=== PATIENT | female | born 1960 | race Caucasian/White ===

== ENCOUNTER 2020-02-19 16:08 | Emergency (ER) | payer MEDICARE, MEDICAID, SELFPAY ==
--- NOTE | ~2020-02-19 | XR_ITS ---
EXAMINATION: XR elbow LT min 3V EXAM DATE: 02/19/2020 17:31 INDICATION: Initial encounter following injury, with pain of the left elbow. TECHNIQUE: Left elbow frontal, lateral with flexion, and oblique projections obtained and reviewed. There is no prior study for comparison. FINDINGS: Left elbow anterior humeral line intact. No acute fracture line identified. There is left elbow joint effusion or hemarthrosis, difficult to exclude radiographically occult fracture. Some pos terior soft tissue swelling. No radiopaque foreign bodies identified. IMPRESSION: Large left elbow joint effusion or hemarthrosis without fracture line identified. Can't exclude radiographically occult fracture. Reviewed, dictated and finalized at location A. IMPRESSION: Large left elbow joint effusion or hemarthrosis without fracture l ine identified. Can't exclude radiographically occult fracture.
--- NOTE | ~2020-02-19 | CT_ITS ---
EXAMINATION: CT elbow LT wo con EXAM DATE: 02/19/2020 19:36 INDICATION: Fall, large left elbow joint effusion. Left elbow pain, clinical concern for fracture. TECHNIQUE: Spiral CT left elbow was performed without contrast. Axial, coronal and sagittal images were reviewed. The dose-length product (DLP) for this examination was 353.97 mGy-cm. The exposure w as tailored according to patient size (auto mA exposure control), and iterative reconstruction (ASIR) was used as additional dose reduction technique. Correlation is made to x-ray same date. FINDINGS: No fracture line is specifically identified. There is large mildly proteinaceous joint with tiny lipomatous component in the nondependent portion, lipohemarthrosis, indicated on axial image 84 . This indicates high likelihood of a radiographically occult nondisplaced fracture. Large amount of posterior soft tissue swelling. Consider orthopedic consult. Follow-up nonemergent MRI would likely be able to identify the source, b ut there may not be any orthopedic intervention specifically needed other than immobilization. IMPRESSION: Large left elbow lipohemarthrosis (only tiny lipomatous component, likely indicating radi ographic occult nondisplaced fracture). Consider orthopedic consult. Reviewed, dictated and finalized at location A. IMPRESSION: Large left elbow lipohemarthrosis (only tiny lipomatous component, likely indicating radiographic occult nondisplaced fracture). Consider orthoped ic consult.
--- NOTE | ~2020-02-19 | XR_ITS ---
EXAMINATION: XR chest 2V EXAM DATE: 02/19/2020 17:32 INDICATION: Preoperative. Seizure. TECHNIQUE: Frontal and lateral projections of the chest obtained and reviewed. There is no prior tessy dy for comparison. FINDINGS: The lungs are clear. There are no pleural effusions. The cardiomediastinal silhouette is within normal limits. There is no pneumothorax suspected. The bones and soft tissues are unremarkab le. IMPRESSION: No acute cardiopulmonary findings. Reviewed, dictated and finalized at location A.
--- NOTE | ~2020-02-19 | XR_ITS ---
EXAMINATION: XR shoulder LT min 2V EXAM DATE: 02/19/2020 17:31 INDICATION: Initial encounter following injury, with pain of the left shoulder. TECHNIQUE: The following left shoulder projections obtained: frontal projection with internal rotatio n, frontal projection with external rotation, Grashey, and scapular Y view (4+ views). There is no p rior study for comparison. FINDINGS: No evidence of left shoulder rotator cuff calcific tendinosis. There is mild glenohumeral , moderate acromioclavicular joint primary osteoarthritis. There are no acute fractures or dislocatio ns identified. There is no subcutaneous gas. The soft tissue is unremarkable. There are no radiop aque foreign bodies. IMPRESSION: Left shoulder exam without acute osseous findings. Reviewed, dictated and finalized at location A.
--- NOTE | ~2020-02-19 | CT_ITS ---
EXAMINATION: CT brain wo con EXAM DATE: 02/19/2020 17:00 INDICATION: Left arm weakness. Transient alteration of awareness. TECHNIQUE: Spiral CT of the head was performed without contrast. Axial, coronal and sagittal images were reviewed. The dose-length product (DLP) for this examination was 605.33 mGy-cm. The exposure w as tailored according to patient size, and iterative reconstruction (ASIR) was used as additional dos e reduction technique. There is no prior study for comparison. FINDINGS: There is no acute intraparenchymal hemorrhage. No evidence of intraparenchymal brain mass lesion. No evidence of acute infarction. There is no mass effect or midline shift. The ventricles are normal in size. There are no extra-axial collections. There are no acute calvarial fractures. P daniel has had bilateral ocular lens surgery. Soft tissue is unremarkable. The visualized sinuses a nd mastoid air cells are well aerated. IMPRESSION: 1. No acute intracranial findings. Reviewed, dictated and finalized at location A.
--- NOTE | ~2020-02-19 | XR_ITS ---
EXAMINATION: XR wrist LT min 3V EXAM DATE: 02/19/2020 17:32 INDICATION: Initial encounter following injury, with pain of the left wrist. TECHNIQUE: Left wrist frontal, frontal with ulnar deviation, oblique and lateral projections obtained and reviewed. There is no prior study for comparison. FINDINGS: Left wrist scapholunate joint space is maintained. There are no acute fractures or dislocat ions identified. There is no subcutaneous gas. There are arterial calcifications, arteriosclerosis. There are no radiopaque foreign bodies. IMPRESSION: No acute osseous findings. Reviewed, dictated and finalized at location A. IMPRESSION: No acute osseous findings.
[2020-02-19 16:19] VITALS: BP 163/77; PULSE 63; RESP 17; TEMP 37.3; O2SAT 98
--- NOTE | 2020-02-19 16:42 | ECG_ITS ---
Measurements Intervals [place] Rate: 58 P: 64 GA: 167 QRS: -28 QRSD: 91 T: 6 QT: 390 QTc: 385 Interpretive Statements SINUS BRADYCARDIA VENTRICULAR PREMATURE COMPLEX LOW QRS VOLTAGE IN PRECORDIAL LEADS BORDERLINE R WAVE PROGRESSION, ANTERIOR LEADS BORDERLINE T WAVE ABNORMALITY- INFERIOR LEADS BASELINE ARTIFACT- I, II, AVR, AVL, AVF BORDERLINE ECG Electronically Signed On 02-19-2020 19:44:14 CDT by Edgar Waters D.O.
[2020-02-19 17:03] LABS: Basophils Percent Auto 0.3 % (0.2-1.2); Eosinophils Absolute Auto 0.1 K/mm3 (0-0.3); Eosinophils Percent Auto 0.9 % (0-4.4); Hematocrit 29.4 % (37.0-47.0); Hemoglobin 9.1 g/dL (12.0-15.0); Immature Granulocyte Absolute 0.01 K/mm3 (0.00-0.031); Immature Granulocyte Percent A 0.2 % (0-0.5); Lymphocytes Absolute Auto 1.47 K/mm3 (0.9-3.2); Lymphocytes Percent Auto 22.7 % (18.3-44.2); Mean Corpuscular Hemoglobin 26.6 pg (26-34); Mean Platelet Volume 10.5 fl (7.4-10.4); Monocytes Absolute Auto 0.7 K/mm3 (0.1-0.6); Neutrophils Absolute Auto 4.2 K/mm3 (1.3-6.7); Neutrophils Percent Auto 64.9 % (45.5-73.1); Platelet Count Result 180 k/mm3 (150-375); Red Blood Count 3.42 M/mm3 (4.2-5.4); Red Cell Distribution Width 13.9 % (11.5-14.5); White Blood Count 6.5 K/mm3 (4.5-10.0)
[2020-02-19 17:11] LABS: Prothrombin Time 12.8 Seconds (11.1-14.7)
[2020-02-19 17:18] LABS: Alanine Aminotransferase 17 U/L (4-35); Albumin Level 3.7 g/dL (3.5-5.1); Alkaline Phosphatase 68 U/L (38-126); Aspartate Amino Transferase 19 U/L (14-36); Bilirubin,Total 0.3 mg/dL (0.2-1.3); Blood Urea Nitrogen 19 mg/dL (7-17); Calcium 8.9 mg/dL (8.4-10.2); Carbon Dioxide 31 mmol/L (22-30); Chloride 105 mmol/L (98-107); Estimated CRCL calculation 70 ml/min; Estimated Glomerular Filt Rate > 60; Glucose 142 mg/dL (65-105); Potassium 4.2 mmol/L (3.4-5.0); Sodium 138 mmol/L (137-145)
--- NOTE | 2020-02-19 17:18 | PC.NURSE ---
Pt in CT scan via stretcher.
[2020-02-19] MEDS: KETOROLAC 30 MG/ML VIAL (*BKC) IV PUSH (17:39)
[2020-02-19 17:40] LABS: CRP 3.8 mg/dL (<1.0)
[2020-02-19 17:42] LABS: Erythrocyte Sedimentation Rate 89 mm/hr (0-20)
[2020-02-19 18:07] VITALS: BP 140/79; PULSE 60; RESP 16; O2SAT 96
[2020-02-19 18:18] LABS: Uric Acid 4.8 mg/dL (2.5-7.5)
[2020-02-19 18:20] LABS: Add Urine Microscopic? YES; Appearance Urine Cloudy (Clear); Bacteria Urine Trace /hpf; Bilirubin Urine Negative (Negative); Blood Urine Negative (Negative); Color Urine Yellow (Yellow); Glucose Urine UA 2+ mg/dL (Negative); Ketones Urine Negative (Negative); Leukocyte Esterase Ur 1+ LEU/UL (Negative); Nitrate Urine Positive (Negative); Protein Urine 1+ mg/dL (Negative); RBC Urine 0-2 /hpf (0-2); Specific Grav Ur 1.019 (1.001-1.035); Squamous Epithelial Cell Urine Occasional /hpf (Few); Urobilinogen Urine Negative mg/dL (<2.0); WBC Urine 21-30 /hpf
--- NOTE | 2020-02-19 18:27 | ED.UPPEXIN ---
HPI - Extremity Injury (Upper) General Chief Complaint: Extremity Injury, Upper <Pam Quach PA-C - Last Filed: 02/19/20 20:47> Stated Complaint: LEFT ARM WEAKNESS, SEIZURE YESTERDAY <Pam Quach PA-C - Last Filed: 02/19/20 20:47> Time Seen by Provider: 02/19/20 16:29 <NARCISA Antoine Last Filed: 02/19/20 20:47> Source: patient <NARCISA Antoine Last Filed: 02/19/20 20:47> Mode of arrival: ambulatory <NARCISA Antoine Last Filed: 02/19/20 20:47> Limitations: no limitations <Pam Quach PA-C - Last Filed: 02/19/20 20:47> History of Present Illness HPI narrative: This is a 59 year old female that presents to the ER for a fall 4 days ago. Reports she was trying to stand up on a chair to reach something and fell. Reports she landed on her left side. Reports since she has had pain in the left arm. Reports swelling and redness of the left elbow that started 2 days ago. Reports last night she had an episode of brief confusion. Reports she was standing up in the kitchen making dinner. Reports she started to feel lightheaded and like she was going to pass out. Reports her significant other caught her and helped her to a chair. He reports she continued to be confused for a couple of minutes. He took her blood sugar and it was normal. Denies fever, hitting her head, loss of consciousness, chest pain, shortness of breath, abdominal pain, vomiting, diarrhea, or hematuria. <Pam Quach PA-C - Last Filed: 02/19/20 20:47> Related Data Home Medications: Home Medications Medication Instructions Recorded Confirmed gabapentin 100 mg capsule 100 mg PO DAILY 09/02/19 insulin glargine 100 unit/mL 100 unit SUB-Q DAILY 09/02/19 subcutaneous solution alprazolam 02/19/20 atorvastatin 02/19/20 calcium carbonate-vitamin D3 tablet PO 02/19/20 [Calcium 600 with Vitamin D3] citalopram mg 05/13/20 escitalopram oxalate mg 02/19/20 gabapentin 02/19/20 lamotrigine 02/19/20 metformin mg 02/19/20 <Pam Quach PA-C - Last Filed: 02/19/20 20:47> Allergies/Adverse Reactions: Allergies Allergy/AdvReac Type Severity Reaction Status Date / Time adhesive Allergy Unknown Unknown Verified 02/19/20 16:23 adhesive tape Allergy Unknown Unknown Verified 02/19/20 16:23 codeine Allergy Unknown Unknown Verified 02/19/20 16:23 <Pam Quach PA-C - Last Filed: 02/19/20 20:47> Review of Systems Review of Systems: Narrative: CONSTITUTIONAL: Denies fever CARDIOVASCULAR: Denies chest pain RESPIRATORY: Denies cough or dyspnea. GASTROINTESTINAL: Denies abdominal pain, nausea, vomiting, or diarrhea. GENITOURINARY: Denies dysuria or hematuria. MUSCULOSKELETAL: Reports joint pain, and myalgia. NEUROLOGIC: Denies numbness, or weakness. <Pam Quach PA-C - Last Filed: 02/19/20 20:47> All systems reviewed & are unremarkable except as noted in HPI and below <Pma Quach PA-C - Last Filed: 02/19/20 20:47> PMFSH Past Medical History Medical History: Medical History (Updated 02/19/20 @ 20:41 by Pam Quach PA-C) Anxiety Arthritis Diabetes DVT (deep venous thrombosis) Latex allergy Seasonal allergic rhinitis Vision loss Weight gain <Pam Quach PA-C - Last Filed: 02/19/20 20:47> Social History Social History: Social History (Updated 09/02/19 @ 10:10 by Leeann Gaming) Smoking status: Never smoker Second hand tobacco smoke exposure: Yes Alcohol intake: never Substance use: unknown Additional occupation/education comments: Disability Gender identity (if verbalized by the patient): Female Spiritual care concerns: No <Pam Quach PA-C - Last Filed: 02/19/20 20:47> Exam Narrative: Exam Narrative: GENERAL: Well-appearing, well-nourished, and in no acute distress. HEAD: Normocephalic, atraumatic. EYES: PERRLA and EOMI. NECK: Supple. No adenopathy or masses. No midline spinal tenderness
[2020-02-19 18:32] LABS: Amphetamine Screen Urine Negative (Negative); Barbiturate Screen Urine Negative (Negative); Benzodiazepines Screen Urine Positive (Negative); Cannabinoid Screen Urine Positive (Negative); Cocaine Screen Urine Negative (Negative); Methadone Screen Urine Negative (Negative); Opiate Screen Urine Negative (Negative); Phencyclidine Screen Urine Negative (Negative)
[2020-02-19 18:54] VITALS: BP 176/85; PULSE 58; RESP 13; O2SAT 96
[2020-02-19 19:50] VITALS: BP 144/78; PULSE 55; RESP 14; O2SAT 97
[2020-02-19 20:58] VITALS: BP 139/67; PULSE 57; RESP 15; TEMP 36.4; O2SAT 99
[2020-02-19 21:04] VITALS: TEMP 36.4
== END 2020-02-19 21:04 | disposition home or self-care (01) ==
PROVIDERS: Physician Assistant; Emergency Provider Emergency Medicine; PCP Family Medicine
DX: M25.422 Effusion, left elbow (principal); R55 Syncope and collapse; N30.00 Acute cystitis without hematuria; W07.XXXA Fall from chair, initial encounter; F41.9 Anxiety disorder, unspecified; M19.90 Unspecified osteoarthritis, unspecified site; E11.9 Type 2 diabetes mellitus without complications; Z86.718 Personal history of other venous thrombosis and embolism; Z79.4 Long term (current) use of insulin; Z79.84 Long term (current) use of oral hypoglycemic drugs; Z79.899 Other long term (current) drug therapy
CPT/HCPCS: 36415; 70450; 71046; 73030; 73080; 73110; 73200; 80053; 80307; 81001; 83605; 84550; 85025; 85610; 85652; 85730; 86140; 87077; 87086; 87088; 87186; 93005; 96374; 99284; A4565; A9270; J1885

== ENCOUNTER 2020-03-04 11:09 | Outpatient (CLI) | payer MEDICARE, MEDICAID, SELFPAY ==
--- NOTE | ~2020-03-04 | MR_ITS ---
EXAMINATION: MR elbow LT wo con DATE: 03/04/2020 13:30 INDICATION: Left elbow pain. TECHNIQUE: Magnetic resonance imaging (MRI) of the left elbow was performed without intravenous contr ast. Sequences included coronal, axial, and sagittal T1-weighted FSE and STIR FSE. COMPARISON: Left elbow radiographs 02/24/2020, 02/19/2020, CT 02/19/2020 FINDINGS: Osseous/other: Bone alignment is normal. No fracture. There is mild elbow joint osteoarthritis with areas of cartila ge loss and mild subchondral edema-like marrow signal intensity. Tendons: There is mild common extensor tendinopathy with mild bone marrow edema of the lateral humeral epicond yle. The common flexor tendon is normal. There is mild bone marrow edema of the medial humeral epicon dyle. There is subcutaneous edema overlying the medial and lateral humeral epicondyles, lateral worse than medial. Biceps tendon and brachialis tendon are normal. The triceps tendon is normal. Ligaments: Ulnar collateral ligament is normal. There are partial tears of radial collateral ligament and latera l ulnar collateral ligament at their proximal attachments. Cubital tunnel: There is increased signal in ulnar nerve, consistent with neuropathy. Fluid: There is an elbow joint effusion. IMPRESSION: 1. Mild elbow joint osteoarthritis. 2. Elbow joint effusion. 3. Partial tears of radial collateral ligament and lateral ulnar collateral ligament. 4. Mild common extensor tendinopathy. Reviewed, dictated and finalized at location A. IMPRESSION: 1. Mild elbow joint osteoarthritis. 2. Elbow joint effusion. 3. Partial tears of radial collateral ligament and lateral ulnar collateral lig ament. 4. Mild common extensor tendinopathy.
== END 2020-03-04 11:10 | disposition home or self-care (01) ==
PROVIDERS: PCP Family Medicine; Visit Provider Orthopaedic Surgery
DX: M19.022 Primary osteoarthritis, left elbow (principal); M25.422 Effusion, left elbow
CPT/HCPCS: 73221

== ENCOUNTER 2020-04-09 10:57 | Outpatient (CLI) | payer MEDICARE, MEDICAID, SELFPAY ==
--- NOTE | 2020-04-09 12:00 | NEURO_ITS ---
Patient Number: [id number] Impression: # Complains of leg pain. Known insulin dependent diabetic. # Neuropathy. # Needle/EMG exam revealed no fibrillations, myotonia but scarcity of motor unit potentials. # Clinical correlation recommended Nerve Conduction Studies Anti Sensory Summary Table Stim Site NR Peak (ms) P-T Amp (?V) Site1 Site2 Delta-P (ms) Dist (cm) Roel (m/s) Left Sup Fibular Anti Sensory (Ant Lat Mall) 14 cm 3.9 9.3 14 cm Ant Lat Mall 3.9 16.0 41 Right Sup Fibular Anti Sensory (Ant Lat Mall) 14 cm 3.1 7.4 14 cm Ant Lat Mall 3.1 16.0 52 Left Sural Anti Sensory (Lat Mall) Calf 3.9 4.7 Calf Lat Mall 3.9 16.0 41 Right Sural Anti Sensory (Lat Mall) Calf 3.5 7.3 Calf Lat Mall 3.5 16.0 46 Motor Summary Table Stim Site NR Onset (ms) O-P Amp (mV) Site1 Site2 Delta-0 (ms) Dist (cm) Roel (m/s) Left Peroneal Motor (Vastus Med) Ankle 5.1 0.9 Popit Ankle 9.6 37.0 39 Popit 14.7 0.8 Right Peroneal Motor (Vastus Med) Ankle 5.5 0.2 Popit Ankle 8.5 36.0 42 Popit 14.0 0.5 Left Tibial Motor (Abd Voss Brev) Ankle 5.2 0.5 Knee Ankle 9.4 38.0 40 Knee 14.6 0.2 Right Tibial Motor (Abd Voss Brev) Ankle 5.9 0.4 Knee Ankle 10.2 41.0 40 Knee 16.1 0.7 F Wave Studies NR F-Lat (ms) L-R F-Lat (ms) Left Peroneal (Mrkrs) (EDB) 57.34 0.62 Right Peroneal (Mrkrs) (EDB) 56.73 0.62 Left Tibial (Mrkrs) (Abd Hallucis) 56.14 0.33 Right Tibial (Mrkrs) (Abd Hallucis) 55.81 0.33 EMG Side Muscle Nerve Root Ins Act Fibs Amp Dur Recrt Comment Right AntTibialis Dp Br Fibular L4-5 Nml Nml Nml Nml Reduced Right Gastroc Tibial S1-2 Nml Nml Nml Nml Reduced Right Fibularis Long Sup Br Fibular L5-S1 Nml Nml Nml Nml Reduced Right Flex Dig Long Tibial L5-S2 Nml Nml Nml Nml Reduced Right Ext Dig Brev Dp Br Fibular L5, S1 Nml Nml Nml Nml Reduced Left AntTibialis Dp Br Fibular L4-5 Nml Nml Nml Nml Reduced Left Gastroc Tibial S1-2 Nml Nml Nml Nml Reduced Left Fibularis Long Sup Br Fibular L5-S1 Nml Nml Nml Nml Reduced Left Flex Dig Long Tibial L5-S2 Nml Nml Nml Nml Reduced Left Ext Dig Brev Dp Br Fibular L5, S1 Nml Nml Nml Nml Reduced Right QuadratusFem QuadFemoris L4-5, S1 Nml Nml Nml Nml Reduced Left QuadratusFem QuadFemoris L4-5, S1 Nml Nml Nml Nml Reduced MTDD
== END 2020-04-09 10:58 | disposition home or self-care (01) ==
PROVIDERS: PCP Family Medicine; Visit Provider Psychiatry & Neurology Neurology
DX: G62.9 Polyneuropathy, unspecified (principal)
CPT/HCPCS: 95886; 95910

== ENCOUNTER 2020-06-04 06:30 | Emergency (ER) | payer MEDICARE, MEDICAID, SELFPAY ==
--- NOTE | ~2020-06-04 | XR_ITS ---
EXAMINATION: XR chest 1V portable EXAM DATE: 06/04/2020 07:53 INDICATION: Cough, body aches. TECHNIQUE: Portable AP frontal chest x-ray was obtained. Comparison is made to prior examination from 02/19/2020. FINDINGS: The lungs are clear. There are no pleural effusions. The cardiomediastinal silhouette is within normal limits. There is no pneumothorax suspected. The bones and soft tissues are unremarkab le. IMPRESSION: No acute cardiopulmonary findings. Reviewed, dictated and finalized at location A.
[2020-06-04 06:34] VITALS: BP 116/61; PULSE 62; RESP 20; TEMP 36.3; O2SAT 98
[2020-06-04 06:50] VITALS: O2SAT 99
--- NOTE | 2020-06-04 08:24 | ED.URI ---
HPI - URI/Sore Throat General Chief Complaint: Upper Respiratory Infection Stated Complaint: cough Time Seen by Provider: 06/04/20 07:09 Source: RN notes reviewed History of Present Illness HPI Narrative: Patient presents emergency department from home for upper respiratory infection. Patient states symptoms began approximately 5 days ago. She states she had a cough that was productive of greenish phlegm and a sore throat. She believes the sore throat is secondary to coughing. She denies having any fevers or chills rhinorrhea ear pain shortness of breath chest pain abdominal pain nausea vomiting diarrhea or any other symptoms. Related Data Home Medications Medication Instructions Recorded Confirmed gabapentin 100 mg capsule 100 mg PO DAILY 09/02/19 insulin glargine 100 unit/mL 100 unit SUB-Q DAILY 09/02/19 subcutaneous solution alprazolam 02/19/20 atorvastatin 02/19/20 calcium carbonate-vitamin D3 tablet PO 02/19/20 [Calcium 600 with Vitamin D3] citalopram mg 02/19/20 escitalopram oxalate mg 02/19/20 gabapentin 02/19/20 lamotrigine 02/19/20 metformin mg 02/19/20 Allergies Allergy/AdvReac Type Severity Reaction Status Date / Time adhesive Allergy Unknown Unknown Verified 02/24/20 12:22 adhesive tape Allergy Unknown Unknown Verified 02/24/20 12:22 codeine Allergy Unknown Unknown Verified 02/24/20 12:22 Review of Systems Review of Systems: Narrative: Gen.: Denies fevers or chills Eyes: Denies eye pain or visual change ENT: Denies congestion reports sore throat Respiratory: Denies shortness of breath reports cough CV: Denies chest pain or palpitations GI: Denies abdominal pain nausea, emesis or diarrhea denies burning, urgency, frequency or hematuria Musculoskeletal: Denies back pain or muscle pain Neuro: Denies numbness, tingling, weakness or focal weakness Skin: Denies rash Except as documented, all other systems reviewed and negative PMFSH Past Medical History Medical History Anxiety Arthritis Diabetes DVT (deep venous thrombosis) Latex allergy Seasonal allergic rhinitis Vision loss Weight gain Social History Social History Smoking status: Never smoker Second hand tobacco smoke exposure: Yes Alcohol intake: never Substance use: unknown Additional occupation/education comments: Disability Gender identity (if verbalized by the patient): Female Spiritual care concerns: No Exam Narrative: Exam Narrative: APPEARANCE: No acute distress, nontoxic, resting in bed EYES: EOMI HEENT: Normocephalic, atraumatic, TMs clear bilaterally, nares pain or mucosa moist, no erythema or exudate posterior pharynx RESPIRATORY: No respiratory distress Clear to auscultation bilaterally with no rhonchi wheezing or rales. CARDIOVASCULAR: Regular rate and rhythm without murmurs rubs or gallops. ABDOMINAL: Soft, nontender, nondistended, no rebound or guarding MUSCULOSKELETAl: Moves all extremities. No clubbing, cyanosis or edema. NEURO: Awake and alert. Following commands, speech normal, no focal deficits SKIN:: Warm, dry. No rashes lesions or abrasions PSYCHIATRIC: Normal affect/mood, Course Course Emergency Course: Discussed with patient will obtain COVID swab. Discussed need for self quarantine until those are returned Discussed with patient results of workup and diagnosis. Discussed need for follow-up with primary care, proper use of medication, and reasons to return to the emergency department. Patient understands and agrees to current treatment plan Vital Signs Vital signs: Vital Signs Temperature 97.3 F L 06/04/20 06:34 Pulse Rate 62 06/04/20 06:34 Respiratory Rate 20 06/04/20 06:34 Blood Pressure 116/61 06/04/20 06:34 Pulse Oximetry 98 06/04/20 06:34 Temperature 97.3 F L 06/04/20 06:34 Pulse Rate 62 06/04/20 06:34 Respiratory Rate 20
[2020-06-04 08:37] VITALS: BP 132/70; PULSE 78; RESP 18; O2SAT 98
[2020-06-04 19:19] LABS: SARS-CoV-2 RNA PCR Negative
== END 2020-06-04 08:35 | disposition home or self-care (01) ==
PROVIDERS: Emergency Provider Emergency Medicine; PCP Family Medicine
DX: R05 Cough (principal); Z20.828 Contact with and (suspected) exposure to other viral communicable diseases; E11.9 Type 2 diabetes mellitus without complications; F41.9 Anxiety disorder, unspecified; Z86.718 Personal history of other venous thrombosis and embolism; Z79.4 Long term (current) use of insulin; Z79.84 Long term (current) use of oral hypoglycemic drugs
CPT/HCPCS: 71045; 87081; 87635; 87880; 99283; C9803; U0003

== ENCOUNTER 2020-06-30 13:43 | Outpatient (CLI) | payer MEDICARE, MEDICAID, SELFPAY ==
--- NOTE | ~2020-06-30 | MR_ITS ---
EXAMINATION: MR lumbar spine wo con DATE: 06/30/2020 15:39 INDICATION: Low back pain. TECHNIQUE: Magnetic resonance imaging (MRI) of the lumbar spine was performed without intravenous con trast. Sequences included sagittal T2-weighted FSE, sagittal T2-weighted FS FSE, sagittal T1-weighted FSE, and axial T2-weighted FSE. COMPARISON: Lumbar spine MRI 06/27/2013 FINDINGS: There is 17 degrees levoscoliosis of lumbar spine. There are chronic bilateral L5 pars defe cts. There is 6 mm anterolisthesis of L5 on S1. There is 4 mm retrolisthesis of L3 on L4. There is a Schmorl's node superior endplate of L3. There is severely decreased disc height at L3-L4 and L5-S1. T he distal spinal cord signal intensity is normal. The conus medullaris is at T12. The following disc levels are specifically discussed: L1-L2: The disc does not extend beyond the endplate margin. There is mild bilateral facet joint osteo arthritis. There is no neural foraminal stenosis. There is no central canal stenosis. L2-L3: The disc is bulging. There is mild bilateral facet joint osteoarthritis. There is mild bilater al neural foraminal stenosis. There is mild central canal stenosis. L3-L4: The disc is bulging. There is severe right and moderate left facet joint osteoarthritis. There is moderate right and mild left neural foraminal stenosis. There is mild central canal stenosis. L4-L5: The disc is bulging and has an annular fissure. There is severe bilateral facet joint osteoart hritis. There is mild bilateral neural foraminal stenosis. There is mild central canal stenosis. L5-S1: The disc is bulging. There is severe bilateral facet joint osteoarthritis. There is moderate b ilateral neural foraminal stenosis. There is mild central canal stenosis. IMPRESSION: 1. Severe lumbar spondylosis, worsened from 06/27/2013. 2. Lumbar levoscoliosis. 3. Chronic bilateral L5 pars defects with grade 1 anterolisthesis of L5 on S1. Reviewed, dictated and finalized at location A.
[2020-06-30 15:16] LABS: Basophils Percent Auto 0.4 % (0.2-1.2); Eosinophils Absolute Auto 0.1 K/mm3 (0-0.3); Hematocrit 31.5 % (37.0-47.0); Hemoglobin 9.7 g/dL (12.0-15.0); Lymphocytes Absolute Auto 2.23 K/mm3 (0.9-3.2); Lymphocytes Percent Auto 39.6 % (18.3-44.2); Mean Corpuscular HGB Conc 30.8 g/dl (32-36); Mean Corpuscular Hemoglobin 26.1 pg (26-34); Mean Corpuscular Volume 84.7 fl (80-100); Mean Platelet Volume 10.7 fl (7.4-10.4); Monocytes Absolute Auto 0.5 K/mm3 (0.1-0.6); Monocytes Percent Auto 8.5 % (2.6-8.5); Neutrophils Absolute Auto 2.8 K/mm3 (1.3-6.7); Neutrophils Percent Auto 49.5 % (45.5-73.1); Platelet Count Result 204 k/mm3 (150-375); Red Blood Count 3.72 M/mm3 (4.2-5.4); Red Cell Distribution Width 15.1 % (11.5-14.5); White Blood Count 5.6 K/mm3 (4.5-10.0)
[2020-06-30 15:27] LABS: Alanine Aminotransferase 33 U/L (4-35); Albumin Level 3.8 g/dL (3.5-5.1); Alkaline Phosphatase 63 U/L (38-126); Anion Gap 3 mmol/L (8-16); Aspartate Amino Transferase 35 U/L (14-36); Bilirubin,Total 0.4 mg/dL (0.2-1.3); Blood Urea Nitrogen 21 mg/dL (7-17); Calcium 9.4 mg/dL (8.4-10.2); Carbon Dioxide 29 mmol/L (22-30); Chloride 108 mmol/L (98-107); Estimated Glomerular Filt Rate > 60; Glucose 65 mg/dL (65-105); Potassium 3.9 mmol/L (3.4-5.0); Sodium 140 mmol/L (137-145)
[2020-06-30 16:33] LABS: Folic Acid 14.7 ng/mL (2.76->20)
[2020-06-30 16:38] LABS: Vitamin D 25 Hydroxy 31.1 ng/mL
== END 2020-06-30 13:44 | disposition home or self-care (01) ==
PROVIDERS: PCP Family Medicine; Visit Provider Psychiatry & Neurology Neurology
DX: G62.9 Polyneuropathy, unspecified (principal); M47.896 Other spondylosis, lumbar region
CPT/HCPCS: 36415; 72148; 80053; 82306; 82607; 82746; 85025

== ENCOUNTER 2020-10-21 15:14 | Outpatient (CLI) | payer MEDICARE, MEDICAID, SELFPAY ==
--- NOTE | ~2020-10-21 | MM_ITS ---
EXAMINATION: MM screening amy BI w annalisa HISTORY: Screening TECHNIQUE: Craniocaudal and mediolateral oblique 3-D tomosynthesis images were obtained and synthetic 2-D images were generated. CAD analysis was submitted and interpreted. COMPARISON: 08/27/2019 BREAST PARENCHYMAL COMPOSITION: The breasts are heterogenously dense, which may obscure small masses. FINDINGS: There is no evidence of suspicious mass, calcification, or architectural distortion to sugg est malignancy in either breast. There has been no suspicious interval change. IMPRESSION: 1. No mammographic evidence of malignancy. 2. Recommend routine screening mammography in one year. BI-RADS Category 2: Benign finding(s). Reviewed, dictated and finalized at location A. S MGR
== END 2020-10-21 15:15 | disposition home or self-care (01) ==
LOC: ANHIMG 15:17
PROVIDERS: PCP Family Medicine; Visit Provider Physician Assistant
DX: Z12.31 Encounter for screening mammogram for malignant neoplasm of breast (principal)
CPT/HCPCS: 77063; 77067

== ENCOUNTER 2020-12-09 09:56 | Outpatient (CLI) | payer MEDICARE, MEDICAID, SELFPAY ==
--- NOTE | 2020-12-09 12:00 | NEURO_ITS ---
Impression: # Insulin dependent diabetic complains of increasing numbness of hands. 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 # Carpal Tunnel Syndrome, left more than right. # Right ulnar neuropathy across the elbow. # Needle/EMG exam mildly abnormal. Nerve Conduction Studies Anti Sensory Summary Table Stim Site NR Peak (ms) P-T Amp (?V) Site1 Site2 Delta-P (ms) Dist (cm) Roel (m/s) Left Median Anti Sensory (2-3nd Digit) Wrist 9.0 8.4 Wrist 2-3nd Digit 9.0 14.0 16 Wrist 8.4 22.5 Wrist 2-3nd Digit 9.0 14.0 16 Right Median Anti Sensory (2-3nd Digit) Wrist 10.0 5.7 Wrist 2-3nd Digit 10.0 14.0 14 Wrist 9.1 4.6 Wrist 2-3nd Digit 10.0 14.0 14 Left Radial Anti Sensory (Base 1st Digit) Wrist 3.8 3.5 Wrist Base 1st Digit 3.8 0.0 Right Radial Anti Sensory (Base 1st Digit) Wrist 2.9 5.1 Wrist Base 1st Digit 2.9 0.0 Left Ulnar Anti Sensory (5th Digit) Wrist 3.1 46.8 Wrist 5th Digit 3.1 14.0 45 Right Ulnar Anti Sensory (5th Digit) Wrist 4.3 18.0 Wrist 5th Digit 4.3 14.0 33 Motor Summary Table Stim Site NR Onset (ms) O-P Amp (mV) Site1 Site2 Delta-0 (ms) Dist (cm) Roel (m/s) Left Median Motor (Abd Poll Brev) Wrist 9.8 1.5 Elbow Wrist 5.3 26.0 49 Elbow 15.1 0.8 Right Median Motor (Abd Poll Brev) Wrist 5.7 1.3 Elbow Wrist 5.4 27.0 50 Elbow 11.1 1.3 Left Ulnar Motor (Abd Dig Minimi) Wrist 3.9 5.3 A Elbow Wrist 5.2 28.0 54 A Elbow 9.1 4.2 Right Ulnar Motor (Abd Dig Minimi) Wrist 3.3 4.2 A Elbow Wrist 5.5 27.0 49 A Elbow 8.8 3.5 F Wave Studies NR F-Lat (ms) L-R F-Lat (ms) Left Median (Mrkrs) (Abd Poll Brev) 37.31 1.75 Right Median (Mrkrs) (Abd Poll Brev) 39.06 1.75 Left Ulnar (Mrkrs) (Abd Dig Min) 35.56 2.04 Right Ulnar (Mrkrs) (Abd Dig Min) 37.60 2.04 EMG Side Muscle Nerve Root Ins Act Fibs Amp Dur Recrt Comment Right 1stDorInt Ulnar C8-T1 Nml Nml Nml >12ms Reduced Right Ext Indicis Radial (Post Int) C7-8 Nml Nml Nml Nml Nml Right Ext Digitorum Radial (Post Int) C7-8 Nml Nml Nml Nml Nml Right BrachioRad Radial C5-6 Nml Nml Nml Nml Nml Right PronatorTeres Median C6-7 Nml Nml Nml Nml Nml Right Abd Poll Brev Median C8-T1 Nml Nml Nml >12ms Reduced Left 1stDorInt Ulnar C8-T1 Nml Nml Nml Nml Nml Left Ext Indicis Radial (Post Int) C7-8 Nml Nml Nml Nml Nml Left Ext Digitorum Radial (Post Int) C7-8 Nml Nml Nml Nml Nml Left BrachioRad Radial C5-6 Nml Nml Nml Nml Nml Left PronatorTeres Median C6-7 Nml Nml Nml Nml Nml Left Abd Poll Brev Median C8-T1 Nml Nml Nml >12ms Reduced MTDD
== END 2020-12-09 09:57 | disposition home or self-care (01) ==
PROVIDERS: PCP Physician Assistant; Visit Provider Psychiatry & Neurology Neurology
DX: R20.2 Paresthesia of skin (principal)
CPT/HCPCS: 95886; 95911

== ENCOUNTER 2021-02-27 10:06 | Outpatient (CLI) | payer MEDICARE, MEDICAID, SELFPAY ==
--- NOTE | ~2021-02-27 | US_ITS ---
EXAMINATION: US retroperitoneal comp DATE: 02/27/2021 14:54 INDICATION: Chronic cystitis without hematuria TECHNIQUE: Multiple grayscale and Doppler ultrasound images of the kidneys were obtained. COMPARISON: 12/28/2011 FINDINGS: The right kidney measures 10.9 x 4.9 x 5.5 cm. The left kidney measures 10.2 x 4.7 x 5.5 cm . The kidneys demonstrate normal parenchymal echogenicity. There is no hydronephrosis. The bladder is normal. IMPRESSION: 1. Normal kidneys without hydronephrosis. Reviewed, dictated and finalized at location A.
== END 2021-02-27 10:07 | disposition home or self-care (01) ==
PROVIDERS: PCP Physician Assistant; Visit Provider Urology
DX: N30.20 Other chronic cystitis without hematuria (principal)
CPT/HCPCS: 76770

== ENCOUNTER → 2021-03-16 02:13 | Outpatient (CLI) | payer MEDICARE, MEDICAID, SELFPAY ==
[2021-03-16 23:32] LABS: SARS-CoV-2 RNA PCR Negative
== END ==
PROVIDERS: PCP Physician Assistant; Visit Provider Orthopaedic Surgery
DX: Z01.812 Encounter for preprocedural laboratory examination (principal); Z20.822 Contact with and (suspected) exposure to COVID-19
CPT/HCPCS: C9803; U0003; U0005

== ENCOUNTER 2021-03-16 10:07 | Outpatient (CLI) | payer MEDICARE, MEDICAID, SELFPAY ==
[2021-03-16 09:57] LABS: Hematocrit 30.1 % (37.0-47.0); Hemoglobin 8.9 g/dL (12.0-15.0)
[2021-03-16 10:10] LABS: Anion Gap 7 mmol/L (8-16); Blood Urea Nitrogen 24 mg/dL (7-17); Calcium 9.1 mg/dL (8.4-10.2); Carbon Dioxide 27 mmol/L (22-30); Chloride 109 mmol/L (98-107); Estimated Glomerular Filt Rate > 60; Glucose 75 mg/dL (65-105); Potassium 4.5 mmol/L (3.4-5.0); Sodium 143 mmol/L (137-145)
== END 2021-03-16 10:08 ==
LOC: ANHSURGERY 03-26 10:08
PROVIDERS: Anesthesiology; PCP Physician Assistant; Visit Provider Orthopaedic Surgery
DX: Z01.818 Encounter for other preprocedural examination (principal); E11.9 Type 2 diabetes mellitus without complications; D64.9 Anemia, unspecified
CPT/HCPCS: 36415; 80048; 85014; 85018

== ENCOUNTER 2021-03-19 00:41 | Day surgery (SDC) | payer MEDICARE, MEDICAID, SELFPAY ==
[2021-03-09 18:16] VITALS: BMI 26.6
--- NOTE | 2021-03-19 06:56 | WPDANESEPPF ---
Anes - Initial Pre Proc Eval Procedure: Operation Date: 03/19/21 07:30 Proposed Procedures p Right Carpal Tunnel Release, Right Ulnar Nerve Decompression - Hamlet Aden MD Date/Time: 03/19/21 06:56 Surgeon: Hamlet Aden MD Pre Op Diagnosis: right carpal tunnel syndrome Patient Data Age: 60 Gender: F Height: 5 ft 5 in Weight: 72.72 kg Allergies Allergy/AdvReac Type Severity Reaction Status Date / Time codeine Allergy Intermediate Vomiting Verified 03/19/21 06:49 latex Allergy Intermediate Rash Verified 03/19/21 06:49 adhesive tape Allergy Mild Rash Verified 03/19/21 06:49 Home Medications Medication Instructions Recorded Confirmed Type insulin glargine 100 unit/mL 20 unit SUB-Q BID 09/02/19 03/19/21 History subcutaneous solution alprazolam 1 mg PO TID 02/19/20 03/19/21 History atorvastatin 10 mg PO DAILY 02/19/20 03/19/21 History calcium carbonate-vitamin D3 1 tablet PO DAILY 02/19/20 03/19/21 History [Calcium 600 with Vitamin D3] citalopram 20 mg PO DAILY 02/19/20 03/19/21 History escitalopram oxalate 20 mg PO DAILY 02/19/20 03/19/21 History trazodone 50 mg tablet 50 mg PO QHS PRN 02/04/21 03/19/21 History ferrous sulfate [iron] 325 mg PO DAILY 03/09/21 03/19/21 History gabapentin 800 mg PO QID 03/09/21 03/19/21 History oxycodone-acetaminophen 10 mg-325 1 tablet PO Q8H PRN #50 tablet 03/09/21 03/19/21 Rx mg tablet Patient hx anesthesia problems: other (early awakening) Family hx anesthesia problems: none PMFSH Past Medical History Medical History Anemia Anxiety Arthritis Carpal tunnel syndrome of right wrist Cervicalgia Depression Diabetes DVT (deep venous thrombosis) Hyperlipidemia Latex allergy Lumbago Seasonal allergic rhinitis Vision loss Weight gain Surgical History Surgical History H/O resection of stomach Family History Family History Father Family history of obesity Family history of lung disease Family history of congestive heart failure Family history of heart disease in male family member before age 55 Family history of hearing loss Patient's father is Family history of mental disorder Depression Family history of cataracts Family history of alcoholism Family history of arthritis Family history of chronic obstructive pulmonary disease Family history of diabetes mellitus in first degree relative Family history of coronary artery disease Mother Family history of mental disorder Depression Family history of alcoholism Family history of chronic obstructive pulmonary disease Family history of coronary artery disease Family history of renal failure Family history of congestive heart failure Family history of heart disease in male family member before age 55 Patient's mother is Sibling Family history of mental disorder Depression Patient's sister is in good health Family history of alcoholism Family history of lung cancer Family history of lung disease Family history of seizure disorder Other Family history of attention deficit hyperactivity disorder (ADHD) Social History Social History Smoking status: Never smoker Second hand tobacco smoke exposure: Yes Alcohol intake: never Substance use: current Substance use type: marijuana Other substance usage details: marijuana daily Living arrangements: with family Additional occupation/education comments: Disability Gender identity (if verbalized by the patient): Female Spiritual care concerns: No Anes - Eval Final PreProcedure Day of Procedure 03/19/21 06:56 Patient weight: overweight Heart: regular rate and rhythm Lungs: decreased breath sounds Airway: Mallampati scale class
[2021-03-19] MEDS: ACETAMINOPHEN 500 MG TABLET 1000 MG PO (07:04)
--- NOTE | 2021-03-19 07:06 | WPDHPUPDATE1 ---
History and Physical Update Update Date/Time: 03/19/21 07:06 History and Physical has been reviewed, including an updated exam of the patient. There are NO changes in the patient's condition. Risks, benefits, and alternatives have been discussed and questions answered. Patient agrees to proceed with procedure.
[2021-03-19] MEDS: LACTATED RINGERS 1,000 ML 30 ML IV CONT ×2 (07:10→09:01)
[2021-03-19] MEDS: KETOROLAC 15 MG/ML VIAL (*BKC) IV PUSH (07:10)
[2021-03-19 07:16] LABS: Glucose Point of Care 42 mg/dl (65-105)
[2021-03-19 07:16] LABS: Glucose Point of Care 39 mg/dl (65-105)
[2021-03-19] MEDS: DEXTROSE 50% 25 GM/50 ML SYRINGE IV PUSH (07:20)
--- NOTE | 2021-03-19 07:22 | PM.HPGS ---
History of Present Illness History of Present Illness Consent: Risks, benefits, and alternatives have been discussed and questions answered. Patient agrees to proceed with procedure. Chief complaint: right carpal tunnel syndrome Narrative: Linda Bruce is a 60 year old female complains of Bilateral hand and wrist numbness and pain. Chronic progressive symptoms over many years. Multiple medical comorbidities. DIAGNOSTICS: I reviewed the EMG nerve conduction study which shows severe chronic bilateral carpal tunnel syndrome and ulnar neuropathy at the elbow. Radiographs of the left wrist show osteopenia. Minimal scattered degenerative changes. Review of Systems Review of Systems: Narrative: Gen.: Denies fevers or chills Eyes: Denies eye pain or visual change ENT: Denies congestion reports sore throat Respiratory: Denies shortness of breath reports cough CV: Denies chest pain or palpitations GI: Denies abdominal pain nausea, emesis or diarrhea denies burning, urgency, frequency or hematuria Musculoskeletal: Denies back pain or muscle pain Neuro: Denies numbness, tingling, weakness or focal weakness Skin: Denies rash Except as documented, all other systems reviewed and negative [facility] Past Medical History Medical History Anemia Anxiety Arthritis Carpal tunnel syndrome of right wrist Cervicalgia Depression Diabetes DVT (deep venous thrombosis) Hyperlipidemia Latex allergy Lumbago Seasonal allergic rhinitis Vision loss Weight gain Surgical History Surgical History H/O resection of stomach Family History Family History Father Family history of obesity Family history of lung disease Family history of congestive heart failure Family history of heart disease in male family member before age 55 Family history of hearing loss Patient's father is Family history of mental disorder Depression Family history of cataracts Family history of alcoholism Family history of arthritis Family history of chronic obstructive pulmonary disease Family history of diabetes mellitus in first degree relative Family history of coronary artery disease Mother Family history of mental disorder Depression Family history of alcoholism Family history of chronic obstructive pulmonary disease Family history of coronary artery disease Family history of renal failure Family history of congestive heart failure Family history of heart disease in male family member before age 55 Patient's mother is Sibling Family history of mental disorder Depression Patient's sister is in good health Family history of alcoholism Family history of lung cancer Family history of lung disease Family history of seizure disorder Other Family history of attention deficit hyperactivity disorder (ADHD) Social History Social History Smoking status: Never smoker Second hand tobacco smoke exposure: Yes Alcohol intake: never Substance use: current Substance use type: marijuana Other substance usage details: marijuana daily Living arrangements: with family Additional occupation/education comments: Disability Gender identity (if verbalized by the patient): Female Spiritual care concerns: No Meds Home Medications and Allergies Home Medications Medication Instructions Recorded Confirmed Type insulin glargine 100 unit/mL 20 unit SUB-Q BID 09/02/19 03/19/21 History subcutaneous solution alprazolam 1 mg PO TID 02/19/20 03/19/21 History atorvastatin 10 mg PO DAILY 02/19/20 03/19/21 History calcium carbonate-vitamin D3 1 tablet PO DAILY 02/19/20 03/19/21 History [Calcium 600 with Vitamin D3] citalopram 20 mg PO DAILY 02/19/20 03/19/21 History
[2021-03-19] MEDS: DEXTROSE 5% IN WATER 500 ML 100 ML IV CONT (07:25)
[2021-03-19 07:42] VITALS: BP 137/75; PULSE 64; TEMP 35.8; O2SAT 100
--- NOTE | 2021-03-19 07:44 | W.PM.PROC2 ---
Procedure Note - Detailed Date of Procedure 03/19/21 Pre-op Diagnosis 1. Right carpal tunnel syndrome 2. Right Cubital tunnel syndrome Post-op Diagnosis same Procedure Performed Right 1. Carpal tunnel release 2. Cubital tunnel decompression Surgeon Hamlet Aden MD Cargo Inspector Felipa Voss PA-C Anesthesia general Description of Procedure Operative details. After sedation was administer, the hand was prepped and draped in the usual sterile fashion. The proposed incision was marked using typical anatomic landmarks. 4ML 0.5% Marcaine with epinephrine was injected along the incision line and at the distal forearm. The limb was exsanguinated and the tourniquet inflated to 250 millimeters of mercury. A longitudinal incision was taken sharply. Dissection was brought down to the transverse carpal ligament. Under direct vision the ligament was incised sharply. The proximal release was carried out with dissection scissors. The contents of the carpal canal were protected with a [place] elevator. The transverse carpal ligament was confirmed to be widely patent. Skin closure with 3-0 Prolene. Attention was turned to the elbow. A longitudinal incision was created posterior to the medial epicondyle. Careful dissection was brought down to the ulnar nerve. It was identified proximally and dissected to the cubital tunnel retinaculum. Careful dissection released the cubital tunnel retinaculum. The dissection was carried out to the flexor carpi the palmaris. The 1st motor branch was carefully identified and protected. Attention was turned proximally in the nerve was released proximal to the intermuscular septum. The arm was flexed and the nerve was assessed. The nerve was stable. The course of the nerve was very nice without evidence of compression or instability. The tourniquet was released to assure that there was no significant bleeding. Meticulous hemostasis was maintained. The subcutaneous tissues were closed with 2-0 Vicryl suture. The skin was closed with interrupted 3-0 Monocryl suture followed by running 4-0 Monocryl suture and Steri-Strips. Sterile dressing was applied with a soft splint at the wrist and a hard splint at the elbow. The patient was extubated and brought to the recovery room in stable condition. Estimated Blood Loss 5 Pathology none sent Complications No immediate complications Condition stable Disposition PACU
--- NOTE | 2021-03-19 07:46 | SUR.PREOP ---
0710- PT BLOOD SUGAR 42, RECHECK 40. PT STATED SHE TOOK INSULIN LAST NIGHT AT DINNER TIME. SPOKE WITH DR. THOMPSON AND HE STATED TO GIVE 1/2 AMP OF D50 AND START DEXTROSE 5% PER IV (500 ML BAG). PT GIVEN D50 AND OTHER HALF OF SYRINGE GIVEN TO PURNIMA HELTON. BLOOD SUGAR WILL BE RECHECKED IN OR.
[2021-03-19] MEDS: ceFAZolin SODIUM 1 GM VIAL 2 GM IV PUSH (07:56)
[2021-03-19] MEDS: BUPIVACAINE/EPINEPHRINE 0.5% 10 ML VIAL 50 ML INFILTRATE (07:57)
[2021-03-19 09:01] VITALS: BP 116/49; PULSE 83; RESP 14; TEMP 36.1; O2SAT 100
[2021-03-19 09:15] VITALS: BP 122/66; PULSE 85; RESP 14; O2SAT 100
[2021-03-19 09:30] VITALS: BP 131/66; PULSE 86; RESP 14; O2SAT 100
[2021-03-19 09:35] LABS: Glucose Point of Care 79 mg/dl (65-105)
[2021-03-19 09:35] LABS: Glucose Point of Care 88 mg/dl (65-105)
[2021-03-19 09:45] VITALS: BP 111/68; PULSE 82; RESP 16
[2021-03-19 09:46] LABS: Glucose Point of Care 73 mg/dl (65-105)
[2021-03-19 09:52] VITALS: BP 149/86; PULSE 98; RESP 16
== END 2021-03-19 10:36 | disposition home or self-care (01) ==
PROVIDERS: PCP Physician Assistant; Visit Provider Orthopaedic Surgery
PROC: (CPT 64721; principal; 2021-03-19 07:30)
DX: G56.01 Carpal tunnel syndrome, right upper limb (principal); G56.21 Lesion of ulnar nerve, right upper limb; Z79.4 Long term (current) use of insulin; E11.9 Type 2 diabetes mellitus without complications; E78.5 Hyperlipidemia, unspecified; F41.8 Other specified anxiety disorders; D64.9 Anemia, unspecified; Z86.718 Personal history of other venous thrombosis and embolism; F12.90 Cannabis use, unspecified, uncomplicated
CPT/HCPCS: 64721; 64718; 36415; 80048; 82948; 85014; 85018; A4565; A9270; C9803; J0461; J0690; J1100; J1885; J2250; J2370; J2405; J2704; J3010; J7060; J7070; J7120; U0003; U0005

== ENCOUNTER 2021-04-12 07:03 | Inpatient (IN) | payer MEDICARE, MEDICAID, SELFPAY ==
[2021-04-12] VITALS (16 sets, daily range): BP systolic 88–168; BP diastolic 53–98; PULSE 61–96; RESP 12–28; TEMP 36.4–38.7; O2SAT 88–100; BMI 26.4
--- NOTE | ~2021-04-12 | CT_ITS ---
EXAMINATION: CTA chest PE protocol DATE: 04/12/2021 09:00 INDICATION: Shortness of breath and hypoxia TECHNIQUE: Computed tomography angiography (CTA) of the chest was performed with 100 mL Omnipaque-350 intravenous contrast timed to evaluate the pulmonary arteries. Coronal maximum intensity projection 3D-reconstructions were created by the technologist. The dose-length product (DLP) was 521.98 mGy-cm. Automated exposure control and iterative reconstruction technique were employed. COMPARISON: None. FINDINGS: The pulmonary arteries are well-opacified. No pulmonary embolism is identified. There are m inimal airspace opacities of the lingula and lower lobes. There is a 3 mm nodule of the right upper l obe on image 43. No pleural effusion or pneumothorax is identified. No pathologically enlarged thorac ic lymph nodes are identified. The heart size is normal. Calcified pulmonary nodules and calcified le ft hilar lymph nodes are consistent with old granulomatous disease. Punctate calcifications in otherw ise normal appearing liver and spleen likely represent healed granulomatous disease. There are surgic al changes of the stomach likely related to weight loss surgery. There is moderate thoracic spondylos is. IMPRESSION: 1. No pulmonary embolus identified. 2. Airspace opacities of the lower lobes and lingula, consistent with infection/inflammation. 3. 3 mm nodule of the right upper lobe, likely old granulomatous disease. If the patient has no risk factors for malignancy, no further follow up is required. If there are risk factors for malignancy ( i.e., history of smoking, asbestos or radiation exposure), consider followup CT in 12 months. Reviewed, dictated and finalized at location A. IMPRESSION: 1. No pulmonary embolus identified. 2. Airspace opacities of the lower lobes and lingula, consistent with infection /inflammation. 3. 3 mm nodule of the right upper lobe, likely old granulomatous disease. If th e patient has no risk factors for malignancy, no further follow up is required. If there are risk factors for malignancy (i.e., history of smoking, asbestos or radiation exposure), consider followup CT in 12 months.
--- NOTE | ~2021-04-12 | US_ITS ---
US abdomen complete EXAMINATION: US Abdomen Complete INDICATION: Thrombocytopenia PROCEDURE: Realtime High Resolution abdomen ultrasound. COMPARISON: No prior studies for comparison FINDINGS: Gallbladder surgically absent. Common bile duct measures 2.4 mm. Liver echotexture within normal limits without focal mass. There are calcified granulomas of the live r. Pancreas within normal limits. Pancreatic tail is obscured by bowel gas. Spleen is enlarged ghada uring 13.8 cm with calcified granulomas. Renal echotexture is within normal limits bilaterally withou t hydronephrosis, contour deforming mass or renal stone. Right kidney measures 11.5 cm. Left kidney m easures 11.5 cm. Visualized aspects of the aorta and IVC are within normal limits. Portal vein is patent. No sonograph ic Kelly's sign indicated by the technologist. IMPRESSION: 1: Splenomegaly. Reviewed, dictated and finalized at location A. IMPRESSION: 1: Splenomegaly.
--- NOTE | ~2021-04-12 | XR_ITS ---
EXAMINATION: XR chest 2V DATE: 04/12/2021 07:40 INDICATION: Fever TECHNIQUE: AP and lateral views of the chest are obtained. COMPARISON: 06/04/2020 FINDINGS: There is mild atelectasis of the left lung base. There is no pleural effusion or pneumothor ax. The cardiomediastinal silhouette is normal. There is moderate thoracic spondylosis. IMPRESSION: 1. Left basilar atelectasis Reviewed, dictated and finalized at location A. IMPRESSION: 1. Left basilar atelectasis
--- NOTE | 2021-04-12 07:21 | ED.FEVER ---
HPI - Fever General Chief Complaint: Fever Stated Complaint: Multiple complaints Time Seen by Provider: 04/12/21 07:12 Source: patient Mode of arrival: ambulatory Limitations: no limitations History of Present Illness HPI Narrative: Patient is a 60-year-old female complaining of fever and body aches that started this morning. Patient also states that her blood sugar was elevated, 276 . Patient denies any headache, chest pain, shortness of breath, cough, congestion, abdominal pain, nausea, vomiting, diarrhea, or urinary symptoms. Related Data Home Medications Medication Instructions Recorded Confirmed insulin glargine 100 unit/mL 20 unit SUB-Q BID 09/02/19 03/19/21 subcutaneous solution Calcium 600 with Vitamin D3 1 tablet PO DAILY 02/19/20 03/19/21 alprazolam 1 mg PO TID 02/19/20 03/19/21 atorvastatin 10 mg PO DAILY 02/19/20 03/19/21 citalopram 20 mg PO DAILY 02/19/20 03/19/21 escitalopram oxalate 20 mg PO DAILY 02/19/20 03/19/21 trazodone 50 mg tablet 50 mg PO QHS PRN 02/04/21 03/19/21 ferrous sulfate [iron] 325 mg PO DAILY 03/09/21 03/19/21 gabapentin 800 mg PO QID 03/09/21 03/19/21 Allergies Allergy/AdvReac Type Severity Reaction Status Date / Time latex Allergy Intermediate Rash Verified 04/12/21 07:26 adhesive tape Allergy Mild Rash Verified 04/12/21 07:26 codeine AdvReac Intermediate Vomiting Verified 04/12/21 07:26 Review of Systems Review of Systems: All systems reviewed & are unremarkable except as noted in HPI and below Constitutional: Constitutional: Denies excessive sweating, Denies fatigue, Denies headache(s), Denies lethargy, Denies malaise, Denies weakness and Denies weight loss Eyes: Eyes: Denies blurry vision, Denies change in vision and Denies loss of vision ENT: Denies dizziness, Denies ear discharge, Denies headache(s), Denies lip swelling, Denies epistaxis, Denies nasal congestion, Denies neck pain, Denies throat swelling and Denies tongue swelling Cardiovascular: Cardiovascular: Denies chest pain, Denies chest pain at rest, Denies chest pain with activity, Denies diaphoresis, Denies rapid heart rate, Denies edema, Denies irregular heart rhythm, Denies lightheadedness, Denies palpitations, Denies dyspnea and Denies dyspnea on exertion Respiratory: Respiratory: Denies chest congestion, Denies cough, Denies hemoptysis, Denies dyspnea and Denies dyspnea on exertion Gastrointestinal: Gastrointestinal: Denies abdominal pain, Denies melena, Denies hematochezia, Denies diarrhea, Denies nausea, Denies vomiting and Denies hematemesis Musculoskeletal: Musculoskeletal: Denies abnormal gait, Denies deformity, Denies joint swelling, Denies limited range of motion, Denies neck pain and Denies numbness Neurologic: Denies Abnormal speech present, Denies abnormal gait, Denies confusion, Denies dizziness, Denies headache(s), Denies focal weakness, Denies loss of vision, Denies numbness, Denies Other visual disturbances, Denies Sensory deficit (Neuro) and Denies weakness Psychiatric: Psychiatric: Denies confusion, Denies depression, Denies auditory hallucinations, Denies homicidal ideation and Denies suicidal ideation Endocrine: Endocrine: Denies cold intolerance, Denies excessive sweating, Denies fatigue, Denies heat intolerance and Denies palpitations Hematologic/Lymphatic: Hematologic/Lymphatic: Denies easy bleeding and Denies easy bruising Allergic/Immunologic: Allergic/Immunologic: Denies lip swelling, Denies throat swelling and Denies tongue swelling PMFSH Past Medical History Medical History Anemia Anxiety Arthritis Carpal tunnel syndrome of right wrist Cervicalgia Depression Diabetes DVT (deep venous thrombosis) Hyperlipidemia Latex allergy Lumbago Seasonal allergic rhinitis Vision loss Weight gain Surgical History Surgical History H/O resection of stomach Family History Family His
[2021-04-12 08:07] LABS: Hemoglobin 9.1 g/dL (12.0-15.0); Immature Platelet Fraction Pct 3.2 % (0.9-11.2); Mean Corpuscular HGB Conc 31.4 g/dl (32-36); Mean Corpuscular Hemoglobin 26.5 pg (26-34); Mean Corpuscular Volume 84.3 fl (80-100); Mean Platelet Volume 10.7 fl (7.4-10.4); Platelet Count Result 130 k/mm3 (150-375); Red Blood Count 3.44 M/mm3 (4.2-5.4); Red Cell Distribution Width 14.7 % (11.5-14.5); White Blood Count 2.7 K/mm3 (4.5-10.0)
[2021-04-12] MEDS: SODIUM CHLORIDE 0.9% IV 1,000 ML 999 ML IV CONT (08:08)
[2021-04-12 08:11] LABS: Add Urine Microscopic? YES; Appearance Urine Cloudy (Clear); Bacteria Urine 1+ /hpf; Bilirubin Urine Negative (Negative); Blood Urine 2+ (Negative); Color Urine Yellow (Yellow); Glucose Urine UA 1+ mg/dL (Negative); Ketones Urine Negative (Negative); Leukocyte Esterase Ur 1+ LEU/UL (Negative); Mucus Urine Rare /lpf; Nitrate Urine Positive (Negative); Protein Urine 2+ mg/dL (Negative); Specific Grav Ur 1.013 (1.001-1.035); Squamous Epithelial Cell Urine Many /hpf (Few); Urobilinogen Urine Negative mg/dL (<2.0); WBC Urine 31-50 /hpf
[2021-04-12 08:15] LABS: Lactic Acid Reflex 2.2 mmol/L (0.7-2.1)
[2021-04-12 08:16] LABS: Alanine Aminotransferase 23 U/L (4-35); Albumin Level 3.6 g/dL (3.5-5.1); Alkaline Phosphatase 162 U/L (38-126); Anion Gap 11 mmol/L (8-16); Aspartate Amino Transferase 37 U/L (14-36); Bilirubin,Total 0.5 mg/dL (0.2-1.3); Blood Urea Nitrogen 35 mg/dL (7-17); Calcium 8.6 mg/dL (8.4-10.2); Carbon Dioxide 21 mmol/L (22-30); Chloride 101 mmol/L (98-107); Estimated CRCL calculation 39 ml/min; Estimated Glomerular Filt Rate 42; Glucose 212 mg/dL (65-105); Potassium 3.3 mmol/L (3.4-5.0); Sodium 133 mmol/L (137-145)
[2021-04-12] MEDS: ACETAMINOPHEN 325 MG TABLET 650 MG PO (08:16)
[2021-04-12 08:37] LABS: Band Neutrophils Percent 12 % (0-6); Lymphocytes Absolute Manual 0.08 K/mm3 (1.1-4.5); Neutrophils Absolute Manual 2.61 K/mm3 (1.7-7.2); Neutrophils Percent Manual 85 % (46-73); Total Cells Counted 100
[2021-04-12 08:44] LABS: Hypochromasia 1+ (NORMAL); Large Platelets Present; Poikilocytosis 1+ (NORMAL)
[2021-04-12] MEDS: LACTATED RINGERS 1,000 ML 999 ML IV CONT ×2 (09:06→10:26)
[2021-04-12] MEDS: POTASSIUM CHLORIDE 20 MEQ PACKET (FOR LIQUID) 40 MEQ PO (10:00)
[2021-04-12 10:32] LABS: Glucose Point of Care 172 mg/dl (65-105)
[2021-04-12 11:02] LABS: Reflex Lactic Acid Yes or No Add Lactic
[2021-04-12] MEDS: LACTATED RINGERS 1,000 ML 125 ML IV CONT ×2 (12:07→13:16)
[2021-04-12 12:45] LABS: Glucose Point of Care 155 mg/dl (65-105)
[2021-04-12 13:27] LABS: Lactic Acid 1.2 mmol/L (0.7-2.1)
--- NOTE | 2021-04-12 13:34 | ADMGEN ---
This patient, Linda Sims Walker, was admitted to IMU Room 211-01 on 04-12-21 at 1225. Patient/family oriented to hospital policies and general routines including ID bracelet, bed and alarms, visiting hours, pain management, procedures, bathroom and other care routines, personal items, smoking policy, room service/diet, and visiting hours. Information on how to activate the Rapid Response Team has been discussed. Patient/Family are encouraged to report perceived risks to care and to ask questions if they do not understand what they are told or what they should do.
--- NOTE | 2021-04-12 14:22 | PM.IMHP ---
H&P: HPI History of Present Illness Date/Time: 04/12/21 14:22 this is a 60-year-old female patient who is diabetic who. The patient stated that she did receive both of her COVID vaccine this year. She stated over the last couple days she just felt achy all over and felt off balance. She has had a poor appetite. She has not been eating or drinking very much. She stated she did get her pole over the weekend and felt that maybe her arms were aching from swimming in the pool. However this morning she was really weak and felt off balance. She was complaining of a fever and body aches this morning. She had an elevated blood sugar of 276 early this morning. 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 The patient stated she just felt like she was not urinating Zavala. She still felt like she was distended at and could get all the urine out. There was a bladder scan performed that was around 700 and a Zavala catheter was placed. The patient has no nausea or vomiting. She states that the food does not taste or smell very good but she blames this on her teeth. Her temperature here was 38.7? C and then 37.2? C. she has pancytopenia with her white count being 2.7. H&H is 9.1 and 29.0. The patient stated that she does have a history of anemia. Her potassium was found to be 3.3 and it was supplemented. Creatinine 1.3. Urine was cloudy with 2+ protein 1+ glucose 2+ blood positive nitrates 1 +leukocyte esterase. RBCs 11-20 wbc's 31-50 but there is many squamous epithelial cells. Urine bacteria 1+. Unsure if this is a contaminate or a urinary tract infection. However the patient was empirically started on Rocephin and azithromycin for community-acquired pneumonia. Her chest x-ray was read as left basilar atelectasis. She had a chest CT a that was read as no pulmonary emboli. Airspace opacities in lower lungs and lingular consistent with infection / inflammation. A 3 mm nodule of the right upper lobe likely old granulomatosis disease. The patient has no risk factors for lung malignancy no further follow-up is requested if there is a risk factor for malignancy then follow-up CT in 12 months. The patient is being admitted to observation status on the date of service of 04/12/2021. Chief Complaint: fever Review of Systems Review of Systems: All systems reviewed & are unremarkable except as noted in HPI and below Constitutional: Constitutional: Reports as per HPI and Reports no additional constitutional complaints Eyes: Eyes: Reports as per HPI and Reports no additional eye complaints ENT: Reports system reviewed and no additional complaints, except as documented and Reports Normal hearing present Cardiovascular: Cardiovascular: Reports no additional cardiovascular complaints Respiratory: Respiratory: Reports no additional respiratory complaints and Reports no additional respiratory complaints Gastrointestinal: Gastrointestinal: Reports as per HPI and Reports no additional gastrointestinal complaints Musculoskeletal: Musculoskeletal: Reports no additional musculoskeletal complaints Integumentary/Breasts: Skin/Breast: Reports system reviewed and no additional complaints, except as docu and Reports as per HPI Neurologic: Reports system reviewed and no additional complaints, except as documented, Reports as per HPI and Reports Normal hearing present Psychiatric: Psychiatric: Reports no additional psychiatric complaints and Reports as per HPI Endocrine: Endocrine: Reports no additional endocrine complaints Hematologic/Lymphatic: Hematologic/Lymphatic: Reports no additional hematologic/lymphatic complaints Allergic/Immunologic: Allergic/Immunologic: Reports no additional allergic/immunologic complaints [facility] Past Medical History Medical History (Updated 04/12/21 @ 15:10 by Jenifer Pradhan NP) Anemia Anxiety Arthritis Carpal tunnel syndrome of right wrist Cervicalgia Depression Diabetes
[2021-04-12] MEDS: GABAPENTIN 400 MG CAPSULE 800 MG PO (16:30)
[2021-04-12] MEDS: ALPRAZolam (*CRX) 0.5 MG TABLET 1 MG PO (16:30)
[2021-04-12] MEDS: INSULIN GLARGINE (*BKC) 100 UNITS/ML 20 UNITS SUB-Q (16:31)
[2021-04-12 16:40] LABS: Glucose Point of Care 146 mg/dl (65-105)
[2021-04-12] MEDS: oxyCODONE/ACETAMINOPHEN (*CRX) 5-325 MG TABLET 1 TABLET PO ×2 (16:53→20:29)
[2021-04-12 20:05] LABS: Glucose Point of Care 247 mg/dl (65-105)
[2021-04-12] MEDS: TRIMETHOPRIM 100 MG TABLET PO (20:29)
[2021-04-12] MEDS: oxyCODONE HCL (*CRX) 5 MG TAB IR PO (20:30)
[2021-04-13] VITALS (13 sets, daily range): BP systolic 107–123; BP diastolic 52–75; PULSE 57–69; RESP 12–20; TEMP 36.4–37.7; O2SAT 93–98; BMI 26.4
[2021-04-13] MEDS: LACTATED RINGERS 1,000 ML 75 ML IV CONT ×2 (02:48→19:02)
[2021-04-13 05:05] LABS: Hematocrit 25.5 % (37.0-47.0); Hemoglobin 7.8 g/dL (12.0-15.0); Immature Platelet Fraction Pct 6.4 % (0.9-11.2); Mean Corpuscular HGB Conc 30.6 g/dl (32-36); Mean Platelet Volume 11.5 fl (7.4-10.4); Platelet Count Result 126 k/mm3 (150-375); Red Cell Distribution Width 14.8 % (11.5-14.5); White Blood Count 12.5 K/mm3 (4.5-10.0)
[2021-04-13 05:34] LABS: Alanine Aminotransferase 29 U/L (4-35); Albumin Level 2.8 g/dL (3.5-5.1); Alkaline Phosphatase 105 U/L (38-126); Anion Gap 4 mmol/L (8-16); Aspartate Amino Transferase 43 U/L (14-36); Bilirubin,Total 0.3 mg/dL (0.2-1.3); Blood Urea Nitrogen 21 mg/dL (7-17); Calcium 8.6 mg/dL (8.4-10.2); Carbon Dioxide 27 mmol/L (22-30); Chloride 104 mmol/L (98-107); Estimated CRCL calculation 49 ml/min; Estimated Glomerular Filt Rate 57; Glucose 71 mg/dL (65-105); Lipase 15 U/L (23-300); Magnesium 1.4 mg/dL (1.6-2.3); Potassium 3.7 mmol/L (3.4-5.0); Sodium 135 mmol/L (137-145)
[2021-04-13 05:47] LABS: Band Neutrophils Percent 13 % (0-6); Monocytes Absolute Manual 0.37 K/mm3 (0.1-0.90); Monocytes Percent Manual 3 % (3-9); Neutrophils Absolute Manual 11.12 K/mm3 (1.7-7.2); Neutrophils Percent Manual 76 % (46-73); Platelet Estimate Adequate (Adequate); Total Cells Counted 100
[2021-04-13 05:59] LABS: Thyroid Stimulating Hormone Reflex 0.832 uIU/mL (0.465-4.68)
[2021-04-13 07:48] LABS: Glucose Point of Care 61 mg/dl (65-105)
[2021-04-13 08:26] LABS: Glucose Point of Care 117 mg/dl (65-105)
[2021-04-13] MEDS: MAGNESIUM SULF 2 GM/WATER 50ML 2 GM/50 ML BAG IVPB (08:34)
[2021-04-13] MEDS: oxyCODONE HCL (*CRX) 5 MG TAB IR PO (08:37)
[2021-04-13] MEDS: ALPRAZolam (*CRX) 0.5 MG TABLET 1 MG PO ×3 (08:37→17:15)
[2021-04-13] MEDS: FERROUS SULFATE 324 MG TABLET PO (08:38)
[2021-04-13] MEDS: CITALOPRAM HYDROBROMIDE 10 MG TABLET 40 MG PO (08:39)
[2021-04-13] MEDS: ATORVASTATIN 10 MG TABLET PO (08:39)
[2021-04-13] MEDS: GABAPENTIN 400 MG CAPSULE 800 MG PO ×3 (08:40→17:16)
[2021-04-13] MEDS: oxyCODONE/ACETAMINOPHEN (*CRX) 5-325 MG TABLET 1 TABLET PO (08:41)
--- NOTE | 2021-04-13 11:19 | PCNSR ---
On 04/13/21, the student, Isabelle Chase, provided care and completed [employer] documentation on this patient. I have reviewed the student's documentation and agree with the findings. In addition, patient is receiving Glucerna Shake (220kcal, 10g protein) BID which is appropriate.
[2021-04-13 12:19] LABS: Glucose Point of Care 98 mg/dl (65-105)
--- NOTE | 2021-04-13 12:26 | PM.IMPN ---
Progress Note: A&P Assessment and Plan (1) Bacteremia: Code(s): R78.81 - Bacteremia Status: Acute Assessment and Plan: both blood cultures are growing gram-negative bacilli - could be due to UTI, await culture identification - adjust ceftriaxone to 2 g - patient had recent carpal tunnel release. Since it is gram negative, I do not suspect this be the source this time and the UTI is more likely. With that being said it can be. Incision site is clean and dry. (2) Community acquired pneumonia: Qualifiers: Laterality: unspecified laterality Qualified Code(s): J18.9 - Pneumonia, unspecified organism Code(s): J18.9 - Pneumonia, unspecified organism Status: Acute Assessment and Plan: Noted on CTA -Continue ceftriaxone and azithromycin -await COVID PCR -Pt fully vaccinated -Pt was pancytopenic on admission but now WBC is high. Could be due to infection (3) Diabetes: Code(s): E11.9 - Type 2 diabetes mellitus without complications Status: Chronic Assessment and Plan: Last glucose 98 -Last A1c 6.9 2 months ago according to pt -Continue lantus but decrease dose to 10u BID, SSI and ACHS accuchecks (4) Anxiety: Code(s): F41.9 - Anxiety disorder, unspecified Status: Chronic Assessment and Plan: Stable -Continue celexa and xanax (5) Anemia: Code(s): D64.9 - Anemia, unspecified Status: Chronic Assessment and Plan: Stable -No signs of bleeding -Recheck in the AM with anemia labs (6) Depression: Code(s): F32.9 - Major depressive disorder, single episode, unspecified Status: Chronic Assessment and Plan: Continue Celexa (7) Sepsis due to COVID-19: Code(s): U07.1 - COVID-19; A41.89 - Other specified sepsis Status: Acute Assessment and Plan: Sepsis likely due to bacteremia and UTI but await PCR (8) Pancytopenia: Code(s): D61.818 - Other pancytopenia Status: Acute Assessment and Plan: Improving at this time -monitor -anemia labs ordered for tomorrow (9) Transaminitis: Code(s): R74.01 - Elevation of levels of liver transaminase levels Status: Acute Assessment and Plan: Mild. AST 43, ALT 29 -Could be due to bacteremia -no abdominal pain -Consider further w/u if they worsen -CT of the chest showed a normal appearing liver Time Spent With Patient Time with patient: 25 - 35 minutes Subjective Date/time seen: 04/13/21 12:26 Interval history: Pt is a 60-year-old female here for UTI and now bacteremia. Patient was seen today and states she feels so much better than she did yesterday. She said her aches and pains are gone and she is ready to go home. Pt denies nausea, vomiting, fevers, chills, constipation, diarrhea, chest pain, sob, or abdominal pain. Her appetite is a bit better that has been. Review of Systems Review of Systems: All systems reviewed & are unremarkable except as noted in HPI and below Exam Narrative: Exam Narrative: General: Well developed well nourished patient in NAD HEENT: normocephalic Neck: supple Neuro: Alert and oriented x4 CV:RRR Resp:CTA, no wheezing or rhonchi Abd: Soft, non distended. No pain to palpation. Positive bowel sounds Extremities: No swelling, erythema, or pain to palpation. Objective Data Vital Signs Vital Signs: Vital Signs - 24 hr 04/12/21 12:37 04/12/21 12:47 04/12/21 14:21 Temperature 98.8 F Pulse Rate 77 80 77 Respiratory Rate 18 Blood Pressure 92/58 L Pulse Oximetry 100 04/12/21 16:00 04/12/21 18:00 04/12/21 20:00 Temperature 99.2 F 97.6 F Pulse Rate 74 71 72 Respiratory Rate 18 18 Blood Pressure 139/98 H 168/93 H Pulse Oximetry 96 98 04/12/21 22:00 04/12/21 23:38 04/13/21 00:00 Temperature 97.8 F Pulse Rate 63 61 64 Respiratory Rate 20 Blood Pressure 142/88 H Pulse Oximetry 96
--- NOTE | 2021-04-13 12:35 | PDONCCN ---
HPI - Date of Consult Date/Time: 04/13/21 12:35 Requesting Physician: Jovanna Mccall PA-C Primary Care Provider: Marely Mcclure, PA - Consult Narrative Reason for consult: Pancytopenia Narrative: Linda Bruce is a 60 year old female with history of gastric bypass surgery in 2013 currently has been on multivitamin replacement therapy ran out about a week ago. She came into the hospital with complain of lightheadedness and dizziness and feeling achy all or with loss of balance and poor appetite. She denies any fevers and chills. Denies any dysuria and hematuria. Denies any diarrhea and constipation. Labs on admission showed WBC of 2.7 with hemoglobin of 9.1. Urinalysis showed cloudy urine with positive bacteria and leukocyte Estrace. Other labs showed platelet of [id number]. She denies any bleeding and bruising. She denies any history of smoking. She denies any history of drinking. Review of Systems - Review of Systems All systems reviewed & are unremarkable except as noted in HPI and bel - Neurologic Reports system reviewed and no additional complaints, except as documented, Reports hearing normal, Denies abnormal speech, Denies abnormal gait, Denies confusion, Denies headache(s), Denies focal weakness, Denies loss of vision, Denies numbness, Denies other visual disturbances, Denies sensory deficit, Denies weakness PMFSH Medical History: Medical History (Last Updated 04/12/21 @ 14:42 by Jenifer Pradhan NP) Anemia Anxiety Arthritis Carpal tunnel syndrome of right wrist Cervicalgia Depression Diabetes Type 2 DVT (deep venous thrombosis) left leg Hyperlipidemia Latex allergy Lumbago Seasonal allergic rhinitis Vision loss Weight gain Surgical History: Surgical History (Last Updated 04/12/21 @ 14:42 by Jenifer Pradhan NP) H/O eye surgery secondary to retinopathy H/O resection of stomach History of carpal tunnel release right hand History of section, classical Hx of cholecystectomy S/P cubital tunnel release Family History: Family History (Last Reviewed 04/12/21 @ 14:45 by Jenifer Pradhan NP) Father Family history of obesity Family history of lung disease Family history of congestive heart failure Family history of heart disease in male family member before age 55 Family history of hearing loss Patient's father is Family history of mental disorder Depression Family history of cataracts Family history of alcoholism Family history of arthritis Family history of chronic obstructive pulmonary disease Family history of diabetes mellitus in first degree relative Family history of coronary artery disease Mother Family history of mental disorder Depression Family history of alcoholism Family history of chronic obstructive pulmonary disease Family history of coronary artery disease Family history of renal failure Family history of congestive heart failure Family history of heart disease in male family member before age 55 Patient's mother is Sibling Family history of mental disorder Depression Patient's sister is in good health Family history of alcoholism Family history of lung cancer Family history of lung disease Family history of seizure disorder Other Family history of attention deficit hyperactivity disorder (ADHD) - Social History Social History: Social History (Last Updated 04/12/21 @ 14:47 by Jenifer Pradhan NP) Alcohol Use: Alcohol intake: never Substance Use: Substance use: current Substance use type: marijuana Other substance usage details: Marijuana daily Others: Spiritual care concerns: No Smoking Status: Smoking status: Never smoker Second hand tobacco smoke exposure: Yes Meds Home Medications Medication Instructions Recorded Confirmed Type insulin glargine 100 unit/mL 20 unit SUB-Q BID 09/02/19 04/12/21 History subcutan
[2021-04-13 13:45] LABS: Iron < 10 ug/dL (37-170)
[2021-04-13 13:55] LABS: Percent Iron Saturation 4 % (20-50)
--- NOTE | 2021-04-13 14:54 | PC.NURSE ---
This patient, Linda A Walker, was transferred to [facility] on 04/13/21 at 1454. Personal belongings sent with patient. Report given to Geovanni MATSON. Appropriate documentation sent with patient.
[2021-04-13 16:16] LABS: SARS-CoV-2 RNA PCR Negative
[2021-04-13 18:16] LABS: Glucose Point of Care 92 mg/dl (65-105)
[2021-04-13 20:47] LABS: Glucose Point of Care 73 mg/dl (65-105)
[2021-04-13] MEDS: TRIMETHOPRIM 100 MG TABLET PO (21:13)
[2021-04-13 22:26] LABS: Glucose Point of Care 83 mg/dl (65-105)
[2021-04-14] VITALS (10 sets, daily range): BP systolic 124–167; BP diastolic 64–90; PULSE 58–68; RESP 16–18; TEMP 36.6–37.4; O2SAT 90–94
[2021-04-14 06:21] LABS: Hematocrit 24.7 % (37.0-47.0); Hemoglobin 7.7 g/dL (12.0-15.0); Immature Platelet Fraction Pct 5.3 % (0.9-11.2); Mean Corpuscular HGB Conc 31.2 g/dl (32-36); Mean Corpuscular Hemoglobin 26.1 pg (26-34); Mean Corpuscular Volume 83.7 fl (80-100); Platelet Count Result 130 k/mm3 (150-375); Red Blood Count 2.95 M/mm3 (4.2-5.4); Red Cell Distribution Width 14.7 % (11.5-14.5); White Blood Count 7.6 K/mm3 (4.5-10.0)
[2021-04-14 06:32] LABS: Alanine Aminotransferase 24 U/L (4-35); Albumin Level 2.8 g/dL (3.5-5.1); Alkaline Phosphatase 117 U/L (38-126); Anion Gap 6 mmol/L (8-16); Aspartate Amino Transferase 34 U/L (14-36); Bilirubin,Total 0.3 mg/dL (0.2-1.3); Blood Urea Nitrogen 13 mg/dL (7-17); Calcium 8.5 mg/dL (8.4-10.2); Carbon Dioxide 27 mmol/L (22-30); Chloride 102 mmol/L (98-107); Estimated CRCL calculation 62 ml/min; Estimated Glomerular Filt Rate > 60; Glucose 62 mg/dL (65-105); Magnesium 1.5 mg/dL (1.6-2.3); Potassium 3.5 mmol/L (3.4-5.0); Sodium 135 mmol/L (137-145)
[2021-04-14 06:36] LABS: Transferrin 163 mg/dL (206-381)
--- NOTE | 2021-04-14 06:57 | PC.NURSE ---
Lab draw glucose was 62 so i gave cranberry juice and i will recheck blood sugar.
[2021-04-14 07:02] LABS: Iron < 10 ug/dL (37-170)
[2021-04-14] MEDS: LACTATED RINGERS 1,000 ML 75 ML IV CONT (07:08)
[2021-04-14 07:11] LABS: Percent Iron Saturation 4 % (20-50)
[2021-04-14 07:47] LABS: Glucose Point of Care 132 mg/dl (65-105)
[2021-04-14] MEDS: GABAPENTIN 400 MG CAPSULE 800 MG PO ×3 (08:47→17:10)
[2021-04-14] MEDS: ALPRAZolam (*CRX) 0.5 MG TABLET 1 MG PO ×3 (08:48→17:10)
[2021-04-14] MEDS: ATORVASTATIN 10 MG TABLET PO (08:48)
[2021-04-14] MEDS: FERROUS SULFATE 324 MG TABLET PO (08:48)
[2021-04-14] MEDS: CITALOPRAM HYDROBROMIDE 10 MG TABLET 40 MG PO (08:48)
[2021-04-14] MEDS: INSULIN GLARGINE (*BKC) 100 UNITS/ML 10 UNITS SUB-Q (08:50)
[2021-04-14] MEDS: MAGNESIUM SULF 2 GM/WATER 50ML 2 GM/50 ML BAG IVPB (09:12)
[2021-04-14] MEDS: CYANOCOBALAMIN INJ 1,000 MCG/ML VIAL 1000 MCG IM (09:12)
[2021-04-14 11:40] LABS: Glucose Point of Care 129 mg/dl (65-105)
--- NOTE | 2021-04-14 13:01 | PM.IMPN ---
Progress Note: A&P Assessment and Plan (1) Bacteremia: Code(s): R78.81 - Bacteremia Status: Acute Assessment and Plan: both blood cultures are growing Ecoli sensitive to ceftriaxone -2/2 to UTI - Continue ceftriaxone to 2 g - patient had recent carpal tunnel release. Since it is gram negative, I do not suspect this be the source this time and the UTI is more likely. (2) Community acquired pneumonia: Qualifiers: Laterality: unspecified laterality Qualified Code(s): J18.9 - Pneumonia, unspecified organism Code(s): J18.9 - Pneumonia, unspecified organism Status: Acute Assessment and Plan: Noted on CTA -Continue ceftriaxone and azithromycin -COVID PCR negative -Pt fully vaccinated -Pt was pancytopenic on admission but now WBC is WNL. Could be due to infection (3) Diabetes: Code(s): E11.9 - Type 2 diabetes mellitus without complications Status: Chronic Assessment and Plan: Last glucose 129 -Last A1c 6.9 2 months ago according to pt -Hold yobanyus (pt was low today). Continue SSI and ACHS accuchecks (4) Anxiety: Code(s): F41.9 - Anxiety disorder, unspecified Status: Chronic Assessment and Plan: Stable -Continue celexa and xanax (5) Anemia: Code(s): D64.9 - Anemia, unspecified Status: Chronic Assessment and Plan: Stable -No signs of bleeding -B12 and iron low. likely due to past gastric sx -continue to supplement ferrous sulfate and vit b 12. (6) Depression: Code(s): F32.9 - Major depressive disorder, single episode, unspecified Status: Chronic Assessment and Plan: Continue Celexa (7) Pancytopenia: Code(s): D61.818 - Other pancytopenia Status: Acute Assessment and Plan: Improving at this time -low b12 and iron -u/s showing splenomegaly. Await Dr. Vizcarra recommendations. (8) Transaminitis: Code(s): R74.01 - Elevation of levels of liver transaminase levels Status: Acute Assessment and Plan: Normalized -Could be due to bacteremia -no abdominal pain -Consider further w/u if they worsen -CT of the chest showed a normal appearing liver Subjective Date/time seen: 04/14/21 13:01 Interval history: Pt is a 60-year-old female here for UTI and now bacteremia. Patient was seen today and has complaints of a frontal KUHN. She says she has no numbness, tingling, or neurological issues with it but it is a dull headache. She has been drinking caffeine. She said her aches and pains are gone and she is ready to go home. Pt denies nausea, vomiting, fevers, chills, constipation, diarrhea, chest pain, sob, or abdominal pain. Her appetite is a bit better that has been. Exam Narrative: Exam Narrative: General: Well developed well nourished patient in NAD HEENT: normocephalic Neck: supple Neuro: Alert and oriented x4. CN 2-12 intact. Strength 5/5 in the UE and LE CV:RRR. tele without abnormal review Resp:CTA, no wheezing or rhonchi Abd: Soft, non distended. No pain to palpation. Positive bowel sounds Extremities: No swelling, erythema, or pain to palpation. Objective Data Vital Signs Vital Signs: Vital Signs - 24 hr 04/13/21 13:38 04/13/21 15:38 04/13/21 16:00 Temperature Pulse Rate 59 L 66 Respiratory Rate 16 14 Blood Pressure 123/71 Pulse Oximetry 96 95 95 04/13/21 20:00 04/13/21 21:10 04/13/21 22:00 Temperature 99.9 F H Pulse Rate 65 69 Respiratory Rate 18 Blood Pressure 112/52 L Pulse Oximetry 94 93 04/14/21 00:00 04/14/21 04:00 04/14/21 05:47 Temperature 98.9 F Pulse Rate 64 65 68 Respiratory Rate 18 Blood Pressure 167/90 H Pulse Oximetry 93 04/14/21 08:00 04/14/21 09:01 04/14/21 09:55 Temperature 97.8 F Pulse Rate 63 64 Respiratory Rate 16 Blood Pressure 153/72 H Pulse Oximetry 94 90 04/14/21 11:24 Temperature Pulse Rate Respiratory
[2021-04-14] MEDS: ACETAMINOPHEN 325 MG TABLET 650 MG PO (14:09)
[2021-04-14 16:50] LABS: Glucose Point of Care 72 mg/dl (65-105)
[2021-04-14 17:27] LABS: Glucose Point of Care 149 mg/dl (65-105)
[2021-04-14] MEDS: TRIMETHOPRIM 100 MG TABLET PO (20:19)
[2021-04-14 22:29] LABS: Glucose Point of Care 97 mg/dl (65-105)
[2021-04-15 05:41] VITALS: BP 149/75; PULSE 63; RESP 16; TEMP 36.9; O2SAT 91
[2021-04-15 06:23] LABS: Basophils Percent Auto 0.2 % (0.2-1.2); Eosinophils Percent Auto 0.5 % (0-4.4); Immature Granulocyte Absolute 0.01 K/mm3 (0.00-0.031); Immature Granulocyte Percent A 0.2 % (0-0.5); Lymphocytes Absolute Auto 0.78 K/mm3 (0.9-3.2); Lymphocytes Percent Auto 19.5 % (18.3-44.2); Mean Corpuscular Volume 81.2 fl (80-100); Mean Platelet Volume 11.3 fl (7.4-10.4); Monocytes Absolute Auto 0.4 K/mm3 (0.1-0.6); Neutrophils Absolute Auto 2.8 K/mm3 (1.3-6.7); Neutrophils Percent Auto 68.6 % (45.5-73.1); Platelet Count Result 155 k/mm3 (150-375); Red Blood Count 3.08 M/mm3 (4.2-5.4); Red Cell Distribution Width 14.5 % (11.5-14.5)
[2021-04-15 06:35] LABS: Anion Gap 6 mmol/L (8-16); Blood Urea Nitrogen 8 mg/dL (7-17); Calcium 8.6 mg/dL (8.4-10.2); Carbon Dioxide 30 mmol/L (22-30); Chloride 102 mmol/L (98-107); Estimated CRCL calculation 55 ml/min; Estimated Glomerular Filt Rate > 60; Glucose 113 mg/dL (65-105); Magnesium 1.5 mg/dL (1.6-2.3); Potassium 3.6 mmol/L (3.4-5.0); Sodium 138 mmol/L (137-145)
[2021-04-15 08:19] LABS: Glucose Point of Care 102 mg/dl (65-105)
[2021-04-15] MEDS: MAGNESIUM SULFATE 3GM/D5W100ML 3 GM/100 ML BAG IVPB (08:44)
[2021-04-15] MEDS: GABAPENTIN 400 MG CAPSULE 800 MG PO ×2 (08:46→12:10)
[2021-04-15] MEDS: ATORVASTATIN 10 MG TABLET PO (08:46)
[2021-04-15] MEDS: FERROUS SULFATE 324 MG TABLET PO (08:47)
[2021-04-15] MEDS: CITALOPRAM HYDROBROMIDE 10 MG TABLET 40 MG PO (08:47)
[2021-04-15] MEDS: CYANOCOBALAMIN 1,000 MCG TABLET 1000 MCG PO (08:47)
[2021-04-15] MEDS: oxyCODONE/ACETAMINOPHEN (*CRX) 5-325 MG TABLET 1 TABLET PO (08:54)
[2021-04-15] MEDS: ALPRAZolam (*CRX) 0.5 MG TABLET 1 MG PO ×2 (08:54→12:10)
--- NOTE | 2021-04-15 10:20 | PM.DS ---
DS: Admitting Diagnosis Admitting Diagnosis Admitting Diagnosis: UTI DS: Discharge Diagnosis Discharge Diagnosis (1) Bacteremia: Code(s): R78.81 - Bacteremia Status: Acute Assessment and Plan: both blood cultures are growing Ecoli sensitive to ceftriaxone -2/2 to UTI - Patient received 3 days of ceftriaxone and was transition to cefdinir - last month she recently had a carpal tunnel release. Since bacteremia is E coli, I do not suspect this be the source this time and the UTI is more likely. Dr. Aden notified (2) UTI (urinary tract infection): Code(s): N39.0 - Urinary tract infection, site not specified Status: Acute Assessment and Plan: As above - I recommended the patient follow-up with a urologist as she has frequent UTIs (3) Diabetes: Code(s): E11.9 - Type 2 diabetes mellitus without complications Status: Chronic Assessment and Plan: Last glucose 124 -Last A1c 6.9 2 months ago according to pt - patient takes her Lantus as needed depending on her blood glucose (4) Anxiety: Code(s): F41.9 - Anxiety disorder, unspecified Status: Chronic Assessment and Plan: Stable -Continue celexa and xanax (5) Anemia: Code(s): D64.9 - Anemia, unspecified Status: Chronic Assessment and Plan: Stable -No signs of bleeding -B12 and iron low. likely due to past gastric sx -continue to supplement ferrous sulfate and vit b 12. - plan to follow-up with Dr. Vizcarra. He is going to do further evaluation. We spoke about her follow-up and her splenomegaly. (6) Depression: Code(s): F32.9 - Major depressive disorder, single episode, unspecified Status: Chronic Assessment and Plan: Continue Celexa (7) Pancytopenia: Code(s): D61.818 - Other pancytopenia Status: Acute Assessment and Plan: -low b12 and iron -u/s showing splenomegaly. - Dr. Vizcarra has recommended venofer and then outpt iron -she is to f/u with his office (8) Transaminitis: Code(s): R74.01 - Elevation of levels of liver transaminase levels Status: Acute Assessment and Plan: Normalized -Likely due to bacteremia -no abdominal pain -CT of the chest showed a normal appearing liver DS: Summary Hospital Course Hospital Course: Pt is a 60 y/o female who presented to the ED on 04/12/21 for body aches, fevers and weakness. Vitals in the ER were temp 38.7, pulse 96, RR 28, bp 88/64, pulse ox 96. CBC showed white blood cell count 2.7, hemoglobin 9.1, hematocrit 29.0, platelets 130. Sodium 133, k 3.3, cl 101, co2 21, BUN 35, Cr 1.3, glucose 212. UA suspicious for UTI. influenza negative, chest CTA showed no PE and opacities of lower lung possible infection/inflammation. There is also a 3mm nodule of the RUL which was likely old granulomatous disease. She was admitted to the hospital and her urine cx and blood cultures grew ecoli. She was given 2g of ceftriaxone while hospitalized and then transitioned to cefdinir. she originally had issues with urinary retention and a urinary catheter was placed. it was removed a few days later and she passed a voiding trial. The day of discharge she was very eager to go. She was feeling much better and plans to follow-up with her primary care physician. She was weak on admission but after treatment she was able to walk to the bathroom without problems. She denied the need for PT or OT. She also saw oncology/ hematology for her pancytopenia and she was found to be low in b12 and iron. She was given venofer and B12 injection and was transitioned to oral b12 and iron. she did have splenomegaly on her ultrasound and I spoke with Dr. Vizcarra who is going to monitor her anemia outpatient and if this does not improve with iron and b12 she may need further workup. Overall pt made a lot of improvement and was discharged home to follow up with her pcp. I would recom
[2021-04-15] MEDS: IRON SUCROSE COMPLEX 500 MG in SODIUM CHLORIDE 0.9% IV 250 ML 78.57 MG IVPB (11:05)
[2021-04-15 11:56] LABS: Glucose Point of Care 124 mg/dl (65-105)
[2021-04-15 13:24] VITALS: BP 115/78; PULSE 57; RESP 16; TEMP 36.3; O2SAT 95
== END 2021-04-15 14:47 | disposition home or self-care (01) | DRG 689 ==
LOC: ANHED 09:51 → ANHIMU 12:13 → ANH3MEDSUR 04-13 14:50
PROVIDERS: Internal Medicine Hematology & Oncology; Nurse Practitioner; Physician Assistant; Admitting Provider Internal Medicine; Emergency Provider Emergency Medicine; PCP Physician Assistant; Visit Provider Internal Medicine
DX: N39.0 Urinary tract infection, site not specified (principal); J18.9 Pneumonia, unspecified organism; D61.818 Other pancytopenia; R78.81 Bacteremia; B96.20 Unspecified Escherichia coli [E. coli] as the cause of diseases classified elsewhere; Z20.822 Contact with and (suspected) exposure to COVID-19; E11.9 Type 2 diabetes mellitus without complications; F41.9 Anxiety disorder, unspecified; F32.9 Major depressive disorder, single episode, unspecified; R74.01 Elevation of levels of liver transaminase levels; E78.5 Hyperlipidemia, unspecified; Z79.4 Long term (current) use of insulin; Z79.899 Other long term (current) drug therapy; Z86.718 Personal history of other venous thrombosis and embolism; Z98.84 Bariatric surgery status
CPT/HCPCS: 36415; 71046; 71275; 76700; 80048; 80053; 80076; 81001; 82607; 82728; 82746; 82948; 83540; 83550; 83605; 83690; 83735; 84443; 84466; 85025; 85027; 85055; 87040; 87077; 87086; 87088; 87186; 87804; 96361; 96365; 96366; 96367; 96375; 96376; 97116; 97161; 97165; 97530; 99285; A9270; C9803; G0378; J0456; J0696; J1756; J1815; J3420; J3475; J7030; J7050; J7060; J7120; Q9967; U0003; U0005

== ENCOUNTER 2021-05-11 12:45 | Outpatient (CLI) | payer MEDICARE, MEDICAID, SELFPAY ==
--- NOTE | 2021-05-11 | ECG_ITS ---
Measurements Intervals [place] Rate: 59 P: 55 CA: 153 QRS: -37 QRSD: 92 T: 32 QT: 402 QTc: 400 Interpretive Statements SINUS BRADYCARDIA LEFT AXIS DEVIATION LOW QRS VOLTAGE IN PRECORDIAL LEADS CANNOT RULE OUT SEPTAL INFARCT, AGE INDETERMINATE ABNORMAL ECG Electronically Signed On 05-11-2021 14:08:49 CDT by Edgar Waetrs D.O.
--- NOTE | ~2021-05-11 | XR_ITS ---
XR chest 2V DATE: 05/11/2021 13:33 INDICATION: Preoperative evaluation for eye surgery TECHNIQUE: PA and lateral views COMPARISON: 04/12/2021 CT pulmonary scan 04/12/2021 PA and lateral chest FINDINGS: There is mild discoid atelectasis or scarring in the left lower lung. No pulmonary infiltra te or consolidation, pleural effusion or pulmonary vascular congestion or pneumothorax is detected. Normal heart size. No hilar or mediastinal enlargement. There is aortic tortuosity. Status post cholecystectomy. Diffuse osteopenia. Degenerative spurring and mild dextroscoliosis of the thoracic spine. IMPRESSION: Mild discoid atelectasis or scarring in the left lower lung; otherwise no active cardiopu lmonary disease Reviewed, dictated and finalized at location B. IMPRESSION: Mild discoid atelectasis or scarring in the left lower lung; otherw ise no active cardiopulmonary disease
== END 2021-05-11 12:46 | disposition home or self-care (01) ==
PROVIDERS: PCP Physician Assistant; Visit Provider Physician Assistant
DX: Z01.818 Encounter for other preprocedural examination (principal); R91.8 Other nonspecific abnormal finding of lung field; R94.31 Abnormal electrocardiogram [ECG] [EKG]
CPT/HCPCS: 71046; 93005

== ENCOUNTER 2021-05-18 00:29 | Day surgery (SDC) | payer MEDICARE, MEDICAID, SELFPAY ==
[2021-05-17 12:48] VITALS: BMI 26.7
--- NOTE | 2021-05-18 07:21 | WPDHPUPDATE1 ---
History and Physical Update Update Date/Time: 05/18/21 07:21 History and Physical has been reviewed, including an updated exam of the patient. There are NO changes in the patient's condition. Risks, benefits, and alternatives have been discussed and questions answered. Patient agrees to proceed with procedure.
[2021-05-18 12:10] VITALS: BP 107/55; PULSE 63; RESP 16; TEMP 36.3; O2SAT 100
[2021-05-18] MEDS: ACETAMINOPHEN 500 MG TABLET 1000 MG PO (12:22)
[2021-05-18] MEDS: LACTATED RINGERS 1,000 ML 30 ML IV CONT ×2 (12:28→14:54)
[2021-05-18] MEDS: KETOROLAC 15 MG/ML VIAL (*BKC) IV PUSH (12:29)
--- NOTE | 2021-05-18 12:30 | WPDANESEPPF ---
Anes - Initial Pre Proc Eval Procedure: Operation Date: 05/18/21 14:00 Proposed Procedures p Left Carpal and Cubital Tunnel Release - Hamlet Aden MD Date/Time: 05/18/21 12:30 Surgeon: Hamlet Aden MD Pre Op Diagnosis: left carpal and cubital tunnel syndrome Patient Data Age: 60 Gender: F Height: 1.65 m Weight: 69.5 kg Allergies Allergy/AdvReac Type Severity Reaction Status Date / Time adhesive tape Allergy Mild Rash Verified 05/18/21 12:19 codeine AdvReac Intermediate Vomiting Verified 05/18/21 12:19 Home Medications Medication Instructions Recorded Confirmed Type insulin glargine 100 unit/mL 20 unit SUB-Q BID 09/02/19 05/17/21 History subcutaneous solution Calcium 600 with Vitamin D3 1 tablet PO DAILY 02/19/20 05/17/21 History alprazolam 1 mg PO TID 02/19/20 05/18/21 History atorvastatin 10 mg PO DAILY 02/19/20 05/17/21 History citalopram 40 mg PO DAILY 02/19/20 05/17/21 History trimethoprim 100 mg PO HS 04/12/21 05/18/21 History ferrous sulfate [iron] 325 mg PO BID #60 tablet 04/15/21 05/17/21 Rx gabapentin 800 mg tablet See Rx Instructions .ROUTE 04/26/21 05/17/21 Rx .COMPLEX #90 tablet magnesium oxide 400 mg PO DAILY 05/17/21 05/17/21 History oxycodone-acetaminophen 10 mg-325 1 tablet PO Q6H PRN #50 tablet 05/17/21 05/17/21 Rx mg tablet potassium 75 mg PO DAILY 05/17/21 05/17/21 History Patient hx anesthesia problems: none Family hx anesthesia problems: none PMFSH Past Medical History Medical History (Updated 05/17/21 @ 16:58 by Preston Vasquez DO) Anemia Anxiety Arthritis Asthma Bipolar disorder Carpal tunnel syndrome of right wrist Cervicalgia Chronic, continuous use of opioids percocet x 15 years Depression Diabetes Type 2 DVT (deep venous thrombosis) left leg Hyperlipidemia Latex allergy Lumbago Seasonal allergic rhinitis Vision loss Weight gain Surgical History Surgical History H/O eye surgery secondary to retinopathy H/O resection of stomach History of carpal tunnel release right hand History of section, classical History of gastric bypass Hx of cholecystectomy S/P cubital tunnel release Family History Family History Father Family history of obesity Family history of lung disease Family history of congestive heart failure Family history of heart disease in male family member before age 55 Family history of hearing loss Patient's father is Family history of mental disorder Depression Family history of cataracts Family history of alcoholism Family history of arthritis Family history of chronic obstructive pulmonary disease Family history of diabetes mellitus in first degree relative Family history of coronary artery disease Mother Family history of mental disorder Depression Family history of alcoholism Family history of chronic obstructive pulmonary disease Family history of coronary artery disease Family history of renal failure Family history of congestive heart failure Family history of heart disease in male family member before age 55 Patient's mother is Sibling Family history of mental disorder Depression Patient's sister is in good health Family history of alcoholism Family history of lung cancer Family history of lung disease Family history of seizure disorder Other Family history of attention deficit hyperactivity disorder (ADHD) Social History Social History Social History: the patient lives with her boyfriend and she is . She has 1 son. Her significant other is her durable power patent prosecution attorney for healthcare. Berny chew is his name. Patient desires to be a full code. The patient is a lifelong nonsmoker. She does use marijuana. No alcohol or illicit drugs.
[2021-05-18 12:43] LABS: Glucose Point of Care 70 mg/dl (65-105)
[2021-05-18] MEDS: BUPIVACAINE/EPINEPHRINE 0.5% 30 ML VIAL INFILTRATE (14:30)
[2021-05-18 14:54] VITALS: BP 106/61; PULSE 70; RESP 15; TEMP 36.2; O2SAT 100
[2021-05-18 15:00] LABS: Glucose Point of Care 77 mg/dl (65-105)
[2021-05-18 15:19] VITALS: BP 146/76; PULSE 66; RESP 16
--- NOTE | 2021-05-18 15:39 | W.PM.PROC2 ---
Procedure Note - Detailed Date of Procedure 05/18/21 Pre-op Diagnosis left carpal and cubital tunnel syndrome Post-op Diagnosis same Procedure Performed Left 1. Carpal tunnel release 2. Cubital tunnel decompression Surgeon Hamlet Aden MD Financial Adviser Felipa Voss PA-C Anesthesia general Findings Compression of the ulnar nerve at the cubital tunnel evident. Description of Procedure Operative details. After sedation was administer, the hand was prepped and draped in the usual sterile fashion. The proposed incision was marked using typical anatomic landmarks. 4ML 0.5% Marcaine with epinephrine was injected along the incision line and at the distal forearm. The limb was exsanguinated and the tourniquet inflated to 250 millimeters of mercury. A longitudinal incision was taken sharply. Dissection was brought down to the transverse carpal ligament. Under direct vision the ligament was incised sharply. The proximal release was carried out with dissection scissors. The contents of the carpal canal were protected with a Norvell elevator. The transverse carpal ligament was confirmed to be widely patent. Attention was turned to the elbow. A longitudinal incision was created posterior to the medial epicondyle. Careful dissection was brought down to the ulnar nerve. It was identified proximally and dissected to the cubital tunnel retinaculum. Careful dissection released the cubital tunnel retinaculum. The dissection was carried out to the flexor carpi the palmaris. The 1st motor branch was carefully identified and protected. Attention was turned proximally in the nerve was released proximal to the intermuscular septum. The arm was flexed and the nerve was assessed. The nerve was stable. The course of the nerve was very nice without evidence of compression or instability. The muscle was then repaired using multiple interrupted mattress 0 Vicryl suture. The tourniquet was released to assure that there was no significant bleeding. Meticulous hemostasis was maintained. The subcutaneous tissues were closed with 2-0 Vicryl suture. The skin was closed with interrupted 3-0 Monocryl suture followed by running 4-0 Monocryl suture and Steri-Strips. Sterile dressing was applied with a soft splint at the wrist and a hard splint at the elbow. The patient was extubated and brought to the recovery room in stable condition. Estimated Blood Loss 1 Pathology none sent Complications No immediate complications Condition stable Disposition PACU
[2021-05-18 15:45] VITALS: BP 131/70; PULSE 64; RESP 16
[2021-05-18 16:15] VITALS: BP 134/74; PULSE 62; RESP 16
== END 2021-05-18 16:22 | disposition home or self-care (01) ==
PROVIDERS: PCP Physician Assistant; Visit Provider Orthopaedic Surgery
PROC: (CPT 64721; principal; 2021-05-18 14:00)
DX: G56.02 Carpal tunnel syndrome, left upper limb (principal); G56.22 Lesion of ulnar nerve, left upper limb; Z79.51 Long term (current) use of inhaled steroids; D64.9 Anemia, unspecified; M19.90 Unspecified osteoarthritis, unspecified site; J45.909 Unspecified asthma, uncomplicated; F31.9 Bipolar disorder, unspecified; F41.8 Other specified anxiety disorders; E11.9 Type 2 diabetes mellitus without complications; Z86.718 Personal history of other venous thrombosis and embolism; E78.5 Hyperlipidemia, unspecified; F12.90 Cannabis use, unspecified, uncomplicated
CPT/HCPCS: 64721; 64718; 71046; 82948; 93005; A9270; J1885; J2250; J2270; J7120

== ENCOUNTER 2021-05-19 15:48 | Outpatient (CLI) | payer MEDICARE, MEDICAID, SELFPAY ==
[2021-05-19 16:06] LABS: Basophils Percent Auto 0.2 % (0.2-1.2); Eosinophils Absolute Auto 0.1 K/mm3 (0-0.3); Eosinophils Percent Auto 0.6 % (0-4.4); Hematocrit 30.6 % (37.0-47.0); Hemoglobin 9.4 g/dL (12.0-15.0); Immature Granulocyte Absolute 0.02 K/mm3 (0.00-0.031); Immature Granulocyte Percent A 0.2 % (0-0.5); Lymphocytes Absolute Auto 2.82 K/mm3 (0.9-3.2); Lymphocytes Percent Auto 33.1 % (18.3-44.2); Mean Corpuscular HGB Conc 30.7 g/dl (32-36); Mean Corpuscular Hemoglobin 27.2 pg (26-34); Mean Corpuscular Volume 88.7 fl (80-100); Monocytes Absolute Auto 0.7 K/mm3 (0.1-0.6); Monocytes Percent Auto 8.4 % (2.6-8.5); Neutrophils Absolute Auto 4.9 K/mm3 (1.3-6.7); Neutrophils Percent Auto 57.5 % (45.5-73.1); Platelet Count Result 205 k/mm3 (150-375); Red Blood Count 3.45 M/mm3 (4.2-5.4); Red Cell Distribution Width 16.3 % (11.5-14.5); White Blood Count 8.5 K/mm3 (4.5-10.0)
[2021-05-19 16:49] LABS: Iron 68 ug/dL (37-170)
[2021-05-19 17:01] LABS: Percent Iron Saturation 23 % (20-50)
[2021-05-19 17:21] LABS: Alanine Aminotransferase 27 U/L (4-35); Albumin Level 3.9 g/dL (3.5-5.1); Alkaline Phosphatase 89 U/L (38-126); Anion Gap 5 mmol/L (8-16); Aspartate Amino Transferase 33 U/L (14-36); Bilirubin,Total 0.5 mg/dL (0.2-1.3); Blood Urea Nitrogen 30 mg/dL (7-17); Calcium 9.7 mg/dL (8.4-10.2); Carbon Dioxide 29 mmol/L (22-30); Chloride 107 mmol/L (98-107); Estimated Glomerular Filt Rate 33; Glucose 45 mg/dL (65-110); Potassium 4.3 mmol/L (3.4-5.0); Sodium 141 mmol/L (137-145)
[2021-05-19 18:16] LABS: Folic Acid > 20.0 ng/mL (2.76->20)
== END 2021-05-19 15:49 | disposition home or self-care (01) ==
PROVIDERS: PCP Physician Assistant; Visit Provider Internal Medicine Hematology & Oncology
DX: D64.9 Anemia, unspecified (principal)
CPT/HCPCS: 36415; 80053; 82607; 82728; 82746; 83540; 83550; 85025

== ENCOUNTER 2021-07-01 07:20 | Outpatient (RCR) | payer MEDICARE, MEDICAID, SELFPAY ==
[2021-06-10 09:48] VITALS: BMI 25.9
== END 2021-08-11 13:41 | disposition home or self-care (01) ==
LOC: ANHWOC 07:20
PROVIDERS: PCP Physician Assistant; Visit Provider Physician Assistant Surgical
DX: T81.31XD Disruption of external operation (surgical) wound, not elsewhere classified, subsequent encounter (principal)
CPT/HCPCS: 99212; G0463

== ENCOUNTER 2021-08-24 09:57 | Outpatient (CLI) | payer MEDICARE, MEDICAID, SELFPAY ==
[2021-08-24 10:57] LABS: Cholesterol 129 mg/dL (0-200); HDL Direct 39 mg/dL; Triglycerides 68 mg/dL (<150)
[2021-08-24 11:08] LABS: LDL Cholesterol Direct 72 mg/dL
== END 2021-08-24 09:58 | disposition home or self-care (01) ==
LOC: ANHLAB 09:59
PROVIDERS: PCP Physician Assistant; Visit Provider Internal Medicine Cardiovascular Disease
DX: E78.5 Hyperlipidemia, unspecified (principal)
CPT/HCPCS: 36415; 80061

== ENCOUNTER 2021-09-20 08:00 | Outpatient (CLI) | payer MEDICARE, MEDICAID, SELFPAY ==
--- NOTE | ~2021-09-20 | NM_ITS ---
EXAMINATION: NM nnamdi stress w perfusion DATE: 09/20/2021 12:09 INDICATION: Dyspnea on exertion. TECHNIQUE: Rest images were obtained following intravenous administration of 10.2 mCi Tc99m tetrofosm in (Myoview). The patient was infused intravenously with Lexiscan (regadenoson). Then, 31.2 mCi Tc99m tetrofosmin (Myoview) was administered intravenously, and stress images were obtained. Data was maggie nstructed into short axis and horizontal and vertical long axis SPECT images. Gated SPECT images were also obtained. COMPARISON: Chest CT 04/12/2021 FINDINGS: There is no definite reversible or fixed perfusion abnormality to suggest ischemia or infar ction. There is no segmental wall motion abnormality. Left ventricular ejection fraction measures > 70%. IMPRESSION: 1. No definite ischemia or infarct. 2. Normal left ventricular ejection fraction measuring >70%. Reviewed, dictated and finalized at location A. BODS DEVELOPER
--- NOTE | 2021-09-20 08:24 | ECHO_ITS ---
Patient Info Name: Linda Bruce Age: 61 years : 1960 Gender: Female Ht: 65 in Wt: 160 lbs BSA: 1.84 m2 HR: 71 bpm BP: 142 / 90 mmHg Heart Rhythm: Sinus Rhythm Exam Date: 09/20/2021 8:28 AM Exam Location: [facility]monary Patient Status: Outpatient Admit Date: 09/20/2021 Staff Ordering Physician: Edgar Waters DO Vtc Technician: RIGOBERTO Attending Provider: Edgar Waters DO Referring Physician: Jt AVENDANO; Exam Type: CA echo doppler color flow Study Info Indications R06.00 - Dyspnea, unspecified Complete two-dimensional, color flow and Doppler transthoracic echocardiogram is performed. Summary 1. Complete two-dimensional, color flow and Doppler transthoracic echocardiogram is performed. 2. Left ventricular chamber dimension is normal. 3. Ventricular septum is sigmoid shaped. No LVOT obstruction. 4. Left ventricular systolic function is normal, estimated at 60-65%. 5. There is mildly increased left ventricular wall thickness. 6. The left ventricular diastolic function is grade I diastolic dysfunction. 7. E/e' 9 is minimally elevated. Left Ventricle E/e' 9 is minimally elevated. Ventricular septum is sigmoid shaped. No LVOT obstruction. Left ventricular chamber dimension is normal. Left ventricular systolic function is normal, estimated at 60-65%. There is mildly increased left ventricular wall thickness. The left ventricular diastolic function is grade I diastolic dysfunction. Right Ventricle Right ventricular systolic function is normal and with normal TAPSE 2.1 cm. Right ventricular chamber dimension is normal. Left Atria Left atrial chamber dimension is normal. Right Atria Right atrial chamber dimension is normal. Aortic Valve The aortic valve is trileaflet. There is no aortic valve stenosis. There is no aortic valve regurgitation. Pulmonic Valve There is no pulmonic regurgitation. Mitral Valve There is no mitral valve stenosis. There is no mitral valve regurgitation. Tricuspid Valve There is no tricuspid valve regurgitation. Pericardium/Pleural There is no pericardial effusion. Inferior Vena Cava Normal inferior vena cava with >50% collapse upon inspiration consistent with normal right atrial pressure, 5 mmHg. Aorta The aortic root size at the sinus of Valsalva is normal. Left Ventricular Outflow Tract Name Value Normal LVOT 2D LVOT Diameter 2.1 cm LVOT Doppler LVOT Peak Gradient 4 mmHg LVOT Mean Gradient 2 mmHg LVOT VTI 22 cm LVOT VTI/AV VTI Ratio 0.7 LVOT Stroke Volume 76 ml LVOT CO 4.7 l/min LVOT CI 2.6 l/min/m2 Pulmonic Valve Name Value Normal RVOT Doppler RVOT Peak Gradient
--- NOTE | 2021-09-20 08:24 | EST_ITS ---
Patient Info Name: Linda Bruce Age: 61 years : 1960 Gender: Female Ht: 65 in Wt: 159 lbs BSA: 1.83 m2 HR: 68 bpm BP: 149 / 95 mmHg Heart Rhythm: Sinus Rhythm Exam Date: 09/20/2021 11:03 AM Exam Location: [facility] Stress Patient Status: Outpatient Admit Date: 09/20/2021 Staff Ordering Physician: Edgar Waters DO Attending Provider: Edgar Waters DO Exercise Technologist: Federica Villegas CT Exercise Physician: Edgar Waters DO Exam Type: CA stress nnamdi w NM Study Info Indications R06.00 - Dyspnea, unspecified A regadenoson stress test was performed. Summary 1. 1. Negative lexiscan stress test for ischemic ST changes by ECG criteria. 2. 2. Baseline hypertension. 3. 3. Nuclear scan to follow and will be reported separately. Please correlate with it. 4. 4. Patient informed of the above results. Protocol: Lexiscan Stress ECG Details Stage: REST Duration (min): 0 min : 59 sec HR (bpm): 73 SBP (mmHg): 149 DBP (mmHg): 95 Stage: REST Duration (min): 5 min : 0 sec HR (bpm): 72 SBP (mmHg): 149 DBP (mmHg): 95 Stage: STAGE 1 Duration (min): 0 min : 59 sec HR (bpm): 78 SBP (mmHg): 162 DBP (mmHg): 86 Stage: RECOVERY Duration (min): 1 min : 0 sec HR (bpm): 85 SBP (mmHg): 162 DBP (mmHg): 86 Stage: RECOVERY Duration (min): 2 min : 0 sec HR (bpm): 82 SBP (mmHg): 162 DBP (mmHg): 86 Stage: RECOVERY Duration (min): 2 min : 23 sec HR (bpm): 82 SBP (mmHg): 148 DBP (mmHg): 85 Rest HR: 72 bpm Peak HR: 89 bpm Rest Sys BP: 149 mmHg Peak Sys BP: 162 mmHg Max Pred HR: 159 bpm % Max Pred HR: 56 % Target HR: 135 bpm Max RPP: 14,418 bpm*mmHg Termination Reason: Completed protocol Cardiac Symptoms: Shortness of breath, Stomach discomfort Total Time: 1 min : 0 sec Rest German BP: 95 mmHg Peak German BP: 86 mmHg Total Dose: 0.4 mg Resting ECG Sinus rhythm, IRBBB. Stress ECG No ST changes. Arrhythmias None. Report Signatures
== END 2021-09-20 08:01 | disposition home or self-care (01) ==
LOC: ANHCARD 08:04
PROVIDERS: PCP Physician Assistant; Visit Provider Internal Medicine Cardiovascular Disease
DX: R06.00 Dyspnea, unspecified (principal)
CPT/HCPCS: 78452; 93017; 93306; A9502; J2785

== ENCOUNTER 2021-11-08 14:22 | Outpatient (CLI) | payer MEDICARE, MEDICAID, SELFPAY ==
--- NOTE | ~2021-11-08 | XR_ITS ---
EXAMINATION: XR finger 1st LT min 2V EXAM DATE: 11/08/2021 14:39 INDICATION: Pain In Lt Thumb, 1st, Pain, H/O Carpal Tunneled Sx May 2021 . TECHNIQUE: Left 1st finger frontal, lateral and oblique projections obtained and reviewed. Compariso n is made to prior examination from 02/04/2021. FINDINGS: There is mild 1st carpometacarpal joint primary osteoarthritis. There are no bony erosions identified. There are no acute fractures or dislocations identified. There is no subcutaneous gas. The soft tissue is unremarkable. There are no radiopaque foreign bodies. IMPRESSION: Mild left 1st CMC osteoarthritis. Reviewed, dictated and finalized at location G. LOPER ARCHITECT
== END 2021-11-08 14:23 | disposition home or self-care (01) ==
LOC: ANHIMG 14:28
PROVIDERS: PCP Physician Assistant; Visit Provider Physician Assistant
DX: M19.042 Primary osteoarthritis, left hand (principal)
CPT/HCPCS: 73140

== ENCOUNTER 2022-02-10 10:53 | Outpatient (CLI) | payer MEDICARE, MEDICAID, SELFPAY ==
[2022-02-10 11:21] LABS: Basophils Percent Auto 0.4 % (0.2-1.2); Eosinophils Absolute Auto 0.1 K/mm3 (0-0.3); Eosinophils Percent Auto 1.8 % (0-4.4); Hematocrit 33.1 % (37.0-47.0); Hemoglobin 10.1 g/dL (12.0-15.0); Immature Granulocyte Absolute 0.01 K/mm3 (0.00-0.031); Immature Granulocyte Percent A 0.2 % (0-0.5); Lymphocytes Absolute Auto 1.56 K/mm3 (0.9-3.2); Lymphocytes Percent Auto 30.9 % (18.3-44.2); Mean Corpuscular HGB Conc 30.5 g/dl (32-36); Mean Corpuscular Hemoglobin 28.5 pg (26-34); Mean Corpuscular Volume 93.5 fl (80-100); Mean Platelet Volume 10.3 fl (7.4-10.4); Monocytes Absolute Auto 0.4 K/mm3 (0.1-0.6); Monocytes Percent Auto 8.1 % (2.6-8.5); Neutrophils Percent Auto 58.6 % (45.5-73.1); Platelet Count Result 190 k/mm3 (150-375); Red Blood Count 3.54 M/mm3 (4.2-5.4); Red Cell Distribution Width 13.7 % (11.5-14.5); White Blood Count 5.1 K/mm3 (4.5-10.0)
[2022-02-10 11:28] LABS: Alanine Aminotransferase 14 U/L (4-35); Albumin Level 3.9 g/dL (3.5-5.1); Alkaline Phosphatase 69 U/L (38-126); Anion Gap 4 mmol/L (8-16); Aspartate Amino Transferase 23 U/L (14-36); Bilirubin,Total 0.5 mg/dL (0.2-1.3); Blood Urea Nitrogen 15 mg/dL (7-17); Calcium 8.8 mg/dL (8.4-10.2); Carbon Dioxide 27 mmol/L (22-30); Chloride 109 mmol/L (98-107); Estimated Glomerular Filt Rate > 60; Glucose 105 mg/dL (65-110); Sodium 140 mmol/L (137-145)
[2022-02-10 11:50] LABS: Iron 60 ug/dL (37-170)
[2022-02-10 12:00] LABS: Percent Iron Saturation 19 % (20-50)
[2022-02-10 12:34] LABS: Folic Acid 19.8 ng/mL (2.76->20)
== END 2022-02-10 10:54 | disposition home or self-care (01) ==
LOC: ANHLAB 11:00
PROVIDERS: PCP Physician Assistant; Visit Provider Physician Assistant
DX: N18.9 Chronic kidney disease, unspecified (principal); D64.9 Anemia, unspecified
CPT/HCPCS: 36415; 80053; 82607; 82728; 82746; 83540; 83550; 85025

== ENCOUNTER 2022-03-28 13:47 | Outpatient (CLI) | payer MEDICARE, MEDICAID, SELFPAY ==
--- NOTE | ~2022-03-28 | XR_ITS ---
EXAM: XR knee LT 3V DATE: 03/28/2022 14:06 HISTORY: CHRONIC PAIN IN LT KNEE. TINGLING . COMPARISON: 07/19/2021. FINDINGS: Severe demineralization. No acute fracture or dislocation. Moderate medial and lateral elias nt space narrowing. Mild tricompartmental osteophytosis. Chondrocalcinosis. Quadriceps enthesopathy. Vascular calcifications. IMPRESSION: Moderate tricompartmental arthritis of the left knee. Reviewed, dictated and finalized at location K.
== END 2022-03-28 13:48 | disposition home or self-care (01) ==
PROVIDERS: PCP Physician Assistant; Visit Provider Physician Assistant
DX: M17.12 Unilateral primary osteoarthritis, left knee (principal)
CPT/HCPCS: 73562

== ENCOUNTER 2022-05-30 03:07 | Emergency (ER) | payer MEDICARE, MEDICAID, SELFPAY ==
--- NOTE | ~2022-05-30 | CT_ITS ---
EXAMINATION: CT brain wo con DATE: 05/30/2022 04:05 INDICATION: Head injury. TECHNIQUE: Computed tomography (CT) of the head was performed without intravenous contrast. The mA wa s adjusted according to patient size. Iterative reconstruction technique was employed. The dose-lengt h product was 605.33 mGy-cm. COMPARISON: Head CT 02/19/2020 FINDINGS: There is no intracranial hemorrhage, acute infarction, or abnormal intracranial mass lesion . The ventricles are normal in size. There is mild mucosal thickening in the paranasal sinuses. There are likely changes of ocular lens replacement surgeries. The mastoid air cells are normal. There is left posterior scalp soft tissue swelling. IMPRESSION: 1. Normal brain. Reviewed, dictated and finalized at location A. IMPRESSION: 1. Normal brain.
--- NOTE | ~2022-05-30 | CT_ITS ---
EXAMINATION: CT cervical spine wo con DATE: 05/30/2022 04:05 INDICATION: Neck pain. Trauma. TECHNIQUE: Computed tomography (CT) of the cervical spine was performed without intravenous contrast. Automated exposure control and iterative reconstruction technique were employed. The dose-length pro duct was 312.12 mGy-cm. COMPARISON: None FINDINGS: There is 2 mm retrolisthesis of C3 on C4. Vertebral body heights are normal. There is sever natan decreased disc height at C3-C4, C5-C6, and C6-C7. There is a fracture of right first rib. The fol lowing disc levels are specifically discussed: C2-C3: There is no uncovertebral joint osteoarthritis. There is mild bilateral facet joint osteoarthr itis. There is no neural foraminal stenosis. There is mild central canal stenosis. C3-C4: There is severe bilateral uncovertebral joint osteoarthritis. There is moderate right and mild left facet joint osteoarthritis. There is mild bilateral neural foraminal stenosis. There is mild ce ntral canal stenosis. C4-C5: There is no uncovertebral joint osteoarthritis. There is no facet joint osteoarthritis. There is no neural foraminal stenosis. There is mild central canal stenosis. C5-C6: There is severe right and mild left uncovertebral joint osteoarthritis. There is mild bilatera l facet joint osteoarthritis. There is mild right neural foraminal stenosis. There is mild central ca nal stenosis. C6-C7: There is severe bilateral uncovertebral joint osteoarthritis. There is mild bilateral facet vicente int osteoarthritis. There is mild left neural foraminal stenosis. There is mild central canal stenosi s. C7-T1: There is no uncovertebral joint osteoarthritis. There is severe right and mild left facet join t osteoarthritis. There is mild right neural foraminal stenosis. There is no central canal stenosis. IMPRESSION: 1. Right first rib fracture. 2. Severe cervical spondylosis. Reviewed, dictated and finalized at location A.
--- NOTE | ~2022-05-30 | XR_ITS ---
EXAMINATION: [id number]_[id number]_CR DATE: 05/30/2022 04:16 INDICATION: Left chest pain. Trauma. TECHNIQUE: A frontal view of the chest and 2 views on 3 radiographs of the left ribs were obtained. COMPARISON: Chest 2 views 05/11/2021 FINDINGS: A calcified left lung nodule and calcified left hilar lymph nodes are consistent with old g ranulomatous disease. There is mild atelectasis in lingula. No pleural effusion or pneumothorax. The heart size is normal. Surgical clips in the right upper quadrant are likely from cholecystectomy. The re is an acute fracture of left fourth rib. IMPRESSION: 1. Acute fracture of left fourth rib. 2. Mild atelectasis in lingula. Reviewed, dictated and finalized at location A.
--- NOTE | ~2022-05-30 | CT_ITS ---
EXAMINATION:CT diagnostic chest w con DATE: 05/30/2022 05:54 INDICATION: Left upper back pain. TECHNIQUE: Computed tomography (CT) of the chest was performed with 75 mL Omnipaque 350 intravenous c ontrast. Automated exposure control and iterative reconstruction technique were employed. The dose-le ngth product (DLP) was 161.87 mGy-cm. COMPARISON: Chest CT 04/12/2021 FINDINGS: There is mild emphysema. There is peripheral septal thickening in the lungs with a lower mariana ng predominance. There is mild bronchiectasis in the lower lobes. A calcified left lung nodule and ca lcified left hilar lymph nodes are consistent with old granulomatous disease. No pleural effusion. Th e heart size is normal. No pericardial effusion. There are coronary artery calcifications. Calcificat ions in the liver and spleen are consistent with old granulomatous disease. There are several changes in the stomach. There is moderate intrahepatic biliary duct dilatation without change. There are myrna nges of cholecystectomy. There is severe cervical and thoracic spondylosis. There are acute fractures of left 4th, 7th, 8th, and 11th ribs. IMPRESSION: 1. Multiple acute left rib fractures. 2. Mild diffuse lung disease, likely a combination of mild emphysema and mild chronic interstitial mariana ng disease. Reviewed, dictated and finalized at location A. IMPRESSION: 1. Multiple acute left rib fractures. 2. Mild diffuse lung disease, likely a combination of mild emphysema and mild c hronic interstitial lung disease.
[2022-05-30 03:11] VITALS: BP 140/90; PULSE 101; RESP 23; TEMP 36.3; O2SAT 99
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
--- NOTE | 2022-05-30 03:52 | PC.NURSE ---
Patient in imaging at this time.
[2022-05-30 04:15] VITALS: BP 148/66; PULSE 81; RESP 20; O2SAT 100
[2022-05-30] MEDS: ONDANSETRON INJ 4 MG/2 ML VIAL IV PUSH (04:26)
[2022-05-30] MEDS: HYDROmorphone HCL INJ (*CRX) 1 MG/ML SYR IV PUSH (04:28)
[2022-05-30 04:38] LABS: Appearance Urine Clear (Clear); Basophils Percent Auto 0.3 % (0.2-1.2); Bilirubin Urine Negative (Negative); Blood Urine Negative (Negative); Eosinophils Absolute Auto 0.1 K/mm3 (0-0.3); Eosinophils Percent Auto 1.4 % (0-4.4); Glucose Urine UA Negative (Negative); Hematocrit 34.6 % (37.0-47.0); Hemoglobin 10.8 g/dL (12.0-15.0); Immature Granulocyte Absolute 0.01 K/mm3 (0.00-0.031); Immature Granulocyte Percent A 0.2 % (0-0.5); Ketones Urine Negative (Negative); Leukocyte Esterase Ur Negative LEU/UL (Negative); Lymphocytes Absolute Auto 1.72 K/mm3 (0.9-3.2); Lymphocytes Percent Auto 25.8 % (18.3-44.2); Mean Corpuscular HGB Conc 31.2 g/dl (32-36); Mean Corpuscular Hemoglobin 27.8 pg (26-34); Mean Corpuscular Volume 89.2 fl (80-100); Mean Platelet Volume 10.8 fl (7.4-10.4); Monocytes Absolute Auto 0.6 K/mm3 (0.1-0.6); Monocytes Percent Auto 8.7 % (2.6-8.5); Neutrophils Absolute Auto 4.2 K/mm3 (1.3-6.7); Neutrophils Percent Auto 63.6 % (45.5-73.1); Nitrate Urine Negative (Negative); Platelet Count Result 205 k/mm3 (150-375); Protein Urine Negative (Negative); Red Blood Count 3.88 M/mm3 (4.2-5.4); Red Cell Distribution Width 13.5 % (11.5-14.5); Specific Grav Ur <= 1.005 (1.001-1.035); Urobilinogen Urine 0.2 mg/dL (<2.0); White Blood Count 6.7 K/mm3 (4.5-10.0); pH Urine 5.5 (5.0-9.0)
[2022-05-30 04:40] LABS: Add Urine Microscopic? NO; Color Urine Light Yellow (Yellow)
[2022-05-30 04:53] LABS: Alanine Aminotransferase 19 U/L (6-35); Albumin Level 4.3 g/dL (3.5-5.1); Alkaline Phosphatase 68 U/L (38-126); Anion Gap 9 mmol/L (8-16); Aspartate Amino Transferase 37 U/L (14-36); Bilirubin,Total 0.8 mg/dL (0.2-1.3); Blood Urea Nitrogen 18 mg/dL (7-17); Calcium 9.5 mg/dL (8.4-10.2); Carbon Dioxide 25 mmol/L (22-30); Chloride 104 mmol/L (98-107); Estimated CRCL calculation 68 ml/min; Estimated Glomerular Filt Rate > 60; Glucose 112 mg/dL (65-110); Potassium 4.3 mmol/L (3.4-5.0); Sodium 138 mmol/L (137-145)
[2022-05-30 05:30] VITALS: BP 102/59; PULSE 67; RESP 14; O2SAT 97
[2022-05-30 06:56] VITALS: PULSE 73; RESP 18; O2SAT 99
--- NOTE | 2022-05-30 07:18 | PC.NURSE ---
Report given to ALISHA MATSON
[2022-05-30 07:34] VITALS: BP 141/92; PULSE 76; RESP 20; O2SAT 100
== END 2022-05-30 07:36 | disposition home or self-care (01) ==
PROVIDERS: Emergency Provider General Practice; PCP Physician Assistant
DX: S22.42XA Multiple fractures of ribs, left side, initial encounter for closed fracture (principal); D64.9 Anemia, unspecified; F41.9 Anxiety disorder, unspecified; M19.90 Unspecified osteoarthritis, unspecified site; J45.909 Unspecified asthma, uncomplicated; F32.9 Major depressive disorder, single episode, unspecified; E11.9 Type 2 diabetes mellitus without complications; E78.5 Hyperlipidemia, unspecified; V28.3XXA Person boarding or alighting a motorcycle injured in noncollision transport accident, initial encounter
CPT/HCPCS: 36415; 70450; 71101; 71260; 72125; 80053; 81003; 85025; 96374; 96375; 99284; J1170; J2405; Q9967

== ENCOUNTER 2022-07-05 13:01 | Outpatient (CLI) | payer MEDICARE, MEDICAID, SELFPAY ==
[2022-07-05 13:56] LABS: Basophils Percent Auto 0.4 % (0.2-1.2); Eosinophils Absolute Auto 0.1 K/mm3 (0-0.3); Hematocrit 33.3 % (37.0-47.0); Hemoglobin 10.4 g/dL (12.0-15.0); Immature Granulocyte Absolute 0.01 K/mm3 (0.00-0.031); Immature Granulocyte Percent A 0.2 % (0-0.5); Lymphocytes Percent Auto 33.4 % (18.3-44.2); Mean Corpuscular HGB Conc 31.2 g/dl (32-36); Mean Corpuscular Hemoglobin 27.9 pg (26-34); Mean Corpuscular Volume 89.3 fl (80-100); Mean Platelet Volume 10.8 fl (7.4-10.4); Monocytes Absolute Auto 0.4 K/mm3 (0.1-0.6); Monocytes Percent Auto 6.5 % (2.6-8.5); Neutrophils Absolute Auto 3.1 K/mm3 (1.3-6.7); Neutrophils Percent Auto 57.5 % (45.5-73.1); Platelet Count Result 188 k/mm3 (150-375); Red Blood Count 3.73 M/mm3 (4.2-5.4); Red Cell Distribution Width 14.1 % (11.5-14.5); White Blood Count 5.4 K/mm3 (4.5-10.0)
[2022-07-05 14:10] LABS: Alanine Aminotransferase 16 U/L (6-35); Albumin Level 3.9 g/dL (3.5-5.1); Alkaline Phosphatase 67 U/L (38-126); Anion Gap 10 mmol/L (8-16); Aspartate Amino Transferase 22 U/L (14-36); Bilirubin,Total 0.4 mg/dL (0.2-1.3); Blood Urea Nitrogen 17 mg/dL (7-17); Calcium 8.9 mg/dL (8.4-10.2); Carbon Dioxide 29 mmol/L (22-30); Chloride 102 mmol/L (98-107); Estimated Glomerular Filt Rate > 60; Glucose 87 mg/dL (65-110); Magnesium 1.3 mg/dL (1.6-2.3); Potassium 3.8 mmol/L (3.4-5.0); Sodium 141 mmol/L (137-145)
[2022-07-05 14:14] LABS: Hemoglobin A1C 5.7 % (<5.7)
[2022-07-05 14:22] LABS: Appearance Urine Cloudy (Clear); Bilirubin Urine 2+ (Negative); Blood Urine Negative (Negative); Color Urine Yellow (Yellow); Glucose Urine UA Negative (Negative); Ketones Urine 1+ mg/dL (Negative); Leukocyte Esterase Ur Trace LEU/UL (NEGATIVE); Nitrate Urine Negative (Negative); Parathyroid Intact 81.7 pg/mL (7.5-53.5); Protein Urine 1+ mg/dL (Negative); Specific Grav Ur 1.025 (1.001-1.035); pH Urine 5.5 (5.0-9.0)
[2022-07-05 14:34] LABS: Bacteria Urine Trace /hpf; Calcium Oxalate Crystals Urine Present /hpf; Hyaline Casts Urine 15-19 /lpf; Mucus Urine Rare /lpf; Squamous Epithelial Cell Urine Many /hpf (Few)
[2022-07-05 14:36] LABS: Add Urine Microscopic? YES
[2022-07-05 17:19] LABS: Total Protein Urine Random 18 mg/dL
[2022-07-05 18:59] LABS: Creatinine Urine 481.3 mg/dL; Ur Ttl Prot Creatinine Ratio 0.04 mg/mg (0-0.20)
== END 2022-07-05 13:02 | disposition home or self-care (01) ==
LOC: ANHLAB 13:16
PROVIDERS: PCP Physician Assistant; Visit Provider Internal Medicine Nephrology
DX: N18.2 Chronic kidney disease, stage 2 (mild) (principal); E11.9 Type 2 diabetes mellitus without complications
CPT/HCPCS: 36415; 80053; 81001; 82570; 83036; 83735; 83970; 84156; 85025

== ENCOUNTER 2022-10-25 13:33 | Outpatient (CLI) | payer MEDICARE, MEDICAID, SELFPAY ==
--- NOTE | ~2022-10-25 | XR_ITS ---
XR hip LT min 2V DATE: 10/25/2022 13:59 INDICATION: Left lower extremity numbness. History of neuropathy. TECHNIQUE: AP and lateral views of left hip COMPARISON: 07/19/2021 pelvis and left hip FINDINGS: There is severe left hip joint space narrowing and very prominent acetabular and femoral he ad spurring at the left hip, in addition to some subarticular cystic degenerative change of the aceta bulum and particularly femoral head. There is some patchy sclerosis of the left femoral head. The fin dings are consistent with severe osteoarthritis and possible avascular necrosis of the left femoral h ead. No fracture or dislocation. Osteopenia. Prominent femoral artery calcification. IMPRESSION: Severe left hip osteoarthritis and possible avascular necrosis of left femoral head Reviewed, dictated and finalized at location L. ITY ASSURANCE ASSOCIATE IMPRESSION: Severe left hip osteoarthritis and possible avascular necrosis of l eft femoral head
--- NOTE | ~2022-10-25 | XR_ITS ---
XR ankle LT min 3V DATE: 10/25/2022 13:59 INDICATION: Left lower extremity numbness, neuropathy TECHNIQUE: 4 views of left ankle COMPARISON: None FINDINGS: Prominent anterior and posterior tibial tibial artery calcification and some dorsalis pedis artery calcification are noted. There is some widening of the tibiotalar joint space laterally. Osteopenia. No fracture or dislocation of the ankle or disruption of the ankle mortise. No periosteal reaction or bone destruction. IMPRESSION: Osteopenia. Widening of the lateral tibiotalar joint space Prominent arterial calcifications, suggesting diabetes Reviewed, dictated and finalized at location L. E ATTENDANT
--- NOTE | ~2022-10-25 | XR_ITS ---
XR knee LT 3V DATE: 10/25/2022 13:59 INDICATION: Left lower extremity numbness. History of neuropathy. TECHNIQUE: [facility] and standing AP and lateral views COMPARISON: 03/28/2022 left knee FINDINGS: There is diffuse osteopenia. No fracture or dislocation or joint effusion. No periosteal reaction or bone destruction. There is chondrocalcinosis at the medial and lateral compartments including medial and lateral menisc al calcifications. No radiopaque intra-articular loose body is noted. Knee joint spaces are relativel y preserved. There is mild patellofemoral and lateral compartment periarticular spurring. Femoral and popliteal and trifurcation artery calcifications. IMPRESSION: Mild to moderate osteoarthritis Chondrocalcinosis Reviewed, dictated and finalized at location L. ICAL INSTRUMENT MAKER
== END 2022-10-25 13:34 | disposition home or self-care (01) ==
LOC: ANHIMG 13:37
PROVIDERS: PCP Physician Assistant; Visit Provider Psychiatry & Neurology Neurology
DX: G62.9 Polyneuropathy, unspecified (principal); M17.12 Unilateral primary osteoarthritis, left knee; M16.12 Unilateral primary osteoarthritis, left hip; M85.872 Other specified disorders of bone density and structure, left ankle and foot
CPT/HCPCS: 73502; 73562; 73610

== ENCOUNTER 2022-12-13 09:02 | Outpatient (CLI) | payer MEDICARE, MEDICAID, SELFPAY ==
--- NOTE | 2022-12-13 11:00 | NEURO_ITS ---
Impression: # Known diabetic complains of increasing weakness and numbness. # Axonal neuropathy. # Needle/EMG reveals decreased motor unit potentials but no active fibrillations. # Clinical correlation recommended. Motor Nerve Conduction Lower Extremities Peroneal Nerve Conduction Velocity (m/sec) Terminal Latency (msec) Response Voltage(mV) Popliteal space-Ankle Ankle Extensor Dig Brevis Popliteal space Ankle Right 41 4.3 1 1 Left 41 4.6 2 4 Tibial Nerve Conduction Velocity (m/sec) Terminal Latency (msec) Response Voltage(mV) Popliteal space-Ankle Ankle-Extensor Dig Brevis Popliteal space Ankle Right 40 4.2 1 .4 Left 41 4.2 .4 .4 F-waves Peroneal Nerve (ms) Tibial Nerve (ms) Right 60.9 60.1 Left 62.9 61.1 Sensory Nerve Conduction Lower Extremities Sural Nerve Stimulation Terminal Latency (msec) Ankle Response Voltage (uV) Ankle Response Velocity (m/sec) Right 3.6 20 44 Left 3.7 8 43 Superficial Peroneal Nerve Stimulation Terminal Latency (msec) Ankle Response Voltage (uV) Ankle Response Velocity (m/sec) Right 3.8 12 42 Left 3.8 8 42 Left Right Left Right Left Right Left Right Left Right X X Ant Tibialis Reduced Reduced >12ms >12ms X X Gastroc Reduced Reduced >12ms >12ms X X Fibularis Long Reduced Reduced >12ms >12ms X X Flex Dig Long Reduced Reduced >12ms >12ms X X Ext Dig Brev Reduced Reduced >12ms >12ms Abd Hallucis X X Quadriceps Reduced Reduced >12ms >12ms Paraspinals MTDD
== END 2022-12-13 09:03 | disposition home or self-care (01) ==
LOC: ANHNEURO 09:04
PROVIDERS: PCP Physician Assistant; Visit Provider Psychiatry & Neurology Neurology
DX: G62.9 Polyneuropathy, unspecified (principal)
CPT/HCPCS: 95886; 95911

== ENCOUNTER 2022-12-28 12:39 | Outpatient (CLI) | payer MEDICARE, MEDICAID, SELFPAY ==
--- NOTE | ~2022-12-28 | XR_ITS ---
XR knee LT min 4V DATE: 12/28/2022 13:26 INDICATION: Left knee joint pain TECHNIQUE: AP, lateral, tunnel and sunrise views COMPARISON: None FINDINGS: There is osteopenia. Mild suprapatellar knee joint effusion. Mild tricompartment osteoarthritis. There is chondrocalcinosis at the medial and lateral compartments. No fracture or dislocation, periosteal reaction or bone destruction is detected. Calcification of femoral, popliteal and trifurcation arteries. IMPRESSION: Osteopenia Mild knee joint effusion Mild tricompartment osteoarthritis Chondrocalcinosis Reviewed, dictated and finalized at location B.
--- NOTE | ~2022-12-28 | XR_ITS ---
XR hip LT min 2V DATE: 12/28/2022 13:27 INDICATION: Left hip pain TECHNIQUE: AP and lateral views of left hip COMPARISON: None FINDINGS: There is virtual obliteration of superior hip joint space on the left, with prominent scler otic and cystic change of the acetabulum and particularly femoral head. There is some flattening and deformity of the superolateral aspect of the left femoral head suggesting avascular necrosis. There is degenerative spurring as well as joint space narrowing at the left hip. No fracture or dislocation is noted. Prominent femoral artery calcification. IMPRESSION: Probable left femoral head avascular necrosis and severe left hip osteoarthritis Reviewed, dictated and finalized at location B. IMPRESSION: Probable left femoral head avascular necrosis and severe left hip o steoarthritis
--- NOTE | ~2022-12-28 | XR_ITS ---
XR femur LT min 2V DATE: 12/28/2022 13:27 INDICATION: Left knee joint pain, left femur pain TECHNIQUE: AP and lateral views of left femur COMPARISON: None FINDINGS: There is osteopenia. Mild flattening deformity of the left femoral head and severe left hip joint space narrowing and spur ring, suggesting left femoral head avascular necrosis and severe secondary osteoarthritis. No recent fracture or dislocation, periosteal reaction or bone destruction is noted. There is chondrocalcinosis at the medial and lateral compartments of the knee joint. There is extensive calcification of the femoral and popliteal and trifurcation arteries. IMPRESSION: Avascular necrosis of left femoral head and severe secondary osteoarthritis of the left h ip joint Osteopenia Chondrocalcinosis of left knee joint Reviewed, dictated and finalized at location B. IMPRESSION: Avascular necrosis of left femoral head and severe secondary osteoa rthritis of the left hip joint Osteopenia Chondrocalcinosis of left knee joint
== END 2022-12-28 12:40 | disposition home or self-care (01) ==
PROVIDERS: PCP Physician Assistant; Visit Provider Physician Assistant
DX: M16.12 Unilateral primary osteoarthritis, left hip (principal); M81.0 Age-related osteoporosis without current pathological fracture; M17.12 Unilateral primary osteoarthritis, left knee; M25.462 Effusion, left knee; M85.852 Other specified disorders of bone density and structure, left thigh
CPT/HCPCS: 73502; 73552; 73564

== ENCOUNTER 2023-01-03 11:12 | Outpatient (CLI) | payer MEDICARE, MEDICAID, SELFPAY ==
--- NOTE | ~2023-01-03 | XR_ITS ---
XR tibia fibula LT 2V DATE: 01/03/2023 11:38 INDICATION: Fall. Left lower leg pain TECHNIQUE: AP and lateral views of left lower leg COMPARISON: None FINDINGS: Anterior and posterior tibial artery and popliteal artery calcification. Osteopenia. No fracture, dislocation, periosteal reaction or bone destruction is detected. Chondrocalcinosis is noted at the knee joint. IMPRESSION: Osteopenia Arterial calcifications chondrocalcinosis of the knee joint Reviewed, dictated and finalized at location L.
== END 2023-01-03 11:13 | disposition home or self-care (01) ==
LOC: ANHIMG 11:14
PROVIDERS: PCP Physician Assistant; Visit Provider Physician Assistant
DX: M79.605 Pain in left leg (principal); M85.872 Other specified disorders of bone density and structure, left ankle and foot
CPT/HCPCS: 73590

== ENCOUNTER 2023-01-13 16:13 | Outpatient (CLI) | payer MEDICARE, MEDICAID, SELFPAY ==
--- NOTE | ~2023-01-13 | MR_ITS ---
MRI of the left knee Clinical history: Pain Technique: Coronal proton density and proton density-weighted images, sagittal proton-density and T2 fat-sat images, and axial proton-density fat-saturated images were acquired. Findings: Anterior and posterior cruciate ligaments are intact. Medial collateral ligament and the la teral collateral ligament complex are intact. Popliteus tendon is intact. Medial and lateral menisci are intact, without evidence of tear. There is focal grade IV chondromalacia along the patellar apex and lateral patellar facet. Articular cartilage along the femoral trochlea and in the medial and lateral compartments is relatively well pr eserved otherwise. There is a probable nondisplaced healing fracture extending from the central anter ior tibial spine region to the lateral cortex at the proximal tibial metaphysis, with extensive surro unding amorphous marrow edema. Extensor mechanism is intact. Small joint effusion present. Moderate Campbell's cyst present. There is a n 8 mm loose body within the Campbell's cyst. There is mild diffuse amorphous soft tissue edema about th e knee. Impression: Probable nondisplaced, healing fracture extending from the anterior tibial spine to the lateral silverio x at the proximal tibial metaphysis, with extensive surrounding amorphous marrow edema in the proxima l tibia. Focal grade 4 chondral lesion of the patella, as detailed above. Minimal joint effusion with moderate Campbell's cyst. 8 mm loose body within the Campbell's cyst. Mild diffuse subcutaneous and soft tissue edema about the knee, nonspecific. No ligamentous injury or meniscal tear seen. Reviewed, dictated and finalized at [facility]. Impression: Probable nondisplaced, healing fracture extending from the anterior tibial spin e to the lateral cortex at the proximal tibial metaphysis, with extensive surro unding amorphous marrow edema in the proximal tibia. Focal grade 4 chondral lesion of the patella, as detailed above. Minimal joint effusion with moderate Campbell's cyst. 8 mm loose body within the Campbell's cyst. Mild diffuse subcutaneous and soft tissue edema about the knee, nonspecific. No ligamentous injury or meniscal tear seen.
== END 2023-01-13 16:14 | disposition home or self-care (01) ==
PROVIDERS: PCP Physician Assistant; Visit Provider Physician Assistant
DX: M23.42 Loose body in knee, left knee (principal); M25.462 Effusion, left knee; M71.22 Synovial cyst of popliteal space [Baker], left knee
CPT/HCPCS: 73721

== ENCOUNTER 2023-02-02 07:33 | Outpatient (CLI) | payer MEDICARE, MEDICAID, SELFPAY ==
--- NOTE | ~2023-02-02 | DEXA_ITS ---
Bone Density Report Name: NELY BHAKTA Age: 62 Sex: Female Ethnicity: White Date of : 1960 Indication: postmenopausal; screening for osteoporosis; height loss; rheumatoid arthritis; Referring Provider: DONAVON, ANJALI Sims Study: Bone densitometry was performed. Exam Date: February 02, 2023 Accession number: [id number] Bone Density: Region BMD T-score Z-score Classification AP Spine(L1-L4) 1.041 -0.1 1.5 Normal Femoral Neck (Left) 0.734 -1.0 0.4 Normal Total Hip (Left) 0.753 -1.6 -0.5 Osteopenia Femoral Neck (Right) 0.580 -2.4 -1.0 Osteopenia Total Hip (Right) 0.691 -2.1 -1.0 Osteopenia Total Hip Mean 0.722 -1.9 -0.8 Osteopenia World Health Organization criteria for BMD impression classify patients as: Normal (T-score at or above -1.0), Osteopenia (T-score between -1.0 and -2.5), or Osteoporosis (T-score at or below -2.5). 10-year Fracture Risk(1): Major Osteoporotic Fracture 14% Hip Fracture 2.8% Reported Risk Factors: [place] (), Neck BMD=0.580, BMI=22.3, rheumatoid arthritis (1) FRAX(R) Version 3.08. Fracture probability calculated for an untreated patient. Fracture probability may be lower if the patient has received treatment. Clinical Information Provided by Patient: Has rheumatoid arthritis Patient maximum height was 66 Menopause Age: 59 Does not regularly consume dairy products Drinks caffeinated beverages Onset of menses at age 10 Number of children 1 Impression: The patient has low bone mass, based on the Right Femoral Neck T-score. The patient has an estimated ten-year risk of hip fracture of 2.8% and an estimated ten-year risk of major fracture of 14%, based on the WHO FRAX algorithm. Discussion: BONE DENSITY IS LOW AT ONE OR MORE SKELETAL SITES. This patient's lowest T-score is low at one or more skeletal sites. It meets the World Health Organization's (WHO) criteria for ?low bone mass? (T-score between -1.0 and -2.5). The patient's 10-year risk of fracture as calculated by FRAX is less than the threshold where pharmacological therapy is recommended by the National Osteoporosis Foundation (NOF). However, all treatment decisions require clinical judgment and consideration of individual patient factors, including patient preferences, comorbidities, previous drug use, risk factors not captured in the FRAX model (e.g., frailty, falls, vitamin D deficiency, increased bone turnover, interval significant decline in bone density) and possible under or overestimation of fracture risk by FRAX. The patient should follow a healthful lifestyle (good nutrition with adequate calcium and vitamin D, and appropriate weight-bearing exercise). Follow-Up: Consider repeating this study in 2 to 3 years to reassess this patient's status, or sooner if there is some new clin
== END 2023-02-02 07:34 | disposition home or self-care (01) ==
LOC: ANHIMG 07:34
PROVIDERS: PCP Physician Assistant; Visit Provider Physician Assistant
DX: Z13.820 Encounter for screening for osteoporosis (principal); M85.89 Other specified disorders of bone density and structure, multiple sites
CPT/HCPCS: 77080

== ENCOUNTER 2023-02-24 11:16 | Outpatient (CLI) | payer MEDICARE, MEDICAID, SELFPAY ==
[2023-02-24 12:12] LABS: Alanine Aminotransferase 30 U/L (6-35); Albumin Level 3.9 g/dL (3.5-5.1); Alkaline Phosphatase 69 U/L (38-126); Anion Gap 1 mmol/L (8-16); Aspartate Amino Transferase 29 U/L (14-36); Bilirubin,Total 0.5 mg/dL (0.2-1.3); Blood Urea Nitrogen 23 mg/dL (7-17); Calcium 8.8 mg/dL (8.4-10.2); Carbon Dioxide 32 mmol/L (22-30); Chloride 105 mmol/L (98-107); Estimated Glomerular Filt Rate > 60; Glucose 119 mg/dL (65-110); Potassium 4.5 mmol/L (3.4-5.0); Sodium 138 mmol/L (137-145)
[2023-02-24 12:14] LABS: Basophils Percent Auto 0.4 % (0.2-1.2); Eosinophils Absolute Auto 0.1 K/mm3 (0-0.3); Hemoglobin 9.7 g/dL (12.0-15.0); Immature Granulocyte Absolute 0.01 K/mm3 (0.00-0.031); Immature Granulocyte Percent A 0.2 % (0-0.5); Lymphocytes Absolute Auto 1.47 K/mm3 (0.9-3.2); Lymphocytes Percent Auto 32.7 % (18.3-44.2); Mean Corpuscular HGB Conc 31.3 g/dl (32-36); Mean Corpuscular Hemoglobin 28.3 pg (26-34); Mean Corpuscular Volume 90.4 fl (80-100); Monocytes Absolute Auto 0.3 K/mm3 (0.1-0.6); Monocytes Percent Auto 7.6 % (2.6-8.5); Neutrophils Absolute Auto 2.6 K/mm3 (1.3-6.7); Neutrophils Percent Auto 57.1 % (45.5-73.1); Platelet Count Result 202 k/mm3 (150-375); Red Blood Count 3.43 M/mm3 (4.2-5.4); Red Cell Distribution Width 13.3 % (11.5-14.5); White Blood Count 4.5 K/mm3 (4.5-10.0)
[2023-02-24 12:16] LABS: Hemoglobin A1C 6.4 % (<5.7)
[2023-02-24 12:20] LABS: Appearance Urine Cloudy (Clear); Bacteria Urine 2+ /hpf; Bilirubin Urine Negative (Negative); Blood Urine Negative (Negative); Color Urine Yellow (Yellow); Glucose Urine UA Negative (Negative); Ketones Urine Negative (Negative); Leukocyte Esterase Ur 2+ LEU/UL (NEGATIVE); Nitrate Urine Negative (Negative); Non Pathogenic Casts 0-2; Protein Urine Negative (Negative); RBC Urine 0-2 /hpf (0-2); Specific Grav Ur 1.017 (1.001-1.035); Squamous Epithelial Cell Urine Moderate /hpf (Few); WBC Urine 21-50 /hpf (0-3); pH Urine 5.5 (5.0-9.0)
[2023-02-24 12:21] LABS: Creatinine Urine 102.1 mg/dL; Total Protein Urine Random 6 mg/dL; Ur Ttl Prot Creatinine Ratio 0.06 mg/mg (0-0.20)
[2023-02-24 12:23] LABS: Add Urine Microscopic? YES
== END 2023-02-24 11:17 | disposition home or self-care (01) ==
PROVIDERS: PCP Physician Assistant; Visit Provider Internal Medicine Nephrology
DX: N18.2 Chronic kidney disease, stage 2 (mild) (principal); E11.9 Type 2 diabetes mellitus without complications; Z98.84 Bariatric surgery status
CPT/HCPCS: 36415; 80053; 81001; 82570; 83036; 84156; 85025

== ENCOUNTER 2023-03-30 09:15 | Outpatient (CLI) | payer MEDICARE, MEDICAID, SELFPAY ==
--- NOTE | ~2023-03-30 | US_ITS ---
Limited Abdominal Sonogram: Real-time sonographic imaging of the right upper quadrant was performed. Clinical History: Bile duct dilatation Findings: The liver appears heterogeneous, with no evidence of mass lesion or bile duct dilatation. Main portal vein demonstrates normal direction of flow. The gallbladder is absent, compatible prior c holecystectomy. The common bile duct measures 13 mm. The visualized pancreas, aorta, and IVC are unr emarkable. Impression: Dilated common bile duct, possibly related to prior cholecystectomy. Correlate clinically. Heterogeneous hepatic echotexture. Correlate for fatty infiltration or other chronic liver disease. Reviewed, dictated and finalized at [facility]. Impression: Dilated common bile duct, possibly related to prior cholecystectomy. Correlate clinically. Heterogeneous hepatic echotexture. Correlate for fatty infiltration or other ch ronic liver disease.
== END 2023-03-30 09:16 | disposition home or self-care (01) ==
PROVIDERS: PCP Physician Assistant; Visit Provider Physician Assistant
DX: K83.8 Other specified diseases of biliary tract (principal)
CPT/HCPCS: 76705

== ENCOUNTER 2023-05-11 14:35 | Outpatient (CLI) | payer MEDICARE, MEDICAID, SELFPAY ==
--- NOTE | ~2023-05-11 | MM_ITS ---
EXAMINATION: MM screening amy BI w annalisa HISTORY: Screening mammogram TECHNIQUE: Craniocaudal and mediolateral oblique 3-D tomosynthesis images were obtained and synthetic 2-D images were generated. CAD analysis was submitted and interpreted. COMPARISON: 10/21/2020, 08/27/2019 bilateral screening mammogram examinations BREAST PARENCHYMAL COMPOSITION: The breasts are heterogeneously dense, which may obscure small masses . FINDINGS: Scattered bilateral benign calcifications are again noted. There is no evidence of suspicio us mass, calcification, or architectural distortion to suggest malignancy in either breast. There has been no suspicious interval change. IMPRESSION: 1. No mammographic evidence of malignancy. 2. Recommend routine screening mammography in one year. BI-RADS Category 1: Negative Reviewed, dictated and finalized at location A.
== END 2023-05-11 14:36 | disposition home or self-care (01) ==
PROVIDERS: PCP Physician Assistant; Visit Provider Physician Assistant
DX: Z12.31 Encounter for screening mammogram for malignant neoplasm of breast (principal)
CPT/HCPCS: 77063; 77067

== ENCOUNTER 2023-08-24 11:01 | Outpatient (CLI) | payer MEDICARE, MEDICAID, SELFPAY ==
[2023-08-24 12:45] LABS: Basophils Percent Auto 0.6 % (0.2-1.2); Eosinophils Percent Auto 0.7 % (0-4.4); Hemoglobin 11.2 g/dL (12.0-15.0); Immature Granulocyte Absolute 0.02 K/mm3 (0.00-0.031); Immature Granulocyte Percent A 0.4 % (0-0.5); Lymphocytes Absolute Auto 1.39 K/mm3 (0.9-3.2); Lymphocytes Percent Auto 25.9 % (18.3-44.2); Mean Corpuscular HGB Conc 30.3 g/dl (32-36); Mean Corpuscular Hemoglobin 27.9 pg (26-34); Mean Corpuscular Volume 92.3 fl (80-100); Mean Platelet Volume 11.1 fl (7.4-10.4); Monocytes Absolute Auto 0.4 K/mm3 (0.1-0.6); Monocytes Percent Auto 6.5 % (2.6-8.5); Neutrophils Absolute Auto 3.5 K/mm3 (1.3-6.7); Neutrophils Percent Auto 65.9 % (45.5-73.1); Platelet Count Result 193 k/mm3 (150-375); Red Blood Count 4.01 M/mm3 (4.2-5.4); Red Cell Distribution Width 14.3 % (11.5-14.5); White Blood Count 5.4 K/mm3 (4.5-10.0)
[2023-08-24 12:52] LABS: Appearance Urine Cloudy (Clear); Bacteria Urine 1+ /hpf; Bilirubin Urine Negative (Negative); Blood Urine Negative (Negative); Color Urine Yellow (Yellow); Glucose Urine UA Negative (Negative); Ketones Urine Negative (Negative); Leukocyte Esterase Ur 2+ LEU/UL (Negative); Nitrate Urine Negative (Negative); Non Pathogenic Casts 0-2; Protein Urine Negative (Negative); RBC Urine 0-2 /hpf (0-2); Specific Grav Ur 1.022 (1.001-1.035); Squamous Epithelial Cell Urine Few /hpf (Few); pH Urine 5.5 (5.0-9.0)
[2023-08-24 12:54] LABS: Add Urine Microscopic? YES
[2023-08-24 12:55] LABS: Alanine Aminotransferase 25 U/L (6-35); Albumin Level 4.3 g/dL (3.5-5.1); Alkaline Phosphatase 64 U/L (38-126); Anion Gap 8 mmol/L (8-16); Aspartate Amino Transferase 22 U/L (14-36); Bilirubin,Total 0.7 mg/dL (0.2-1.3); Blood Urea Nitrogen 24 mg/dL (7-17); Calcium 9.7 mg/dL (8.4-10.2); Carbon Dioxide 28 mmol/L (22-30); Chloride 104 mmol/L (98-107); Estimated Glomerular Filt Rate > 60; Glucose 106 mg/dL (65-110); Phosphorus 4.1 mg/dL (2.5-4.5); Sodium 140 mmol/L (137-145); Uric Acid 4.8 mg/dL (2.5-7.5)
[2023-08-24 12:56] LABS: Creatinine Urine 124.2 mg/dL; Total Protein Urine Random 10 mg/dL; Ur Ttl Prot Creatinine Ratio 0.08 mg/mg (0-0.20)
[2023-08-24 13:16] LABS: Vitamin D 25 Hydroxy 19.7 ng/mL
== END 2023-08-24 11:02 | disposition home or self-care (01) ==
PROVIDERS: PCP Physician Assistant; Visit Provider Internal Medicine Nephrology
DX: E11.21 Type 2 diabetes mellitus with diabetic nephropathy (principal); E55.9 Vitamin D deficiency, unspecified; I12.9 Hypertensive chronic kidney disease with stage 1 through stage 4 chronic kidney disease, or unspecified chronic kidney disease; N18.1 Chronic kidney disease, stage 1; N39.0 Urinary tract infection, site not specified
CPT/HCPCS: 36415; 80053; 81001; 82306; 82570; 83036; 84100; 84156; 84550; 85025; 87086; 87088

== ENCOUNTER 2024-01-28 07:15 | Emergency (ER) | payer MEDICARE, MEDICAID, SELFPAY ==
--- NOTE | ~2024-01-28 | XR_ITS ---
XR chest 2V 01/28/2024 08:10 Indication: Cough with fever for 2 weeks Procedure: 2 view chest Comparison: No prior studies for comparison. Findings: There is left lower lobe airspace disease, compatible with pneumonia. Small hiatal hernia. No significant effusion. No pneumothorax. No edema. No acute osseous abnormality. There are cholecyst ectomy clips. Impression: 1: Left lower lobe pneumonia. 2: Small hiatal hernia. Reviewed, dictated and finalized at location [facility]. Impression: 1: Left lower lobe pneumonia. 2: Small hiatal hernia.
[2024-01-28 07:17] VITALS: BP 116/70; PULSE 86; RESP 20; TEMP 37.8; O2SAT 91
[2024-01-28] MEDS: ACETAMINOPHEN 500 MG TABLET 1000 MG PO (07:33)
[2024-01-28 07:36] VITALS: RESP 17; O2SAT 92
[2024-01-28] MEDS: SODIUM CHLORIDE 0.9% IV 1,000 ML 999 ML IV CONT (07:48)
[2024-01-28 07:56] LABS: Basophils Percent Auto 0.2 % (0.2-1.2); Hematocrit 37.5 % (37.0-47.0); Hemoglobin 12.2 g/dL (12.0-15.0); Immature Granulocyte Absolute 0.02 K/mm3 (0.00-0.031); Immature Granulocyte Percent A 0.3 % (0-0.5); Immature Platelet Fraction Pct 4.5 % (0.9-11.2); Lymphocytes Absolute Auto 0.53 K/mm3 (0.9-3.2); Lymphocytes Percent Auto 8.1 % (18.3-44.2); Mean Corpuscular HGB Conc 32.5 g/dl (32-36); Mean Corpuscular Hemoglobin 29.3 pg (26-34); Mean Corpuscular Volume 89.9 fl (80-100); Mean Platelet Volume 11.2 fl (7.4-10.4); Monocytes Absolute Auto 0.4 K/mm3 (0.1-0.6); Monocytes Percent Auto 5.7 % (2.6-8.5); Neutrophils Absolute Auto 5.6 K/mm3 (1.3-6.7); Neutrophils Percent Auto 85.7 % (45.5-73.1); Platelet Count Result 115 k/mm3 (150-375); Red Blood Count 4.17 M/mm3 (4.2-5.4); Red Cell Distribution Width 12.1 % (11.5-14.5); White Blood Count 6.5 K/mm3 (4.5-10.0)
[2024-01-28 08:04] LABS: Alanine Aminotransferase 21 U/L (6-35); Albumin Level 4.4 g/dL (3.5-5.1); Alkaline Phosphatase 68 U/L (38-126); Anion Gap 6 mmol/L (4-12); Aspartate Amino Transferase 31 U/L (14-36); Bilirubin,Total 0.5 mg/dL (0.2-1.3); Blood Urea Nitrogen 16 mg/dL (7-17); Carbon Dioxide 27 mmol/L (22-30); Chloride 100 mmol/L (98-107); Estimated CRCL calculation 54 ml/min; Estimated Glomerular Filt Rate > 60; Glucose 137 mg/dL (65-110); Lactic Acid Reflex 1.3 mmol/L (0.7-2.0); Potassium 3.8 mmol/L (3.4-5.0); Sodium 133 mmol/L (137-145)
[2024-01-28 08:17] LABS: Influenza A QL RT-PCR Positive (Negative); Influenza B QL RT-PCR Negative (Negative); RSV RNA, RT-PCR Negative (Negative); SARS-CoV-2 RNA PCR Negative (Negative)
[2024-01-28 08:40] VITALS: BP 119/82; PULSE 74; RESP 21; TEMP 38.1; O2SAT 92
--- NOTE | 2024-01-28 09:05 | ED.FEVER ---
HPI - Fever General Chief Complaint: Fever Stated Complaint: fever, head cold Time Seen by Provider: 01/28/24 07:22 History of Present Illness HPI Narrative: This is a 63-year-old female, with history of diabetes, presents to the emergency department complaining of 3 weeks worth of cough and general malaise, worsened in the past 3 days. The patient denies any known sick contacts. She complains of nonproductive cough and loose stools without blood. This is accompanied by fatigue and lightheadedness as well as measured temperatures at home of 101.9. Related Data Home Medications Medication Instructions Recorded Confirmed alprazolam 1 mg tablet 0.5 mg PO TID PRN Anxiety 02/19/20 01/05/24 atorvastatin 10 mg tablet 10 mg PO DAILY 02/19/20 01/05/24 calcium carbonate 600 mg-vitamin 1 tablet PO BID 02/19/20 01/05/24 D3 10 mcg (400 unit) chewable tablet (Calcium 600 with Vitamin D3) lisinopril 10 mg tablet 10 mg PO DAILY 08/24/21 01/05/24 gabapentin 800 mg tablet 800 mg PO TID 07/18/22 01/05/24 hydrocodone 10 mg-acetaminophen 1 tablet PO Q8H PRN Pain 07/18/22 01/05/24 325 mg tablet insulin glargine 100 unit/mL 20 unit subcut BID 07/18/22 01/05/24 subcutaneous solution liraglutide 0.6 mg/0.1 mL (18 mg/3 1.2 mg subcut DAILY 07/18/22 01/05/24 mL) subcutaneous pen injector citalopram 40 mg tablet 20 mg PO DAILY 10/24/22 01/05/24 Allergies Allergy/AdvReac Type Severity Reaction Status Date / Time adhesive tape Allergy Mild Rash Verified 01/28/24 07:39 codeine AdvReac Intermediate Vomiting Verified 01/28/24 07:39 Review of Systems Review of Systems: CONSTITUTIONAL: Fevers and chills Denies sweats. EYES: Denies visual changes, redness, or discharge. ENT: Denies rhinorrhea, congestion, sore throat, or otalgia. CARDIOVASCULAR: Denies chest pain, palpitations, or edema. RESPIRATORY: Nonproductive cough Denies dyspnea. GASTROINTESTINAL: Loose stools and nausea Denies abdominal pain, vomiting GENITOURINARY: Denies dysuria or hematuria. SKIN: Denies rash or itching. MUSCULOSKELETAL: Denies back pain, joint pain, or myalgia. NEUROLOGIC: Lightheadedness Denies headache, numbness, weakness. PSYCHIATRIC: Denies anxiety or depression. [facility] Past Medical History Medical History Anemia Anxiety Arthritis Asthma Bipolar disorder Carpal tunnel syndrome of right wrist Cervicalgia Chronic, continuous use of opioids percocet x 15 years Depression Diabetes Type 2 DVT (deep venous thrombosis) left leg Hyperlipidemia Latex allergy Lumbago Pinched nerve in shoulder Seasonal allergic rhinitis Vision loss Weight gain Wound dehiscence Surgical History Surgical History H/O eye surgery secondary to retinopathy H/O resection of stomach History of carpal tunnel release right hand History of section, classical History of gastric bypass Hx of cholecystectomy S/P cubital tunnel release Family History Family History Father Family history of obesity Family history of mental disorder Depression Family history of cataracts Family history of alcoholism Family history of arthritis Family history of chronic obstructive pulmonary disease Family history of diabetes mellitus in first degree relative Family history of coronary artery disease Family history of lung disease Family history of congestive heart failure Family history of heart disease in male family member before age 55 Family history of hearing loss Patient's father is Mother Family history of mental disorder Depression Family history of alcoholism Family history of chronic obstructive pulmonary disease Family history of coronary artery disease Family history of renal failure Family history of congestive heart failure Family history of
[2024-01-28 09:15] VITALS: BP 134/73; PULSE 73; RESP 23; O2SAT 91
== END 2024-01-28 09:28 | disposition home or self-care (01) ==
PROVIDERS: Emergency Provider Preventive Medicine Aerospace Medicine; PCP Physician Assistant
DX: J10.00 Influenza due to other identified influenza virus with unspecified type of pneumonia (principal); Z20.822 Contact with and (suspected) exposure to COVID-19; J45.909 Unspecified asthma, uncomplicated; E11.9 Type 2 diabetes mellitus without complications; E78.5 Hyperlipidemia, unspecified; M19.90 Unspecified osteoarthritis, unspecified site; F41.9 Anxiety disorder, unspecified; F31.9 Bipolar disorder, unspecified; Z98.84 Bariatric surgery status; Z86.718 Personal history of other venous thrombosis and embolism; Z86.2 Personal history of diseases of the blood and blood-forming organs and certain disorders involving the immune mechanism; Z90.49 Acquired absence of other specified parts of digestive tract; Z79.4 Long term (current) use of insulin; Z79.85 Long-term (current) use of injectable non-insulin antidiabetic drugs
CPT/HCPCS: 36415; 71046; 80053; 83605; 85025; 85055; 87637; 96360; 99283; A9270; J7030

== ENCOUNTER 2024-02-06 11:35 | Emergency (ER) | payer MEDICARE, MEDICAID, SELFPAY ==
--- NOTE | 2024-02-06 11:51 | PC.NURSE ---
pt reports her doctor sent the order for the chest xray to be done outpatient. pt ambulated out of ED to radiology department.
== END 2024-02-06 12:16 | disposition left against medical advice (07) ==
LOC: ANHED 11:56
PROVIDERS: PCP Physician Assistant
DX: Z53.21 Procedure and treatment not carried out due to patient leaving prior to being seen by health care provider (principal)
CPT/HCPCS: 99199

== ENCOUNTER 2024-02-06 14:44 | Outpatient (CLI) | payer MEDICARE, MEDICAID, SELFPAY ==
--- NOTE | ~2024-02-06 | XR_ITS ---
EXAMINATION: XR chest 2V 02/06/2024 15:14 INDICATION: Follow-up pneumonia PROCEDURE: 2 view chest COMPARISON: Comparison to multiple prior studies sequentially, with oldest reviewed study dated 06/04. FINDINGS: The lungs are clear. The cardiomediastinal silhouette is within normal limits. There are no pleural effusions. There is no pneumothorax suspected. . The lungs are hyperinflated which is co nsistent with, but not diagnostic of chronic obstructive pulmonary disease. IMPRESSION: 1: NO ACUTE CARDIOPULMONARY DISEASE. Reviewed, dictated and finalized at location [facility].
== END 2024-02-06 14:45 | disposition home or self-care (01) ==
PROVIDERS: PCP Physician Assistant; Visit Provider Physician Assistant
DX: J18.9 Pneumonia, unspecified organism (principal)
CPT/HCPCS: 71046

== ENCOUNTER 2024-02-13 14:44 | Emergency (ER) | payer MEDICARE, MEDICAID, SELFPAY ==
--- NOTE | ~2024-02-13 | US_ITS ---
EXAMINATION: US venous doppler [facility] DATE: 02/13/2024 15:56 INDICATION: Left lower limb swelling. TECHNIQUE: Grayscale ultrasound images without and with compression and Doppler ultrasound images of the left lower extremity veins were obtained. COMPARISON: Left knee MRI 01/13/2023 FINDINGS: The visualized portions of left common femoral vein, profunda (deep) femoral vein, femoral vein, popl iteal vein, peroneal veins, posterior tibial veins, and greater saphenous vein outflow are patent. Th ere is a 4.7 x 1.3 x 2.5 cm fluid collection in the popliteal fossa, consistent with a Campbell's cyst. IMPRESSION: 1. No deep venous thrombosis. 2. Large Campbell's cyst. Reviewed, dictated and finalized at location [facility].
[2024-02-13 14:46] VITALS: BP 110/62; PULSE 70; RESP 20; TEMP 36; O2SAT 97
--- NOTE | 2024-02-13 17:08 | ED.GENADULT ---
HPI - General Adult General Chief complaint: Extremity Injury, Lower Stated complaint: Left leg swelling/ post op complications Time Seen by Provider: 02/13/24 17:07 Source: patient Mode of arrival: ambulatory Limitations: no limitations History of Present Illness HPI narrative: This is a 63-year-old female who presents to the ED with chief complaint of left lower extremity swelling after having left hip replacement surgery about a week ago. She was referred by primary to come get an ultrasound to rule out DVT. Patient reports some general pain and discomfort in the left thigh and knee area. Denies calf swelling. Denies numbness, weakness or any further sites of pain. Denies fevers, chills Related Data Home Medications Medication Instructions Recorded Confirmed alprazolam 1 mg tablet 0.5 mg PO TID PRN Anxiety 02/19/20 01/05/24 atorvastatin 10 mg tablet 10 mg PO DAILY 02/19/20 01/05/24 calcium carbonate 600 mg-vitamin 1 tablet PO BID 02/19/20 01/05/24 D3 10 mcg (400 unit) chewable tablet (Calcium 600 with Vitamin D3) lisinopril 10 mg tablet 10 mg PO DAILY 08/24/21 01/05/24 gabapentin 800 mg tablet 800 mg PO TID 07/18/22 01/05/24 hydrocodone 10 mg-acetaminophen 1 tablet PO Q8H PRN Pain 07/18/22 01/05/24 325 mg tablet insulin glargine 100 unit/mL 20 unit subcut BID 07/18/22 01/05/24 subcutaneous solution liraglutide 0.6 mg/0.1 mL (18 mg/3 1.2 mg subcut DAILY 07/18/22 01/05/24 mL) subcutaneous pen injector citalopram 40 mg tablet 20 mg PO DAILY 10/24/22 01/05/24 Allergies Allergy/AdvReac Type Severity Reaction Status Date / Time adhesive tape Allergy Mild Rash Verified 01/28/24 07:39 codeine AdvReac Intermediate Vomiting Verified 01/28/24 07:39 Review of Systems Review of Systems: All systems as dictated in [facility] Past Medical History Medical History Anemia Anxiety Arthritis Asthma Bipolar disorder Carpal tunnel syndrome of right wrist Cervicalgia Chronic, continuous use of opioids percocet x 15 years Depression Diabetes Type 2 DVT (deep venous thrombosis) left leg Hyperlipidemia Latex allergy Lumbago Pinched nerve in shoulder Seasonal allergic rhinitis Vision loss Weight gain Wound dehiscence Surgical History Surgical History H/O eye surgery secondary to retinopathy H/O resection of stomach History of carpal tunnel release right hand History of section, classical History of gastric bypass Hx of cholecystectomy S/P cubital tunnel release Family History Family History Father Family history of obesity Family history of mental disorder Depression Family history of cataracts Family history of alcoholism Family history of arthritis Family history of chronic obstructive pulmonary disease Family history of diabetes mellitus in first degree relative Family history of coronary artery disease Family history of lung disease Family history of congestive heart failure Family history of heart disease in male family member before age 55 Family history of hearing loss Patient's father is Mother Family history of mental disorder Depression Family history of alcoholism Family history of chronic obstructive pulmonary disease Family history of coronary artery disease Family history of renal failure Family history of congestive heart failure Family history of heart disease in male family member before age 55 Patient's mother is Sibling Family history of mental disorder Depression Patient's sister is in good health Family history of alcoholism Family history of lung cancer Family history of lung disease Family history of seizure disorder Other Family history of attention deficit hyperactivity disorder (ADHD) Social History Socia
[2024-02-13 17:18] VITALS: BP 112/64; PULSE 70; RESP 20; TEMP 36.4; O2SAT 98
== END 2024-02-13 17:20 | disposition home or self-care (01) ==
PROVIDERS: Emergency Provider Physician Assistant; PCP Physician Assistant
DX: M71.22 Synovial cyst of popliteal space [Baker], left knee (principal); E11.9 Type 2 diabetes mellitus without complications; E78.5 Hyperlipidemia, unspecified; J45.909 Unspecified asthma, uncomplicated; D64.9 Anemia, unspecified; M19.90 Unspecified osteoarthritis, unspecified site; F31.9 Bipolar disorder, unspecified; F41.9 Anxiety disorder, unspecified; Z98.84 Bariatric surgery status; Z96.642 Presence of left artificial hip joint; Z86.718 Personal history of other venous thrombosis and embolism; Z86.2 Personal history of diseases of the blood and blood-forming organs and certain disorders involving the immune mechanism; Z90.49 Acquired absence of other specified parts of digestive tract; Z79.4 Long term (current) use of insulin; Z79.85 Long-term (current) use of injectable non-insulin antidiabetic drugs
CPT/HCPCS: 93971; 99284

== ENCOUNTER 2024-04-23 15:12 | Outpatient (CLI) | payer MEDICARE, MEDICAID, SELFPAY ==
--- NOTE | ~2024-04-23 | MR_ITS ---
MRI of the cervical spine Clinical History: Myelopathy Technique: Axial T2-weighted and gradient images, and sagittal T1-weighted, T2-weighted, and STIR rachael ges were acquired. Findings: There is no fracture or subluxation of the cervical spine. Vertebral bodies maintain normal height and alignment. No suspicious bone marrow signal identified. There are Modic type changes, mos t notably about the C3-C4 and C5-C6 disc spaces. At C2-C3, there is no significant disc bulge or herniation. No spinal canal stenosis, cord compressio n, or neural foraminal narrowing. At C3-C4, there is moderate degenerative disc narrowing. There is disc ossify complex with mild canal stenosis but no leisa cord compression. There is bilateral neural foraminal narrowing. At C5-C6, there is disc osteophyte complex. There may be minimal canal stenosis without leisa cord co mpression. Bilateral neural foramina are preserved. At C5-C6, there is advanced degenerative disc narrowing. There is mild disc ossify complex, with mild canal stenosis but no leisa cord compression. There is right neural foraminal narrowing. Left neural foramen preserved. At C6-C7, there is advanced degenerative disc narrowing. There is mild disc osteophyte complex, witho ut canal stenosis or cord compression. There is left neural foraminal narrowing. Right neural foramen preserved. No abnormal signal seen in the spinal cord. Paravertebral soft tissues are unremarkable. Impression: Moderate degenerative spondylosis, as above. Reviewed, dictated and finalized at [facility]. Impression: Moderate degenerative spondylosis, as above.
== END 2024-04-23 15:13 | disposition home or self-care (01) ==
LOC: ANHIMG 15:15
PROVIDERS: PCP Physician Assistant; Visit Provider Physician Assistant
DX: G95.9 Disease of spinal cord, unspecified (principal); M47.892 Other spondylosis, cervical region
CPT/HCPCS: 72141

== ENCOUNTER 2024-05-15 09:23 | Outpatient (CLI) | payer MEDICARE, MEDICAID, SELFPAY ==
[2024-06-03 18:29] VITALS: BMI 22.3
--- NOTE | 2024-06-03 18:29 | WPDSLEEPSTUD ---
Sleep Study Date of Study: 05/15/24 Ordering Provider: Marely McclureCRISTEL Interpreting Physician: Doreen Cervantes, Sleep Study Type: Polysomnogram Height: 1.65 m Weight: 60.781 kg Body Mass Index: 22.3 Neck Circumference (inches): 12.5 [place]: 1 Reason for Sleep Study Difficulty sleeping Sleep History The patient is a 63 year old female that had a sleep study ordered by her primary care for evaluation of sleep disturbances. The patient is currently disabled. She denies awakening from sleep short of breath. She denies awakening at night with heartburn, belching or cough. She denies snoring. She rarely has trouble sleeping when she has a cold. She rarely wakes up gasping for air throughout the night. She denies having breathing problems at night observed by herself or others. She occasionally sweats excessively at night. She rarely has heart palpitations or irregular heartbeats during the night. She occasionally falls asleep during the day but never while driving. She denies sleep paralysis. She denies having trouble at school or work due to sleepiness. She rarely experiences vivid dreamlike scenes upon awakening or falling asleep. She denies feeling afraid of going to sleep. She rarely has nightmares and rarely remembers her dreams. She occasionally feels sad or depressed. She constantly has anxiety. She constantly notices parts of her body jerk. She constantly kicks during the night. She constantly has crawling and aching feelings in her legs and constantly has leg pain during the night. She rarely grinds her teeth during sleep and never awakens with morning jaw pain. She is constantly bothered by pain during the day and constantly awakened by pain during the night. She constantly feels stiff in the morning. She constantly has sore or achy muscles. She constantly has pain in the neck, spine and other joints. She goes to bed at 10:00 p.m. on weekdays and at midnight on the weekends. It can take her several hours to fall asleep. She is unsure how many times she wakes up throughout the night. She wakes up at 6:00 a.m. on both weekdays and weekends. She states that she gets maybe an hour of sleep per night. She currently lives with her fiance. She denies consuming any caffeinated beverages within 2 hours of bedtime. She denies engaging in physical exercise before bedtime. She will watch television before falling asleep. She will occasionally take naps in afternoon or the evening and they are refreshing. She consumes 3 glasses of caffeinated tea per day. She does smoke marijuana. She denies tobacco and alcohol use. [facility] Past Medical History Medical History Anemia Anxiety Arthritis Asthma Bipolar disorder Carpal tunnel syndrome of right wrist Cervicalgia Chronic, continuous use of opioids percocet x 15 years Depression Diabetes Type 2 DVT (deep venous thrombosis) left leg Hyperlipidemia Latex allergy Lumbago Pinched nerve in shoulder Seasonal allergic rhinitis Vision loss Weight gain Wound dehiscence Surgical History Surgical History H/O eye surgery secondary to retinopathy H/O resection of stomach History of carpal tunnel release right hand History of section, classical History of gastric bypass Hx of cholecystectomy S/P cubital tunnel release Family History Family History Father Family history of obesity Family history of mental disorder Depression Family history of cataracts Family history of alcoholism Family history of arthritis Family history of chronic obstructive pulmonary disease Family history of diabetes mellitus in first degree relative Family history of coronary artery disease Family history of lung disease Family history of congestive heart failure Family his
== END 2024-05-16 03:05 | disposition left against medical advice (07) ==
LOC: ANHCSM 09:24
PROVIDERS: PCP Physician Assistant; Visit Provider Physician Assistant
DX: G47.30 Sleep apnea, unspecified (principal); G47.9 Sleep disorder, unspecified
CPT/HCPCS: 95810

== ENCOUNTER 2024-06-03 08:00 | Outpatient (RCR) | payer MEDICARE, MEDICAID, SELFPAY ==
--- NOTE | 2024-04-03 18:47 | PTOPEVAL1 ---
Assessment and note entered by Payton Diaz, PT Evaluation Information Assessment Status Evaluation Diagnosis s/p THR LLE Onset February 09, 2024 Subjective Information Pt reports pain and discomfort around hip, groin, inner thigh LLE, generalized pain to multiple joints, neuropathy to B feet, L LE pain is grabbing most of her attention at this time. States she has a lot of swelling after surgery but has gone down now, still noticed alot of tenderness and soreness in the thighs. Reports she has 2 DARSHAN and uses rail for support, uses BUE to pull self up due to discomfort to BLEs. Pt wants to be able to walk normally and move around without pain. Reported Pain Level Pain Score 10: Self Report Assessment PT Clinical Summary Pt presents to therapy with c/o pain and discomfort to L LE, unsteadiness on her feet, and limited mobility. Pt demos weakness, muscle guarding, muscle tightness, decreased ROM and decreased flexibility, significant LLD, balance deficits, coordination impairments impacting safety in performing indep functional mobility and IADLs at this time. Continued skilled PT necessary to address deficits and improve quality of life and reduce risk for falls and or further post-op complications. Plan of Care Interventions Check Out for Orthotic/Pr,Gait Training,Hot Pack/ Cold Pack,Neuro Re-education,Patient/Caregiver Education,Therapeutic Activities, Therapeutic Exercise, Manual Therapy, IASTM PT Services Indicated Yes Treatment Frequency and 2x/wk x 10 visits Duration These treatments will address the objective and functional deficits as defined above. The patient will be advanced safely and appropriately in order for the patient to progress towards his/her prior level of function. Additional exercises will be introduced and as well as a comprehensive home exercise program upon discharge, if needed, ?to ensure carryover of functional gains achieved in the clinic. This treatment plan has been reviewed and agreement upon by the patient.
--- NOTE | 2024-05-09 11:42 | PCPTNOTE ---
pt did not show for today's reevaluation appt. Called her and she stated did not have the appt on her calendar for today. Feels like she needs more therapy to get stronger. She was in her car--to call for another reeval appt.
--- NOTE | 2024-06-03 08:57 | PTOPDC ---
Assessment and note entered by Amber Lewis, PT Discharge Report Assessment Status Discharge Diagnosis s/p THR LLE Onset February 09, 2024 Subjective Information hip has been good; have been getting injections for back pain and not helping, going to see back dr about surgery on her back; have been doing the exercises in the pool; MRI of brain in Jun, feels like she may have had a stroke due to L side weak and L hand fingers stay balled up; is not able to do lifting at home; have not had any falls, have been off balance, but catches herself; has a grabber, does not pick things up off the floor; Reported Pain Level Pain Score Self Report Additional Pain Score Comments pain range in the past week of 0-7/10 in L hip, pain from back and hip hard to separate out; with stairs and walking report L hip pain 4/10; also feet, back pain increased with activity; Assessment PT Clinical Summary Linda has received 9 PT sessions. She did not show for 2 appointments. Compared to the initial evaluation: pain rating of 0-7/10-- pain in back, L hip; 2 minute walking test of 500' with reports of increase pain; on stairs, requires one hand rail and single step pattern; strength of L hip is decreased, with reports of back and hip pain; with walking, has lateral shift of trunk and does not walk a straight path. Tinetti balance score of 22/28; 5 reps sit/stand time of 16 seconds; Self assessment LE functional score of 63%; Education completed for HEP and gait pattern. The goals were partially met. Discharge PT. She is to continue with her HEP and activity as pain in hip and back allows her. Plan of Care PT Services Indicated No
--- NOTE | 2024-06-03 08:58 | PCPTNOTE ---
pt was 10 minutes late for today's appt; she apologized, reported her transportation had a flat tire.
--- NOTE | 2024-06-03 08:59 | PCPTNOTE ---
LE functional scale: ERROR at eval: the documentation of 37 was the raw score--calculated to 55% limitation in activity level;
== END 2024-06-03 10:51 | disposition home or self-care (01) ==
LOC: ANHPT 08:00
PROVIDERS: PCP Physician Assistant; Visit Provider Physician Assistant
DX: Z47.1 Aftercare following joint replacement surgery (principal); Z96.642 Presence of left artificial hip joint
CPT/HCPCS: 97110; 97116; 97140; 97161; 97530

== ENCOUNTER 2024-06-18 13:36 | Outpatient (CLI) | payer MEDICARE, MEDICAID, SELFPAY ==
--- NOTE | ~2024-06-18 | MR_ITS ---
EXAMINATION: MR brain/brain stem wo con DATE: 06/18/2024 14:12 INDICATION: Muscle weakness. TECHNIQUE: Magnetic resonance imaging (MRI) of the brain and brainstem was performed without intraven ous contrast. COMPARISON: Brain MRI 09/05/2012 FINDINGS: There are scattered areas of nonspecific increased T2-weighted signal intensity in the cere bral white matter and kori, which is within normal limits for the patient's age. There is no intracra nial hemorrhage, acute infarction, or abnormal intracranial mass lesion. The ventricles are normal in size. There is mild mucosal thickening in the paranasal sinuses. There are likely changes of ocular lens replacement surgeries. The mastoid air cells are normal. IMPRESSION: 1. Normal aging brain. Reviewed, dictated and finalized at location A. IMPRESSION: 1. Normal aging brain.
== END 2024-06-18 13:37 | disposition home or self-care (01) ==
PROVIDERS: PCP Physician Assistant; Visit Provider Physician Assistant
DX: M62.81 Muscle weakness (generalized) (principal)
CPT/HCPCS: 70551

== ENCOUNTER 2024-12-31 14:04 | Emergency (ER) | payer MEDICARE, MEDICAID, SELFPAY ==
--- NOTE | ~2024-12-31 | XR_ITS ---
XR foot RT min 3V Ordering provider: Kristen Rodriguez APRN History: . pain . Comparison: None. FINDINGS: BONES: No acute fracture or dislocation. Periarticular osteopenia of the bones. Old healed fracture i n the proximal metaphysis of the fifth metatarsal bone. JOINT SPACES: Normal. No tarsal coalition. SOFT TISSUES: Normal. IMPRESSION: No acute osseous abnormality of the right foot. Reviewed, dictated and finalized at location A.
[2024-12-31 14:10] VITALS: BP 151/99; PULSE 82; RESP 20; TEMP 36.7; O2SAT 99
--- NOTE | 2024-12-31 15:48 | ED_ITS ---
HPI - General Adult General Chief complaint: Extremity Problem,Nontraumatic Stated complaint: Right heel pain Time Seen by Provider: 12/31/24 15:15 History of Present Illness HPI narrative: 64-year-old female presents emergency department for evaluation for right ankle pain. Patient states present 2 weeks ago she did cut her lower leg while shaving. Patient states afterwards she started to feel some right-sided heel pain. Patient has noticed increased pain with ambulation. Patient denies any specific fall or injury. Patient does have some mild erythema at the site of the treating injury but has no tenderness at the healing wound. Patient does have tenderness just inferior to that site but there is no fluctuance no erythema. Related Data Home Medications ?Medication ?Instructions ?Recorded ?Confirmed ?Last Taken ?Type alprazolam 1 mg tablet 0.5 mg PO TID PRN Anxiety 02/19/20 08/29/24 05/18/21 History atorvastatin 10 mg tablet 10 mg PO DAILY 02/19/20 08/29/24 05/17/21 History calcium 600 mg (as carbonate)-vit 1 tablet PO BID 02/19/20 08/29/24 05/17/21 History D3 10 mcg (400 unit) chewable tablet (Calcium 600 with Vitamin D3) lisinopril 10 mg tablet 10 mg PO DAILY 08/24/21 08/29/24 Unknown History gabapentin 800 mg tablet 800 mg PO TID 07/18/22 08/29/24 Unknown History liraglutide 0.6 mg/0.1 mL (18 mg/3 1.2 mg subcut DAILY 07/18/22 08/29/24 Unknown History mL) subcutaneous pen injector citalopram 40 mg tablet 20 mg PO DAILY 10/24/22 08/29/24 Unknown History semaglutide 1 mg/dose (4 mg/3 mL) 1 mg subcut WEEKLY 05/09/24 08/29/24 Unknown History subcutaneous pen injector (Ozempic) Allergies Allergy/AdvReac Type Severity Reaction Status Date / Time adhesive tape Allergy Mild Rash Verified 12/19/24 13:05 codeine AdvReac Intermediate Vomiting Verified 12/31/24 14:06 Review of Systems Review of Systems: All systems reviewed & are unremarkable except as noted in HPI and below PMFSH Past Medical History Medical History Anemia Anxiety Arthritis Asthma Bipolar disorder Carpal tunnel syndrome of right wrist Cervicalgia Chronic, continuous use of opioids percocet x 15 years Depression Diabetes Type 2 DVT (deep venous thrombosis) left leg Hyperlipidemia Latex allergy Lumbago Pinched nerve in shoulder Seasonal allergic rhinitis Vision loss Weight gain Wound dehiscence Surgical History Surgical History H/O eye surgery secondary to retinopathy H/O resection of stomach History of carpal tunnel release right hand History of section, classical History of gastric bypass Hx of cholecystectomy S/P cubital tunnel release Family History Family History Father Family history of obesity Family history of mental disorder Depression Family history of cataracts Family history of alcoholism Family history of arthritis Family history of chronic obstructive pulmonary disease Family history of diabetes mellitus in first degree relative Family history of coronary artery disease Family history of lung disease Family history of congestive heart failure Family history of heart disease in male family member before age 55 Family history of hearing loss Patient's father is Mother Family history of mental disorder Depression Family history of alcoholism Family history of chronic obstructive pulmonary disease Family history of coronary artery disease Family history of renal failure Family history of congestive heart failure Family history of heart disease in male family member before age 55 Patient's mother is Sibling Family history of mental disorder Depression Patient's sister is in good health Family history of alcoholism Family history of lung cancer Family history of lung disease Family history of seizure disorder Other Family history of attention deficit hyperactivity disorder (ADHD) Social History Social History Social History: the patient lives with her boyfriend and she is . She has 1 son. Her significant other is her [employer] field supervisor for healthcare. Berny chew is his name. Patient desires to be a full code. The patient is a lifelong nonsmoker. She does use marijuana. No alcohol or illicit drugs. Smoking status: Never smoker Second hand tobacco smoke exposure: No Alcohol intake: never Substance use: never Substance use type: marijuana Other substance usage details: Marijuana daily Lack of Transportation: No Lack of Food: Never True Current Housing: I Have Housing Concerned About Future Housing: No Difficulty Paying Gas/Electric Bills: No Difficulty Paying for Meds: No Currently Unemployed: No Education: High School Diploma/GED Difficulty w/ Childcare or Family Care: No Living arrangements: alone Occupation/Education: other Additional occupation/education comments: Disability Spiritual care concerns: No Exam Narrative: APPEARANCE: Well appearing, no pain, no distress, well-nourished. HEAD: normocephalic, atraumatic. EYES: PERRLA/EOMI, conjunctivae clear. NOSE: Normal no drainage EARS:TMS clear with good light reflex. THROAT: Pharynx clear, no exudate. NECK: Supple. No adenopathy, no masses. RESPIRATORY: Airway patent, respirations nonlabored. Clear to auscultation bilaterally, no rales, rhonchi, wheezing. CARDIOVASCULAR: Regular rate and rhythm without murmurs rubs or gallops. ABDOMINAL: Soft, nontender, nondistended, normal bowel sounds MUSCULOSKELETAL: Tenderness to heal NEURO: Alert. Cranial nerves II through XII intact. Grossly intact SKIN: Mild erythema associated with the shaving injury but no tenderness to palpation at that site Course Vital Signs Vital signs: Vital Signs Temperature 98.0 F 12/31/24 14:10 Pulse Rate 82 12/31/24 14:10 Respiratory Rate 20 12/31/24 14:10 Blood Pressure 151/99 H 12/31/24 14:10 Pulse Oximetry 99 12/31/24 14:10 Oxygen Delivery Room Air 12/31/24 14:10 Temperature 98.0 F 12/31/24 14:10 Pulse Rate 82 12/31/24 14:10 Respiratory Rate 20 12/31/24 14:10 Blood Pressure 151/99 H 12/31/24 14:10 Pulse Oximetry 99 12/31/24 14:10 Oxygen Delivery Room Air 12/31/24 14:10 Medical Decision Making MDM Narrative Medical decision making narrative: [age] old female presents emergency department for evaluation for right ankle pain. Patient being started on antibiotics for possible cellulitis. X- rays negative for fracture. Patient was comfortable plan for discharge and close follow-up. First dose of antibiotics was given emergency department. Vital Signs Vital Signs: Vital Signs Temperature 98.0 F 12/31/24 14:10 Pulse Rate 82 12/31/24 14:10 Respiratory Rate 20 12/31/24 14:10 Blood Pressure 151/99 H 12/31/24 14:10 Pulse Oximetry 99 12/31/24 14:10 Oxygen Delivery Room Air 12/31/24 14:10 Temperature 98.0 F 12/31/24 14:10 Pulse Rate 82 12/31/24 14:10 Respiratory Rate 20 12/31/24 14:10 Blood Pressure 151/99 H 12/31/24 14:10 Pulse Oximetry 99 12/31/24 14:10 Oxygen Delivery Room Air 12/31/24 14:10 Discharge Plan Discharge Clinical Impression: Ankle pain, right Patient Disposition: Home, Self-Care Condition: Stable Instructions: Antibiotic Form, Cellulitis (ED), Ankle Strain (ED) Additional Instructions: Antibiotic as directed until completed. Tylenol and ibuprofen for pain control. Limit weight-bearing on the affected ankle for the next 3-5 days. Have close follow-up with your primary care physician. Patient Language: Nepalese Prescriptions: New cephalexin 500 mg capsule 500 mg PO BID 7 Days Qty: 14 0RF No Action gabapentin 800 mg tablet 800 mg PO TID liraglutide 0.6 mg/0.1 mL (18 mg/3 mL) Pen Injector 1.2 mg SUBCUT DAILY Ozempic 1 mg/dose (4 mg/3 mL) pen injector 1 mg SUBCUT WEEKLY lisinopril 10 mg tablet 10 mg PO DAILY citalopram 40 mg tablet 20 mg PO DAILY atorvastatin 10 mg tablet 10 mg PO DAILY Patient Comments: . alprazolam 1 mg tablet 0.5 mg PO TID PRN (Reason: Anxiety) Patient Comments: .. Calcium 600 with Vitamin D3 600 mg(1,500mg) -400 unit Tablet,Chewable 1 tablet PO BID Follow-up/Referrals: Ren,CRISTEL Watts [Primary Care Provider] -
[2024-12-31] MEDS: CEPHALEXIN 500 MG CAPSULE PO (16:00)
--- OUTSIDE RECORDS SUMMARY | 2024-12-31 16:29 | XMS_ITS | Data Portability ---
Author Organization [facility] Address [address] [place] [address] [place] [address] Assessment No assessment recorded. Plan of Treatment Reminders Order Date Submit Date Provider Last Modified By Organization Details Last Modified Time Details Appointments None recorded. Lab test, urine 2024 025 [email or web address] [place] [facility] [address], [address], [place], [address], 5 11:43:41 Referral None recorded. Procedures None recorded. Surgeries None recorded. Imaging None recorded. Medication Orders None recorded. Patient TargetsNo targets recorded. Patient InstructionsNo instructions recorded. Reason for Referral None Reported. Results Created Date Observation Date Name Description Value Unit Range Abnormal Flag Note LastModifiedBy Organization Detail LastModifiedTime 09/13/20 24 09/13/2024 IMAGE GUIDE D PAP AND HPV REGAR DLESS image guided Pap, HPV regardless of Pap result SEE RESULT S BELOW abnormal CASE REPOR T: Cytol ogy Gynec ologi dorothea Repor t Case: [id number] Autho ez g Provi irena: Carloz Farrar MD Colle cted: 09/13 1018 Order ing Locat ion: [place] Patho log[facility] Recei andrez: 09/14 0132 First Scree n: Bi Brush ed, CT Patho logis t: Erik Qiu MD Speci men: Scree chas Pap - Image d, Cervi x STATE MENT OF ADEQU ACY: Satis facto ry for evalu ation Trans forma tion zone compo nent prese nt ----- ----- ----- ----- ----- ----- ----- ----- ----- ----- ----- ----- ----- ----- ----- ----- ----- ---- FINAL DIAGN OSIS: Epith elial Cell Abnor malit y, Squam ous Cell: Atypi dorothea Squam ous Cells of Undet ermin ed Karlii hugo ce (ASC- US). 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 This assay can diffe renti ate HPV 16 from HPV 18/45 , but does not diffe renti ate betwe en HPV 18 and HPV 45. A negat catherine HPV 16, 18/45 genot ype assay resul t does not exclu de the possi bilit y of cytol ogic abnor malit ies or of futur e or under lying RADHA 1, RADHA 3 or cance r. COMME NT: This speci men was revie wed by a Cytot echno logis t and/o r Patho logis t (as indic ated in this repor t) after evalu ation using the Thinp rep Imagi ng Syste m. CLINI DOROTHEA INFOR MATIO N: Menst rual Statu s: LMP (if appli cable ): Clini dorothea Histo ry/Pr eviou s Pap: Type of Neopl tariq (if appli cable ): Signi fican t Clini dorothea Findi ngs: Other Histo ry: Hormo anny (if appli cable ): KAHLIL BROWN FOLLO W-UP: Follo w up as warra nted, based on curre nt guide lines and indiv idual patie nt consi derat ions. Not Available [facility] (Lab) [address], [place], [address], 09/24/2024 13:25:00 10/16/19 25 10/21/2024 BIOPS Y, CERVI DOROTHEA cervical histology Negati ve normal Not Available [facility] ([facility]) [address] , [place], [address], 10/21/2024 11:35:09 10/16/19 25 10/21/2024 BIOPS Y, CERVI DOROTHEA results GROSS ING INFOR MATIO N: (B1) CERVI X Recei andrez in forma anitra on a soft biops y brush is a 0.3 cm aggre gate of clear -to-m ilky mucoi d/fib rinou s mater ial. Speci men is filte red and total ly submi tted. B1 DIAGN OSIS: (B1) CERVI X Benig n ectoc ervic al tissu e. Trans forma tion zone mucos a not prese nt. No intra epith elial lesio n. UNSP ABNOR MAL CYTOL OG FINDI NGS IN SPECM N FROM CERVI X UTERI (R87. 619) Not Available [facility] ([facility]) [address] , [place], [address], 10/21/2024 11:35:09 10/16/19 25 10/16/2024 pregn julio test, urine HCG negati ve Not Available [place] [address], [place], [address], 10/16/2024 11:43:31 Result Notes None recorded. Procedures Surgical History Date Name Laterality Status Provider Name and Address Organization Details Recorded Time 10/16/19 25 Colposcopy completed NANDINI TAVAREZ MD [address], [place], [address], [facility] 10/16/2024 10:50:06 09/13/20 24 Date of Last Pap Smear completed Cindakamlesh Melendezen [facility] 10/16/2024 10:16:30 Imaging Results None recorded. Procedure Notes None recorded. Medical Equipment None Reported. Allergies Allergen ID Allergen Name Allergen Category Reaction Reaction Severity Criticality Documentation Date Start Date Code Code System Note Provider Name and Address Organization Details Recorded Time 76729 codeine medicatio n Not available Not available Not available 09/13/2024 2670 RxNorm [facility] 4 09:53:36 42868 adhesive tape environme nt,medica tion Not available Not available Not available 09/13/2024 14041 UNK [facility]inda Bonilla [facility] 4 09:53:51 Medications Name Sig Start Date Stop Date Status Note LastModified by Organization Details LastModified Time citalopram 40 mg tablet TAKE 1 TABLET BY MOUTH EVERY DAY active Not Available Not Available No t Available hydrocodone 5 mg-acetamin ophen 325 mg tablet TAKE 1 TABLET BY MOUTH THREE TIMES DAILY FOR UP TO 10 DOSES NEEDED FOR PAIN 09/13 completed Not Available Not Available Not Available meloxicam 15 mg tablet 09/13 completed Not Available Not Available Not Available aspirin 81 mg tablet,deborah yed release TAKE 1 TABLET BY MOUTH TWICE DAILY 09/13 completed Not Available Not Available Not Available tramadol 50 mg tablet 10/16 completed Not Available Not Available Not Available alprazolam 0.5 mg tablet TAKE 1 TABLET BY MOUTH DAILY NEEDED FOR ANXIETY active Not Available Not Available No t Available oxycodone-a cetaminophe n 10 mg-325 mg tablet TAKE 1 TABLET BY MOUTH EVERY 4 HOURS FOR UP TO 5 DAYS NEEDED FOR PAIN 09/13 completed Not Available Not Available Not Available gabapentin 800 mg tablet TAKE 1 TABLET BY MOUTH THREE TIMES DAILY active Not Available Not Available No t Available oseltamivir 75 mg capsule TAKE 1 CAPSULE BY MOUTH EVERY 12 HOURS FOR 5 DAYS 09/13 completed Not Available Not Available Not Available lisinopril 10 mg tablet TAKE 1 TABLET BY MOUTH EVERY DAY active Not Available Not Available No t Available furosemide 20 mg tablet 09/13 completed Not Available Not Available Not Available cefuroxime axetil 500 mg tablet TAKE 1 TABLET BY MOUTH EVERY 12 HOURS FOR 5 DAYS 09/13 completed Not Available Not Available Not Available mirtazapine 15 mg disintegrat ing tablet DISSOLVE 1 TABLET ON THE TONGUE EVERY DAY AT BEDTIME 09/13 completed Not Available Not Available Not Available albuterol sulfate HFA 90 mcg/actuati on aerosol inhaler INHALE 2 PUFFS BY MOUTH EVERY 4 HOURS NEEDED 09/13 completed Not Available Not Available Not Available doxycycline hyclate 100 mg tablet TAKE 1 TABLET BY MOUTH EVERY 12 HOURS FOR 5 DAYS 09/13 completed Not Available Not Available Not Available oxycodone 5 mg tablet 09/13 completed Not Available Not Available Not Available Restasis 0.05 % eye drops in a dropperette INSTILL 1 DROP IN BOTH EYES TWICE DAILY 09/13 completed Not Available Not Available Not Available nitrofurant oin monohydrate /macrocryst als 100 mg capsule TAKE 1 CAPSULE BY MOUTH EVERY 12 HOURS FOR 7 DAYS 09/13 completed Not Available Not Available Not Available eszopiclone 2 mg tablet TAKE 1 TABLET BY MOUTH DAILY AT BEDTIME NEEDED FOR INSOMNIA. DO NOT TAKE WITH ALCOHOL OR OPIOIDS. 30 DAYS active Not Available Not Available No t Available pregabalin 75 mg capsule 09/13 completed Not Available Not Available Not Available BD Ultra-Fine Short Pen Needle 31 gauge x 5/16 INJECT DAILY 09/13 completed Not Available Not Available Not Available OneTouch Verio test strips TEST TWICE DAILY 09/13 completed Not Available Not Available Not Available TRUEplus Insulin 0.5 mL 29 gauge x 1/2 syringe USE TO INJECT TWICE DAILY DIRECTED 09/13 completed Not Available Not Available Not Available Eliquis 2.5 mg tablet active Not Available Not Available No t Available Victoza 3-Jaciel 0.6 mg/0.1 mL (18 mg/3 mL) subcutaneou s pen injector ADMINISTE R 1.8 MG UNDER THE SKIN EVERY DAY 09/13 completed Not Available Not Available Not Available OneTouch Verio Flex Meter USE DIRECTED 09/13 completed Not Available Not Available Not Available BD Lisa 2nd Gen Pen Needle 32 gauge x 5/32 USE TO INJECT VICTOZA DAILY 09/13 completed Not Available Not Available Not Available Ozempic 1 mg/dose (4 mg/3 mL) subcutaneou s pen injector INJECT 1MG UNDER THE SKIN ONCE WEEKLY 09/13 completed Not Available Not Available Not Available Ozempic 0.25 mg or 0.5 mg (2 mg/3 mL) subcutaneou s pen injector INJECT 0.5MG UNDER THE SKIN ONCE WEEKLY 09/13 completed Not Available Not Available Not Available Vitals Date Recorded Body weight Body mass index (BMI) Body height Systolic blood pressure Diastolic blood pressure Provider Name and Address Organization Details Last Updated DateTime 09/13/2024 41575.86 g 19.9 kg/m2 167.64 cm 147 mm[Hg] 85 mm[Hg] [facility] 4 10:08:54 Date Recorded Body height Body mass index (BMI) Body weight Systolic blood pressure Diastolic blood pressure Provider Name and Address Organization Details Last Updated DateTime 10/16/2024 167.64 cm 20 kg/m2 10747.45 g 90 mm[Hg] 62 mm[Hg] [facility] 5 10:14:42 Social History Question Answer Notes LastModified by Organizat ion Details LastModified Time Are You Blind Or Do You Have Difficulty Seeing? No [email or web address] Information not available 09/13/2024 In The 14 Days Before Symptom Onset, Have You Had Close Contact With A Laboratory-confirmed COVID-19 While That Case Was Ill? No [email or web address] Information not available 09/13/2024 In The 14 Days Before Symptom Onset, Have You Had Close Contact With A Person Who Is Under Investigation For COVID-19 While That Person Was Ill? No [email or web address] Information not available 09/13/2024 Have You Been To An Area Known To Be High Risk For COVID-19? No Information not available 09/13/2024 Are You Deaf Or Do You Have Serious Difficulty Hearing? No Information not available 09/13/2024 Do You Use Your Seat Belt Or Car Seat Routinely? Yes Information not available 09/13/2024 Do You Have Smoke And Carbon Monoxide Detectors In Your Home? Yes [email or web address] Information not available 09/13/2024 How Much Tobacco Do You Smoke? No [email or web address] Information not available 10/16/2024 Do You Use Any Illicit Or Recreational Drugs? No [email or web address] Information not available 09/13/2024 Do You Use Sunscreen Routinely? Yes Information not available 09/13/2024 Sex: Unknown Functional Status Question Answer Note LastModified by Organizat ion Details LastModified Time Do you have difficulty walking or climbing stairs? No [email or web address] Information not available 09/13/2024 Are you able to walk? YESWOREST [email or web address] Information not available 09/13/2024 Are you able to care for yourself? Yes [email or web address] Information not available 09/13/2024 Do you have difficulty dressing or bathing? No Information not available 09/13/2024 Mental Status None recorded. Family History Relationship Description Onset Age of this Age Resolved Age Notes LastModified by Organization Details LastModified Time Brother Anemia [email or web address] Not available 09/13/2024 09:59:08 Father Asthma [email or web address] Not available 09/13/2024 09:59:22 Father Heart disease Not available 2023 09:59:57 Father Diabetes mellitus [email or web address] Not available 2023 10:02:12 Sister Asthma [email or web address] Not available 09/13/2024 09:59:22 Sister Malignant tumor of breast [email or web address] Not available 2023 09:59:33 Sister Heart disease [email or web address] Not available 2023 09:59:57 Mother Heart disease [email or web address] Not available 2023 09:59:57 Medical History No medical history recorded. Gynecological History Statement/Question Response Abnormal Pap N Date of LMP 10/09/2008 Frequency of Cycle (Q days) 10 Was last menstrual period normal Y STIs/STDs N Age of first menstrual cycle 10 HPV Vaccine N Date of Last Pap Smear 09/13/2024 Sexual Problems? N Current Control Method Menopause LMP Unknown Obstetrics History GPAL:G 1 P 0 0 0 1 Type Value Living 1 Total 1 Past Encounters Encounter ID Performer Location Encounter Start Date Encounter Closed Date Diagnosis/Indication Diagnosis SNOMED-CT Code Diagnosis ICD10 Code Diagnosis Note [id number] NANDINI TAVAREZ MD [place] [address] [address] 09/13/2024 09:45:57 09/13/2024 11:26:45 Gynecologic examination 93983609 Z01.419 Well woman care- Cervical cancer screening: Pap smear obtained today, will follow up on the results with the patient as they become available- Breast cancer screening: mammogram completed- HPV immunizati on: does not qualify- STD testing: declined- hereditary cancer screening: does not qualify for testing [id number] Cinda Bonilla [place] [address] [address] 10/16/2024 09:51:15 10/16/2024 10:58:37 Atypical squamous cells of undetermined significance on cervical Papanicolaou smear 213682714 R87.610 - colposcopy performed today without issue- will follow up on results as available Human noemí llomavirus deoxyribonucleic acid detected, high risk on cervical specimen 731782421 R87.810 Screening procedure 2012 5006 Z13.9 Health Concerns Section Related Observation LastModified by Organization Detai ls LastModified Time None Recorded Concern Status LastModified by Organization Details LastModified Time None Recorded Advance Directives Directive None Recorded Payers Encounter Date Sequence Insurance Name Policy Number Policy Friedman Covered Member ID Friedman Member ID Guarantor Name 09/13/2024 1 [facility] (MEDICARE REPLACEMENT/A DVANTAGE - HMO) [id number] Linda Bruce [id number] Linda Bruce 09/13/2024 2 [facility] Linda Bruce [id number] Linda Bruce 10/16/2024 1 [facility] (MEDICARE REPLACEMENT/A DVANTAGE - HMO) [id number] Linda Bruce [id number] Linda Bruce 10/16/2024 2 [place] [facility] Linda Bruce [id number] Linda Bruce Notes Date Note Type Note Provider Name and Address Organization Details Recorded Time 09/13/2024 text/html Presents today for her annual well-woman exam. Denies abnormal vaginal discharge. She is sexually active and denies dyspareunia. She has not noticed any changes or masses in her breasts. Up to date on mammograms. Menopausal since 2008, no PMB. No hx of abnormal pap smears. NANDINI TAVAREZ MD [address], [place], [address], [place] [facility] 09/13/2024 10:40:07 10/16/2024 text/html Patient presents for colposcopy, indicated for ASCUS +HPV pap. Cinda duke, [facility] 10/16/2024 11:43:57 OBGyn Episode Ob Episode Information Episode Created Date Number of Fetuses Patient Bloodtype Patient rh Status Prepregnancy Weight lbs Domestic Partner Domestic Partner Phone Father Name Supervisor Steffen House Status 09/13/20 24 1 CLOSED Fetus Data First Name Last Name Admitted to NICU Weight (g) Sex Living Outcome Pediatric Complications Fetus ID Race Codes Race Delivery Type 2919.77 1704 M Full Term [id number] Primary Ye Calculation Initial Ye Date Initial Exam Date Initial Exam Provider Initial Ultrasound Date Last Menstrual Period Date Ultra Sound Weeks Gestation 0 Eighteen To Twenty Week Ye Update Ultra Sound Date Fundal Height At Umbil Quickening Date Ultra Sound Latest Weeks Gestation Final Ye Confirmed By Final Ye Confirmed Date Final Ye Date Ultra Sound Latest Days Gestation 0 0 Menstrual History Last Menstrual Date Menses Monthly On Bcp Conception Prior Menses Frequency Hcg Plus Date Menarche Onset Age Delivery Information Delivery Date Delivery Type Labor Anesthesia Weeks Gestation Incision Type Labor Labor Length Hrs Delivered By Post Complications Tubal Sterilization Discharge Date Comments 6 Discharge Information Feeding Method Contraceptive Method Maternal HG B and HCT Levels
--- OUTSIDE RECORDS SUMMARY | 2024-12-31 16:29 | XMS_ITS | Clinical Summary ---
Author Organization [facility] Address [address] [place] [address] Care Team Providers Care Intermediate Manager Name Role Phone Marely Mcclure PA-C Primary Care Provider Source Comments [facility],non-owned Affiliates and Associated Physician Practices is amultiple site organization consisting of ambulatory clinics and hospital sitesin [place], [place], [place] and [place]. This disclosure is being madepursuant to the Care Everywhere program and may not contain all information available regarding this patient. Last updated 18.[facility] Allergies Active Allergy Reactions Criticality Noted Date Comments Acetaminophen-Codeine Nausea and/or Vomiting Adhesive Sensitivity Rash Medium 05/01/2019 Codeine Nausea and/or Vomiting Low 05/19/2021 Medications * Be aware that medications may not be up to date on this document. Alwaysverify current medications with the patient. Medication Sig Dispensed Refills Start Date End Date Status Fluticasone Propionate (FLONASE NA) Active metFORMIN (GLUCOPHAGE) 850 MG tablet tid Active gabapentin (NEURONTIN) 800 MG tablet Tid Active atorvastatin (LIPITOR) 80 MG tablet Active valsartan-hydrochlo rothiazide (DIOVAN HCT) 160-12.5 MG tablet Active clonazePAM (KLONOPIN) 2 MG tablet Active meloxicam (MOBIC) 15 MG tablet Active diclofenac sodium EC (VOLTAREN) 75 MG tablet TAKE 1 TABLET BY MOUTH THREE TIMES DAILY WITH FOOD 270 Tab 1 12/31/2014 Active amitriptyline (ELAVIL) 50 MG tablet TAKE 3 TABLETS BY MOUTH EVERY NIGHT AT BEDTIME. 270 Tab 3 02/25/2015 Active albuterol (Accuneb) 0.63 MG/3ML nebulizer solution Inhale 0.63 mg by mouth every 4 hours as needed Active ALPRAZolam (Xanax) 0.5 MG tablet Take 1 (one) tablet by mouth once daily as needed FOR ANXIETY 10/20/2023 Active atorvastatin (Lipitor) 10 MG tablet Take 1 (one) tablet by mouth once daily 07/07/2023 Active Restasis 0.05 % ophthalmic suspension Instill 1 (one) drop into both eyes 2 times daily 09/29/2023 Active OneTouch Ultra test strip TEST TWICE DAILY DIRECTED 09/14/2023 Active HYDROcodone-acetami nophen ([place]) 5-325 MG tablet TAKE 1 TO 2 TABLETS BY MOUTH EVERY 8 HOURS NEEDED FOR PAIN OR CHRONIC PAIN 04/26/2023 Active insulin glargine (Lantus/Semglee) 100 units/ml injection as directed Subcutaneous Active BD Pen Needle Lisa 2nd Gen 32G X 4 MM MISC USE TO INJECT VICTOZA DAILY 10/17/2023 Active B-D ULTRAFINE III SHORT PEN 31G X 8 MM needle INJECT DAILY 09/22/2023 Active TRUEplus Insulin Syringe 29G X 1/2 0.5 ML syringe USE TO INJECT TWICE DAILY DIRECTED 09/15/2023 Active liraglutide (Victoza) 18 MG/3ML pen as directed Subcutaneous Active lisinopril (Prinivil; Zestril) 10 MG tablet 1 tablet Orally Once a day for 30 day(s) 07/07/2023 Active citalopram (CeleXA) 40 MG tablet Take 1 (one) tablet by mouth once daily 10/31/2023 Active vitamin D, ergocalciferol, (Drisdol) 1.25 MG (08057 UT) capsule Vitamin D2 1,250 mcg (50,000 unit) capsule TK 1 C PO EVERY WEEK FOR 12 WEEKS Active fluticasone hfa 110 (Flovent HFA) 110 MCG/ACT inhaler Flovent HFA 110 mcg/actuation aerosol inhaler INL 2 PUFFS PO BID Active gabapentin (Neurontin) 800 MG tablet 1 tablet Orally Once a day for 30 day(s) 01/18/2023 Active mirtazapine, disintegrating, (Remeron Soltab) 15 MG tablet 1 tablet on the tongue and allow to dissolve at bedtime Orally Once a day for 30 days 09/25/2023 Active oxyCODONE-acetamino phen (Percocet) 10-325 MG tablet 1 tablet as needed Orally every 6 hrs Active Ozempic, 0.25 or 0.5 MG/DOSE, 2 MG/3ML SOPN INJECT 0.5MG EVERY WEEK BY SUBCUTANEOUS ROUTE 10/19/2023 Active Active Problems Problem Noted Date Diagnosed Date DM (diabetes mellitus) type II, controlled, with peripheral vascular disorder 07/17/2013 Overview (01/06/2018): IMO update 01 07 2018 Low back pain 07/17/2013 HTN (hypertension) 07/17/2013 Hyperlipidemia 07/17/2013 Asthma 07/17/2013 Family History Medical History Relation Name Comments Cancer - Other Brother Diabetes Father [place]<55(male) Father Relation Name Status Comments Brother Father Mother Sister Social History Tobacco Use Types Packs/Day Years Used Date Smoking Tobacco: Never Smokeless Tobacco: Never Tobacco Cessation:Counseling Given: No Alcohol Use Standard Drinks/Week Comments Not Asked 0 (1 standard drink = 0.6 oz pur e alcohol) Sex and Gender Information Value Date Recorded Sex Assigned at Not on file Gender Identity Not on file Sexual Orientation Not on file Last Filed Vital Signs Vital Sign Reading Time Taken Comments Blood Pressure 108/73 11/13/2023 11:13 AM [facility] Pulse 72 11/13/2023 11:13 AM [employer] [employer] Temperature 36.5 C (97.7 F) 11/13/2023 11:13 AM [employer] [employer] [employer] Respiratory Rate - - Oxygen Saturation 98% 11/13/2023 11:13 AM [employer] Inhaled Oxygen Concentration - - Weight 61.2 kg (135 lb) 11/13/2023 11:13 AM [employer] [employer] [employer] Height 167.6 cm (5' 6 ) 11/13/2023 11:13 AM [employer] Body Mass Index 21.79 11/13/2023 11:13 AM [employer] Plan of Treatment Upcoming Encounters Date Type Department Care Team (Late st Contact Info) Description 02/10/2025 10:00 AM CDT Office Visit [facility] [address] [place] [address] Gian Rogers MD [address] [facility] [place] [address] Health Maintenance Due Date Last Done Comments COLOGUARD (AGES 45-75) - COL ON CA SCREENING 1960 COLON MONITORING 1960 COLONOSCOPY - COLON CA SCREENING 1960 CT COLONOGRAPHY - COLON CA SCREENING 1960 Colorectal Cancer Screening 1960 FIT - COLON CA SCREENING 1960 FLEX SIG - COLON CA SCREENING 1960 MAMMOGRAM 1960 PAP SMEAR 1960 HIV SCREENING 1975 HEPATITIS C SCREENING 07/31/1978 DIABETES-SERUM CREATININE 1978 DTAP/TDAP/TD VACCINES (1 - Tdap) 1979 PNEUMOCOCCAL VACCINE 50+ (1 of 2 - PCV) 1979 ZOSTER VACCINE (1 of 2) 2010 Respiratory Syncytial Virus (RSV) Vaccine Pt: or over 60 yrs (1 - Risk 60-74 years 1-dose series) 2020 DIABETES RETINOPATHY SCREENING 06/30/2023 DIABETES-FOOT EXAM WITH MONOFILAMENT 06/30/2023 DIABETES-HGB A1C 06/30/2023 COVID-19 VACCINE (1 - 2023-2 5 season) 2024 INFLUENZA VACCINE (#1) 2024 DEPRESSION SCREENING 10/09/2024 DIABETES - URINE PROTEIN SCREENING 10/09/2024 MEDICARE AWV CALENDAR YEAR 2024 HEPATITIS B VACCINE Aged Out No longe r eligible based on patient's age to complete this topic HIB VACCINE Aged Out No longer eligi ble based on patient's age to complete this topic HPV VACCINE Aged Out No longer eligi ble based on patient's age to complete this topic MENINGOCOCCAL (Group B) VACC INE SHARED DECISION-MAKING Aged Out No longer eligibl e based on patient's age to complete this topic MENINGOCOCCAL GROUPS A/C/Y/W VACCINE Aged Out No longer eligible b ased on patient's age to complete this topic Care Teams Intermediate Manager Relationship Specialty Start Date End Date Marely Mcclure PA-C [address] [place] [phone] PCP - General Physician Travel Pt 09/26/24
--- OUTSIDE RECORDS SUMMARY | 2024-12-31 16:30 | XMS_ITS | Referral Summary ---
Author Organization [facility] Address [address] [place] [address] Care Team Providers Care Cardiothoracic Surgeon Name Role Phone Marely Mcclure Primary Care Provider + Manisha White MD Unavailable Ashley Walker MD Unavailable [phone] Edilia Hanna MD Unavailable [phone] Encounters Date Type Department Care Team Description 12/27/2024 Orders Only [facility] Orthopaedic Surgery [address] [place] [address] [facility] [address]th [place] [address] [place] [address] Javed Ardon MD Fusion of spine of lumbar region (Primary Dx); Lumbar radiculopathy 12/27/2024 12:37 PM CDT - 12/27/2024 11:59 PM CDT Hospital Encounter [facility] [address] [place] [address] Fusion of spine of lumbar region Discharge Disposition: Discharge to home or self care 12/27/2024 1:00 PM CDT Office Visit [facility] Orthopaedic Surgery [address] [place] [address] Advanced Medicine 12th [place] [address] [place] [address] Javed Ardon MD S/P lumbar spinal fusion (Primary Dx) 11/22/2024 Orders Only [facility] Orthopaedic Surgery [address] [place] [address] Advanced [facility] 12th [place] [address] [place] [address] Javed Ardon MD Tear of right rotator cuff, unspecified tear extent, unspecified whether traumatic (Primary Dx) 11/22/2024 2:00 PM TRAIN CONTROLLER - 11/22/2024 11:59 PM TRAIN CONTROLLER Hospital Encounter [facility] [address] [place] [address] Fusion of spine of lumbar region Discharge Disposition: Discharge to home or self care 11/22/2024 2:30 PM TRAIN CONTROLLER Office Visit [facility] Orthopaedic Surgery [address] [facility] Advanced Medicine 12th [place] [address] [place] [address] Javed Ardon MD Fusion of spine of lumbar region (Primary Dx) 10/31/2024 5:56 AM TRAIN CONTROLLER - 11/02/2024 2:07 PM TRAIN CONTROLLER Hospital Encounter [facility] [address] [place] [address] Javed Ardon MD Discharge Disposition: Discharge to home or self care 10/31/2024 7:30 AM TRAIN CONTROLLER - 10/31/2024 11:00 AM TRAIN CONTROLLER Surgery [facility] Operating Room [address] [place] [address] Javed Ardon MD FUSION LUMBAR TRANSFORAMINAL INTERBODY, L5-S1 Transforaminal Lumbar Interbody Fusion with Left-Sided Foraminotomy, L5-S1 Posterior Spinal Fusion with Instrumentation, Allograft, Autograft, Spinal Cord Monitoring, Bone Morphogenetic Protein 10/31/2024 7:29 AM TRAIN CONTROLLER Anesthesia Event [facility] Operating Room [address] [place] [address] Lia Drummond MD PhD Tobi, Annika Gentile NP 10/30/2024 Telephone [facility] Orthopaedic Surgery [address] [place] [address] Office [address] [place] [phone] Javed Ardon MD 10/29/2024 Telephone [facility] Orthopaedic Surgery [address] [place] [address] Medical Office Building [address] [place] [address] Javed Ardon MD 10/24/2024 Telephone [facility] Orthopaedic Surgery [address] [facility] Office Building [address] [place] [address] Madiha Plascencia 10/22/2024 1:30 PM TRAIN CONTROLLER Pre-Admission Testing [facility] Center for Preoperative Assessment and Planning [facility] [address] [place] [address] Preoperative testing (Primary Dx); Spondylolisthesis of lumbar region; Lumbar radiculopathy; Pain in other joint; Vitamin D deficiency 10/18/2024 Telephone [facility] Orthopaedic Surgery [address] [place] [address] Advanced Medicine 12th [place] [address] [place] [address] Javed Ardon MD 10/15/2024 Telephone [facility] Orthopaedic Surgery [address] [place] [address] Office Building [address] [place] [address] Javed Ardon MD 10/14/2024 1:03 PM TRAIN CONTROLLER - 10/14/2024 11:59 PM TRAIN CONTROLLER Hospital Encounter [facility] [address] [place] [address] Discharge Disposition: Discharge to home or self care from Last 3 Months Allergies Active Allergy Reactions Criticality Noted Date Comments Adhesive Rash Medium 05/01/2019 Codeine Nausea & Vomiting Low 05/19/2021 Latex Rash Medium 10/22/2024 Pt states she is allergic to latex tape Nsaids (Non-Steroidal Anti-Inflammatory Drug) Other (See comments) Low 10/22/2024 Due to gastric bypass Medications albuterol HFA (ProAir HFA) 90 mcg/actuation inhalerIndicat ions:Acute Asthma Attack Inhale 2 puffs every 4 (four) hours as needed for wheezing Last taken 6 months ago Active ALPRAZolam (XANAX) 0.5 mg tabletIndicati ons:Insomnia,a nxiety Take 1 tablet (0.5 mg total) by mouth 3 (three) times a day as needed for anxiety or sleep 12/18/19 22 Active atorvastatin (LIPITOR) 10 mg tabletIndicati ons:hyperlipid emia Take 1 tablet (10 mg total) by mouth every morning 07/07/20 23 Active OneTouch Ultra Test strip 2 (two) times a day 09/14/20 23 Active calcium carbonate-key min D3 (CALTRATE 600 + D) 1500 mg (600 mg elemental) -400 units per tabletIndicati ons:Hypocalcem ia Prevention,Pre vention of Vitamin D Deficiency Take 1 tablet by mouth every morning Active citalopram (CeleXA) 40 mg tabletIndicati ons:depression Take 1 tablet (40 mg total) by mouth every morning 11/26/19 23 Active OneTouch Verio Flex meter misc as directed 12/20/19 24 Active naloxone (NARCAN) 4 mg/actuation spray,non-aero solIndications :Opiate-Induce d Respiratory Depression Administer 1 spray into affected nostril(s) as needed for respiratory depression Active BD Lisa 2nd Gen Pen Needle 32 gauge x 5/32 needle USE TO INJECT VICTOZA DAILY 10/17/19 24 Active Ozempic 1 mg/dose (4 mg/3 mL) pen injector injectionIndic ations:type 2 diabetes mellitus Inject 1 mg under the skin once a week Monday12/20/19 24 Active potassium citrate ER (UROCIT-K) 10 mEq (1,080 mg) CR tabletIndicati ons:supplement Take 1 tablet (10 mEq total) by mouth every morning Active eszopiclone (LUNESTA) 2 mg tablet TAKE 1 TABLET BY MOUTH DAILY AT BEDTIME NEEDED FOR INSOMNIA. DO NOT TAKE WITH ALCOHOL OR OPIOIDS. 30 DAYS 08/28/20 24 Active CALCIUM ORALIndication s:supplement Take 600 mg by mouth every morning Active ferrous sulfate ER 324 mg (65 mg iron) EC tabletIndicati ons:Iron Deficiency Anemia Take 65 mg by mouth 2 (two) times a day with meals Active MAGNESIUM ORALIndication s:supplement Take 500 mg by mouth every morning Active cyanocobalamin (Vitamin B-12) 1,000 mcg/mL injectionIndic ations:Vitamin B12 Deficiency Inject 1 mL (1,000 mcg total) into the muscle as instructed every 30 (thirty) days Active acetaminophen 500 mg capsuleIndicat ions:Pain Take 2 capsules (1,000 mg total) by mouth every 8 (eight) hours as needed for pain 11/02/19 Active lisinopriL (PRINIVIL,ZEST RIL) 10 mg tabletIndicati ons:hypertensi on Take 1 tablet (10 mg total) by mouth every morning HELD inpatient due to normal blood pressure. Please follow up with PCP after discharge 11/02/19 Active ergocalciferol (VITAMIN D) 50,000 unit capsule TAKE 1 CAPSULE BY MOUTH EVERY WEEK FOR 8 WEEKS 8 capsule 12/20/19 25 Active cyclobenzaprin e (FLEXERIL) 10 mg tabletIndicati ons:Muscle Spasm Take 1 tablet (10 mg total) by mouth every 8 (eight) hours 90 tablet 2 12/28/19 25 Active ergocalciferol (VITAMIN D) 50,000 unit capsule Take 1 capsule (50,000 Units total) by mouth once a week Take 1 capsule a week for 8 weeks 8 capsule 10/29/19 25 025 Discontinued gabapentin (NEURONTIN) 800 mg tabletIndicati ons:Neuropathi c Pain Take 1 tablet (800 mg total) by mouth 3 (three) times a day 90 tablet 11/02/19 25 025 Discontinued(T herapy completed) cyclobenzaprin e (FLEXERIL) 10 mg tabletIndicati ons:Muscle Spasm Take 1 tablet (10 mg total) by mouth every 8 (eight) hours 90 tablet 2 11/28/19 25 025 Discontinued(R eorder) HYDROcodone-ac etaminophen (NORCO) 10-325 mg per tabletIndicati ons:Pain Take 1 tablet by mouth every 6 (six) hours as needed for pain for up to 7 days 28 tablet 11/28/19 25 025 HYDROcodone-ac etaminophen (NORCO) 10-325 mg per tabletIndicati ons:Pain Take 1 tablet by mouth every 8 (eight) hours as needed for pain for up to 7 days 21 tablet 12/10/19 25 025 Active Problems Problem Noted Date Diagnosed Date Severe protein-calorie malnutrition 11/01/2024 S/P lumbar spinal fusion 10/31/2024 Spondylolisthesis of lumbar region 09/18/2024 Hypervolemia, unspecified hypervolemia type 02/06 Assessment & Plan (02/22/2024 11:36 AM CDT): Recent L PASQU[place] with Dr. Kelsey 02/08. Shortly after d/c noticed edema and bruising that progressively got worse until the edema was noticed in her right leg and then pelvic and abdomen - unknown etiology ddx: HF, DVT, cellulitis, post surgical complication, kidney injury, medication side effects, hematoma - 20mg IV lasix x 2 - CTA LLE: showed 3 hematomas in left lateral thigh and gluteal region with no evidence of active bleeding. Extensive edema throughout the abdominal wall and LLE compatible with volume overload. - LLE doppler no evidence of DVT, campbell's cyst - TTE: unremarkable LVEF: 63% - trop (-), BNP 391, hgb stable prior to d/c - renal and liver US unremarkable - UA negative - edema improving Osteoarthritis of left hip, unspecified osteoart hritis type 02/09/2024 Depression 01/30/2024 Anxiety 01/30/2024 Assessment & Plan (02/19/2024 4:51 PM CDT): Continue home citalopram Hypertension 01/30/2024 Assessment & Plan (02/19/2024 4:47 PM CDT): Continue home lisinopril Hyperlipidemia 01/30/2024 Assessment & Plan (02/19/2024 4:48 PM CDT): Continue home atorvastatin History of DVT (deep vein thrombosis) 01/30/2024 Type 2 diabetes mellitus 01/30/2024 Assessment & Plan (02/20/2024 4:08 PM CDT): Patient had a gastric bypass in 2013 - takes weekly Ozempic injections (Monday) - here: POC AC/HS SSI At risk for obstructive sleep apnea 01/30/2024 Asthma 01/30/2024 Assessment & Plan (02/19/2024 4:50 PM CDT): Has a history, but barely needs home rescue inhaler. Maybe every 3-4 months. Primary osteoarthritis of left hip 12/27/2023 Diabetic maculopathy 06/26/2023 Facet hypertrophy of lumbar region 04/26/2023 Foraminal stenosis of lumbar region 04/26/2023 Other intervertebral disc degeneration, lumbar r egion 04/26/2023 Spondylolisthesis of lumbosacral region 04/26/20 Peripheral axonal neuropathy 04/17/2023 Lumbar radiculopathy 02/20/2023 Chronic midline low back pain with bilateral sci atica 02/20/2023 Weakness of left leg 02/20/2023 Arthralgia of left ankle 01/02/2023 Arthralgia of left knee 12/28/2022 Pain in femur 12/28/2022 Carpal tunnel syndrome 08/27/2021 Overview (04/08/2024): b/l, surgery done Pancytopenia 08/27/2021 Anemia of chronic renal failure, stage 3 (modera te) 05/19/2021 Other dietary vitamin B12 deficiency anemia 05/09 Iron deficiency anemia 05/19/2021 Proliferative diabetic retinopathy 12/19/2020 Transient ischemic attack 02/19/2020 Generalized anxiety disorder 01/14/2020 Moderate recurrent major depression 01/14/2020 Osteopenia 08/21/2019 Disorder of optic nerve 05/10/2019 Neuropathy 05/10/2019 Cellulitis 05/01/2019 DM (diabetes mellitus) type II, controlled, with peripheral vascular disorder 07/17/2013 Overview (04/08/2024): IMO update 01 07 2018 Low back pain 07/17/2013 Immunizations Immunization Administration Dates Next Due Flucelvax Influenza Quad MDI 09/12/2013 Moderna SARS-CoV-2 Monovalent Vaccination (12+ Y RS) 02/09/2021 Pneumococcal Conjugate Pcv20 01/02/2023 Tdap 05/22/2023 Social History Tobacco Use Types Packs/Day Years Used Date Smoking Tobacco: Never Passive Smoke Exposure: Never Smokeless Tobacco: Never Tobacco Cessation:Counseling Given: Not Answered AUDIT-C Answer Date Recorded Q1: How often do you have a drink containing alcohol? Never 10/31/2024 Q2: How many drinks containi ng alcohol do you have on a typical day when you are drinking? Patient does not drink Q3: How often do you have si x or more drinks on one occasion? Never 10/31/2024 Personal Safety Answer Date Recorded Have you ever been in or are you currently in a harmful physical or emotional relationship or is someone making you feel afraid or unsafe? Denies 10/31/2024 Comments No Sex and Gender Information Value Date Recorded Sex Assigned at Not on file Legal Sex Female 4:17 AM TRAIN CONTROLLER Gender Identity Not on file Sexual Orientation Not on file Last Filed Vital Signs Vital Sign Reading Time Taken Comments Blood Pressure 122/68 11/02/2024 8:00 AM TRAIN CONTROLLER Pulse 75 11/02/2024 8:00 AM TRAIN CONTROLLER Temperature 36.8 C (98.2 F) 11/02/2024 8:00 AM TRAIN CONTROLLER Respiratory Rate 16 11/02/2024 8:00 AM TRAIN CONTROLLER Oxygen Saturation 94% 11/02/2024 8:00 AM TRAIN CONTROLLER Inhaled Oxygen Concentration - - Weight 53.1 kg (117 lb) 11/22/2024 2:29 PM TRAIN CONTROLLER Height 162.6 cm (5' 4 ) 11/22/2024 2:29 PM TRAIN CONTROLLER Body Mass Index 20.08 11/22/2024 2:29 PM TRAIN CONTROLLER Plan of Treatment Not on file Medical Devices Implanted Type Area Orchid Transplanter Device Identifier Shelf Expiration Date Model / Serial / Lot Depuy Orth[employer] Cup Acetabular Bi-Mentum Od51mm Femoral Proximal Press Fit [id number] - [id number] Implanted:Qty: 1 on 02/09/2024 at [facility] Left: Hip Depuy [employer] Inc 07/08/2028 [id number] / / [id number] Depuy [employer] Liner Acet Hip Size 28 Poly Bi Mentum Altrx 51mm [id number] - [id number] Implanted:Qty: 1 on 02/09/2024 at [facility] Left: Hip Depuy [employer] [id number] / / Depuy [employer] Inc Articul/Feliciano 28mm Cementless Hip +1.5mm 09/21 Taper Head Femoral Latex Free [id number] - [id number] Implanted:Qty: 1 on 02/09/2024 at [facility] Left: Hip Depuy [employer] [id number] / / Depuy [employer] Actis L107 Mm Collar Hip 6 High Offset Stem Femoral [id number] - [id number] Implanted:Qty: 1 on 02/09/2024 at [facility] Left: Hip Dep[employer] Inc [id number] / / [employer] Creo Thread Spinal Cap Locking Nonsterile 1119.0010 - [id number] Implanted:Qty: 4 on 10/31/2024 by Javed Ardon MD at [facility] N/A: Spine Lumbar [employer] 1119.0010 / / [employer] Creo 5.5mm 40mm Curve Tom Spinal Titanium 1119.7040 - [id number] Implanted:Qty: 2 on 10/31/2024 by Javed Ardon MD at [facility] N/A: Spine Lumbar [employer] 1119.7040 / / Medtronic Inc Bmp Infuse Sm [id number] - [id number] Implanted:Qty: 1 on 10/31/2024 by Javed Ardon MD at [facility] N/A: Spine Lumbar Med[employer] Inc [id number] 07/09/2025 [id number] / / [id number] [employer] Implant Spinal Sable [id number] 7-14mm 15 Deg 1172.2121s - [id number] Implanted:Qty: 1 on 10/31/2024 by Javed Ardon MD at [facility] N/A: Spine Lumbar [employer] [id number] 09/23/2034 1172.2121S / / [id number] [employer] Creo Od6.5 Mm L55 Mm Thread Polyaxial Spine Screw Bone Titanium 5146.1657 - [id number] Implanted:Qty: 2 on 10/31/2024 by Javed Ardon MD at [facility] N/A: Spine Lumbar [employer] 5146.1657 / / [employer] Creo Od6.5 Mm L40 Mm Thread Polyaxial Spine Screw Bone Titanium 5146.1642 - [id number] Implanted:Qty: 1 on 10/31/2024 by Javed Ardon MD at [facility] N/A: Spine Lumbar [employer] 5146.1642 / / [employer] Creo Od7.5 Mm L40 Mm Thread Polyaxial Spine Screw Bone Titanium 5146.1742 - [id number] Implanted:Qty: 1 on 10/31/2024 by Javed Ardon MD at [facility] N/A: Spine Lumbar [employer] 5146.1742 / / Procedures Procedure Name Priority Date/Time Associated Diagnosis Comments XR SPINE LUMBAR 2 OR 3 VIEWS Schedule Routine, Read Routine (OP Routine) 12/27/2024 12:43 PM CDT Fusion of spine of lumbar region XR SPINE LUMBAR 2 OR 3 VIEWS Schedule Routine, Read Routine (OP Routine) 11/22/2024 2:23 PM TRAIN CONTROLLER Fusion of spine of lumbar region POCT GLUCOSE DEVICE Routine 11/02/2024 11:38 AM TRAIN CONTROLLER POCT GLUCOSE DEVICE Routine 11/02/2024 7:59 AM TRAIN CONTROLLER CBC WITHOUT DIFFERENTIAL Routine 025 10:40 PM TRAIN CONTROLLER APTT Routine 11/01/2024 10:40 PM TRAIN CONTROLLER PROTIME-INR Routine 11/01/2024 10:40 PM TRAIN CONTROLLER POCT GLUCOSE DEVICE Routine 11/01/2024 8:30 PM TRAIN CONTROLLER XR SHOULDER RIGHT 2 OR MORE VIEWS IP Routine 11/01/2024 6:30 PM TRAIN CONTROLLER POCT GLUCOSE DEVICE Routine 11/01/2024 6:25 PM TRAIN CONTROLLER XR SPINE LUMBAR 2 OR 3 VIEWS Pending Discharge 11/01/2024 4:45 PM TRAIN CONTROLLER POCT GLUCOSE DEVICE Routine 11/01/2024 11:36 AM TRAIN CONTROLLER POCT GLUCOSE DEVICE Routine 11/01/2024 7:47 AM TRAIN CONTROLLER CBC WITHOUT DIFFERENTIAL STAT 025 6:21 AM TRAIN CONTROLLER LIPID PANEL Routine 10/31/2024 10:32 PM TRAIN CONTROLLER EGFR Routine 10/31/2024 10:32 PM TRAIN CONTROLLER CBC WITHOUT DIFFERENTIAL Routine 025 10:32 PM TRAIN CONTROLLER BASIC METABOLIC PANEL Routine 10/31/2024 10:32 PM TRAIN CONTROLLER POCT GLUCOSE DEVICE Routine 10/31/2024 7:57 PM TRAIN CONTROLLER POCT GLUCOSE DEVICE Routine 10/31/2024 4:34 PM TRAIN CONTROLLER POCT GLUCOSE DEVICE Routine 10/31/2024 1:21 PM TRAIN CONTROLLER CBC WITHOUT DIFFERENTIAL Routine 025 12:57 PM TRAIN CONTROLLER TRANSFUSE PLASMA Timed 10/31/2024 11:30 AM TRAIN CONTROLLER POC BLOOD GAS AND CHEMISTRIES, VENOUS Routine 10/31/2024 11:10 AM TRAIN CONTROLLER TRANSFUSE RED BLOOD CELLS Timed 10/31/2024 11:07 AM TRAIN CONTROLLER FIBRINOGEN STAT 10/31/2024 11:05 AM TRAIN CONTROLLER APTT STAT 10/31/2024 11:05 AM TRAIN CONTROLLER PROTIME-INR STAT 10/31/2024 11:05 AM TRAIN CONTROLLER FL FLUOROSCOPY < 1 HOUR IP Routine 10/31/19 11:03 AM TRAIN CONTROLLER TRANSFUSE RED BLOOD CELLS Timed 10/31/2024 10:59 AM TRAIN CONTROLLER PREPARE PLASMA STAT 10/31/2024 10:53 AM TRAIN CONTROLLER PREPARE PLASMA STAT 10/31/2024 10:53 AM TRAIN CONTROLLER PREPARE PLASMA STAT 10/31/2024 10:53 AM TRAIN CONTROLLER PREPARE PLASMA STAT 10/31/2024 10:52 AM TRAIN CONTROLLER PREPARE RBC STAT 10/31/2024 10:51 AM TRAIN CONTROLLER PREPARE RBC STAT 10/31/2024 10:51 AM TRAIN CONTROLLER PREPARE RBC STAT 10/31/2024 10:50 AM TRAIN CONTROLLER PREPARE RBC STAT 10/31/2024 10:50 AM TRAIN CONTROLLER TRANSFUSE PLASMA Timed 10/31/2024 10:46 AM TRAIN CONTROLLER TRANSFUSE RED BLOOD CELLS Timed 10/31/2024 10:33 AM TRAIN CONTROLLER TRANSFUSE RED BLOOD CELLS Timed 10/31/2024 10:27 AM TRAIN CONTROLLER POC THROMBOELASTOMETRY PANEL - HEPARIN Routine 10/31/2024 10:20 AM TRAIN CONTROLLER POC THROMBOELASTOMETRY PANEL - INTRINSIC Routine 10/31/2024 10:19 AM TRAIN CONTROLLER POC THROMBOELASTOMETRY PANEL - EXTRINSIC Routine 10/31/2024 10:18 AM TRAIN CONTROLLER POC THROMBOELASTOMETRY PANEL - FIBRINOGEN Routine 10/31/2024 10:18 AM TRAIN CONTROLLER PREPARE RBC STAT 10/31/2024 10:16 AM TRAIN CONTROLLER POCT PROTHROMBIN TIME Routine 10/31/2024 10:03 AM TRAIN CONTROLLER POCT PARTIAL THROMBOPLASTIN TIME (PTT) Routine 10/31/2024 10:03 AM TRAIN CONTROLLER POC BLOOD GAS AND CHEMISTRIES, VENOUS Routine 10/31/2024 10:02 AM TRAIN CONTROLLER PREPARE PLASMA STAT 10/31/2024 9:27 AM TRAIN CONTROLLER PREPARE PLASMA STAT 10/31/2024 9:25 AM TRAIN CONTROLLER PREPARE RBC STAT 10/31/2024 9:25 AM TRAIN CONTROLLER PREPARE RBC Timed 10/31/2024 9:24 AM TRAIN CONTROLLER MA AN PROCEDURE PLACEHOLDER Routine 10/31/2024 8:46 AM TRAIN CONTROLLER MA AN PROCEDURE PLACEHOLDER Routine 10/31/2024 8:44 AM TRAIN CONTROLLER MA AN ELECTIVE ENDOTRACHEAL AIRWAY Routine 10/31/2024 8:44 AM TRAIN CONTROLLER BONE GRAFT WITH BONE MORPHOGENIC PROTEIN 10/31/2024 7:31 AM TRAIN CONTROLLER Spondylolisthesis of lumbar region Lumbar radiculopathy Case Notes 09/24@1339- Per Analilia via case msg - Cell saver will not be needed.- DMF 09/24@0843- Per audit case msg sent to [facility] to verify if cell saver needed or not for case- DMF Special Needs Radiology Plates, SCM, Pro-Laurel, GW Traction, Local Autograft, Frozen Bone Chips, 1 Small BMP Kit, Globus Creo, Globus Altera SPINAL CORD MONITORING 7:31 AM TRAIN CONTROLLER Spondylolisthesis of lumbar region Lumbar radiculopathy Case Notes 09/24@1339- Per Analilia via case msg - Cell saver will not be needed.- DMF 09/24@0843- Per audit case msg sent to [facility] to verify if cell saver needed or not for case- DMF Special Needs Radiology Plates, SCM, Pro-Laurel, GW Traction, Local Autograft, Frozen Bone Chips, 1 Small BMP Kit, Globus Creo, Globus Altera FUSION LUMBAR TRANSFORAMINAL INTERBODY 10/31/2024 7:31 AM TRAIN CONTROLLER Spondylolisthesis of lumbar region Lumbar radiculopathy Case Notes 09/24@1339- Per Analilia via case msg - Cell saver will not be needed.- DMF 09/24@0843- Per audit case msg sent to [facility] to verify if cell saver needed or not for case- DMF Special Needs Radiology Plates, SCM, Pro-Laurel, GW Traction, Local Autograft, Frozen Bone Chips, 1 Small BMP Kit, Globus Creo, Globus Altera POCT GLUCOSE DEVICE Routine 10/31/2024 7:09 AM TRAIN CONTROLLER B CHECK SAMPLE STAT 10/31/2024 7:09 AM TRAIN CONTROLLER EGFR Routine 10/22/2024 2:53 PM TRAIN CONTROLLER Spondylolisthesis of lumbar region Lumbar radiculopathy DIFFERENTIAL AUTO Routine 10/22/2024 2:53 PM TRAIN CONTROLLER Spondylolisthesis of lumbar region Lumbar radiculopathy URINALYSIS, MICROSCOPIC ONLY Routine 10/22/2024 2:53 PM TRAIN CONTROLLER Spondylolisthesis of lumbar region Lumbar radiculopathy COMPREHENSIVE METABOLIC PANEL Routine 10/22/2024 2:53 PM TRAIN CONTROLLER Spondylolisthesis of lumbar region Lumbar radiculopathy CBC WITH AUTO DIFFERENTIAL Routine 10/22/2024 2:53 PM TRAIN CONTROLLER Spondylolisthesis of lumbar region Lumbar radiculopathy VITAMIN D 25 HYDROXY Routine 10/22/2024 2:53 PM TRAIN CONTROLLER Spondylolisthesis of lumbar region Lumbar radiculopathy Vitamin D deficiency PROTIME-INR Routine 10/22/2024 2:53 PM TRAIN CONTROLLER Spondylolisthesis of lumbar region Lumbar radiculopathy Pain in other joint NICOTINE METABOLITE SCREEN, URINE Routine 10/22/2024 2:53 PM TRAIN CONTROLLER Spondylolisthesis of lumbar region Lumbar radiculopathy TYPE AND SCREEN 14 DAY Routine 2:53 PM TRAIN CONTROLLER Preoperative testing CPAP APTT ALGORITHM Routine 10/22/2024 2:53 PM TRAIN CONTROLLER Preoperative testing URINALYSIS AND REFLEX TO MICROSCOPIC AND CULTURE Routine 10/22/2024 2:53 PM TRAIN CONTROLLER Spondylolisthesis of lumbar region Lumbar radiculopathy POCT HEMOGLOBIN A1C Routine 10/22/2024 1:35 PM TRAIN CONTROLLER NEURO MR OUTSIDE REFERENCE Routine 10/14/2024 1:03 PM TRAIN CONTROLLER from Last 3 Months Results * XR Spine Lumbar 2 or 3 Views (12/27/2024 12:43 PM CDT) Anatomical Region Laterality Modality Spine N/A Computed Radiogr aphy 12/27/2024 1:32 PM CDT Impressions 12/27/2024 1:32 PM CDT 1. Unchanged combined posterior and interbody instrumented fusion at L5-S1. 2. Unchanged multilevel degenerative disc disease throughout the nonfused segments most pronounced and moderate to severe at L3-L4. Electronically signed by: Silvio Tipton M.D. Narrative 12/27/2024 1:32 PM CDT EXAMINATION: XR SPINE LUMBAR 2 OR 3 VIEWS HISTORY: FOLLOW UP SPINE FUSION FINDINGS: 2 view examination of the lumbar spine is read with comparison to 11/22/2024. Unchanged combined posterior and interbody instrumented fusion at L5-S1. Instrumentation is intact. Unchanged mild lumbar levoscoliosis. Unchanged grade 1 anterolisthesis of L5 on S1 and mild retrolisthesis of L3 on L4. No compression fracture. Unchanged multilevel degenerative disc disease most pronounced and moderate to severe at L3-L4. Right upper quadrant surgical clips. Partially imaged left hip arthroplasty. Suture line or calcifications project in the left upper quadrant. Atherosclerotic vascular calcifications. Procedure Note Edwin Tipton, Silvio Amaya MD - 12/27/2024 EXAMINATION: XR SPINE LUMBAR 2 OR 3 VIEWS HISTORY: FOLLOW UP SPINE FUSION FINDINGS: 2 view examination of the lumbar spine is read with comparison to 11/22/2024. Unchanged combined posterior and interbody instrumented fusion at L5-S1. Instrumentation is intact. Unchanged mild lumbar levoscoliosis. Unchanged grade 1 anterolisthesis of L5 on S1 and mild retrolisthesis of L3 on L4. No compression fracture. Unchanged multilevel degenerative disc disease most pronounced and moderate to severe at L3-L4. Right upper quadrant surgical clips. Partially imaged left hip arthroplasty. Suture line or calcifications project in the left upper quadrant. Atherosclerotic vascular calcifications. IMPRESSION: 1. Unchanged combined posterior and interbody instrumented fusion at L5-S1. 2. Unchanged multilevel degenerative disc disease throughout the nonfused segments most pronounced and moderate to severe at L3-L4. Electronically signed by: Silvio Tipton M.D. us Javed Ardon MD IMG XR PROCEDURES Final Result * XR Spine Lumbar 2 Or 3 View (11/22/2024 2:23 PM TRAIN CONTROLLER) Anatomical Region Laterality Modality Spine N/A Computed Radiogr aphy 11/22/2024 3:27 PM TRAIN CONTROLLER Impressions 11/22/2024 3:37 PM TRAIN CONTROLLER 1. Combined L5-S1 posterior and interbody decompression and instrumented fusion. 2. Moderate to severe lumbar degenerative disc disease, worst at L3-L4, with mild levoscoliosis. Dictated by: Bandar Ledbetter MD The radiology attending physician has personally reviewed this study, and had reviewed and/or edited this written report and agrees with it. Electronically signed by: Krishna Campbell M.D. Narrative 11/22/2024 3:37 PM TRAIN CONTROLLER EXAMINATION: XR SPINE LUMBAR 2 OR 3 VIEWS HISTORY: back pain COMPARISON: 11/01/2024 FINDINGS: 2 radiographs of the lumbar spine are provided for interpretation. Posterior spinal instrumentation fusion and combined anterior interbody fusion of L5-S1. The hardware is intact. There is mild levocurvature of the lumbar spine. There is moderate degenerative disease of the unfused lumbar spine, most pronounced at L3-L4. Facet joint arthropathy. Cholecystectomy clips. Partially imaged left hip arthroplasty and moderate right hip osteoarthritis. Vascular calcifications. Diffuse osseous demineralization. Procedure Note Krishna Campbell MD - 11/22/2024 EXAMINATION: XR SPINE LUMBAR 2 OR 3 VIEWS HISTORY: back pain COMPARISON: 11/01/2024 FINDINGS: 2 radiographs of the lumbar spine are provided for interpretation. Posterior spinal instrumentation fusion and combined anterior interbody fusion of L5-S1. The hardware is intact. There is mild levocurvature of the lumbar spine. There is moderate degenerative disease of the unfused lumbar spine, most pronounced at L3-L4. Facet joint arthropathy. Cholecystectomy clips. Partially imaged left hip arthroplasty and moderate right hip osteoarthritis. Vascular calcifications. Diffuse osseous demineralization. IMPRESSION: 1. Combined L5-S1 posterior and interbody decompression and instrumented fusion. 2. Moderate to severe lumbar degenerative disc disease, worst at L3-L4, with mild levoscoliosis. Dictated by: Bandar Ledbetter MD The radiology attending physician has personally reviewed this study, and had reviewed and/or edited this written report and agrees with it. Electronically signed by: Krishna Campbell M.D. Javed Ardon MD IMG XR PROCEDURES Final Result * POCT glucose (11/02/2024 11:38 AM TRAIN CONTROLLER) Glucose, POC 185 70 - 199 mg/dL Blood 11/02/2024 11:3 8 AM TRAIN CONTROLLER 11/02/2024 11:38 AM TRAIN CONTROLLER Javed Ardon MD LAB POCT ORDERABLES - D EVICE Final Result Performing Organization Address [facility] Co de Phone Number [facility] [place] [address] * POCT glucose (11/02/2024 7:59 AM TRAIN CONTROLLER) Glucose, POC 143 70 - 199 mg/dL Blood 11/02/2024 7:59 AM TRAIN CONTROLLER 11/02/2024 7:59 AM TRAIN CONTROLLER Javed Ardon MD LAB POCT ORDERABLES - D EVICE Final Result Performing Organization Address [facility] Co de Phone Number [facility] [place] [place] [address] * aPTT (11/01/2024 10:40 PM TRAIN CONTROLLER) aPTT 28 28 - 38 sec Comment: Interpretive Data Heparin therapeutic range: 66.0 - 100.0 seconds. Range based on correlation with therapeutic heparin activity range of 0.3 - 0.7 Units/mL. Current interpretive data was last revised on 2023. Blood 11/01/2024 10:4 0 PM TRAIN CONTROLLER 11/01/2024 11:41 PM TRAIN CONTROLLER Peggy Arcos STRADDLE BUG OPERATOR LAB BLOOD ORDERABLES Final Res ult Performing Organization Address [facility] [place] [address] * Protime-INR (11/01/2024 10:40 PM TRAIN CONTROLLER) Pathologist [facility] [place] PT 12.5 9.7 - 13.0 sec INR 1.15 0.90 - 1.20 [facility] Comment: Interpretive data Oral anticoagulant therapeutic ranges: Venous thromboembolism prophylaxis or treatment: 2.0-3.0 CARDIOLOGY Standard range: 2.0-3.0 High-intensity range: 2.5-3.5 Refer to indication-specific guidelines for appropriate target ranges for prosthetic heart valve replacement. Current interpretive data was last revised on 2019. Blood 11/01/2024 10:4 0 PM TRAIN CONTROLLER 11/01/2024 11:41 PM TRAIN CONTROLLER Peggy Arcos NP LAB BLOOD ORDERABLES Final Res ult Performing Organization Address [facility] [place] [address] * (ABNORMAL) CBC without differential (11/01/2024 10:40 PM TRAIN CONTROLLER) WBC 5.6 3.8 - 9.9 K/cumm Hgb 9.2(L) 11.9 - 15.5 g/dL [facility] Hct 27.5(L) 35.6 - 45.5 % [facility] Plt 81(L) 150 - 400 K/cumm [facility] MPV 11.4 9.1 - 12.3 fL [facility] RBC 3.09(L) 3.90 - 5.20 M/cumm [facility] MCV 89.0 81.3 - 96.4 fL [facility] MCH 29.8 27.1 - 33.3 pg [facility] MCHC 33.5 32.3 - 35.7 g/dL [facility] RDW CV 13.6 11.1 - 14.9 % [facility] RDW SD 44.1 35.7 - 48.1 fL [facility] NRBC abs 0.00 0.00 - 0.01 K/cumm [facility] Blood 11/01/2024 10:4 0 PM TRAIN CONTROLLER 11/01/2024 11:37 PM TRAIN CONTROLLER us Tommy Myers NP LAB BLOOD ORDERABLES Final R esult Performing Organization Address [facility] Co de Phone Number [facility] Department [place] [address] * POCT glucose (11/01/2024 8:30 PM TRAIN CONTROLLER) Glucose, POC 83 70 - 199 mg/dL Blood 11/01/2024 8:30 PM TRAIN CONTROLLER 11/01/2024 8:30 PM TRAIN CONTROLLER us Javed Ardon MD LAB POCT ORDERABLES - D EVICE Final Result Performing Organization Address [facility] de Phone Number [facility] Department [place] [address] * XR Shoulder Right 2 or More Views (11/01/2024 6:30 PM TRAIN CONTROLLER) Anatomical Region Laterality Modality Upper Extremities, Shoulder Right Comp uted Radiography 11/01/2024 7:13 PM TRAIN CONTROLLER Impressions 11/01/2024 7:13 PM TRAIN CONTROLLER 1. Unchanged mild acromioclavicular and glenohumeral osteoarthritis Electronically signed by: David Acevedo MD, PHD Narrative 11/01/2024 7:13 PM TRAIN CONTROLLER EXAMINATION: Right shoulder 2+ views HISTORY: Right shoulder pain FINDINGS: 3 radiographs right shoulder compared to prior radiographs from 07/09/2024. There is unchanged mild acromioclavicular and glenohumeral osteoarthritis. There is normal alignment and no acute fracture. Procedure Note David Acevedo MD PhD - 11/01/2024 EXAMINATION: Right shoulder 2+ views HISTORY: Right shoulder pain FINDINGS: 3 radiographs right shoulder compared to prior radiographs from 07/09/2024. There is unchanged mild acromioclavicular and glenohumeral osteoarthritis. There is normal alignment and no acute fracture. IMPRESSION: 1. Unchanged mild acromioclavicular and glenohumeral osteoarthritis Electronically signed by: David Acevedo MD, PHD us Stalin Boucher STRADDLE BUG OPERATOR IMG XR PROCEDURES Final Result * (ABNORMAL) POCT glucose (11/01/2024 6:25 PM TRAIN CONTROLLER) Glucose, POC 223(H) 70 - 199 mg/dL Blood 11/01/2024 6:25 PM TRAIN CONTROLLER 11/01/2024 6:25 PM TRAIN CONTROLLER us Javed Ardon MD LAB POCT ORDERABLES - D EVICE Final Result [facility] Department [place] [address] * XR Spine Lumbar 2 or 3 Views (11/01/2024 4:45 PM TRAIN CONTROLLER) Anatomical Region Laterality Modality Spine N/A Computed Radiogr aphy 11/01/2024 6:54 PM TRAIN CONTROLLER Impressions 11/01/2024 6:54 PM TRAIN CONTROLLER 1. Interval combined L5-S1 anterior and posterior decompression and fusion with unchanged mild degenerative lumbar levoscoliosis and moderate to severe degenerative disc disease at L3-L4 Electronically signed by: David Acevedo MD, PHD Narrative 11/01/2024 6:54 PM TRAIN CONTROLLER EXAMINATION: Lumbar spine 2 or 3 views HISTORY: Lumbar spondylosis; scoliosis FINDINGS: 2 views standing radiograph examination of the lumbar spine is compared to scoliosis films from 09/09/2024. There has been interval L5-S1 posterior decompression and instrumented fusion with combined anterior decompression and interbody fusion. There is unchanged mild lumbar levoscoliosis with apex at L3-L4 appears unchanged. Multilevel lumbar degenerative disc disease noted of the unfused levels, greatest and moderate to severe at L3-L4 at the concavity of the scoliotic curve. Vertebral body heights appear unchanged without compression fracture. Left total hip arthroplasty and moderate right hip osteoarthritis. Surgical clips are noted in the right upper quadrant. Aortic atherosclerosis is present. Procedure Note David Acevedo MD PhD - 11/01/2024 EXAMINATION: Lumbar spine 2 or 3 views HISTORY: Lumbar spondylosis; scoliosis FINDINGS: 2 views standing radiograph examination of the lumbar spine is compared to scoliosis films from 09/09/2024. There has been interval L5-S1 posterior decompression and instrumented fusion with combined anterior decompression and interbody fusion. There is unchanged mild lumbar levoscoliosis with apex at L3-L4 appears unchanged. Multilevel lumbar degenerative disc disease noted of the unfused levels, greatest and moderate to severe at L3-L4 at the concavity of the scoliotic curve. Vertebral body heights appear unchanged without compression fracture. Left total hip arthroplasty and moderate right hip osteoarthritis. Surgical clips are noted in the right upper quadrant. Aortic atherosclerosis is present. IMPRESSION: 1. Interval combined L5-S1 anterior and posterior decompression and fusion with unchanged mild degenerative lumbar levoscoliosis and moderate to severe degenerative disc disease at L3-L4 Electronically signed by: David Acevedo MD, PHD Stalin Boucher STRADDLE BUG OPERATOR IMG XR PROCEDURES Final Result * POCT glucose (11/01/2024 11:36 AM TRAIN CONTROLLER) Glucose, POC 180 70 - 199 mg/dL Blood 11/01/2024 11:3 6 AM TRAIN CONTROLLER 11/01/2024 11:36 AM TRAIN CONTROLLER Javed Ardon MD LAB POCT ORDERABLES - D EVICE Final Result Performing Organization Address [facility]/ZIP Co de Phone Number [facility] [place] [address] * POCT glucose (11/01/2024 7:47 AM TRAIN CONTROLLER) [facility] Glucose, POC 148 70 - 199 mg/dL Blood 11/01/2024 7:47 AM TRAIN CONTROLLER 11/01/2024 7:47 AM TRAIN CONTROLLER us Javed Ardon MD LAB POCT ORDERABLES - D EVICE Final Result Performing Organization Address [facility] de Phone Number [facility] [place] [address] * (ABNORMAL) CBC without differential (11/01/2024 6:21 AM TRAIN CONTROLLER) [facility] WBC 5.3 3.8 - 9.9 K/cumm Hgb 9.5(L) 11.9 - 15.5 g/dL [facility] Hct 28.4(L) 35.6 - 45.5 % [facility] Plt 94(L) 150 - 400 K/cumm [facility] MPV 11.1 9.1 - 12.3 fL [facility] RBC 3.21(L) 3.90 - 5.20 M/cumm [facility] MCV 88.5 81.3 - 96.4 fL [facility] MCH 29.6 27.1 - 33.3 pg [facility] MCHC 33.5 32.3 - 35.7 g/dL [facility] RDW CV 13.5 11.1 - 14.9 % [facility] RDW SD 43.8 35.7 - 48.1 fL [facility] NRBC abs 0.00 0.00 - 0.01 K/cumm [facility] Blood 11/01/2024 6:21 AM TRAIN CONTROLLER 11/01/2024 6:37 AM TRAIN CONTROLLER us Lia Drummond MD PhD LAB BLOOD ORDERABLES Final Re sult Performing Organization Address [facility] Co de Phone Number [facility] Department [place] [address] * eGFR (10/31/2024 10:32 PM TRAIN CONTROLLER) Pathologist [facility] [place] eGFR >90 >=60 mL/min/1. 73 m2 Comment: Interpretive Data Reference Interval Normal >/= 90 mL/min/1.73m2 Mildly decreased* 60 - 89 mL/min/1.73m2 Mildly to moderately decreased 45 - 59 mL/min/1.73m2 Moderately to severely decreased 30 - 44 mL/min/1.73m2 Severely decreased 15 - 29 mL/min/1.73m2 Kidney Failure < 15 mL/min/1.73m2 *Relative to young adult level Estimated glomerular filtration rate is determined by the 2020 CKD-EPI equation recommended by the National Kidney Foundation (A Unifying Approach to GFR Estimation: Recommendations of the NKF-ASK Task Force on Reassessing the Inclusion of Race in Diagnosing Kidney Disease, JASN 2020). The CKD-EPI equation should not be used for patients with unstable renal function and has not been validated in children and those over 70. Current interpretive data was last reviewed 2021. Blood 10/31/2024 10:3 2 PM TRAIN CONTROLLER 10/31/2024 11:04 PM TRAIN CONTROLLER Tommy Myers NP LAB BLOOD ORDERABLES Final R esult Performing Organization Address [facility] Co de Phone Number [facility] Department [place] [address] * (ABNORMAL) CBC without differential (10/31/2024 10:32 PM TRAIN CONTROLLER) Pathologist [facility] [place] WBC 7.2 3.8 - 9.9 K/cumm Hgb 9.9(L) 11.9 - 15.5 g/dL [facility] Hct 29.0(L) 35.6 - 45.5 % [facility] Plt 93(L) 150 - 400 K/cumm [facility] MPV 11.2 9.1 - 12.3 fL [facility] RBC 3.27(L) 3.90 - 5.20 M/cumm [facility] MCV 88.7 81.3 - 96.4 fL [facility] MCH 30.3 27.1 - 33.3 pg [facility] MCHC 34.1 32.3 - 35.7 g/dL [facility] RDW CV 13.5 11.1 - 14.9 % [facility] RDW SD 44.2 35.7 - 48.1 fL [facility] NRBC abs 0.00 0.00 - 0.01 K/cumm [facility] Blood 10/31/2024 10:3 2 PM TRAIN CONTROLLER 10/31/2024 11:04 PM TRAIN CONTROLLER Tommy Myers NP LAB BLOOD ORDERABLES Final R esult [facility] Department [place] [address] * Lipid panel (10/31/2024 10:32 PM TRAIN CONTROLLER) Cholesterol 101 30 - 199 mg/dL Comment: Interpretive Data Ages < or = 19 years Acceptable: <170 mg/dL Borderline high: 170-199 mg/dL High: >or= 200 mg/dL Ages > or = 20 years Desirable: <200 mg/dL Borderline high: 200-239 mg/dL High: >or= 240 mg/dL Literature References: 1. Expert Panel on Integrated Guidelines for Cardiovascular Health and Risk Reduction in Children and Adolescents. Pediatrics 2011;128:S213 2. NCEP Expert Panel. Circulation 2004;110:227 Current Interpretive Data was last revised on 2018. Triglycerides 44 <=149 mg/dL [facility] Comment: Interpretive Data Ages < or = 9 years Acceptable: <75 mg/dL Borderline high: 75-99 mg/dL High: >or= 100 mg/dL Ages 10 to 20 years Acceptable: <90 mg/dL Borderline high: 90-129 mg/dL High: >or= 130 mg/dL Ages > or = 20 years Desirable: <150 mg/dL Borderline high: 150-199 mg/dL High: 200-499 mg/dL Very high: >or= 499 mg/dL Literature References: 1. Expert Panel on Integrated Guidelines for Cardiovascular Health and Risk Reduction in Children and Adolescents. Pediatrics 2011;128:S213 2. NCEP Expert Panel. Circulation 2004;110:227 Current Interpretive Data was last revised on 2018. HDL 42 >=40 mg/dL [facility] Comment: Interpretive Data Ages < or = 19 years Acceptable: >45 mg/dL Borderline low: 40-45 mg/dL Low: <40 mg/dL Ages > or = 20 years Desirable: >or= 60 mg/dL Low: <40 mg/dL Literature References: 1. Expert Panel on Integrated Guidelines for Cardiovascular Health and Risk Reduction in Children and Adolescents. Pediatrics 2011;128:S213 2. NCEP Expert Panel. Circulation 2004;110:227 Current Interpretive Data was last revised on 2018. LDL, calculated 48 <=129 mg/dL [facility] Comment: Interpretive Data Ages < or = 19 years Acceptable: <110 mg/dL Borderline high: 110-129 mg/dL High: >or= 130 mg/dL Ages > or = 20 years Optimal: <100 mg/dL Near optimal: 100-129 mg/dL Borderline high: 130-159 mg/dL High: >160 mg/dL Calculated using the Jesus LDL-C estimating equation. This equation was implemented on 2024. Prior to this date LDL-C was estimated using the Friedewald equation. Literature References: 1. Expert Panel on Integrated Guidelines for Cardiovascular Health and Risk Reduction in Children and Adolescents. Pediatrics 2011;128:S213 2. NCEP Expert Panel. Circulation 2004;110:227 3. Jesus Rodriguez al. USMAN Cardiol. 2020 February 06;5(5):540-548. doi: [email or web address] Current Interpretive Data was last revised on 2024. Non-HDL Cholesterol 59 mg/dL [facility] Comment: Interpretive Data Ages < or = 19 years Acceptable: <120 mg/dL Borderline high: 120-144 mg/dL High: >145 mg/dL Ages > or = 20 years When triglycerides are >200 mg/dL, Non-HDL cholesterol is a secondary target of therapy with treatment goals that are 30 mg/dL greater than the LDL cholesterol target. Literature References: 1. Expert Panel on Integrated Guidelines for Cardiovascular Health and Risk Reduction in Children and Adolescents. Pediatrics 2011;128:S213 2. NCEP Expert Panel. Circulation 2004;110:227 Current Interpretive Data was last revised on 2018. Chol/HDL ratio 2 [facility] Blood 10/31/2024 10:3 2 PM TRAIN CONTROLLER 10/31/2024 11:04 PM TRAIN CONTROLLER Narrative [facility] - 11/01/2024 9:06 AM TRAIN CONTROLLER Reflex us Javed Ardon MD LAB BLOOD ORDERABLES Fi nal Result [facility] Department [place] [address] * (ABNORMAL) Basic metabolic panel (10/31/2024 10:32 PM TRAIN CONTROLLER) Sodium 141 135 - 145 mmol/L Potassium, pl 4.0 3.3 - 4.9 mmol/L [facility] Chloride 108 97 - 110 mmol/L [facility] CO2 29 22 - 32 mmol/L [facility] Anion gap 4 2 - 15 mmol/L [facility] BUN 13 6 - 25 mg/dL [facility] Creatinine 0.65 0.60 - 1.10 mg/dL [facility] Glucose 118 70 - 199 mg/dL [facility] Comment: Interpretive Data Fasting glucose >/= 126 mg/dl is diagnostic for diabetes. Fasting is defined as no caloric intake for at least 8 hours. Fasting glucose between 100 mg/dl to 125 mg/dl is diagnostic of prediabetes. In a patient with classic symptoms of hyperglycemia or hyperglycemic crisis, a random glucose >/= 200 mg/dl is diagnostic for diabetes. In the absence of unequivocal hyperglycemia, results should be confirmed by repeat testing. The classification and Diagnosis of Diabetes Diabetes Care 2021; 46: S19-S40. Current interpretive data was last revised 2022. Calcium 8.4(L) 8.5 - 10.3 mg/dL [facility] Blood 10/31/2024 10:3 2 PM TRAIN CONTROLLER 10/31/2024 11:04 PM TRAIN CONTROLLER us Tommy Myers NP LAB BLOOD ORDERABLES Final R esult Performing Organization Address [facility] Co de Phone Number [facility] [place] [address] * POCT glucose (10/31/2024 7:57 PM TRAIN CONTROLLER) Glucose, POC 161 70 - 199 mg/dL Blood 10/31/2024 7:57 PM TRAIN CONTROLLER 10/31/2024 7:57 PM TRAIN CONTROLLER us Javed Ardon MD LAB POCT ORDERABLES - D EVICE Final Result Performing Organization Address [facility] [place] [address] * POCT glucose (10/31/2024 4:34 PM TRAIN CONTROLLER) Glucose, POC 177 70 - 199 mg/dL Blood 10/31/2024 4:34 PM TRAIN CONTROLLER 10/31/2024 4:34 PM TRAIN CONTROLLER us Javed Ardon MD LAB POCT ORDERABLES - D EVICE Final Result Performing Organization Address [facility] Co de Phone Number [facility] [place] [address] * POCT glucose (10/31/2024 1:21 PM TRAIN CONTROLLER) Glucose, POC 134 70 - 199 mg/dL Blood 10/31/2024 1:21 PM TRAIN CONTROLLER 10/31/2024 1:21 PM TRAIN CONTROLLER us Javed Ardon MD LAB POCT ORDERABLES - D EVICE Final Result Performing Organization Address [facility] Co de Phone Number [facility] [place] [address] * (ABNORMAL) CBC without differential (10/31/2024 12:57 PM TRAIN CONTROLLER) [facility] WBC 6.5 3.8 - 9.9 K/cumm Hgb 9.4(L) 11.9 - 15.5 g/dL [facility] Hct 28.3(L) 35.6 - 45.5 % [facility] Plt 82(L) 150 - 400 K/cumm [facility] MPV 10.5 9.1 - 12.3 fL [facility] RBC 3.13(L) 3.90 - 5.20 M/cumm [facility] MCV 90.4 81.3 - 96.4 fL [facility] MCH 30.0 27.1 - 33.3 pg [facility] MCHC 33.2 32.3 - 35.7 g/dL [facility] RDW CV 12.8 11.1 - 14.9 % [facility] RDW SD 42.4 35.7 - 48.1 fL [facility] NRBC abs 0.00 0.00 - 0.01 K/cumm [facility] Blood 10/31/2024 12:5 7 PM TRAIN CONTROLLER 10/31/2024 1:10 PM TRAIN CONTROLLER us Brynn Banegas MD LAB BLOOD ORDERABLES Final Result [facility] Department [place] [address] * Transfuse plasma (10/31/2024 11:32 AM TRAIN CONTROLLER) Blood us Lia Drummond MD PhD BLOOD TRANSFUSION ORDERABLES Final Result [facility] Department [place] [address] * (ABNORMAL) POC Blood Gas and Chemistries, Venous - (10/31/2024 11:10 AM TRAIN CONTROLLER) [facility] pH, Kitty POC 7.28(L) 7.32 - 7.43 pCO2, kitty POC 46 40 - 50 mmHg [facility] pO2, kitty POC 73 [facility] Na, POC 143 135 - 145 mmol/L [facility] K POC 4.2 3.3 - 4.9 mmol/L [facility] Comment: Interpretive Data Not all point of care methods assess for hemolysis. Confirm with instrument and retest K+ if not consistent with clinical signs and symptoms. Current Interpretive Data was last revised on 2024. Cl, POC 111(H) 97 - 110 mmol/L [facility] Ionized Ca, POC 4.49(L) 4.50 - 5.10 mg/dL [facility] Glucose, POC 158 70 - 199 mg/dL [facility] Lactate, POC 1.8 0.7 - 2.0 mmol/L [facility] O2 Sat, Kitty POC (Karen) 94 % [facility] Base excess, POC -5.0 mmol/L [facility] Hct, POC 27.0(L) 36.3 - 45.3 % [facility] Total Hb, POC 9.0(L) 11.9 - 15.5 g/dL [facility] Blood 10/31/2024 11:1 0 AM TRAIN CONTROLLER 10/31/2024 11:10 AM TRAIN CONTROLLER us Javed Ardon MD LAB POCT ORDERABLES - D EVICE Final Result Performing Organization Address City/[facility]/ZIP Co de Phone Number [facility] Department [place] [place] [address] * Transfuse RBC (10/31/2024 11:07 AM TRAIN CONTROLLER) Blood us Lia Drummond MD PhD BLOOD TRANSFUSION ORDERABLES Final Result [facility] [place] [address] * aPTT (10/31/2024 11:05 AM TRAIN CONTROLLER) aPTT 28 28 - 38 sec Comment: Interpretive Data Heparin therapeutic range: 66.0 - 100.0 seconds. Range based on correlation with therapeutic heparin activity range of 0.3 - 0.7 Units/mL. Current interpretive data was last revised on 2023. Blood 10/31/2024 11:0 5 AM TRAIN CONTROLLER 10/31/2024 11:35 AM TRAIN CONTROLLER Lia Drummond MD PhD LAB BLOOD ORDERABLES Final Re sult Performing Organization Address [facility] de Phone Number [facility] [employer] [place] [address] * (ABNORMAL) Protime-INR (10/31/2024 11:05 AM TRAIN CONTROLLER) Pathologist [facility] [place] PT 13.8(H) 9.7 - 13.0 sec INR 1.27(H) 0.90 - 1.20 [facility] Comment: Interpretive data Oral anticoagulant therapeutic ranges: Venous thromboembolism prophylaxis or treatment: 2.0-3.0 CARDIOLOGY Standard range: 2.0-3.0 High-intensity range: 2.5-3.5 Refer to indication-specific guidelines for appropriate target ranges for prosthetic heart valve replacement. Current interpretive data was last revised on 2019. Blood 10/31/2024 11:0 5 AM TRAIN CONTROLLER 10/31/2024 11:35 AM TRAIN CONTROLLER Lia Drummond MD PhD LAB BLOOD ORDERABLES Final Re sult Performing Organization Address [facility] Co de Phone Number [facility] Department [employer] [place] [address] * Fibrinogen (10/31/2024 11:05 AM TRAIN CONTROLLER) Pathologist [facility] [place] Fibrinogen 182 170 - 400 mg/dL Blood 10/31/2024 11:0 5 AM TRAIN CONTROLLER 10/31/2024 11:35 AM TRAIN CONTROLLER Lia Drummond MD PhD LAB BLOOD ORDERABLES Final Re sult Performing Organization Address [facility] [place] [address] * [place] Fluoroscopy < 1 Hour (10/31/2024 11:03 AM TRAIN CONTROLLER) Narrative [facility] - 10/31/2024 11:04 AM TRAIN CONTROLLER The images from this study are not interpreted by Radiology. Please refer to the physician's procedure / OR operative note. Javed Ardon MD IMG FLUOROSCOPY PROCEDU RES Final Result Performing Organization Address [facility] de Phone Number [facility] * Transfuse RBC (10/31/2024 10:59 AM TRAIN CONTROLLER) Blood Lia Drummond MD PhD BLOOD TRANSFUSION ORDERABLES Final Result Performing Organization Address [facility] [place] [address] * Prepare plasma: 1 Units (10/31/2024 10:53 AM TRAIN CONTROLLER) Product code [id number] Unit Number [id number] 7-Q [facility] Product Blood Type OPOS [facility] Dispense Status RETURNED [facility] Blood Venous blood specimen / Unknown 10/31/2024 10:53 AM TRAIN CONTROLLER 10/31/2024 10:53 AM TRAIN CONTROLLER Narrative [facility] - 10/31/2024 12:25 PM TRAIN CONTROLLER Date required:-[id number] FFP # of Units:-1-Units Reasons:-Immediate need for surgical intervention Lia Drummond MD PhD BLOOD BANK PRODUCT ORDERABLES Final Result Performing Organization Address [facility] [place] [address] * Prepare plasma: 1 Units (10/31/2024 10:53 AM TRAIN CONTROLLER) Product code [id number] Unit Number [id number] 4-Y [facility] Product Blood Type OPOS [facility]ER [facility]J Dispense Status RETURNED [facility]ER [facility] Blood Venous blood specimen / Unknown 10/31/2024 10:53 AM TRAIN CONTROLLER 10/31/2024 10:52 AM TRAIN CONTROLLER Narrative DE[facility] - 10/31/2024 12:25 PM TRAIN CONTROLLER Date required:-[id number] FFP # of Units:-1-Units Reasons:-Immediate need for surgical intervention us Lia Drummond MD PhD BLOOD BANK PRODUCT ORDERABLES Final Result Performing Organization Address [facility] de Phone Number [facility] [employer] [place], [place] [address] * Prepare plasma: 1 Units (10/31/2024 10:53 AM TRAIN CONTROLLER) Product code [id number] Unit Number [id number] 9-* [facility] Product Blood Type OPOS YU BJ Dispense Status RETURNED CERMAXI BJ Blood Venous blood specimen / Unknown 10/31/2024 10:53 AM TRAIN CONTROLLER 10/31/2024 10:52 AM TRAIN CONTROLLER Narrative YU GALDAMEZ - 10/31/2024 12:25 PM TRAIN CONTROLLER Date required:-[id number] FFP # of Units:-1-Units Reasons:-Immediate need for surgical intervention us Lia Drummond MD PhD BLOOD BANK PRODUCT ORDERABLES Final Result Performing Organization Address City/[facility] Co de Phone Number [facility] [place] [address] * Prepare plasma: 1 Units (10/31/2024 10:52 AM TRAIN CONTROLLER) Product code [id number] Unit Number [id number] [facility] Product Blood Type OPOS CERNER [facility]J Dispense Status PRESUMED TRANSFUSED CERNER BJ Blood Venous blood specimen / Unknown 10/31/2024 10:52 AM TRAIN CONTROLLER 10/31/2024 10:52 AM TRAIN CONTROLLER Narrative [facility] - 11/01/2024 12:56 AM TRAIN CONTROLLER Date required:-[id number] FFP # of Units:-1-Units Reasons:-Immediate need for surgical intervention Lia Drummond MD PhD BLOOD BANK PRODUCT ORDERABLES Final Result Performing Organization Address [facility] de Phone Number [facility] [place] [address] * Prepare RBC: 1 Units (10/31/2024 10:51 AM TRAIN CONTROLLER) Product code [id number] Unit Number [id number] 6-5 [facility] Product Blood Type OPOS [facility] Dispense Status RETURNED [facility] Blood 10/31/2024 10:5 1 AM TRAIN CONTROLLER 10/31/2024 10:50 AM TRAIN CONTROLLER Narrative [facility] - 10/31/2024 12:25 PM TRAIN CONTROLLER Are special requirements needed? (All products are leukoreduced and CMV- safe)- >No Date required:-[id number] LRRBC # of Ukmsp-3-Qbual Reasons:-Intra-op transfusion} Lia Drummond MD PhD BLOOD BANK PRODUCT ORDERABLES Final Result Performing Organization Address [facility] de Phone Number [facility] [place] [address] * Prepare RBC: 1 Units (10/31/2024 10:51 AM TRAIN CONTROLLER) Product code [id number] Unit Number [id number] 3-3 [facility] Product Blood Type OPOS [facility] Dispense Status RETURNED [facility] Blood 10/31/2024 10:5 1 AM TRAIN CONTROLLER 10/31/2024 10:50 AM TRAIN CONTROLLER Narrative [facility] - 10/31/2024 12:25 PM TRAIN CONTROLLER Are special requirements needed? (All products are leukoreduced and CMV- safe)- >No Date required:-[id number] LRRBC # of Yuyjr-1-Vagim Reasons:-Intra-op transfusion} Lia Drummond MD PhD BLOOD BANK PRODUCT ORDERABLES Final Result Performing Organization Address [facility] de Phone Number [facility] [place] [address] * Prepare RBC: 1 Units (10/31/2024 10:50 AM TRAIN CONTROLLER) Product code [id number] Unit Number [id number] 8-V [facility] Product Blood Type OPOS [facility] Dispense Status RETURNED [facility] Blood 10/31/2024 10:5 0 AM TRAIN CONTROLLER 10/31/2024 10:50 AM TRAIN CONTROLLER Narrative [facility] - 10/31/2024 12:25 PM TRAIN CONTROLLER Are special requirements needed? (All products are leukoreduced and CMV- safe)- >No Date required:-[id number] LRRBC # of Ejcbb-0-Nfxbu Reasons:-Intra-op transfusion} Lia Drummond MD PhD BLOOD BANK PRODUCT ORDERABLES Final Result Performing Organization Address [facility] [place] [address] * Prepare RBC: 1 Units (10/31/2024 10:50 AM TRAIN CONTROLLER) Product code [id number] Unit Number [id number] 4-E [facility] Product Blood Type OPOS [facility] Dispense Status RETURNED [facility] Blood 10/31/2024 10:5 0 AM TRAIN CONTROLLER 10/31/2024 10:49 AM TRAIN CONTROLLER Narrative [facility] - 10/31/2024 12:25 PM TRAIN CONTROLLER Are special requirements needed? (All products are leukoreduced and CMV- safe)- >No Date required:-[id number] LRRBC # of Smuhu-9-Npqfg Reasons:-Intra-op transfusion} Lia Drummond MD PhD BLOOD BANK PRODUCT ORDERABLES Final Result Performing Organization Address [facility] [place] [address] * Transfuse plasma (10/31/2024 10:49 AM TRAIN CONTROLLER) Blood Lia Drummond MD PhD BLOOD TRANSFUSION ORDERABLES Final Result Performing Organization Address [facility] [place] [address] * Transfuse RBC (10/31/2024 10:38 AM TRAIN CONTROLLER) Blood Lia Drummond MD PhD BLOOD TRANSFUSION ORDERABLES Final Result Performing Organization Address [facility] Co de Phone Number [facility] [place] [address] * Transfuse RBC (10/31/2024 10:27 AM TRAIN CONTROLLER) Blood Lia Drummond MD PhD BLOOD TRANSFUSION ORDERABLES Final Result Performing Organization Address [facility] [place] [address] * POC Thromboelastometry Panel - Heparin (10/31/2024 10:20 AM TRAIN CONTROLLER) [facility] HEPTEM-CT, POC 144 141 - 215 sec HEPTEM-A5, POC 46 33 - 51 mm [facility] HEPTEM-A10, POC 56 44 - 61 mm [facility] HEPTEM-A20, POC 61 52 - 67 mm [facility] HEPTEM-MCF, POC 62 54 - 69 mm [facility] HEPTEM-Run Time, POC (hh:mm:ss) 02:00:00 [facility] Blood 10/31/2024 10:2 0 AM TRAIN CONTROLLER 10/31/2024 10:20 AM TRAIN CONTROLLER us Javed Ardon MD LAB POCT ORDERABLES - D EVICE Edited Result - Final Performing Organization Address [facility]/ZIP Co de Phone Number [facility] [place] [address] * (ABNORMAL) POC Thromboelastometry Panel - Intrinsic (10/31/2024 10:19 AM TRAIN CONTROLLER) INTEM-CT, POC 148 139 - 205 sec INTEM-A5, POC 46 36 - 54 mm [facility] INTEM-A10, POC 56 46 - 63 mm [facility] INTEM-A20, POC 60 53 - 68 mm [facility] INTEM-MCF, POC 61 55 - 70 mm [facility] INTEM-LI60, POC 95 93 - 100 % [facility] INTEM-ML, POC 11(H) 0 - 7 % [facility] INTEM-Run Time, POC (hh:mm:ss) 02:00:00 CERNER [facility] Blood 10/31/2024 10:1 9 AM TRAIN CONTROLLER 10/31/2024 10:19 AM TRAIN CONTROLLER us Javed Ardon MD LAB POCT ORDERABLES - D EVICE Edited Result - Final Performing Organization Address [facility]/ZIP Co de Phone Number [facility] Department [place] [address] * POC Thromboelastometry Panel - Fibrinogen (10/31/2024 10:18 AM TRAIN CONTROLLER) FIBTEM-A5, POC 9 5 - 16 mm FIBTEM-A10, POC 10 6 - 17 mm [facility] FIBTEM-A20, POC 11 6 - 18 mm [facility] FIBTEM-MCF, POC 11 9 - 19 mm [facility] FIBTEM-Run Time, POC (hh:mm:ss) 02:00:00 [facility] Blood 10/31/2024 10:1 8 AM TRAIN CONTROLLER 10/31/2024 10:18 AM TRAIN CONTROLLER us Javed Ardon MD LAB POCT ORDERABLES - D EVICE Edited Result - Final Performing Organization Address City/[facility]/ZIP Co de Phone Number [facility] Department [place] [address] * (ABNORMAL) POC Thromboelastometry Panel - Extrinsic (10/31/2024 10:18 AM TRAIN CONTROLLER) Pathologist [facility] [place] EXTEM-CT, POC 55 51 - 73 sec EXTEM-A5, POC 44 33 - 52 mm [facility] EXTEM-A10, POC 54 45 - 62 mm [facility] EXTEM-A20, POC 60 54 - 69 mm [facility] EXTEM-MCF, POC 61 57 - 72 mm [facility] EXTEM-LI60, POC 97 94 - 100 % [facility] EXTEM-ML, POC 10(H) 0 - 6 % [facility] EXTEM-Run Time, POC (hh:mm:ss) 02:00:01 [employer] [facility] [employer] [facility] Blood 10/31/2024 10:1 8 AM TRAIN CONTROLLER 10/31/2024 10:18 AM TRAIN CONTROLLER us Javed Ardon MD LAB POCT ORDERABLES - D EVICE Edited Result - Final Performing Organization Address City/[facility]/ZIP Co de Phone Number [employer] [facility] [place] [place] [address] * Prepare RBC: 2 Units (10/31/2024 10:16 AM TRAIN CONTROLLER) Product code [id number] Unit Number [id number] [facility] Product Blood Type OPOS [facility] Dispense Status PRESUMED TRANSFUSED CERNER [facility] Product code [id number] [facility] Unit Number [id number] W [facility] Product Blood Type OPOS [facility] Dispense Status PRESUMED TRANSFUSED [facility] Blood 10/31/2024 10:1 6 AM TRAIN CONTROLLER 10/31/2024 10:16 AM TRAIN CONTROLLER Narrative [facility] - 11/01/2024 12:56 AM TRAIN CONTROLLER Are special requirements needed? (All products are leukoreduced and CMV- safe)- >No Date required:-[id number] LRRBC # of Uzhyj-5-Nrxzv Reasons:-Intra-op transfusion} us Lia Drummond MD PhD BLOOD BANK PRODUCT ORDERABLES Final Result Performing Organization Address [facility] Co de Phone Number [facility] Department [place] [address] * POCT prothrombin time (10/31/2024 10:03 AM TRAIN CONTROLLER) PT, POC 16.2 11.7 - 16.6 sec INR, POC 1.2 0.9 - 1.2 [facility] Blood 10/31/2024 10:0 3 AM TRAIN CONTROLLER 10/31/2024 10:03 AM TRAIN CONTROLLER us Javed Ardon MD LAB POCT ORDERABLES - D EVICE Final Result Performing Organization Address [facility] Co de Phone Number [facility] Department [place] [address] * POCT Partial thromboplastin time (PTT) (10/31/2024 10:03 AM TRAIN CONTROLLER) APTT, POC 36.6 32.5 - 46.1 sec Blood 10/31/2024 10:0 3 AM TRAIN CONTROLLER 10/31/2024 10:03 AM TRAIN CONTROLLER Javed Ardon MD LAB POCT ORDERABLES - D EVICE Final Result Performing Organization Address [facility] Co de Phone Number [facility] [place] [address] * (ABNORMAL) POC Blood Gas and Chemistries, Venous - (10/31/2024 10:02 AM TRAIN CONTROLLER) [facility] pH, Kitty POC 7.32 7.32 - 7.43 pCO2, kitty POC 45 40 - 50 mmHg [employer] [facility] [employer] [facility] [facility] [facility] pO2, kitty POC 65 mmHg CERNER [facility] Na, POC 141 135 - 145 mmol/L [facility] K POC 3.9 3.3 - 4.9 mmol/L [facility] Comment: Interpretive Data Not all point of care methods assess for hemolysis. Confirm with instrument and retest K+ if not consistent with clinical signs and symptoms. Current Interpretive Data was last revised on 2024. Cl, POC 112(H) 97 - 110 mmol/L [facility] Ionized Ca, POC 4.96 4.50 - 5.10 mg/dL [facility] Glucose, POC 164 70 - 199 mg/dL [facility] Lactate, POC 1.4 0.7 - 2.0 mmol/L [facility] O2 Sat, Kitty POC (Karen) 93 % [facility] Base excess, POC -2.8 mmol/L [facility] Hct, POC 23.0(L) 36.3 - 45.3 % [facility] Total Hb, POC 7.5(L) 11.9 - 15.5 g/dL [facility] Blood 10/31/2024 10:0 2 AM TRAIN CONTROLLER 10/31/2024 10:02 AM TRAIN CONTROLLER us Javed Ardon MD LAB POCT ORDERABLES - D EVICE Final Result [facility] Department [place] [address] * Prepare plasma: 1 Units (10/31/2024 9:27 AM TRAIN CONTROLLER) [facility] Product code [id number] Unit Number [id number] 0-C [facility] Product Blood Type OPOS [facility] Dispense Status RETURNED [facility] Blood Venous blood specimen / Unknown 10/31/2024 9:27 AM TRAIN CONTROLLER 10/31/2024 9:27 AM TRAIN CONTROLLER Narrative [facility] - 10/31/2024 9:50 AM TRAIN CONTROLLER Date required:-20241031 FFP # of Units:-1-Units Reasons:-Immediate need for surgical intervention Lia Drummond MD PhD BLOOD BANK PRODUCT ORDERABLES Final Result Performing Organization Address [facility] de Phone Number [facility] [place] [address] * Prepare plasma: 1 Units (10/31/2024 9:25 AM TRAIN CONTROLLER) Product code [id number] Unit Number [id number] [facility] Product Blood Type OPOS [facility] Dispense Status PRESUMED TRANSFUSED [facility] Blood Venous blood specimen / Unknown 10/31/2024 9:25 AM TRAIN CONTROLLER 10/31/2024 9:25 AM TRAIN CONTROLLER Narrative [facility] - 11/01/2024 12:56 AM TRAIN CONTROLLER Date required:-[id number] FFP # of Units:-1-Units Reasons:-Immediate need for surgical intervention Lia Drummond MD PhD BLOOD BANK PRODUCT ORDERABLES Final Result Performing Organization Address [facility] de Phone Number [facility] Department [place] [address] * Prepare RBC: 1 Units (10/31/2024 9:25 AM TRAIN CONTROLLER) Product code [id number] Unit Number [id number] 3 [facility] Product Blood Type OPOS [facility] Dispense Status PRESUMED TRANSFUSED [facility] Blood 10/31/2024 9:25 AM TRAIN CONTROLLER 10/31/2024 9:24 AM TRAIN CONTROLLER Narrative [facility] - 11/01/2024 12:56 AM TRAIN CONTROLLER Are special requirements needed? (All products are leukoreduced and CMV- safe)- >No Date required:-[id number] LRRBC # of Xslgk-7-Nckaj Reasons:-Intra-op transfusion} Lia Drummond MD PhD BLOOD BANK PRODUCT ORDERABLES Final Result Performing Organization Address [facility] [place] [address] * Prepare RBC: 1 Units (10/31/2024 9:24 AM TRAIN CONTROLLER) Product code [id number] Unit Number [id number] [facility] Product Blood Type OPOS [facility] Dispense Status PRESUMED TRANSFUSED [facility] Blood 10/31/2024 9:24 AM TRAIN CONTROLLER 10/31/2024 9:24 AM TRAIN CONTROLLER Narrative [facility] - 11/01/2024 12:56 AM TRAIN CONTROLLER Are special requirements needed? (All products are leukoreduced and CMV- safe)- >No Donor Source->[employer] Date required:-[id number] LRRBC # of Roctj-4-Muibh Reasons:-Intra-op transfusion} Result [facility] Lia Drummond MD PhD BLOOD BANK PRODUCT ORDERABLES Final Result Performing Organization Address [facility] de Phone Number [facility] [place] [address] * MA AN PROCEDURE PLACEHOLDER (10/31/2024 8:46 AM TRAIN CONTROLLER) Narrative Bridgette Raymundo CRNA - 10/31/2024 8:46 AM TRAIN CONTROLLER Bridgette Raymundo CRNA 10/31/2024 8:50 AM Peripheral IV Catheter Patient location: OR Staff: Placed by: MATERNAL FETAL PHYSICIAN: Bridgette Raymundo CRNA Preprocedure prep: Prep solution: chlorhexadine PIV line: Laterality: left Site: forearm Catheter size: 16 g Technique: direct visualization Procedure details: good blood return Number of attempts: 1 Lia Drummond MD PhD ANESTHESIA ORDERABLES Final R esult * MA AN ELECTIVE ENDOTRACHEAL AIRWAY, MA AN PROCEDURE PLACEHOLDER (10/31/2024 8:44 AM TRAIN CONTROLLER) Narrative Bridgette Raymundo CRNA - 10/31/2024 8:44 AM TRAIN CONTROLLER Bridgette Raymundo CRNA 10/31/2024 8:46 AM Airway Patient location: OR Urgency: elective Indications for airway management: anesthesia Difficult airway: no Staff: Placed by: MATERNAL FETAL PHYSICIAN: Bridgette Raymundo CRNA Emergent airway documentation: Risks and benefits discussed: yes Consent obtained: yes Consent given by: patient Airway prep: Preoxygenated: yes Patient position: semi-recumbent MILS maintained throughout: yes Mask difficulty assessment: 0 - not attempted Spontaneous ventilation during airway: absent Sedation level during airway: GA Final airway details: Final airway type: endotracheal airway Tube type: ETT ETT size: 7.0 mm Cuffed: yes Technique used for successful ETT placement: video laryngoscopy Insertion site: oral Video blade type: Izaguirre Blade size: 3 Cormack-Lehane (video): grade I - full view of glottis Initial cuff pressure: 28 cm H2O Cuff volume: 8 mL Cuff inflated with: air ETT to gums: 21 cm Placement verified by: auscultation Airway secured with: silk tape, prone view tape and tegaderm Number of attempts: 1 Additional comments: AOI, RSI,DVC, teeth and soft tissue intact, monik equal bs, cta, soft gauze bite block placed with tongue in neutral position, patient in semi sitting position s/p gastric bypass hx us Lia Drummond MD PhD ANESTHESIA ORDERABLES Final R esult * Check Sample (10/31/2024 7:09 AM TRAIN CONTROLLER) ABO Rh O Positive [facility] HCLL OTHER 10/31/2024 7:09 AM TRAIN CONTROLLER 10/31/2024 7:18 AM TRAIN CONTROLLER us Javed Ardon MD LAB BLOOD ORDERABLES Fi nal Result [facility]U [facility] Department [place] [address] [facility] * POCT glucose (10/31/2024 7:09 AM TRAIN CONTROLLER) [facility] Glucose, POC 107 70 - 199 mg/dL Blood 10/31/2024 7:09 AM TRAIN CONTROLLER 10/31/2024 7:09 AM TRAIN CONTROLLER us Javed Ardon MD LAB POCT ORDERABLES - D LIA Final Result Performing Organization Address [facility] Co de Phone Number [facility] Department [place] [address] * TYPE AND SCREEN 14 DAY (10/22/2024 2:53 PM TRAIN CONTROLLER) [facility] Eun, indirect Negative ABO Rh O Positive [facility] Blood 10/22/2024 2:53 PM TRAIN CONTROLLER 10/22/2024 5:06 PM TRAIN CONTROLLER Narrative [facility] - 10/22/2024 6:58 PM TRAIN CONTROLLER Is this test being ordered in advance for a procedure?->Yes Expected date of procedure:->10/31/24 Has the patient been transfused in the past 3 months?->No Has the patient been in the past 3 months?->No Annika Britton NP LAB BLOOD BANK TEST [employer] Final Result Performing Organization Address [facility] de Phone Number [facility] [place] [address] * eGFR (10/22/2024 2:53 PM TRAIN CONTROLLER) [facility] eGFR 90 >=60 mL/min/1. 73 m2 Comment: Interpretive Data Reference Interval Normal >/= 90 mL/min/1.73m2 Mildly decreased* 60 - 89 mL/min/1.73m2 Mildly to moderately decreased 45 - 59 mL/min/1.73m2 Moderately to severely decreased 30 - 44 mL/min/1.73m2 Severely decreased 15 - 29 mL/min/1.73m2 Kidney Failure < 15 mL/min/1.73m2 *Relative to young adult level Estimated glomerular filtration rate is determined by the 2020 CKD-EPI equation recommended by the National Kidney Foundation (A Unifying Approach to GFR Estimation: Recommendations of the NKF-ASK Task Force on Reassessing the Inclusion of Race in Diagnosing Kidney Disease, JASN 2020). The CKD-EPI equation should not be used for patients with unstable renal function and has not been validated in children and those over 70. Current interpretive data was last reviewed 2021. Blood 10/22/2024 2:53 PM TRAIN CONTROLLER 10/22/2024 4:59 PM TRAIN CONTROLLER us Javed Ardon MD LAB BLOOD ORDERABLES Fi nal Result [facility] Department [place] [address] * Differential, auto (10/22/2024 2:53 PM TRAIN CONTROLLER) Neutrophil abs 3.2 1.5 - 6.5 K/cumm Imm gran abs 0.0 0.0 - 0.1 K/cumm [facility] Lymphocyte abs 1.9 0.8 - 3.3 K/cumm [facility] Monocyte abs 0.4 0.2 - 0.8 K/cumm [facility] Eosinophil abs 0.1 0.0 - 0.5 K/cumm [facility] Basophil abs 0.0 0.0 - 0.1 K/cumm [facility] Neutrophil pct 57.2 % [facility] Comment: Interpretive Data Percent cell count reference ranges are not reported, since discordance with absolute values may lead to misinterpretation of CBC data. Current Interpretive Data was last revised on 2018. Imm gran pct 0.2 % [facility] Comment: Interpretive Data Percent cell count reference ranges are not reported, since discordance with absolute values may lead to misinterpretation of CBC data. Current Interpretive Data was last revised on 2018. Lymphocyte pct 33.3 % [facility] Comment: Interpretive Data Percent cell count reference ranges are not reported, since discordance with absolute values may lead to misinterpretation of CBC data. Current Interpretive Data was last revised on 2018. Monocyte pct 7.5 % [facility] Comment: Interpretive Data Percent cell count reference ranges are not reported, since discordance with absolute values may lead to misinterpretation of CBC data. Current Interpretive Data was last revised on 2018. Eosinophil pct 1.4 % [facility] Comment: Interpretive Data Percent cell count reference ranges are not reported, since discordance with absolute values may lead to misinterpretation of CBC data. Current Interpretive Data was last revised on 2018. Basophil pct 0.4 % [facility] Comment: Interpretive Data Percent cell count reference ranges are not reported, since discordance with absolute values may lead to misinterpretation of CBC data. Current Interpretive Data was last revised on 2018. Blood 10/22/2024 2:53 PM TRAIN CONTROLLER 10/22/2024 4:59 PM TRAIN CONTROLLER us Javed Ardon MD LAB BLOOD ORDERABLES Fi nal Result Performing Organization Address [facility] Co de Phone Number [facility] Department [place] [address] * CPAP aPTT algorithm (10/22/2024 2:53 PM TRAIN CONTROLLER) aPTT 30 28 - 38 sec Comment: Interpretive Data Heparin therapeutic range: 66.0 - 100.0 seconds. Range based on correlation with therapeutic heparin activity range of 0.3 - 0.7 Units/mL. Current interpretive data was last revised on 2023. Blood 10/22/2024 2:53 PM TRAIN CONTROLLER 10/22/2024 4:45 PM TRAIN CONTROLLER us Annika Birtton STRADDLE BUG OPERATOR LAB BLOOD ORDERABLES Fin al Result Performing Organization Address City/[facility] Co de Phone Number [facility] Department [place] [address] * (ABNORMAL) Urinalysis reflex to microscopic and culture Urine, clean voided (10/22/2024 2:53 PM TRAIN CONTROLLER) Color, ur Yellow Yellow Clarity, ur Clear Clear [facility] Specific gravity, ur 1.022 1.003 - 1.030 [facility] pH, urine 5.5 [facility] Comment: Interpretive Data U rine pH is affected by diet, medications, systemic acid-base disturbances, and renal tubular function. pH may affect urinary stone formation. For example, urine pH below 6.0 may help reduce the tendency for calcium phosphate stones and pH greater than 6.0 may reduce the tendency for uric acid stone formation. Source: [facility] Current Interpretive Data was last revised on 2017 Protein, ur ql Trace Negative [facility] Glucose, ur ql Negative Negative [facility] Ketones, ur Negative Negative [facility] Bilirubin, ur Negative Negative [facility] Blood, ur Negative Negative [facility] Urobilinogen, ur <2.0 <2.0 mg/dL [facility] Nitrite, ur Negative Negative [facility] Leukocyte esterase, ur 1+(A) Negative [facility] UA reflex comment Reflex to microscopic UA will be performed. [facility] Urine, clean voided 10/22/2024 2:53 PM TRAIN CONTROLLER 10/22/2024 4:42 PM TRAIN CONTROLLER us Javed Ardon MD LAB MICROBIOLOGY - GENE [facility] ORDERABLES Final Result [facility] Department [place] [address] * (ABNORMAL) CBC with auto differential (10/22/2024 2:53 PM TRAIN CONTROLLER) WBC 5.6 3.8 - 9.9 K/cumm Hgb 11.3(L) 11.9 - 15.5 g/dL [facility] Hct 36.2 35.6 - 45.5 % [facility] Plt 195 150 - 400 K/cumm [facility] MPV 11.2 9.1 - 12.3 fL [facility] RBC 3.92 3.90 - 5.20 M/cumm [facility] MCV 92.3 81.3 - 96.4 fL [facility] MCH 28.8 27.1 - 33.3 pg [facility] MCHC 31.2(L) 32.3 - 35.7 g/dL [facility] RDW CV 12.3 11.1 - 14.9 % [facility] RDW SD 42.2 35.7 - 48.1 fL [facility] NRBC abs 0.00 0.00 - 0.01 K/cumm [facility] Blood 10/22/2024 2:53 PM TRAIN CONTROLLER 10/22/2024 4:59 PM TRAIN CONTROLLER Javed Ardon MD LAB BLOOD ORDERABLES Fi nal Result Performing Organization Address City/[facility]/ZIP Co de Phone Number [facility] Department [place] [address] * Nicotine metabolite screen, urine (10/22/2024 2:53 PM TRAIN CONTROLLER) Pathologist [facility] [place] Nicotine, ur <5.0 <5.0 ng/mL [facility] Cotinine, ur <5.0 <5.0 ng/mL [facility] Anabasine ur <2.0 <2.0 ng/mL [facility] Comment: ADDITIONAL INFORMATION This test was developed and its performance characteristics determined by [facility] in a manner consistent with CLIA requirements. This test has not been cleared or approved by the U.S. Food and Drug Administration. Test Performed by: [facility] - [address] [address] Transfer Table Operator Helper: Dieudonne Antunez Ph.D.; CLIA# [id number] Nornicotine, ur <2.0 <2.0 ng/mL [facility] Urine 10/22/2024 2:53 PM TRAIN CONTROLLER 10/22/2024 4:48 PM TRAIN CONTROLLER Javed Ardon MD LAB URINE ORDERABLES Fi nal Result Performing Organization Address City/[facility]/ZIP Co de Phone Number [facility] Department [place] [address] [facility] * (ABNORMAL) Vitamin D 25 hydroxy (10/22/2024 2:53 PM TRAIN CONTROLLER) Pathologist [facility] [place] Vitamin D 25-OH 9(L) 30 - 80 ng/mL Blood 10/22/2024 2:53 PM TRAIN CONTROLLER 10/22/2024 4:59 PM TRAIN CONTROLLER Javed Ardon MD LAB BLOOD ORDERABLES Fi nal Result Performing Organization Address [facility]/ZIP Co de Phone Number [facility] [place] [address] * (ABNORMAL) Urinalysis, microscopic only (10/22/2024 2:53 PM TRAIN CONTROLLER) [facility] WBC, ur 0-5 0 - 5 /HPF RBC, ur 0-2 0 - 2 /HPF [facility] Epithelial cells, squamous, ur 1-5 0 - 5 /HPF [facility] Bacteria, ur Trace(A) [facility] Mucous, ur Present(A) [facility] Hyaline casts, ur 11-20(A) 0 - 10 /LPF [facility] Culture Reflex Comment Reflex conditions for urine culture (WBC >10) not met. [facility] Urine, clean voided 10/22/2024 2:53 PM TRAIN CONTROLLER 10/22/2024 4:42 PM TRAIN CONTROLLER Javed Ardon MD LAB URINE ORDERABLES Fi nal Result Performing Organization Address City/[facility]/ZIP Co de Phone Number [facility] [place] [address] * Protime-INR (10/22/2024 2:53 PM TRAIN CONTROLLER) Pathologist [facility] [place] PT 11.4 9.7 - 13.0 sec INR 1.05 0.90 - 1.20 [facility] Comment: Interpretive data Oral anticoagulant therapeutic ranges: Venous thromboembolism prophylaxis or treatment: 2.0-3.0 CARDIOLOGY Standard range: 2.0-3.0 High-intensity range: 2.5-3.5 Refer to indication-specific guidelines for appropriate target ranges for prosthetic heart valve replacement. Current interpretive data was last revised on 2019. Blood 10/22/2024 2:53 PM TRAIN CONTROLLER 10/22/2024 4:45 PM TRAIN CONTROLLER us Javed Ardon MD LAB BLOOD ORDERABLES Fi nal Result [facility] Department [place] [address] * Comprehensive metabolic panel (10/22/2024 2:53 PM TRAIN CONTROLLER) Sodium 144 135 - 145 mmol/L Potassium, pl 3.9 3.3 - 4.9 mmol/L [facility] Chloride 107 97 - 110 mmol/L [facility] CO2 29 22 - 32 mmol/L [facility] Anion gap 8 2 - 15 mmol/L [facility] BUN 16 6 - 25 mg/dL [facility] Creatinine 0.74 0.60 - 1.10 mg/dL [facility] Glucose 89 70 - 199 mg/dL [facility] Comment: Interpretive Data Fasting glucose >/= 126 mg/dl is diagnostic for diabetes. Fasting is defined as no caloric intake for at least 8 hours. Fasting glucose between 100 mg/dl to 125 mg/dl is diagnostic of prediabetes. In a patient with classic symptoms of hyperglycemia or hyperglycemic crisis, a random glucose >/= 200 mg/dl is diagnostic for diabetes. In the absence of unequivocal hyperglycemia, results should be confirmed by repeat testing. The classification and Diagnosis of Diabetes Diabetes Care 2021; 46: S19-S40. Current interpretive data was last revised 2022. Calcium 9.5 8.5 - 10.3 mg/dL [facility] Bilirubin, total 0.4 0.1 - 1.2 mg/dL [facility] Protein, pl 7.1 6.5 - 8.5 g/dL [facility] Albumin 4.2 3.5 - 5.0 g/dL [facility] Alk phos 73 40 - 130 Units/L [facility] ALT 28 7 - 45 Units/L [facility] AST 22 10 - 45 Units/L [facility] Blood 10/22/2024 2:53 PM TRAIN CONTROLLER 10/22/2024 4:59 PM TRAIN CONTROLLER Javed Ardon MD LAB BLOOD ORDERABLES Fi nal Result Performing Organization Address [facility] [place] [address] * (ABNORMAL) POCT hemoglobin A1c (10/22/2024 1:35 PM TRAIN CONTROLLER) Hgb A1C, POC 6.3(H) 4.0 - 5.6 % Est Average Gluc POC 134 mg/dL [facility] Comment: The ADA recommends reporting an estimated Average Glucose (eAG) with all Hemoglobin A1c results using the equation derived from a study of 507 normal and diabetic adults. Minority populations were underrepresented and children were not included. (Diabetes Care 31:8248-8756, 2008). The eAG is not equivalent to a fasting glucose. Blood 10/22/2024 1:35 PM TRAIN CONTROLLER 10/22/2024 1:35 PM TRAIN CONTROLLER us Javed Ardon MD POINT OF CARE TEST ORDE RABLES Final Result Performing Organization Address [facility] Phone Number [facility] [place] [address] * Neuro MR Outside Reference (10/14/2024 1:03 PM TRAIN CONTROLLER) Impressions RAD_PACS_[facility] - 10/14/2024 1:03 PM TRAIN CONTROLLER These images are for Reference purposes only and have not been reviewed by [facility] Radiology. There will be no report generated by a [facility] Radiologist. Narrative [facility] - 10/14/2024 1:03 PM TRAIN CONTROLLER EXAMINATION: Images For Reference Purposes Only us Javed Ardon MD IMG MRI PROCEDURES Ami l Result RAD_PACS_[facility] from Last 3 Months Insurance [facility] MDCR HMO REF IDPA IDPA [facility] MEDICARE ADVANTAGE [facility] MEDICARE ADVANTAGE IDPA Advance Directives For more information, please contact: [phone] * Full Code (Latest Code Status on File) Date Activated Date Inactivated Comments 10/31/2024 2:09 PM 11/02/2024 6:07 PM * Full Code Date Activated Date Inactivated Comments 02/19/2024 4:25 PM 02/22/2024 5:52 PM * Full Code Date Activated Date Inactivated Comments 02/09/2024 2:53 PM 02/10/2024 4:09 PM Care Teams Cardiothoracic Surgeon Relationship Specialty Start Date End Date Marely Mcclure PA PCP - General Physician Pocket Flap Creasing Machine Operator 02/16/22 Manisha White MD [address] [facility], [address] [address] Consulting Physician Pain Management 05/10/24 Ashley Walker MD [address] [place] [address] Referring Physician Family Medicine 05/29/24 Edilia Hanna MD [address] [address] Referring Physician Family Practice 08/06/24
--- OUTSIDE RECORDS SUMMARY | 2024-12-31 16:30 | XMS_ITS ---
Author Organization [facility] Address [address] [place] [address] Care Team Providers Care Dean Of Student Services Name Role Phone Ren, Marely Primary Care Provider UnavailVishnu Bartlett Unavailable [phone] Allergies Allergen (clinical drug ingredient) Drug/Non Drug Allergy documented on EMR Reaction Allergy Type Onset Date Status Adhesive Unknown Allergy Active codeine Codeine Unknown Drug Allergy Active REASON FOR VISIT DFC (Diabetic foot care) Medications Medication SIG (Take, Route, Frequency, Duration) Notes Start Date End Date Status ALPRAZolam 0.5 MG Oral for 30 Active Atorvastatin Calcium 10 MG TAKE 1 TABLET BY MOUTH EVERY DAY Oral for 90 I10,Unavaila ble Active Gabapentin 800 MG Oral for 90 Active BD Pen Needle Short U/F 31G X 8 MM INJECT DAILY for 100 Activ e Insulin Syringe 29G X 1/2 0.5 ML for 50 Active Citalopram Hydrobromide 40 MG Oral for 30 Active Lisinopril 10 MG Oral for 90 A ctive Fluconazole 150 MG Oral for 1 Not-Taking Nitrofurantoin Monohyd Macro 100 MG TAKE 1 CAPSULE BY MOUTH EVERY 12 HOURS FOR 7 DAYS Oral for 7 N390,Unavail able Not-Taking Victoza 18 MG/3ML Subcutaneous for 60 Not-Taking Ozempic Active HYDROcodone-Acetaminop hen 5-325 MG Oral for 7 Not-Taking Vital Signs Height 64 in 12/08/2023 Weight 140 lbs 12/08/2023 BMI 24.03 kg/m2 12/08/2023 Encounters Encounter Location Date Provider Diagnosis 1 OF Timothy Palafox DPM [facility] [address] [place] [address] 12/08/2023 Vishnu Bradshaw Onychogryphosis L60. 2 ; Primary osteoarthritis of left ankle M19.072 ; Nail dystrophy L60.3 ; Callus of foot L84 ; Type 2 diabetes mellitus with diabetic polyneuropathy, unspecified whether rat exterminator insulin use E11.42 ; Synovitis of left ankle M65.9 ; Toe pain, left M79.675 ; Acute left ankle pain M25.572 and Closed nondisplaced fracture of middle phalanx of lesser toe of left foot with routine healing, subsequent encounter S92.525D Assessments Encounter Date Diagnosis (ICD Code) Assessment Notes Treatment Notes Treatment Clinical Notes Section Notes 12/08/2023 Onychogryphosis (ICD-10 - L60.2) 12/08/2023 Primary osteoarthritis of left ankle (ICD-10 - M19.072) 12/08/2023 Nail dystrophy (ICD-10 - L60.3) 12/08/2023 Callus of foot (ICD-10 - L84) 12/08/2023 Type 2 diabetes mellitus with diabetic polyneuropathy, unspecified whether mcc insulin use (ICD-10 - E11.42) Considering the associated comorbidities and physical exam findings today, this patient is at substantial risk of developing serious foot complications in the absence of regular and professional palliative foot care. 12/08/2023 Synovitis of left ankle (ICD-10 - M65.9) 12/08/2023 Toe pain, left (ICD-10 - M79.675) 12/08/2023 Acute left ankle pain (ICD-10 - M25.572) 12/08/2023 Closed nondisplaced fracture of middle phalanx of lesser toe of left foot with routine healing, subsequent encounter (ICD-10 - S92.525D) 12/08/2023 Other I did examine a nd evaluate the patient today. X-rays were obtained and reviewed and with respect to the continued left ankle pain I did recommend another therapeutic injection however she declined that therefore I recommended physical therapy to evaluate and treat and she declined that as well. So with that said she is to continue resting icing elevating and utilizing topical and oral anti-inflammatory as needed. With respect to the left second digit, I did review the x-rays with her and was pleased that the pain was improving and recommended that she continue to utilize a good stiff soled shoe refraining from barefoot walking and to rest ice and elevate as needed. Will see her back in 9 weeks time or sooner should problems arise Plan Of Treatment Treatment Notes Assessment Notes Type 2 diabetes mellitus wit h diabetic polyneuropathy, unspecified whether mcc insulin use Considering the associated comorbidities and physical exam findings today, this patient is at substantial risk of developing serious foot complications in the absence of regular and professional palliative foot care. Other I did examine and ev aluate the patient today. X-rays were obtained and reviewed and with respect to the continued left ankle pain I did recommend another therapeutic injection however she declined that therefore I recommended physical therapy to evaluate and treat and she declined that as well. So with that said she is to continue resting icing elevating and utilizing topical and oral anti-inflammatory as needed. With respect to the left second digit, I did review the x-rays with her and was pleased that the pain was improving and recommended that she continue to utilize a good stiff soled shoe refraining from barefoot walking and to rest ice and elevate as needed. Will see her back in 9 weeks time or sooner should problems arise Next Appt Details Follow Up: 9 weeks, Reason: Procedure Notes * Category Sub-Category Detail Notes PALLIATIVE FOOT CARE: Callus paring: (40798) Le ss than five calluses as noted above reduced with a sterile scalpel blade Nail debride (65759): Debridement of fiv e or less mycotic and/or hypertrophic nails, utilizing manual and electric debridement the affected nails were reduced the nails in length and thickness with curettage of debris from nail margins performed as needed. Nail thickness reduced by:, 10% Dystrophic nail trim (G0127) All dystrop hic nails reduced in length and thickness with curettage of debris from nail margins as needed Progress Notes * LIVIARasspenserDOB:1960 (63 yo F)Acc No.[id number]:12/08/2023 Progress Note Patient: Linda LI Provider: Zackary Bradshaw DPM :1960 A ge:63 Y S ex:Female Date:12/08/2023 Address:[address] [place] [address] Timothy Valade[id number] Pcp:Marely Mcclure Subjective: * Chief Complaints: * D FC (Diabetic foot care) * HPI: Margaret Sims assisting with visit:: HPI/Rooming: Margaret vargas reason for visit:: 63 year old diabetic female RTO for at risk foot care. Pt reports no acute issues with nails or calluses today. Pt also RTO for f/u of LT 2nd toe fx. At last visit, pt advised to RICE and was offered a sx shoe but declined because she had one at home. Pt also RTO for f/u of LT ankle pain. At last visit, treatment consisted of a therapeutic injection to the LT ankle joint. Pt also advised to RICE, continue with anti-inflammatories, and utilize supportive shoe gear. * Medical History: * Surgical History: G astric bypass sx (2013) * Hospitalization/Major Diagno stic Procedure: * Family History: DIABETES. * Medications: T akingOzempic Citalopram Hydrobromide 40 MG Tablet Oral Lisinopril 10 MG Tablet Oral ALPRAZolam 0.5 MG Tablet Oral Atorvastatin Calcium 10 MG Tablet TAKE 1 TABLET BY MOUTH EVERY DAY Oral , Notes to Pharmacist: I10,UnavailableGabapentin 800 MG Tablet Oral BD Pen Needle Short U/F 31G X 8 MM Miscellaneous INJECT DAILY Insulin Syringe 29G X 1/2 0.5 ML Miscellaneous Taking Ozempic Taking Citalopram Hydrobromide 40 MG Tablet Oral Taking Lisinopril 10 MG Tablet Oral Taking ALPRAZolam 0.5 MG Tablet Oral Taking Atorvastatin Calcium 10 MG Tablet TAKE 1 TABLET BY MOUTH EVERY DAY Oral , Notes to Pharmacist: I10,UnavailableTaking Gabapentin 800 MG Tablet Oral Taking BD Pen Needle Short U/F 31G X 8 MM Miscellaneous INJECT DAILY Taking Insulin Syringe 29G X 1/2 0.5 ML Miscellaneous Not-Taking/PRNHYDROcodone-Acetaminophen 5-325 MG Tablet Oral Fluconazole 150 MG Tablet Oral Nitrofurantoin Monohyd Macro 100 MG Capsule TAKE 1 CAPSULE BY MOUTH EVERY 12 HOURS FOR 7 DAYS Oral , Notes to Pharmacist: N390,UnavailableVictoza 18 MG/3ML Solution Pen-injector Subcutaneous Medication List reviewed and reconciled with the patientNot-Taking/PRN HYDROcodone-Acetaminophen 5-325 MG Tablet Oral Not-Taking/PRN Fluconazole 150 MG Tablet Oral Not- Taking/PRN Nitrofurantoin Monohyd Macro 100 MG Capsule TAKE 1 CAPSULE BY MOUTH EVERY 12 HOURS FOR 7 DAYS Oral , Notes to Pharmacist: N390,UnavailableNot-Taking/PRN Victoza 18 MG/3ML Solution Pen-injector Subcutaneous Medication List reviewed and reconciled with the patient * Allergies: C Yanique[Allergies Verified] Objective: * Vitals: W t:140lbs, Wt-k.5 kg, Ht: 64 in, BMI:24.03Index. * Examination: G eneral Examination: Constitutional / Appearance: N o a cute d istress?, Well n ourished, Appropriate p ersonal h ygiene. Mental status: C ooperative, Oriented t o?person, p lace a nd t joi, Mood a nd a ffect: n ormal, ? Judgement a nd i ntellect: normal w ith a ppropriate r esponse?to q uestions. Shoes today: [employer]chers. O nce again there is decreased range of motion of the left ankle joint with pain but without crepitus and there continues to be pain with palpation to the anterior aspect of this ankle and I appreciate mild edema localized to this ankle when compared to the right but no erythema or increase in calor and negative Homans' sign and no warmth or palpable cords evident left lower extremity. The left second digit demonstrates no erythema or ecchymosis but mild edema and there continues to be mild pain with palpation to the middle phalanx region with decreased range of motion of the associated MTPJ without pain or crepitus appreciated. X-ray 3 views of the left foot reveal normal calcaneal inclination angle with osteopenia throughout. There are some degenerative changes noted to the midfoot specifically the tarsometatarsal joints. Some vascular calcification appreciated on AP view and with respect to the second digit I appreciate consolidation of the fracture and there are degenerative changes noted to the inner phalangeal joints of all lesser digits. L ower Extremity VASCULAR: : Pulses: D P a nd P T p ulses, palpable, bilateral. Temperature gradient: d ecreased f rom p roximal?to d istal , b ilateral. Pedal hair: s parse / a bsent , b ilateral. Capillary refill at distal toes l ess t mitchell 3 s econds. L ower Extremity DERM: : Skin: r elatively d ry, a trophic a nd w ith d ecreased t urgor n oted.. Nails: N ail p lates o f: , T A & ?T5 , a ppear , r elatively t hickened , d iscolored , d ystrophic , w ith s ubungual d ebris , R emaining n ails a ppear?elongated a nd d ystrophic w ith a bnormal s hape, p eriungual d ebris, s ubungual h yperkeratosis a nd/or p artial o nycholysis.. Hyperkeratotic lesions LEFT foot: m edial h allux I PJ. Hyperkeratotic lesions RIGHT foot: m edial h allux?IPJ. L ower Extremity NEURO: : General sensation appears d iminished , l eft c ompared t o r ight. Muscle tone d iminished , b ilateral. Monofilament test (10 gram pressure) E xam o f ? 12/08/2023: , - - r evealed a bsent s ensation t o a t l east t wo d istinct l ocations o f , m ultiple t oes , l eft?foot. Vibration perception: E xam o f 0 12/08/2023: , - - n oted s ignificantly d iminished / a bsent p er e valuation w ith 1 28Hz t uning f ork a pplied t o d istal h allux c ompared t o i psilateral m edial m alleolus , @ b ilateral f eet.? L ower Extremity MSK: : Gait Gait u nremarkable w ith n ormal?posture, p ropulsion a nd b alance. Muscle strength: d iminished , a ll 4 q uadrants t ested , b ilateral. Left lower extremity inspection and palpation: N o p alpable m asses o r n odules n oted.. Right lower extremity inspection and palpation: N o p alpable m asses o r n odules n oted. . Assessment: * Assessment: 1. O nychogryphosis - L60.2 2 . N ail dystrophy - L60.3 3 . P rimary osteoarthritis of left ankle - M19.072 (Primary) 4 . C allus of foot - L84 5 . T ype 2 diabetes mellitus with diabetic polyneuropathy, unspecified whether mcc insulin use - E11.42 6 . Synovitis of left ankle - M65.9 7 . T oe pain, left - M79.675 8 . A cute left ankle pain - M25.572 9 . C losed nondisplaced fracture of middle phalanx of lesser toe of left foot with routine healing, subsequent encounter - S92.525D Plan: * Treatment: 2. O thers Notes: I did examine and evaluate the patient today. X-rays were obtained and reviewed and with respect to the continued left ankle pain I did recommend another therapeutic injection however she declined that therefore I recommended physical therapy to evaluate and treat and she declined that as well. So with that said she is to continue resting icing elevating and utilizing topical and oral anti-inflammatory as needed. With respect to the left second digit, I did review the x-rays with her and was pleased that the pain was improving and recommended that she continue to utilize a good stiff soled shoe refraining from barefoot walking and to rest ice and elevate as needed. Will see her back in 9 weeks time or sooner should problems arise * Procedures: P ALLIATIVE FOOT CARE:: Callus paring: ( 42483) Less than five calluses as noted above reduced with a sterile scalpel blade. Nail debride (07235): D ebridement of five or less mycotic and/or hypertrophic nails, utilizing manual and electric debridement the affected nails were reduced the nails in length and thickness with curettage of debris from nail margins performed as needed. Nail thickness reduced by:, 10%. Dystrophic nail trim (G0127) A ll dystrophic nails reduced in length and thickness with curettage of debris from nail margins as needed. * Procedure Codes: 1 1056 TRIM SKIN LESIONS, 2 TO 4, Modifiers: Q9 55200 X-RAY FOOT (3 views), [place]ifiers: [place] [address]287 DEBRIDE NAIL, 1-5, Modifiers: Q9 , 59 * Follow Up: 9 weeks * Images: * HT INSTRUCTOR Sign off status: Completed true * Provider: Zackary Bradshaw DPM Date: 12/08/2023 Generated for Marivel Hussein/Vj on: 12/31/2024 04:29 PM CDT History and Physical Notes * HPI (History of Present Illness) Category Sub-Category Detail Notes Category Not es Primary reason for visit: 63 year old diabetic female RTO for at risk foot care. Pt reports no acute issues with nails or calluses today. Pt also RTO for f/u of LT 2nd toe fx. At last visit, pt advised to RICE and was offered a sx shoe but declined because she had one at home. Pt also RTO for f/u of LT ankle pain. At last visit, treatment consisted of a therapeutic injection to the LT ankle joint. Pt also advised to RICE, continue with anti-inflammatories, and utilize supportive shoe gear. MA assisting with visit: HPI/Rooming: Destiney Examination Category Sub-Category Detail Notes Category Not es General Examination Mental status: Cooperative, Oriented to per son, place and time, Mood and affect: normal, Judgement and intellect: normal with appropriate response to questions Once again there is decreased range of motion of the left ankle joint with pain but without crepitus and there continues to be pain with palpation to the anterior aspect of this ankle and I appreciate mild edema localized to this ankle when compared to the right but no erythema or increase in calor and negative Homans' sign and no warmth or palpable cords evident left lower extremity. The left second digit demonstrates no erythema or ecchymosis but mild edema and there continues to be mild pain with palpation to the middle phalanx region with decreased range of motion of the associated MTPJ without pain or crepitus appreciated. X-ray 3 views of the left foot reveal normal calcaneal inclination angle with osteopenia throughout. There are some degenerative changes noted to the midfoot specifically the tarsometatarsal joints. Some vascular calcification appreciated on AP view and with respect to the second digit I appreciate consolidation of the fracture and there are degenerative changes noted to the inner phalangeal joints of all lesser digits. Shoes today: [employer] Constitutional / Appearance: No acute di stress , Well nourished, Appropriate personal hygiene Lower Extremity VASCULAR: Pulses: DP and PT pulse s, palpable, bilateral Temperature gradient: decreased from pro ximal to distal , bilateral Pedal hair: sparse / absent , bi lateral Capillary refill at distal toes less [place] n 3 seconds Lower Extremity NEURO: Monofilament test (10 gram pressure) Exam of 12/08/2023: , - - revealed absent sensation to at least two distinct locations of , multiple toes , left foot Vibration perception: Exam of 12/08/2023 : , - - noted significantly diminished / absent per evaluation with 128Hz tuning fork applied to distal hallux compared to ipsilateral medial malleolus , @ bilateral feet General sensation appears diminished , l eft compared to right Muscle tone diminished , bilater al Lower Extremity MSK: Muscle strength: diminished , all 4 quadrants tested , bilateral Left lower extremity inspect ion and palpation: No palpable masses or nodules noted. Right lower extremity inspec tion and palpation: No palpable masses or nodules noted. Gait Gait unremarkable wi th normal posture, propulsion and balance Lower Extremity DERM: Skin: relatively dry, atrophic and with decreased turgor noted. Nails: Nail plates of: , TA & T5 , appear , relatively thickened , discolored , dystrophic , with subungual debris , Remaining nails appear elongated and dystrophic with abnormal shape, periungual debris, subungual hyperkeratosis and/or partial onycholysis. Hyperkeratotic lesions LEFT foot: medial hallux IPJ Hyperkeratotic lesions RIGHT foot: media l hallux IPJ
--- OUTSIDE RECORDS SUMMARY | 2024-12-31 16:30 | XMS_ITS ---
Author Organization 1 OF [facility] Address [address] [place] [address] Care Team Providers Care Client Care Consultant Name Role Phone RenMarely lee Primary Care Provider Unavailabl e Vishnu Bradshaw Unavailable [phone] Allergies Allergen (clinical drug ingredient) Drug/Non Drug Allergy documented on EMR Reaction Allergy Type Onset Date Status Adhesive Unknown Allergy Active codeine Codeine Unknown Drug Allergy Active REASON FOR VISIT DFC (Diabetic foot care) Medications Medication SIG (Take, Route, Frequency, Duration) Notes Start Date End Date Status Atorvastatin Calcium 10 MG TAKE 1 TABLET BY MOUTH EVERY DAY Oral for 90 I10,Unavailabl e Active ALPRAZolam 0.5 MG Oral for 30 Active BD Pen Needle Short U/F 31G X 8 MM INJECT DAILY for 100 Active Gabapentin 800 MG Oral for 90 Active Insulin Syringe 29G X 1/2 0.5 ML for 50 Active Victoza 18 MG/3ML Subcutaneous for 60 Active Nitrofurantoin Monohyd Macro 100 MG TAKE 1 CAPSULE BY MOUTH EVERY 12 HOURS FOR 7 DAYS Oral for 7 N390,Unavailab le Active Fluconazole 150 MG Oral for 1 Active Lisinopril 10 MG Oral for 90 A ctive Citalopram Hydrobromide 40 MG Oral for 30 Active HYDROcodone-Acetaminoph en 5-325 MG Oral for 7 Active Problems Problem Type SNOMED Code ICD Code Onset Dates Problem Status W/U Status Risk Notes Problem 176287879 Primary osteoarthritis of left ankle (M19.072) Active confirmed Vital Signs Height 64 in 10/06/2023 Weight 136 lbs 10/06/2023 BMI 23.34 kg/m2 10/06/2023 Encounters Encounter Location Date Provider Diagnosis 1 OF [facility] [address] [address] 10/06/2023 Vishnu Bradshaw Onychogryphosis L60. 2 ; Primary osteoarthritis of left ankle M19.072 ; Nail dystrophy L60.3 ; Callus of foot L84 ; Type 2 diabetes mellitus with diabetic polyneuropathy, unspecified whether penitentiary insulin use E11.42 ; Closed nondisplaced fracture of middle phalanx of lesser toe of left foot, initial encounter S92.525A ; Synovitis of left ankle M65.9 ; Toe pain, left M79.675 and Acute left ankle pain M25.572 Assessments Encounter Date Diagnosis (ICD Code) Assessment Notes Treatment Notes Treatment Clinical Notes Section Notes 10/06/2023 Onychogryphosis (ICD-10 - L60.2) 10/06/2023 Primary osteoarthritis of left ankle (ICD-10 - M19.072) 10/06/2023 Nail dystrophy (ICD-10 - L60.3) 10/06/2023 Callus of foot (ICD-10 - L84) 10/06/2023 Type 2 diabetes mellitus with diabetic polyneuropathy, unspecified whether penitentiary insulin use (ICD-10 - E11.42) Considering the associated comorbidities and physical exam findings today, this patient is at substantial risk of developing serious foot complications in the absence of regular and professional palliative foot care. 10/06/2023 Closed nondisplaced fracture of middle phalanx of lesser toe of left foot, initial encounter (ICD-10 - S92.525A) 10/06/2023 Synovitis of left ankle (ICD-10 - M65.9) 10/06/2023 Toe pain, left (ICD-10 - M79.675) 10/06/2023 Acute left ankle pain (ICD-10 - M25.572) 10/06/2023 Other I did examine a nd evaluate the patient today. X-rays were obtained and reviewed and with respect to the painful left second digit I did explain to her that the fracture is nondisplaced and that I do not believe she needs to shellie splint at but rather rest ice and elevate and I did offer to dispense a surgical shoe however she states that she has 1 at home. With respect to the left ankle pain I recommended a therapeutic injection and 5 minutes after this injection I did reexamine her and although range of motion was still decreased she was having no pain with it and no pain with palpation. Again resting icing and elevating will help with that as well as anti-inflammatori es and supportive shoe gear. I would like to see her back in 2 weeks time or sooner should problems arise however patient states that she just wants to play by ear and will call if she has any issues Plan Of Treatment Treatment Notes Assessment Notes Type 2 diabetes mellitus wit h diabetic polyneuropathy, unspecified whether intermodal dispatcher insulin use Considering the associated comorbidities and physical exam findings today, this patient is at substantial risk of developing serious foot complications in the absence of regular and professional palliative foot care. Other I did examine and ev aluate the patient today. X-rays were obtained and reviewed and with respect to the painful left second digit I did explain to her that the fracture is nondisplaced and that I do not believe she needs to shellie splint at but rather rest ice and elevate and I did offer to dispense a surgical shoe however she states that she has 1 at home. With respect to the left ankle pain I recommended a therapeutic injection and 5 minutes after this injection I did reexamine her and although range of motion was still decreased she was having no pain with it and no pain with palpation. Again resting icing and elevating will help with that as well as anti-inflammatories and supportive shoe gear. I would like to see her back in 2 weeks time or sooner should problems arise however patient states that she just wants to play by ear and will call if she has any issues Next Appt Details Follow Up: 9 weeks, Reason: Procedure Notes * Category Sub-Category Detail Notes INJECTIONS / ASPIRATION: Joint injection: 3cc, L eft ankle joint; , Prior to the injection aseptic prep of skin was performed with ethyl alcohol and the injection was then performed. Band-aid applied and gentle ROM of the joint performed. Patient advised it may take up to one hour for the local anesthetic to take effect and there may be a delay before the steroid takes effect. , Injection consisted of:, 0.25% marcaine plain,, 1cc, dexamethasone phosphate (4mg/ml) PALLIATIVE FOOT CARE: Callus paring: (30300) Le ss than five calluses as noted above reduced with a sterile scalpel blade Nail debride (55828): Debridement of fiv e or less mycotic [...] nail margins as needed Progress Notes * Linda BHAKTADOB:1960 (63 yo F)Acc No.[id number]:10/06/2023 Progress Note Patient: Linda LI Provider: Zackary Bradshaw DPM :1960 A ge:63 Y S ex:Female Date:10/06/2023 Address:[facility] [address] [place] [address] Pcp:Marely Mcclure Subjective: * Chief Complaints: * D FC (Diabetic foot care) * HPI: Margaret Sims assisting with visit:: HPI/Rooming: Rolf vargas reason for visit:: 63 year old diabetic female RTO for at risk foot care. Pt reports no acute issues with nails or calluses today. Dropped jar on LT second toe, discolored, pain level 8/10. LT foot and ankle still hurting, pt tried calling but couldn't get anyone to answer. * Medical History: * Surgical History: N o Surgical History documented. * Hospitalization/Major Diagno stic Procedure: * Family History: DIABETES. * Medications: T akingHYDROcodone-Acetaminophen 5-325 MG Tablet Oral Citalopram Hydrobromide 40 MG Tablet Oral Lisinopril 10 MG Tablet Oral Fluconazole 150 MG Tablet Oral Nitrofurantoin Monohyd Macro 100 MG Capsule TAKE 1 CAPSULE BY MOUTH EVERY 12 HOURS FOR 7 DAYS Oral , Notes to Pharmacist: N390,UnavailableVictoza 18 MG/3ML Solution Pen-injector Subcutaneous ALPRAZolam 0.5 MG Tablet Oral Atorvastatin Calcium 10 MG Tablet TAKE 1 TABLET BY MOUTH EVERY DAY Oral , Notes to Pharmacist: I10,UnavailableGabapentin 800 MG Tablet Oral BD Pen Needle Short U/F 31G X 8 MM Miscellaneous INJECT DAILY Insulin Syringe 29G X 1/2 0.5 ML Miscellaneous Medication List reviewed and reconciled with the patientTaking HYDROcodone-Acetaminophen 5- 325 MG Tablet Oral Taking Citalopram Hydrobromide 40 MG Tablet Oral Taking Lisinopril 10 MG Tablet Oral Taking Fluconazole 150 MG Tablet Oral Taking Nitrofurantoin Monohyd Macro 100 MG Capsule TAKE 1 CAPSULE BY MOUTH EVERY 12 HOURS FOR 7 DAYS Oral , Notes to Pharmacist: N390,UnavailableTaking Victoza 18 MG/3ML Solution Pen-injector Subcutaneous Taking ALPRAZolam 0.5 MG Tablet Oral Taking Atorvastatin Calcium 10 MG Tablet TAKE 1 TABLET BY MOUTH EVERY DAY Oral , Notes to Pharmacist: I10,UnavailableTaking Gabapentin 800 MG Tablet Oral Taking BD Pen Needle Short U/F 31G X 8 MM Miscellaneous INJECT DAILY Taking Insulin Syringe 29G X 1/2 0.5 ML Miscellaneous Medication List reviewed and reconciled with the patient * Allergies: C Yanique[Allergies Verified] Objective: * Vitals: W t:136lbs, Wt-k.69 kg, Ht: 64 in, BMI:23.34Index. * Examination: G eneral Examination: Constitutional / Appearance: N o a cute d istress?, Well n ourished, Appropriate p ersonal h ygiene. Mental status: C ooperative, Oriented t o?person, p lace a nd t joi, Mood a nd a ffect: n ormal, ? Judgement a nd i ntellect: normal w ith a ppropriate r esponse?to q uestions. Shoes today: t jose daniel shoe . D ecreased range of motion of the left ankle with severe pain but without crepitus and there is pain with palpation to the anterior aspect of the left ankle and I appreciate no edema/erythema/increase in calor to this area. The left second digit does demonstrate some mild erythema and ecchymosis to the distal aspect with mild edema and there is severe pain with palpation to the area of the middle phalanx and no pain with palpation proximal to this with decreased range of motion of the associated MTPJ without pain or crepitus appreciated. X-ray 3 views of the left foot and ankle reveal no dislocations. There does appear to be a nondisplaced linear fracture intra-articular noted to the middle phalanx of the second digit. Diffuse degenerative changes noted throughout the foot and ankle. No diastases at the syndesmosis and no increase in medial or lateral clear space left ankle. Osteopenia throughout. L ower Extremity VASCULAR: : Pulses: D [...] gram pressure) E xam o f ? 01/12/2023: , - - r evealed a bsent s ensation t o a t l east t wo d istinct l ocations o f , m ultiple t oes , l eft?foot. Vibration perception: E xam o f 0 01/12/2023: , - - n oted s ignificantly [...] 1. O nychogryphosis - L60.2 2 . P rimary osteoarthritis of left ankle - M19.072 (Primary) 3 . N ail dystrophy - L60.3 4 . C allus of foot - L84 5 . T ype 2 diabetes mellitus with diabetic polyneuropathy, unspecified whether penitentiary insulin use - E11.42 6 . Closed nondisplaced fracture of middle phalanx of lesser toe of left foot, initial encounter - S92.525A 7 . S ynovitis of left ankle - M65.9 8 . T oe pain, left - M79.675 9 .?Acute left ankle pain - M25.572 Plan: * Treatment: 2. O thers Notes: I did examine and evaluate the patient today. X-rays were obtained and reviewed and with respect to the painful left second digit I did explain to her that the fracture is nondisplaced and that I do not believe she needs to shellie splint at but rather rest ice and elevate and I did offer to dispense a surgical shoe however she states that she has 1 at home. With respect to the left ankle pain I recommended a therapeutic injection and 5 minutes after this injection I did reexamine her and although range of motion was still decreased she was having no pain with it and no pain with palpation. Again resting icing and elevating will help with that as well as anti-inflammatories and supportive shoe gear. I would like to see her back in 2 weeks time or sooner should problems arise however patient states that she just wants to play by ear and will call if she has any issues * Procedures: I NJECTIONS / ASPIRATION:: Joint injection: 3 cc, Left ankle joint; , Prior to the injection aseptic prep of skin was performed with ethyl alcohol and the injection was then performed. Band-aid applied and gentle ROM of the joint performed. Patient advised it may take up to one hour for the local anesthetic to take effect and there may be a delay before the steroid takes effect. , Injection consisted of:, 0.25% marcaine plain,, 1cc, dexamethasone phosphate (4mg/ml). ? P ALLIATIVE FOOT CARE:: Callus paring: ( 53578) Less than five calluses as noted above reduced with a sterile scalpel blade. Nail debride (91878): D ebridement of five or less mycotic [...] nail margins as needed. * Procedure Codes: 7 3600 X-RAY ANKLE (2 views), [place]: [place] [address] TRIM SKIN LESIONS, 2 TO 4, Modifiers: Q9 34033 DEBRIDE NAIL, 1-5, Modifiers: Q9 , 5385702 X-RAY FOOT (3 views), Modifiers: LT J1100 INJ DEXETHOSONE SODIM PHOSHATE 1 [id number] TRIMMING DYSTROPHIC NAILS ANY #, Modifiers: 59 , [id number] DRAIN/INJECT, JOINT/BURSA, Modifiers: LT * Follow Up: 9 weeks * Images: * CTOR SOFTWARE QUALITY ASSURANCE Sign off status: Completed true * Provider: Zackary Bradshaw DPM Date: Generated for Marivel chung/Nathaniel/Shaylaitting on: 0 12/31/2024 04:30 PM CDT History and Physical Notes * HPI (History of Present Illness) Category Sub-Category Detail Notes Category Not es Primary reason for visit: 63 year old diabetic female RTO for at risk foot care. Pt reports no acute issues with nails or calluses today. Dropped jar on LT second toe, discolored, pain level 8/10. LT foot and ankle still hurting, pt tried calling but couldn't get anyone to answer. MA assisting with visit: HPI/Rooming: Cherelle Examination Category Sub-Category Detail Notes Category Not es General Examination Mental status: Cooperative, Oriented to per son, place and time, Mood and affect: normal, Judgement and intellect: normal with appropriate response to questions Decreased range of motion of the left ankle with severe pain but without crepitus and there is pain with palpation to the anterior aspect of the left ankle and I appreciate no edema/erythema/incr ease in calor to this area. The left second digit does demonstrate some mild erythema and ecchymosis to the distal aspect with mild edema and there is severe pain with palpation to the area of the middle phalanx and no pain with palpation proximal to this with decreased range of motion of the associated MTPJ without pain or crepitus appreciated. X-ray 3 views of the left foot and ankle reveal no dislocations. There does appear to be a nondisplaced linear fracture intra-articular noted to the middle phalanx of the second digit. Diffuse degenerative changes noted throughout the foot and ankle. No diastases at the syndesmosis and no increase in medial or lateral clear space left ankle. Osteopenia throughout. Shoes today: tennis shoe Constitutional / Appearance: No acute di stress , Well nourished, Appropriate personal hygiene Lower Extremity VASCULAR: Pulses: DP and PT pulse s, palpable, bilateral Temperature gradient: decreased from pro ximal to distal , bilateral Pedal hair: sparse / absent , bi lateral Capillary refill at distal toes less [place] n 3 seconds Lower Extremity NEURO: Monofilament test (10 gram pressure) Exam of 01/12/2023: , - - revealed absent sensation to at least two distinct locations of , multiple toes , left foot Vibration perception: Exam of 01/12/2023 : , - - noted significantly diminished [...]
--- OUTSIDE RECORDS SUMMARY | 2024-12-31 16:30 | XMS_ITS | Clinical Summary ---
Author Organization [facility] Address [address] [place] [address] Care Team Providers Care Pipe And Test Supervisor Name Role Phone Marely Mcclure Primary Care Provider + Manisha White MD Unavailable Ashley Walker MD Unavailable [phone] Edilia Hanna MD Unavailable [phone] Allergies Active Allergy Reactions Criticality Noted Date [...] as needed for respiratory depression Active BD Ilsa 2nd Gen Pen Needle 32 gauge x 32 needle USE TO INJECT VICTOZA DAILY 10/17/19 [...] (eight) hours as needed for pain 11/02/19 25 Active lisinopriL (PRINIVIL,ZEST RIL) 10 mg tabletIndicati ons:hypertensi on Take 1 tablet (10 mg total) by mouth every morning HELD inpatient due to normal blood pressure. Please follow up with PCP after discharge 11/02/19 25 Active ergocalciferol (VITAMIN D) 50,000 unit [...] 01 07 2018 Low back pain 07/17/2013 Encounters Date Type Department Care Team Description 12/27/2024 1:00 PM CDT Office Visit [facility] Orthopaedic Surgery [address] [facility] Advanced Medicine [address]th [place] [address] [place] [address] Javed Ardon MD S/P lumbar spinal fusion (Primary Dx) 12/27/2024 12:37 PM CDT - 12/27/2024 11:59 PM CDT Hospital Encounter [facility] ([facility]) [address] [place] [address] Fusion of spine of lumbar region Discharge Disposition: Discharge to home or self care 12/27/2024 Orders Only [facility] Orthopaedic Surgery [address] [facility] 12th [place] [address] [place] [address] Javed Ardon MD Fusion of spine of lumbar region (Primary Dx); Lumbar radiculopathy 11/22/2024 2:30 PM MESS COOK Office Visit [facility] Orthopaedic Surgery [facility] [facility] Advanced [facility] 12th [place] [address] [place] [address] Javed Ardon MD Fusion of spine of lumbar region (Primary Dx) 11/22/2024 2:00 PM MESS COOK - 11/22/2024 11:59 PM MESS COOK Hospital Encounter [facility] ([facility]) [address] [place] [address] Fusion of spine of lumbar region Discharge Disposition: Discharge to home or self care 11/22/2024 Orders Only [facility] Orthopaedic Surgery [address] [place] [address] 12th [place] [address] [place] [address] Javed Ardon MD Tear of right rotator cuff, unspecified tear extent, unspecified whether traumatic (Primary Dx) 10/31/2024 7:30 AM MESS COOK - 10/31/2024 11:00 AM MESS COOK Surgery [facility] Operating Room [address] [place] [address] Javed Ardon MD FUSION LUMBAR TRANSFORAMINAL INTERBODY, L5-S1 Transforaminal Lumbar Interbody Fusion with Left-Sided Foraminotomy, L5-S1 Posterior Spinal Fusion with Instrumentation, Allograft, Autograft, Spinal Cord Monitoring, Bone Morphogenetic Protein 10/31/2024 7:29 AM MESS COOK Anesthesia Event [facility] [address] [place] [address] Lia Drummond MD PhD Tobi, Annika Gentile NP 10/31/2024 5:56 AM MESS COOK - 11/02/2024 2:07 PM MESS COOK Hospital Encounter [address] [address] Javed Ardon MD Discharge Disposition: Discharge to home or self care 10/30/2024 Telephone [facility] Orthopaedic Surgery [address] [place] [address] Medical Office Building [address] [place] [address] Javed Ardon MD 10/29/2024 Telephone [facility] Orthopaedic Surgery [address] [facility] Medical Office [facility] [address] [place] [address] Javed Ardon MD 10/24/2024 Telephone [facility] Orthopaedic Surgery [address] [facility] Office [facility] [address] [place] [address] Madiha Plascencia 10/22/2024 1:30 PM MESS COOK Pre-Admission Testing [facility]) [address] [place] [address] Preoperative testing (Primary Dx); Spondylolisthesis of lumbar region; Lumbar radiculopathy; Pain in other joint; Vitamin D deficiency 10/18/2024 Telephone [facility] Orthopaedic Surgery [address] [place] [address] Advanced Medicine 12th [place] [address] [place] [address] Javed Ardon MD 10/15/2024 Telephone [facility] Orthopa[facility] Office [facility] [address] [place] [address] Javed Ardon MD 10/14/2024 1:03 PM MESS COOK - 10/14/2024 11:59 PM MESS COOK Hospital Encounter [facility] ([facility]) [address] [place] [address] Discharge Disposition: Discharge to home or self care from Last 3 Months Immunizations Immunization Administration Dates Next Due Flucelvax Influenza Quad MDI 09/12/2013 Moderna SARS-CoV-2 Monovalent Vaccination (12+ Y RS) 02/09/2021 Pneumococcal Conjugate Pcv20 01/02/2023 Tdap 05/22/2023 Surgical History Surgery Date Site/Laterality Comments GASTRIC BYPASS SECTION CHOLECYSTECTOMY HIP SURGERY Medical History Medical History Date Comments Diabetes (HCC) HTN (hypertension) Arthritis Anxiety Depression Family History Medical History Relation Name Comments Anxiety disorder Brother Depression Brother Anxiety disorder Father Cancer Father Chronic Pain Father Depression Father Diabetes Father Heart disease Father Hypertension Father Cancer Maternal Grandmother Stroke Maternal Grandmother Depression Mother Heart disease Mother Hypertension Mother Anxiety disorder Sister Chronic Pain Sister Depression Sister Hypertension Sister Physical Disability Sister Anesthesia problems Neg Hx Relation Name Status Comments Brother Father Maternal Grandmother Mother Sister Social History Tobacco Use Types [...] on file Legal Sex Female 4:17 AM MESS COOK Gender Identity Not on file Sexual Orientation Not on file Obstetrics History Last Filed Vital Signs Vital Sign Reading Time Taken Comments Blood Pressure 122/68 11/02/2024 8:00 AM MESS COOK Pulse 75 11/02/2024 8:00 AM MESS COOK Temperature 36.8 C (98.2 F) 11/02/2024 8:00 AM MESS COOK Respiratory Rate 16 11/02/2024 8:00 AM MESS COOK Oxygen Saturation 94% 11/02/2024 8:00 AM MESS COOK Inhaled Oxygen Concentration - - Weight 53.1 kg (117 lb) 11/22/2024 2:29 PM MESS COOK Height 162.6 cm (5' 4 ) 11/22/2024 2:29 PM MESS COOK Body Mass Index 20.08 11/22/2024 2:29 PM MESS COOK Plan of Treatment Health Maintenance Due Date Last Done Comments Albumin Creatinine Ratio, Urine 1960 Breast Cancer Screening-Mammogram 1960 Cervical Cancer Screening 1960 Colon Cancer Screening-Colonoscopy 1960 Depression Screening 1960 Hepatitis C Screening 1960 Dilated Eye Exam 1960 Foot Exam 1960 Hepatitis B Screening 1978 Regular Well Visit/Exam 18-64 1978 Zoster Vaccine (1 of 2) 2010 Covid-19 Vaccine (2023-2 5 season) 2024 10/19/2021, 02/09/2021, 02/09/2021, Additional history exists Influenza Vaccine (#1) 2024 09/12/2013 Hemoglobin A1C 04/21/2025 10/22/2024 Lipid Panel 10/31/2025 10/31/2024 eGFR 10/31/2025 10/31/2024, 10/09, 02/22/2024, Additional history exists DTaP/Tdap/Td Vaccine (2 - Td or Tdap) 05/22/2033 05/22/2023 Pneumococcal vaccine <65 Completed 01/02/2023 Medical Devices Implanted Type Area Prompt Care Rn Device Identifier Shelf Expiration Date Model / Serial / Lot Depuy Orthopaedics Inc Cup Acetabular Bi-Mentum Od51mm Femoral Proximal Press Fit [id number] - [id number] Implanted:Qty: 1 on 02/09/2024 at [facility] Left: Hip Depuy Orthopaed[employer] Inc 07/08/2028 [id number] / / [id number] Depuy Orthopaed[employer] Inc Liner Acet Hip Size 28 Poly Bi Mentum Altrx 51mm [id number] - [id number] Implanted:Qty: 1 on 02/09/2024 at [facility] Left: Hip Depuy Orthopa[employer] Inc [id number] / / Depuy Orthopaed[employer] Inc Articul/Feliciano 28mm Cementless Hip +1.5mm 09/21 Taper Head Femoral Latex Free [id number] - [id number] Implanted:Qty: 1 on 02/09/2024 at [facility] Left: Hip Depuy Orthopaed[employer] Inc [id number] / / Depuy Orthopaed[employer] Inc Actis L107 Mm Collar Hip 6 High Offset Stem Femoral [id number] - [id number] Implanted:Qty: 1 on 02/09/2024 at [facility] Left: Hip Depuy Orthopaed[employer] Inc [id number] / / [employer] Creo Thread Spinal Cap Locking Nonsterile 1119.0010 - [id number] Implanted:Qty: 4 on 10/31/2024 by Javed Ardon MD at [facility] N/A: Spine Lumbar [employer] 1119.0010 / / Glob[employer] Medical Creo 5.5mm 40mm Curve Tom Spinal Titanium 1119.7040 - [id number] Implanted:Qty: 2 on 10/31/2024 by Javed Ardon MD at [facility] N/A: Spine Lumbar [employer] 1119.7040 / / Medtronic Inc Bmp Infuse Sm [id number] - [id number] Implanted:Qty: 1 on 10/31/2024 by Javed Ardon MD at [facility] N/A: Spine Lumbar Medtronic Inc [id number] 07/09/2025 [id number] / / [id number] Glob[employer] Medical Implant Spinal Sable 11x35hs 7-14mm 15 Deg 1172.2121s - [id number] Implanted:Qty: 1 on 10/31/2024 by Javed Ardon MD at [facility] N/A: Spine Lumbar [employer] [id number] 09/23/2034 1172.2121S / / [id number] [employer] Creo Od6.5 Mm L55 Mm Thread Polyaxial Spine Screw Bone Titanium 5146.1657 - [id number] Implanted:Qty: 2 on 10/31/2024 by Javed Ardon MD at [facility] N/A: Spine Lumbar [employer] 5146.1657 / / [employer] Creo Od6.5 Mm L40 Mm Thread Polyaxial Spine Screw Bone Titanium 5146.1642 - [id number] Implanted:Qty: 1 on 10/31/2024 by Javed Ardon MD at [facility] N/A: Spine Lumbar [employer] 5146.1642 / / [employer] Creo Od7.5 Mm L40 Mm Thread Polyaxial Spine Screw Bone Titanium 5146.1742 - [id number] Implanted:Qty: 1 on 10/31/2024 by Javed Ardon MD at [facility] N/A: Spine Lumbar [employer] 5146.1742 / / Procedures Procedure Name Priority Date/Time Associated Diagnosis Comments XR SPINE LUMBAR 2 OR 3 VIEWS Schedule Routine, Read Routine (OP Routine) 12/27/2024 12:43 PM CDT Fusion of spine of lumbar region XR SPINE LUMBAR 2 OR 3 VIEWS Schedule Routine, Read Routine (OP Routine) 11/22/2024 2:23 PM MESS COOK Fusion of spine of lumbar region POCT GLUCOSE DEVICE Routine 11/02/2024 11:38 AM MESS COOK POCT GLUCOSE DEVICE Routine 11/02/2024 7:59 AM MESS COOK CBC WITHOUT DIFFERENTIAL Routine 025 10:40 PM MESS COOK APTT Routine 11/01/2024 10:40 PM MESS COOK PROTIME-INR Routine 11/01/2024 10:40 PM MESS COOK POCT GLUCOSE DEVICE Routine 11/01/2024 8:30 PM MESS COOK XR SHOULDER RIGHT 2 OR MORE VIEWS IP Routine 11/01/2024 6:30 PM MESS COOK POCT GLUCOSE DEVICE Routine 11/01/2024 6:25 PM MESS COOK XR SPINE LUMBAR 2 OR 3 VIEWS Pending Discharge 11/01/2024 4:45 PM MESS COOK POCT GLUCOSE DEVICE Routine 11/01/2024 11:36 AM MESS COOK POCT GLUCOSE DEVICE Routine 11/01/2024 7:47 AM MESS COOK CBC WITHOUT DIFFERENTIAL STAT 025 6:21 AM MESS COOK LIPID PANEL Routine 10/31/2024 10:32 PM MESS COOK EGFR Routine 10/31/2024 10:32 PM MESS COOK CBC WITHOUT DIFFERENTIAL Routine 025 10:32 PM MESS COOK BASIC METABOLIC PANEL Routine 10/31/2024 10:32 PM MESS COOK POCT GLUCOSE DEVICE Routine 10/31/2024 7:57 PM MESS COOK POCT GLUCOSE DEVICE Routine 10/31/2024 4:34 PM MESS COOK POCT GLUCOSE DEVICE Routine 10/31/2024 1:21 PM MESS COOK CBC WITHOUT DIFFERENTIAL Routine 025 12:57 PM MESS COOK TRANSFUSE PLASMA Timed 10/31/2024 11:30 AM MESS COOK POC BLOOD GAS AND CHEMISTRIES, VENOUS Routine 10/31/2024 11:10 AM MESS COOK TRANSFUSE RED BLOOD CELLS Timed 10/31/2024 11:07 AM MESS COOK FIBRINOGEN STAT 10/31/2024 11:05 AM MESS COOK APTT STAT 10/31/2024 11:05 AM MESS COOK PROTIME-INR STAT 10/31/2024 11:05 AM MESS COOK FL FLUOROSCOPY < 1 HOUR IP Routine 10/31/19 11:03 AM MESS COOK TRANSFUSE RED BLOOD CELLS Timed 10/31/2024 10:59 AM MESS COOK PREPARE PLASMA STAT 10/31/2024 10:53 AM MESS COOK PREPARE PLASMA STAT 10/31/2024 10:53 AM MESS COOK PREPARE PLASMA STAT 10/31/2024 10:53 AM MESS COOK PREPARE PLASMA STAT 10/31/2024 10:52 AM MESS COOK PREPARE RBC STAT 10/31/2024 10:51 AM MESS COOK PREPARE RBC STAT 10/31/2024 10:51 AM MESS COOK PREPARE RBC STAT 10/31/2024 10:50 AM MESS COOK PREPARE RBC STAT 10/31/2024 10:50 AM MESS COOK TRANSFUSE PLASMA Timed 10/31/2024 10:46 AM MESS COOK TRANSFUSE RED BLOOD CELLS Timed 10/31/2024 10:33 AM MESS COOK TRANSFUSE RED BLOOD CELLS Timed 10/31/2024 10:27 AM MESS COOK POC THROMBOELASTOMETRY PANEL - HEPARIN Routine 10/31/2024 10:20 AM MESS COOK POC THROMBOELASTOMETRY PANEL - INTRINSIC Routine 10/31/2024 10:19 AM MESS COOK POC THROMBOELASTOMETRY PANEL - EXTRINSIC Routine 10/31/2024 10:18 AM MESS COOK POC THROMBOELASTOMETRY PANEL - FIBRINOGEN Routine 10/31/2024 10:18 AM MESS COOK PREPARE RBC STAT 10/31/2024 10:16 AM MESS COOK POCT PROTHROMBIN TIME Routine 10/31/2024 10:03 AM MESS COOK POCT PARTIAL THROMBOPLASTIN TIME (PTT) Routine 10/31/2024 10:03 AM MESS COOK POC BLOOD GAS AND CHEMISTRIES, VENOUS Routine 10/31/2024 10:02 AM MESS COOK PREPARE PLASMA STAT 10/31/2024 9:27 AM MESS COOK PREPARE PLASMA STAT 10/31/2024 9:25 AM MESS COOK PREPARE RBC STAT 10/31/2024 9:25 AM MESS COOK PREPARE RBC Timed 10/31/2024 9:24 AM MESS COOK MN AN PROCEDURE PLACEHOLDER Routine 10/31/2024 8:46 AM MESS COOK MN AN PROCEDURE PLACEHOLDER Routine 10/31/2024 8:44 AM MESS COOK MN AN ELECTIVE ENDOTRACHEAL AIRWAY Routine 10/31/2024 8:44 AM MESS COOK BONE GRAFT WITH BONE MORPHOGENIC PROTEIN 10/31/2024 7:31 AM MESS COOK Spondylolisthesis of lumbar region Lumbar radiculopathy Case Notes 09/24@1339- Per Analilia via case msg - Cell saver will not be needed.- DMF 09/24@0843- Per audit case msg sent to [facility] to verify if cell saver needed or not for case- DMF Special Needs Radiology Plates, SCM, Pro-Redding, GW Traction, Local Autograft, Frozen Bone Chips, 1 Small BMP Kit, Globus Creo, Globus Altera SPINAL CORD MONITORING 7:31 AM MESS COOK Spondylolisthesis of lumbar region Lumbar radiculopathy Case Notes 09/24@1339- Per Analilia via case msg - Cell saver will not be needed.- DMF 09/24@0843- Per audit case msg sent to [facility] to verify if cell saver needed or not for case- DMF Special Needs Radiology Plates, SCM, Pro-Redding, GW Traction, Local Autograft, Frozen Bone Chips, 1 Small BMP Kit, Globus Creo, Globus Altera FUSION LUMBAR TRANSFORAMINAL INTERBODY 10/31/2024 7:31 AM MESS COOK Spondylolisthesis of lumbar region Lumbar radiculopathy Case Notes 09/24@1339- Per Analilia via case msg - Cell saver will not be needed.- DMF 09/24@0843- Per audit case msg sent to [facility] to verify if cell saver needed or not for case- DMF Special Needs Radiology Plates, SCM, Pro-Redding, GW Traction, Local Autograft, Frozen Bone Chips, 1 Small BMP Kit, Globus Creo, Globus Altera POCT GLUCOSE DEVICE Routine 10/31/2024 7:09 AM MESS COOK B CHECK SAMPLE STAT 10/31/2024 7:09 AM MESS COOK EGFR Routine 10/22/2024 2:53 PM MESS COOK Spondylolisthesis of lumbar region Lumbar radiculopathy DIFFERENTIAL AUTO Routine 10/22/2024 2:53 PM MESS COOK Spondylolisthesis of lumbar region Lumbar radiculopathy URINALYSIS, MICROSCOPIC ONLY Routine 10/22/2024 2:53 PM MESS COOK Spondylolisthesis of lumbar region Lumbar radiculopathy COMPREHENSIVE METABOLIC PANEL Routine 10/22/2024 2:53 PM MESS COOK Spondylolisthesis of lumbar region Lumbar radiculopathy CBC WITH AUTO DIFFERENTIAL Routine 10/22/2024 2:53 PM MESS COOK Spondylolisthesis of lumbar region Lumbar radiculopathy VITAMIN D 25 HYDROXY Routine 10/22/2024 2:53 PM MESS COOK Spondylolisthesis of lumbar region Lumbar radiculopathy Vitamin D deficiency PROTIME-INR Routine 10/22/2024 2:53 PM MESS COOK Spondylolisthesis of lumbar region Lumbar radiculopathy Pain in other joint NICOTINE METABOLITE SCREEN, URINE Routine 10/22/2024 2:53 PM MESS COOK Spondylolisthesis of lumbar region Lumbar radiculopathy TYPE AND SCREEN 14 DAY Routine 2:53 PM MESS COOK Preoperative testing CPAP APTT ALGORITHM Routine 10/22/2024 2:53 PM MESS COOK Preoperative testing URINALYSIS AND REFLEX TO MICROSCOPIC AND CULTURE Routine 10/22/2024 2:53 PM MESS COOK Spondylolisthesis of lumbar region Lumbar radiculopathy POCT HEMOGLOBIN A1C Routine 10/22/2024 1:35 PM MESS COOK NEURO MR OUTSIDE REFERENCE Routine 10/14/2024 1:03 PM MESS COOK from Last 3 Months Results * XR [...] upper quadrant. Atherosclerotic vascular calcifications. Procedure Note Silvio Emanuel MD - 12/27/2024 EXAMINATION: XR SPINE LUMBAR [...] L3-L4. Electronically signed by: Silvio Tipton M.D. Javed Ardon MD IMG XR PROCEDURES Final Result * XR Spine Lumbar 2 Or 3 View (11/22/2024 2:23 PM MESS COOK) Anatomical Region Laterality Modality Spine N/A Computed Radiogr aphy 11/22/2024 3:27 PM MESS COOK Impressions 11/22/2024 3:37 PM MESS COOK 1. Combined L5-S1 posterior and interbody decompression and instrumented fusion. 2. Moderate to severe lumbar degenerative disc disease, worst at L3-L4, with mild levoscoliosis. Dictated by: Bandar Ledbetter MD The radiology attending physician has personally reviewed this study, and had reviewed and/or edited this written report and agrees with it. Electronically signed by: Krishna Campbell M.D. Narrative 11/22/2024 3:37 PM MESS COOK EXAMINATION: XR SPINE LUMBAR 2 OR 3 [...] it. Electronically signed by: Krishna Campbell M.D. us Javed Ardon MD IMG XR PROCEDURES Final Result * POCT glucose (11/02/2024 11:38 AM MESS COOK) Glucose, POC 185 70 - 199 mg/dL Blood 11/02/2024 11:3 8 AM MESS COOK 11/02/2024 11:38 AM MESS COOK us Javed Ardon MD LAB POCT ORDERABLES - D EVICE Final Result Performing Organization Address [facility] de Phone Number [facility] [place] [address] * POCT glucose (11/02/2024 7:59 AM MESS COOK) Glucose, POC 143 70 - 199 mg/dL Blood 11/02/2024 7:59 AM MESS COOK 11/02/2024 7:59 AM MESS COOK Javed Ardon MD LAB POCT ORDERABLES - D EVICE Final Result Performing Organization Address [facility] Phone Number [facility] Department [place] [address] * aPTT (11/01/2024 10:40 PM MESS COOK) aPTT 28 28 - 38 sec Comment: Interpretive Data Heparin therapeutic range: 66.0 - 100.0 seconds. Range based on correlation with therapeutic heparin activity range of 0.3 - 0.7 Units/mL. Current interpretive data was last revised on 2023. Blood 11/01/2024 10:4 0 PM MESS COOK 11/01/2024 11:41 PM MESS COOK us Peggy Arcos NP LAB BLOOD ORDERABLES Final Res ult Performing Organization Address [facility] de Phone Number [facility] [place] [address] * Protime-INR (11/01/2024 10:40 PM MESS COOK) [facility] PT 12.5 9.7 - 13.0 sec INR 1.15 0.90 - 1.20 [facility] Comment: Interpretive data Oral anticoagulant therapeutic ranges: Venous thromboembolism prophylaxis or treatment: 2.0-3.0 CARDIOLOGY Standard range: 2.0-3.0 High-intensity range: 2.5-3.5 Refer to indication-specific guidelines for appropriate target ranges for prosthetic heart valve replacement. Current interpretive data was last revised on 2019. Blood 11/01/2024 10:4 0 PM MESS COOK 11/01/2024 11:41 PM MESS COOK us Peggy Arcos PAIRING MACHINE OPERATOR LAB BLOOD ORDERABLES Final Res ult [facility] Department [place] [address] * (ABNORMAL) CBC without differential (11/01/2024 10:40 PM MESS COOK) [facility] WBC 5.6 3.8 - 9.9 K/cumm Hgb 9.2(L) 11.9 - 15.5 g/dL [facility] Hct 27.5(L) 35.6 - 45.5 % [facility] Plt 81(L) 150 - 400 K/cumm [facility] MPV 11.4 9.1 - 12.3 fL [facility] RBC 3.09(L) 3.90 - 5.20 M/cumm [facility] MCV 89.0 81.3 - 96.4 fL [facility] MCH 29.8 27.1 - 33.3 pg [facility] MCHC 33.5 32.3 - 35.7 g/dL [facility] RDW CV 13.6 11.1 - 14.9 % [facility] RDW SD 44.1 35.7 - 48.1 fL [facility] NRBC abs 0.00 0.00 - 0.01 K/cumm [facility] Blood 11/01/2024 10:4 0 PM MESS COOK 11/01/2024 11:37 PM MESS COOK us Tommy Myers PAIRING MACHINE OPERATOR LAB BLOOD ORDERABLES Final R esult Performing Organization Address [facility] Co de Phone Number [facility] [place] [address] * POCT glucose (11/01/2024 8:30 PM MESS COOK) Glucose, POC 83 70 - 199 mg/dL Blood 11/01/2024 8:30 PM MESS COOK 11/01/2024 8:30 PM MESS COOK us Javed Ardon MD LAB POCT ORDERABLES - D EVICE Final Result Performing Organization Address [facility] de Phone Number [facility] Department [place] [address] * XR Shoulder Right 2 or More Views (11/01/2024 6:30 PM MESS COOK) Anatomical Region Laterality Modality Upper Extremities, Shoulder Right Comp uted Radiography 11/01/2024 7:13 PM MESS COOK Impressions 11/01/2024 7:13 PM MESS COOK 1. Unchanged mild acromioclavicular and glenohumeral osteoarthritis Electronically signed by: David Acevedo MD, PHD Narrative 11/01/2024 7:13 PM MESS COOK EXAMINATION: Right shoulder 2+ views HISTORY: Right [...] David Acevedo MD, PHD us Stalin Boucher PAIRING MACHINE OPERATOR IMG XR PROCEDURES Final Result * (ABNORMAL) POCT glucose (11/01/2024 6:25 PM MESS COOK) Glucose, POC 223(H) 70 - 199 mg/dL Blood 11/01/2024 6:25 PM MESS COOK 11/01/2024 6:25 PM MESS COOK us Javed Ardon MD LAB POCT ORDERABLES - D EVICE Final Result Performing Organization Address City/State/[facility] Co sc Phone Number [facility] Department [place] [address] * XR Spine Lumbar 2 or 3 Views (11/01/2024 4:45 PM MESS COOK) Anatomical Region Laterality Modality Spine N/A Computed Radiogr aphy 11/01/2024 6:54 PM MESS COOK Impressions 11/01/2024 6:54 PM MESS COOK 1. Interval combined L5-S1 anterior and posterior decompression and fusion with unchanged mild degenerative lumbar levoscoliosis and moderate to severe degenerative disc disease at L3-L4 Electronically signed by: David Acevedo MD, PHD Narrative 11/01/2024 6:54 PM MESS COOK EXAMINATION: Lumbar spine 2 or 3 views [...] by: David Acevedo MD, PHD Stalin Boucher PAIRING MACHINE OPERATOR IMG XR PROCEDURES Final Result * POCT glucose (11/01/2024 11:36 AM MESS COOK) Glucose, POC 180 70 - 199 mg/dL Blood 11/01/2024 11:3 6 AM MESS COOK 11/01/2024 11:36 AM MESS COOK us Javed Ardon MD LAB POCT ORDERABLES - D EVICE Final Result [facility] [place] [address] * POCT glucose (11/01/2024 7:47 AM MESS COOK) Glucose, POC 148 70 - 199 mg/dL Blood 11/01/2024 7:47 AM MESS COOK 11/01/2024 7:47 AM MESS COOK us Javed Ardon MD LAB POCT ORDERABLES - D EVICE Final Result Performing Organization Address [facility]/ZIP Co de Phone Number [facility] Department [place] [address] * (ABNORMAL) CBC without differential (11/01/2024 6:21 AM MESS COOK) [facility] WBC 5.3 3.8 - 9.9 K/cumm Hgb 9.5(L) 11.9 - 15.5 g/dL [facility] Hct 28.4(L) 35.6 - 45.5 % [facility] Plt 94(L) 150 - 400 K/cumm [facility] MPV 11.1 9.1 - 12.3 fL [facility] RBC 3.21(L) 3.90 - 5.20 M/cumm [facility] MCV 88.5 81.3 - 96.4 fL [facility] MCH 29.6 27.1 - 33.3 pg [facility] MCHC 33.5 32.3 - 35.7 g/dL [facility] RDW CV 13.5 11.1 - 14.9 % [facility] RDW SD 43.8 35.7 - 48.1 fL [facility] NRBC abs 0.00 0.00 - 0.01 K/cumm [facility] Blood 11/01/2024 6:21 AM MESS COOK 11/01/2024 6:37 AM MESS COOK us Lia Drummond MD PhD LAB BLOOD ORDERABLES Final Re sult [facility] Department of Laboratories [place] [address] * eGFR (10/31/2024 10:32 PM MESS COOK) [facility] eGFR >90 >=60 mL/min/1. 73 m2 Comment: [...] of Race in Diagnosing Kidney Disease, JASN 202). The CKD-EPI equation should not be used for patients with unstable renal function and has not been validated in children and those over 70. Current interpretive data was last reviewed 2021. Blood 10/31/2024 10:3 2 PM MESS COOK 10/31/2024 11:04 PM MESS COOK Tommy Myers NP LAB BLOOD ORDERABLES Final R esult [facility] Department [place] [address] * (ABNORMAL) CBC without differential (10/31/2024 10:32 PM MESS COOK) WBC 7.2 3.8 - 9.9 K/cumm Hgb 9.9(L) 11.9 - 15.5 g/dL [facility] Hct 29.0(L) 35.6 - 45.5 % [facility] Plt 93(L) 150 - 400 K/cumm [facility] MPV 11.2 9.1 - 12.3 fL [facility] RBC 3.27(L) 3.90 - 5.20 M/cumm [facility] MCV 88.7 81.3 - 96.4 fL [facility] MCH 30.3 27.1 - 33.3 pg [facility] MCHC 34.1 32.3 - 35.7 g/dL [facility] RDW CV 13.5 11.1 - 14.9 % [facility] RDW SD 44.2 35.7 - 48.1 fL [facility] NRBC abs 0.00 0.00 - 0.01 K/cumm [facility] Blood 10/31/2024 10:3 2 PM MESS COOK 10/31/2024 11:04 PM MESS COOK us Tommy Myers NP LAB BLOOD ORDERABLES Final R esult [facility] Department [place] [address] * Lipid panel (10/31/2024 10:32 PM MESS COOK) Cholesterol 101 30 - 199 mg/dL Comment: [...] revised on 2018. Triglycerides 44 <=149 mg/dL [facility] Comment: Interpretive Data Ages < or = [...] revised on 2018. HDL 42 >=40 mg/dL [facility] Comment: Interpretive Data Ages < or = [...] 2018. LDL, calculated 48 <=129 mg/dL [facility] Comment: Interpretive Data Ages < or = [...] NCEP Expert Panel. Circulation 2004;110:227 3. Jesus Robles et al. USMAN Cardiol. 2020 February 06;5(5):540-548. doi: [email or web address] Current Interpretive Data was last revised on 2024. Non-HDL Cholesterol 59 mg/dL [facility] Comment: Interpretive Data Ages < or = [...] last revised on 2018. Chol/HDL ratio 2 [facility] Blood 10/31/2024 10:3 2 PM MESS COOK 10/31/2024 11:04 PM MESS COOK Narrative [facility] - 11/01/2024 9:06 AM MESS COOK Reflex us Javed Ardon MD LAB BLOOD ORDERABLES Fi nal Result [facility] Department [place] [address] * (ABNORMAL) Basic metabolic panel (10/31/2024 10:32 PM MESS COOK) Pathologist [facility] Sodium 141 135 - 145 mmol/L Potassium, pl 4.0 3.3 - 4.9 mmol/L [facility] Chloride 108 97 - 110 mmol/L [facility] CO2 29 22 - 32 mmol/L [facility] Anion gap 4 2 - 15 mmol/L [facility] BUN 13 6 - 25 mg/dL [facility] Creatinine 0.65 0.60 - 1.10 mg/dL [facility] Glucose 118 70 - 199 mg/dL [facility] Comment: Interpretive Data Fasting glucose >/= 126 [...] classification and Diagnosis of Diabetes Diabetes Care 202; 46: S19-S40. Current interpretive data was last revised 2022. Calcium 8.4(L) 8.5 - 10.3 mg/dL [facility] Blood 10/31/2024 10:3 2 PM MESS COOK 10/31/2024 11:04 PM MESS COOK us Tommy Myers NP LAB BLOOD ORDERABLES Final R esult [facility] Department [place] [address] * POCT glucose (10/31/2024 7:57 PM MESS COOK) Glucose, POC 161 70 - 199 mg/dL Blood 10/31/2024 7:57 PM MESS COOK 10/31/2024 7:57 PM MESS COOK Javed Ardon MD LAB POCT ORDERABLES - D EVICE Final Result Performing Organization Address [facility] de Phone Number [facility] [place] [address] * POCT glucose (10/31/2024 4:34 PM MESS COOK) Glucose, POC 177 70 - 199 mg/dL Blood 10/31/2024 4:34 PM MESS COOK 10/31/2024 4:34 PM MESS COOK us Javed Ardon MD LAB POCT ORDERABLES - D EVICE Final Result Performing Organization Address [facility] de Phone Number [facility] [place] [address] * POCT glucose (10/31/2024 1:21 PM MESS COOK) Glucose, POC 134 70 - 199 mg/dL Blood 10/31/2024 1:21 PM MESS COOK 10/31/2024 1:21 PM MESS COOK Javed Ardon MD LAB POCT ORDERABLES - D EVICE Final Result Performing Organization Address [facility] [place] [address] * (ABNORMAL) CBC without differential (10/31/2024 12:57 PM MESS COOK) [facility] Signature WBC 6.5 3.8 - 9.9 K/cumm Hgb 9.4(L) 11.9 - 15.5 g/dL [facility] Hct 28.3(L) 35.6 - 45.5 % [facility] Plt 82(L) 150 - 400 K/cumm [facility] MPV 10.5 9.1 - 12.3 fL [facility] RBC 3.13(L) 3.90 - 5.20 M/cumm [facility] MCV 90.4 81.3 - 96.4 fL [facility] MCH 30.0 27.1 - 33.3 pg [facility] MCHC 33.2 32.3 - 35.7 g/dL [facility] RDW CV 12.8 11.1 - 14.9 % [facility] RDW SD 42.4 35.7 - 48.1 fL [facility] NRBC abs 0.00 0.00 - 0.01 K/cumm [facility] Blood 10/31/2024 12:5 7 PM MESS COOK 10/31/2024 1:10 PM MESS COOK us Brynn Banegas MD LAB BLOOD ORDERABLES Final Result Performing Organization Address City/[facility]/ZIP Co de Phone Number [facility] Department [place] [address] * Transfuse plasma (10/31/2024 11:32 AM MESS COOK) Blood us Lia Drummond MD PhD BLOOD TRANSFUSION ORDERABLES Final Result Performing Organization Address [facility] Co de Phone Number [facility] Department [place] [address] * (ABNORMAL) POC Blood Gas and Chemistries, Venous - (10/31/2024 11:10 AM MESS COOK) pH, Kitty POC 7.28(L) 7.32 - 7.43 pCO2, kitty POC 46 40 - 50 mmHg [facility] pO2, kitty POC 73 mmHg [facility] Na, POC 143 135 - 145 mmol/L [facility] K POC 4.2 3.3 - 4.9 mmol/L [facility] Comment: Interpretive Data Not all point of care methods assess for hemolysis. Confirm with instrument and retest K+ if not consistent with clinical signs and symptoms. Current Interpretive Data was last revised on 2024. Cl, POC 111(H) 97 - 110 mmol/L [facility] Ionized Ca, POC 4.49(L) 4.50 - 5.10 mg/dL [facility] Glucose, POC 158 70 - 199 mg/dL [facility] Lactate, POC 1.8 0.7 - 2.0 mmol/L [facility] O2 Sat, Kitty POC (Karen) 94 % [facility] Base excess, POC -5.0 mmol/L [facility] Hct, POC 27.0(L) 36.3 - 45.3 % [facility] Total Hb, POC 9.0(L) 11.9 - 15.5 g/dL [facility] Blood 10/31/2024 11:1 0 AM MESS COOK 10/31/2024 11:10 AM MESS COOK Javed Ardon MD LAB POCT ORDERABLES - D EVICE Final Result Performing Organization Address City/[facility]/ZIP Co de Phone Number [facility] Department [place] [address] * Transfuse RBC (10/31/2024 11:07 AM MESS COOK) Blood Lia Drummond MD PhD BLOOD TRANSFUSION ORDERABLES Final Result Performing Organization Address [facility]/ZIP Co de Phone Number [facility] [place] [address] * aPTT (10/31/2024 11:05 AM MESS COOK) [facility] Signature aPTT 28 28 - 38 sec Comment: Interpretive Data Heparin therapeutic range: 66.0 - 100.0 seconds. Range based on correlation with therapeutic heparin activity range of 0.3 - 0.7 Units/mL. Current interpretive data was last revised on 2023. Blood 10/31/2024 11:0 5 AM MESS COOK 10/31/2024 11:35 AM MESS COOK Lia Drummond MD PhD LAB BLOOD ORDERABLES Final Re sult Performing Organization Address [facility] Co de Phone Number [facility] [place] [address] * (ABNORMAL) Protime-INR (10/31/2024 11:05 AM MESS COOK) PT 13.8(H) 9.7 - 13.0 sec INR 1.27(H) 0.90 - 1.20 [facility] Comment: Interpretive data Oral anticoagulant therapeutic ranges: Venous thromboembolism prophylaxis or treatment: 2.0-3.0 CARDIOLOGY Standard range: 2.0-3.0 High-intensity range: 2.5-3.5 Refer to indication-specific guidelines for appropriate target ranges for prosthetic heart valve replacement. Current interpretive data was last revised on 2019. Blood 10/31/2024 11:0 5 AM MESS COOK 10/31/2024 11:35 AM MESS COOK Lia Drummond MD PhD LAB BLOOD ORDERABLES Final Re sult Performing Organization Address [facility] Co de Phone Number [facility] [place] [address] * Fibrinogen (10/31/2024 11:05 AM MESS COOK) Fibrinogen 182 170 - 400 mg/dL Blood 10/31/2024 11:0 5 AM MESS COOK 10/31/2024 11:35 AM MESS COOK Lia Drummond MD PhD LAB BLOOD ORDERABLES Final Re sult Performing Organization Address [facility] Co de Phone Number [facility] [place] [address] * FL Fluoroscopy < 1 Hour (10/31/2024 11:03 AM MESS COOK) Narrative [facility] - 10/31/2024 11:04 AM MESS COOK The images from this study are not interpreted by Radiology. Please refer to the physician's procedure / OR operative note. us Javed Ardon MD IMG FLUOROSCOPY PROCEDU RES Final Result Performing Organization Address [facility] Co de Phone Number [facility] * Transfuse RBC (10/31/2024 10:59 AM MESS COOK) Blood us Lia Drummond MD PhD BLOOD TRANSFUSION ORDERABLES Final Result Performing Organization Address [facility] de Phone Number [facility] [place] [address] * Prepare plasma: 1 Units (10/31/2024 10:53 AM MESS COOK) Product code [id number] Unit Number [id number] 7-Q [facility] Product Blood Type OPOS [facility] Dispense Status RETURNED [facility] Blood Venous blood specimen / Unknown 10/31/2024 10:53 AM MESS COOK 10/31/2024 10:53 AM MESS COOK Narrative [facility] - 10/31/2024 12:25 PM MESS COOK Date required:-[id number] FFP # of Units:-1-Units Reasons:-Immediate need for surgical intervention us Lia Drummond MD PhD BLOOD BANK PRODUCT ORDERABLES Final Result Performing Organization Address [facility] de Phone Number [facility] Department [place] [address] * Prepare plasma: 1 Units (10/31/2024 10:53 AM MESS COOK) Product code [id number] Unit Number [id number] 4-Y [facility] Product Blood Type OPOS [facility] Dispense Status RETURNED [facility] Blood Venous blood specimen / Unknown 10/31/2024 10:53 AM MESS COOK 10/31/2024 10:52 AM MESS COOK Narrative [facility] - 10/31/2024 12:25 PM MESS COOK Date required:-[id number] FFP # of Units:-1-Units Reasons:-Immediate need for surgical intervention Lia Drummond MD PhD BLOOD BANK PRODUCT ORDERABLES Final Result Performing Organization Address City/[facility]/ZIP Co de Phone Number [facility] [place] [address] * Prepare plasma: 1 Units (10/31/2024 10:53 AM MESS COOK) Product code [id number] Unit Number [id number] 9-* [facility] Product Blood Type OPOS [facility] Dispense Status [facility] Blood Venous blood specimen / Unknown 10/31/2024 10:53 AM MESS COOK 10/31/2024 10:52 AM MESS COOK Narrative [facility] - 10/31/2024 12:25 PM MESS COOK Date required:-[id number] FFP # of Units:-1-Units Reasons:-Immediate need for surgical intervention Lia Drummond MD PhD BLOOD BANK PRODUCT ORDERABLES Final Result Performing Organization Address [facility] [place] [address] * Prepare plasma: 1 Units (10/31/2024 10:52 AM MESS COOK) Product code [id number] Unit Number [id number]- [id number] [facility] Product Blood Type OPOS [facility] Dispense Status [facility]ED [facility] Blood Venous blood specimen / Unknown 10/31/2024 10:52 AM MESS COOK 10/31/2024 10:52 AM MESS COOK Narrative [facility] - 11/01/2024 12:56 AM MESS COOK Date required:-[id number] FFP # of Units:-1-Units Reasons:-Immediate need for surgical intervention Lia Drummond MD PhD BLOOD BANK PRODUCT ORDERABLES Final Result Performing Organization Address City/[facility]/ZIP Co de [place] [address] * Prepare RBC: 1 Units (10/31/2024 10:51 AM MESS COOK) Product code [id number] Unit Number [id number] 6-5 [facility] Product Blood Type OPOS [facility] Dispense Status RETURNED [facility] Blood 10/31/2024 10:5 1 AM MESS COOK 10/31/2024 10:50 AM MESS COOK Narrative [facility] - 10/31/2024 12:25 PM MESS COOK Are special requirements needed? (All products are leukoreduced and CMV- safe)- >No Date required:-[id number] LRRBC # of Dtqdk-5-Suhea Reasons:-Intra-op transfusion} Lia Drummond MD PhD BLOOD BANK PRODUCT ORDERABLES Final Result Performing Organization Address [facility] [place] [address] * Prepare RBC: 1 Units (10/31/2024 10:51 AM MESS COOK) Product code [id number] Unit Number [id number] 3-3 [facility] Product Blood Type OPOS [facility] Dispense Status RETURNED [facility] Blood 10/31/2024 10:5 1 AM MESS COOK 10/31/2024 10:50 AM MESS COOK Narrative [facility] - 10/31/2024 12:25 PM MESS COOK Are special requirements needed? (All products are leukoreduced and CMV- safe)- >No Date required:-[id number] LRRBC # of Vgnas-1-Rfgma Reasons:-Intra-op transfusion} Lia Drummond MD PhD BLOOD BANK PRODUCT ORDERABLES Final Result Performing Organization Address City/[facility] [place] [address] * Prepare RBC: 1 Units (10/31/2024 10:50 AM MESS COOK) Product code [id number] Unit Number [id number] 8-V [facility] Product Blood Type OPOS [facility] Dispense Status RETURNED [facility] Blood 10/31/2024 10:5 0 AM MESS COOK 10/31/2024 10:50 AM MESS COOK Narrative [facility] - 10/31/2024 12:25 PM MESS COOK Are special requirements needed? (All products are leukoreduced and CMV- safe)- >No Date required:-[id number] LRRBC # of Rvjlm-5-Zrtao Reasons:-Intra-op transfusion} Lia Drummond MD PhD BLOOD BANK PRODUCT ORDERABLES Final Result Performing Organization Address [facility] Co de Phone Number [facility] [place] [address] * Prepare RBC: 1 Units (10/31/2024 10:50 AM MESS COOK) Product code [id number] Unit Number [id number] 4-E [facility] Product Blood Type OPOS [facility] Dispense Status RETURNED [facility] Blood 10/31/2024 10:5 0 AM MESS COOK 10/31/2024 10:49 AM MESS COOK Narrative [facility] - 10/31/2024 12:25 PM MESS COOK Are special requirements needed? (All products are leukoreduced and CMV- safe)- >No Date required:-[id number] LRRBC # of Wjvus-1-Gzrmc Reasons:-Intra-op transfusion} Lia Drummond MD PhD BLOOD BANK PRODUCT ORDERABLES Final Result [facility] [place] [address] * Transfuse plasma (10/31/2024 10:49 AM MESS COOK) Blood Lia Drummond MD PhD BLOOD TRANSFUSION ORDERABLES Final Result Performing Organization Address [facility] Co de Phone Number [facility] [place] [address] * Transfuse RBC (10/31/2024 10:38 AM MESS COOK) Blood us Lia Drummond MD PhD BLOOD TRANSFUSION ORDERABLES Final Result Performing Organization Address [facility] Co de Phone Number [facility] [place] [address] * Transfuse RBC (10/31/2024 10:27 AM MESS COOK) Blood us Lia Drummond MD PhD BLOOD TRANSFUSION ORDERABLES Final Result Performing Organization Address [facility] [place] [address] * POC Thromboelastometry Panel - Heparin (10/31/2024 10:20 AM MESS COOK) [facility] HEPTEM-CT, POC 144 141 - 215 sec HEPTEM-A5, POC 46 33 - 51 mm [facility] HEPTEM-A10, POC 56 44 - 61 mm [facility] HEPTEM-A20, POC 61 52 - 67 mm [facility] HEPTEM-MCF, POC 62 54 - 69 mm [facility] HEPTEM-Run Time, POC (hh:mm:ss) 02:00:00 [facility] Blood 10/31/2024 10:2 0 AM MESS COOK 10/31/2024 10:20 AM MESS COOK us Javed Ardon MD LAB POCT ORDERABLES - D LIA Edited Result - Final Performing Organization Address [facility] Co de Phone Number [facility] [place] [address] * (ABNORMAL) POC Thromboelastometry Panel - Intrinsic (10/31/2024 10:19 AM MESS COOK) INTEM-CT, POC 148 139 - 205 sec [...] [facility] INTEM-Run Time, POC (hh:mm:ss) 02:00:00 [facility] Blood 10/31/2024 10:1 9 AM MESS COOK 10/31/2024 10:19 AM MESS COOK us Javed Ardon MD LAB POCT ORDERABLES - D EVICE Edited Result - Final Performing Organization Address City/[facility] Co de Phone Number [facility] Department [place] [address] * POC Thromboelastometry Panel - Fibrinogen (10/31/2024 10:18 AM MESS COOK) FIBTEM-A5, POC 9 5 - 16 mm FIBTEM-A10, POC 10 6 - 17 mm [facility] FIBTEM-A20, POC 11 6 - 18 mm [facility] FIBTEM-MCF, POC 11 9 - 19 mm [facility] FIBTEM-Run Time, POC (hh:mm:ss) 02:00:00 [facility] Blood 10/31/2024 10:1 8 AM MESS COOK 10/31/2024 10:18 AM MESS COOK us Javed Ardon MD LAB POCT ORDERABLES - D EVICE Edited Result - Final Performing Organization Address City/[facility]/ZIP Co de Phone Number [facility] Department [place] [address] * (ABNORMAL) POC Thromboelastometry Panel - Extrinsic (10/31/2024 10:18 AM MESS COOK) EXTEM-CT, POC 55 51 - 73 sec EXTEM-A5, POC 44 33 - 52 mm [facility] EXTEM-A10, POC 54 45 - 62 mm [facility] EXTEM-A20, POC 60 54 - 69 mm [facility] EXTEM-MCF, POC 61 57 - 72 mm CERNER [facility] EXTEM-LI60, POC 97 94 - 100 % C[facility] EXTEM-ML, POC 10(H) 0 - 6 % CERNER [facility] EXTEM-Run Time, POC (hh:mm:ss) 02:00:01 [facility] Blood 10/31/2024 10:1 8 AM MESS COOK 10/31/2024 10:18 AM MESS COOK us Javed Ardon MD LAB POCT ORDERABLES - D DIONICIOICE Edited Result - Final [facility] [place] [address] * Prepare RBC: 2 Units (10/31/2024 10:16 AM MESS COOK) Product code [id number] Unit Number [id number] [facility] Product Blood Type OPOS [facility] Dispense Status PRESUMED TRANSFUSED [facility] Product code [id number] [facility] Unit Number [id number]- [id number] [facility] Product Blood Type OPOS [facility] Dispense Status PRESUMED TRANSFUSED [facility] Blood 10/31/2024 10:1 6 AM MESS COOK 10/31/2024 10:16 AM MESS COOK Narrative [facility] - 11/01/2024 12:56 AM MESS COOK Are special requirements needed? (All products are leukoreduced and CMV- safe)- >No Date required:-[id number] LRRBC # of Luwxy-2-Vjcfd Reasons:-Intra-op transfusion} Lia Drummond MD PhD BLOOD BANK PRODUCT ORDERABLES Final Result Performing Organization Address [facility] de Phone Number [facility] [place] [address] * POCT prothrombin time (10/31/2024 10:03 AM MESS COOK) PT, POC 16.2 11.7 - 16.6 sec INR, POC 1.2 0.9 - 1.2 [facility] Blood 10/31/2024 10:0 3 AM MESS COOK 10/31/2024 10:03 AM MESS COOK Javed Ardon MD LAB POCT ORDERABLES - D EVICE Final Result Performing Organization Address [facility] de Phone Number [facility] [place] [address] * POCT Partial thromboplastin time (PTT) (10/31/2024 10:03 AM MESS COOK) APTT, POC 36.6 32.5 - 46.1 sec Blood 10/31/2024 10:0 3 AM MESS COOK 10/31/2024 10:03 AM MESS COOK Javed Ardon MD LAB POCT ORDERABLES - D EVICE Final Result Performing Organization Address [facility] de Phone Number [facility] [place] [address] * (ABNORMAL) POC Blood Gas and Chemistries, Venous - (10/31/2024 10:02 AM MESS COOK) pH, Kitty POC 7.32 7.32 - 7.43 pCO2, kitty POC 45 40 - 50 mmHg [facility] pO2, kitty POC 65 mmHg [facility] Na, POC 141 135 - 145 mmol/L [facility] K POC 3.9 3.3 - 4.9 mmol/L [facility] Comment: Interpretive Data Not all point of care methods assess for hemolysis. Confirm with instrument and retest K+ if not consistent with clinical signs and symptoms. Current Interpretive Data was last revised on 2024. Cl, POC 112(H) 97 - 110 mmol/L [facility] Ionized Ca, POC 4.96 4.50 - 5.10 mg/dL [facility] Glucose, POC 164 70 - 199 mg/dL [facility] Lactate, POC 1.4 0.7 - 2.0 mmol/L [facility] O2 Sat, Kitty POC (Karen) 93 % [facility] Base excess, POC -2.8 mmol/L [facility] Hct, POC 23.0(L) 36.3 - 45.3 % [facility] Total Hb, POC 7.5(L) 11.9 - 15.5 g/dL [facility] Blood 10/31/2024 10:0 2 AM MESS COOK 10/31/2024 10:02 AM MESS COOK us Javed Ardon MD LAB POCT ORDERABLES - D EVICE Final Result [facility] Department [place] [address] * Prepare plasma: 1 Units (10/31/2024 9:27 AM MESS COOK) Product code [id number] Unit Number [id number] 0-C [facility] Product Blood Type OPOS [facility] Dispense Status RETURNED [facility] Blood Venous blood specimen / Unknown 10/31/2024 9:27 AM MESS COOK 10/31/2024 9:27 AM MESS COOK Narrative [facility] - 10/31/2024 9:50 AM MESS COOK Date required:-[id number] FFP # of Units:-1-Units Reasons:-Immediate need for surgical intervention us Lia Drummond MD PhD BLOOD BANK PRODUCT ORDERABLES Final Result [facility] [place] [address] * Prepare plasma: 1 Units (10/31/2024 9:25 AM MESS COOK) Product code [id number] Unit Number [id number] [facility] Product Blood Type OPOS [facility] Dispense Status PRESUMED TRANSFUSED [facility] Blood Venous blood specimen / Unknown 10/31/2024 9:25 AM MESS COOK 10/31/2024 9:25 AM MESS COOK Narrative [facility] - 11/01/2024 12:56 AM MESS COOK Date required:-[id number] FFP # of Units:-1-Units Reasons:-Immediate need for surgical intervention us Lia Drummond MD PhD BLOOD BANK PRODUCT ORDERABLES Final Result Performing Organization Address [facility] [place] [address] * Prepare RBC: 1 Units (10/31/2024 9:25 AM MESS COOK) Product code [id number] Unit Number [id number] [facility] Product Blood Type OPOS [facility] Dispense Status PRESUMED TRANSFUSED [facility] Blood 10/31/2024 9:25 AM MESS COOK 10/31/2024 9:24 AM MESS COOK Narrative [facility] - 11/01/2024 12:56 AM MESS COOK Are special requirements needed? (All products are leukoreduced and CMV- safe)- >No Date required:-[id number] LRRBC # of Tcsux-5-Rgsew Reasons:-Intra-op transfusion} us Lia Drummond MD PhD BLOOD BANK PRODUCT [place]AB[place] [address] * Prepare RBC: 1 Units (10/31/2024 9:24 AM MESS COOK) Product code [id number] Unit Number [id number] [facility] Product Blood Type OPOS [facility] Dispense Status PRESUMED TRANSFUSED [facility] Blood 10/31/2024 9:24 AM MESS COOK 10/31/2024 9:24 AM MESS COOK Narrative [facility] - 11/01/2024 12:56 AM MESS COOK Are special requirements needed? (All products are leukoreduced and CMV- safe)- >No Donor Source->[employer] Date required:-[id number] LRRBC # of Digli-1-Lvmtt Reasons:-Intra-op transfusion} Lia Drummond MD PhD BLOOD BANK PRODUCT ORDERABLES Final Result [facility] Department [place] [address] * [place] AN PROCEDURE PLACEHOLDER (10/31/2024 8:46 AM MESS COOK) Bridgette Hobbs CRNA - 10/31/2024 8:46 AM MESS COOK Bridgette Raymundo CRNA 10/31/2024 8:50 AM Peripheral IV Catheter Patient location: OR Staff: Placed by: PURNIMA: Bridgette Raymundo CRNA Preprocedure prep: Prep solution: chlorhexadine PIV line: Laterality: left Site: forearm Catheter size: 16 g Technique: direct visualization Procedure details: good blood return Number of attempts: 1 Lia Drummond MD PhD ANESTHESIA ORDERABLES Final R esult * MN AN ELECTIVE ENDOTRACHEAL AIRWAY, [place] AN PROCEDURE PLACEHOLDER (10/31/2024 8:44 AM MESS COOK) Bridgette Hobbs CRNA - 10/31/2024 8:44 AM MESS COOK Bridgette Raymundo CRNA 10/31/2024 8:46 AM Airway Patient location: OR Urgency: elective Indications for airway management: anesthesia Difficult airway: no Staff: Placed by: BPM SOLUTION ARCHITECT: Bridgette Raymnudo CRNA Emergent airway documentation: Risks and benefits [...] esult * Check Sample (10/31/2024 7:09 AM MESS COOK) ABO Rh O Positive [facility] HCLL OTHER 10/31/2024 7:09 AM MESS COOK 10/31/2024 7:18 AM MESS COOK us Javed Ardon MD LAB BLOOD ORDERABLES Fi nal Result Performing Organization Address [facility] Co de Phone Number [facility] [place] [address] [facility] * POCT glucose (10/31/2024 7:09 AM MESS COOK) Glucose, POC 107 70 - 199 mg/dL Blood 10/31/2024 7:09 AM MESS COOK 10/31/2024 7:09 AM MESS COOK us Javed Ardon MD LAB POCT ORDERABLES - D EVICE Final Result Performing Organization Address [facility] Co de Phone Number [facility] [place] [address] * TYPE AND SCREEN 14 DAY (10/22/2024 2:53 PM MESS COOK) Eun, indirect Negative ABO Rh O Positive YU [facility] Blood 10/22/2024 2:53 PM MESS COOK 10/22/2024 5:06 PM MESS COOK Narrative YU [facility] - 10/22/2024 6:58 PM MESS COOK Is this test being ordered in advance for a procedure?->Yes Expected date of procedure:->10/31/24 Has the patient been transfused in the past 3 months?->No Has the patient been in the past 3 months?->No Annika Britton PAIRING MACHINE OPERATOR LAB BLOOD BANK TEST JAYDENSunil HENRRY Final Result [facility] Department [place] [address] * eGFR (10/22/2024 2:53 PM MESS COOK) eGFR 90 >=60 mL/min/1. 73 m2 Comment: [...] last reviewed 2021. Blood 10/22/2024 2:53 PM MESS COOK 10/22/2024 4:59 PM MESS COOK us Javed Ardon MD LAB BLOOD ORDERABLES Fi nal Result [facility] Department [place] [address] * Differential, auto (10/22/2024 2:53 PM MESS COOK) Neutrophil abs 3.2 1.5 - 6.5 K/cumm Imm gran abs 0.0 0.0 - 0.1 K/cumm [facility] Lymphocyte abs 1.9 0.8 - 3.3 K/cumm [facility] Monocyte abs 0.4 0.2 - 0.8 K/cumm [facility] Eosinophil abs 0.1 0.0 - 0.5 K/cumm [facility] Basophil abs 0.0 0.0 - 0.1 K/cumm [facility] Neutrophil pct 57.2 % [facility] Comment: Interpretive Data Percent cell count reference ranges are not reported, since discordance with absolute values may lead to misinterpretation of CBC data. Current Interpretive Data was last revised on 2018. Imm gran pct 0.2 % [facility] Comment: Interpretive Data Percent cell count reference ranges are not reported, since discordance with absolute values may lead to misinterpretation of CBC data. Current Interpretive Data was last revised on 2018. Lymphocyte pct 33.3 % [facility] Comment: Interpretive Data Percent cell count reference ranges are not reported, since discordance with absolute values may lead to misinterpretation of CBC data. Current Interpretive Data was last revised on 2018. Monocyte pct 7.5 % [facility] Comment: Interpretive Data Percent cell count reference ranges are not reported, since discordance with absolute values may lead to misinterpretation of CBC data. Current Interpretive Data was last revised on 2018. Eosinophil pct 1.4 % [facility] Comment: Interpretive Data Percent cell count reference ranges are not reported, since discordance with absolute values may lead to misinterpretation of CBC data. Current Interpretive Data was last revised on 2018. Basophil pct 0.4 % [facility] Comment: Interpretive Data Percent cell count reference ranges are not reported, since discordance with absolute values may lead to misinterpretation of CBC data. Current Interpretive Data was last revised on 2018. Blood 10/22/2024 2:53 PM MESS COOK 10/22/2024 4:59 PM MESS COOK us Javed Ardon MD LAB BLOOD ORDERABLES Fi nal Result Performing Organization Address [facility] Co de Phone Number [facility] [place] [address] * CPAP aPTT algorithm (10/22/2024 2:53 PM MESS COOK) aPTT 30 28 - 38 sec Comment: Interpretive Data Heparin therapeutic range: 66.0 - 100.0 seconds. Range based on correlation with therapeutic heparin activity range of 0.3 - 0.7 Units/mL. Current interpretive data was last revised on 2023. Blood 10/22/2024 2:53 PM MESS COOK 10/22/2024 4:45 PM MESS COOK Annika Britton NP LAB BLOOD ORDERABLES Fin al Result Performing Organization Address [facility] de Phone Number [facility] [place] [address] * (ABNORMAL) Urinalysis reflex to microscopic and culture Urine, clean voided (10/22/2024 2:53 PM MESS COOK) Color, ur Yellow Yellow Clarity, ur Clear Clear [facility] Specific gravity, ur 1.022 1.003 - 1.030 [facility] pH, urine 5.5 [facility] Comment: Interpretive Data U rine pH is affected by diet, medications, systemic acid-base disturbances, and renal tubular function. pH may affect urinary stone formation. For example, urine pH below 6.0 may help reduce the tendency for calcium phosphate stones and pH greater than 6.0 may reduce the tendency for uric acid stone formation. Source: [facility] popchips Current Interpretive Data was last revised on 2017 Protein, ur ql Trace Negative [facility] Glucose, ur ql Negative Negative [facility] Ketones, ur Negative Negative [facility] Bilirubin, ur Negative Negative [facility] Blood, ur Negative Negative [facility] Urobilinogen, ur <2.0 <2.0 mg/dL [facility] Nitrite, ur Negative Negative [facility] Leukocyte esterase, ur 1+(A) Negative [facility] UA reflex comment Reflex to microscopic UA will be performed. [facility] Urine, clean voided 10/22/2024 2:53 PM MESS COOK 10/22/2024 4:42 PM MESS COOK us Javed Ardon MD LAB MICROBIOLOGY - GENE RAL ORDERABLES Final Result [facility] Department [place] [address] * (ABNORMAL) CBC with auto differential (10/22/2024 2:53 PM MESS COOK) WBC 5.6 3.8 - 9.9 K/cumm Hgb 11.3(L) 11.9 - 15.5 g/dL [facility] Hct 36.2 35.6 - 45.5 % [facility] Plt 195 150 - 400 K/cumm [facility] MPV 11.2 9.1 - 12.3 fL [facility] RBC 3.92 3.90 - 5.20 M/cumm [facility] MCV 92.3 81.3 - 96.4 fL [facility] MCH 28.8 27.1 - 33.3 pg [facility] MCHC 31.2(L) 32.3 - 35.7 g/dL [facility] RDW CV 12.3 11.1 - 14.9 % [facility] RDW SD 42.2 35.7 - 48.1 fL [facility] NRBC abs 0.00 0.00 - 0.01 K/cumm [facility] Blood 10/22/2024 2:53 PM MESS COOK 10/22/2024 4:59 PM MESS COOK Javed Ardon MD LAB BLOOD ORDERABLES Fi nal Result Performing Organization Address City/[facility] Co de Phone Number [facility] [place] [address] * Nicotine metabolite screen, urine (10/22/2024 2:53 PM MESS COOK) Pathologist [facility] Nicotine, ur <5.0 <5.0 ng/mL [facility] Cotinine, ur <5.0 <5.0 ng/mL [facility] Anabasine ur <2.0 <2.0 ng/mL [facility] Comment: ADDITIONAL INFORMATION This test was developed and its performance characteristics determined by [facility] in a manner consistent with CLIA requirements. This test has not been cleared or approved by the U.S. Food and Drug Administration. Test Performed by: [place] [address] Loan Clerk: Dieudonne Antunez Ph.D.; CLIA# [id number] Nornicotine, ur <2.0 <2.0 ng/mL [facility] Urine 10/22/2024 2:53 PM MESS COOK 10/22/2024 4:48 PM MESS COOK Javed Ardon MD LAB URINE ORDERABLES Fi nal Result Performing Organization Address City/[facility] Co de Phone Number [facility] Department [place] [address] [facility] * (ABNORMAL) Vitamin D 25 hydroxy (10/22/2024 2:53 PM MESS COOK) [facility] Vitamin D 25-OH 9(L) 30 - 80 ng/mL Blood 10/22/2024 2:53 PM MESS COOK 10/22/2024 4:59 PM MESS COOK Javed Ardon MD LAB BLOOD ORDERABLES Fi nal Result Performing Organization Address [facility] de Phone Number [facility] [place] [address] * (ABNORMAL) Urinalysis, microscopic only (10/22/2024 2:53 PM MESS COOK) WBC, ur 0-5 0 - 5 /HPF RBC, ur 0-2 0 - 2 /HPF [facility] Epithelial cells, squamous, ur 1-5 0 - 5 /HPF [facility] Bacteria, ur Trace(A) [facility] Mucous, ur Present(A) [facility] Hyaline casts, ur 11-20(A) 0 - 10 /LPF [facility] Culture Reflex Comment Reflex conditions for urine culture (WBC >10) not met. [facility] Urine, clean voided 10/22/2024 2:53 PM MESS COOK 10/22/2024 4:42 PM MESS COOK Javed Ardon MD LAB URINE ORDERABLES Fi nal Result Performing Organization Address [facility] de Phone Number [facility] [place] [address] * Protime-INR (10/22/2024 2:53 PM MESS COOK) PT 11.4 9.7 - 13.0 sec INR 1.05 0.90 - 1.20 [facility] Comment: Interpretive data Oral anticoagulant therapeutic ranges: Venous thromboembolism prophylaxis or treatment: 2.0-3.0 CARDIOLOGY Standard range: 2.0-3.0 High-intensity range: 2.5-3.5 Refer to indication-specific guidelines for appropriate target ranges for prosthetic heart valve replacement. Current interpretive data was last revised on 2019. Blood 10/22/2024 2:53 PM MESS COOK 10/22/2024 4:45 PM MESS COOK Javed Ardon MD LAB BLOOD ORDERABLES Fi nal Result Performing Organization Address [facility]/ZIP Co de Phone Number [facility] Department [place] [address] * Comprehensive metabolic panel (10/22/2024 2:53 PM MESS COOK) Sodium 144 135 - 145 mmol/L Potassium, pl 3.9 3.3 - 4.9 mmol/L [facility] Chloride 107 97 - 110 mmol/L [facility] CO2 29 22 - 32 mmol/L [facility] Anion gap 8 2 - 15 mmol/L [facility] BUN 16 6 - 25 mg/dL [facility] Creatinine 0.74 0.60 - 1.10 mg/dL [facility] Glucose 89 70 - 199 mg/dL [facility] Comment: Interpretive Data Fasting glucose >/= 126 [...] classification and Diagnosis of Diabetes Diabetes Care 202; 46: S19-S40. Current interpretive data was last revised 2022. Calcium 9.5 8.5 - 10.3 mg/dL [facility] Bilirubin, total 0.4 0.1 - 1.2 mg/dL [facility] Protein, pl 7.1 6.5 - 8.5 g/dL [facility] Albumin 4.2 3.5 - 5.0 g/dL [facility] Alk phos 73 40 - 130 Units/L [facility] ALT 28 7 - 45 Units/L [facility] AST 22 10 - 45 Units/L [facility] Blood 10/22/2024 2:53 PM MESS COOK 10/22/2024 4:59 PM MESS COOK us Javed Ardon MD LAB BLOOD ORDERABLES Fi nal Result Performing Organization Address [facility]/ZIP Co de Phone Number [facility] Department [place] [address] * (ABNORMAL) POCT hemoglobin A1c (10/22/2024 1:35 PM MESS COOK) Hgb A1C, POC 6.3(H) 4.0 - 5.6 % Est Average Gluc POC 134 mg/dL [facility] Comment: The ADA recommends reporting an estimated Average Glucose (eAG) with all Hemoglobin A1c results using the equation derived from a study of 507 normal and diabetic adults. Minority populations were underrepresented and children were not included. (Diabetes Care 31:8728-9090, 2008). The eAG is not equivalent to a fasting glucose. Blood 10/22/2024 1:35 PM MESS COOK 10/22/2024 1:35 PM MESS COOK us Javed Ardon MD POINT OF CARE TEST ORDE HENRRY Final Result Performing Organization Address [facility] Co de Phone Number [facility] RANDHAWA [facility] Department [place] [address] * Neuro MR Outside Reference (10/14/2024 1:03 PM MESS COOK) Impressions RAD_PACS_[facility] - 10/14/2024 1:03 PM MESS COOK These images are for Reference purposes only and have not been reviewed by [facility] Radiology. There will be no report generated by a [facility] Radiologist. Narrative RAD_PACS_[facility] - 10/14/2024 1:03 PM MESS COOK EXAMINATION: Images For Reference Purposes Only us Javed Ardon MD IMG MRI PROCEDURES Ami l Result Performing Organization Address City/[facility] Co de Phone Number [facility]_P[facility] from Last 3 Months Insurance [facility] HMO REF [facility] Address: [address] [address] [place] [address] IDPA IDPA [facility] MEDICARE ADVANTAGE [facility] Address: [address] [address] [place] [address] [facility] MEDIC[facility] ADVANTAGE [facility] Address: [address] [address] [place] [address] IDPA Advance Directives For more information, please contact: [phone] * Full Code (Latest Code Status on File) Date Activated Date Inactivated Comments 10/31/2024 2:09 PM 11/02/2024 6:07 PM * Full Code Date Activated Date Inactivated Comments 02/19/2024 4:25 PM 02/22/2024 5:52 PM * Full Code Date Activated Date Inactivated Comments 02/09/2024 2:53 PM 02/10/2024 4:09 PM Care Teams Pipe And Test Supervisor Relationship Specialty Start Date End Date Marely Mcclure PA PCP - General Physician Spool Carrier 02/16/22 Manisha White MD [address] [facility], [address] [address] Consulting Physician Pain Management 05/10/24 Ashley Walker MD [address] [place] [address] Referring Physician Family Medicine 05/29/24 Edilia Hanna MD [address] [address] Referring Physician Family Practice 08/06/24
--- OUTSIDE RECORDS SUMMARY | 2024-12-31 16:31 | XMS_ITS | Clinical Summary ---
Author Organization [facility] Address [address] [place] [address] Care Team Providers Care Linecasting Machine Keyboard Operator Name Role Phone Rajan Huang MD Primary Care Provider [phone] Allergies Active Allergy Reactions Criticality Noted Date Comments Adhesive Tape-Silicones Rash Low 05/01/2019 Codeine Nausea and Vomiting Low 05/19/2021 Medications atorvastatin (LIPITOR) 80 mg tablet Active clonazePAM (KlonoPIN) 2 mg tablet Active gabapentin (NEURONTIN) 800 mg tablet Tid Active insulin glargine (LANTUS) 100 unit/mL vial Inject 20 Units by subcutaneous injection 2 times daily. Active albuterol (PROVENTIL,JEROME ARMANDO) 0.63 mg/3 mL Solution for Nebulization Take 0.63 mg by inhalation every 4 hours as needed for Shortness of Breath. Active fluticasone propionate (Flovent HFA) 110 mcg/actuation HFA Aerosol Inhaler Flovent HFA 110 mcg/actuation aerosol inhaler INL 2 PUFFS PO BID Active Insulin Syringe-Needle U-100 (TRUEplus Insulin) 0.5 mL 29 gauge x 1/2 Syringe TRUEplus Insulin 0.5 mL 29 gauge x 1/2 syringe Active blood sugar diagnostic (ONETOUCH ULTRA BLUE TEST STRIP [facility]) OneTouch Ultra Blue Test Strip Active ergocalciferol (VITAMIN D2) 50,000 unit capsule Vitamin D2 1,250 mcg (50,000 unit) capsule TK 1 C PO EVERY WEEK FOR 12 WEEKS Active citalopram (CeleXA) 40 mg tablet Take 40 mg by mouth daily. Active ALPRAZolam (XANAX) 1 mg tablet Take 1 mg by mouth 3 times daily as needed. 2 Active lisinopriL (PRINIVIL) 10 mg tablet Take 10 mg by mouth daily. 1 Active propranoloL (INDERAL) 40 mg tablet Take 40 mg by mouth 2 times daily. Active liraglutide (VICTOZA) 0.6 mg/0.1 mL (18 mg/3 mL) Inject by subcutaneous injection daily. Active Active Problems Problem Noted Date Diagnosed Date Anemia of chronic renal failure, stage 3 (modera te) 05/19/2021 Other dietary vitamin B12 deficiency anemia 05/09 Iron deficiency anemia 05/19/2021 Encounters Date Type Department Care Team Description 11/26/2024 External Device Data STL ABSTRACTION Provider, Abstract 11/21/2024 9:45 AM LIVESTOCK RANCHER Office Visit [facility] Oncology and Hematology - [place] [address] [place] [phone] Feliberto Vizcarra MD Chronic anemia (Primary Dx) 11/05/2024 External Device Data STL ABSTRACTION Provider, Abstract 10/30/2024 External Device Data STL ABSTRACTION Provider, Abstract 10/30/2024 External Device Data STL ABSTRACTION Provider, Abstract from Last 3 Months Family History Medical History Relation Name Comments Cancer Brother Colon Cancer Father Heart Disease Father Tongue Cancer Father Relation Name Status Comments Brother Father Mother Sister Alive Son Alive Social History Tobacco Use Types Packs/Day Years Used Date Smoking Tobacco: Never Smokeless Tobacco: Never Tobacco Cessation:Counseling Given: Not Answered Alcohol Use Standard Drinks/Week Comments Yes 0 (1 standard drink = 0.6 oz pur e alcohol) Comments No Sex and Gender Information Value Date Recorded Sex Assigned at Not on file Legal Sex Female 1:51 PM CDT Gender Identity Not on file Sexual Orientation Not on file Last Filed Vital Signs Vital Sign Reading Time Taken Comments Blood Pressure 172/97 11/21/2024 10:08 AM LIVESTOCK RANCHER Pulse 82 11/21/2024 10:04 AM LIVESTOCK RANCHER Temperature 36.6 C (97.9 F) 11/21/2024 10:04 AM LIVESTOCK RANCHER Respiratory Rate 15 11/21/2024 10:04 AM LIVESTOCK RANCHER Oxygen Saturation 96% 11/21/2024 10:04 AM LIVESTOCK RANCHER Inhaled Oxygen Concentration - - Weight 51.7 kg (114 lb) 11/21/2024 10:04 AM LIVESTOCK RANCHER Height 165.1 cm (5' 5 ) 06/10/2022 10:45 AM CDT Body Mass Index 18.97 06/10/2022 10:45 AM CDT Plan of Treatment Upcoming Encounters Date Type Department Care Team (Late st Contact Info) Description 02/14/2025 12:30 PM CDT Office Visit [facility] Oncology and Hematology - [place] [address] [place] [address] Feliberto Vizcarra MD [address] [facility] [address] [place] [address] Health Maintenance Due Date Last Done Comments DIABETES ANNUAL FOOT EXAM 1978 DIABETES ANNUAL RETINAL EXAM 1978 DIABETES MICROALBUMIN ANNUAL SCREEN 1978 LDL CHOLESTEROL ANNUAL 1978 PAP SMEAR 1981 HPV/Cotest 1990 BREAST CANCER SCREENING 2000 COLORECTAL SCREENING 2005 Colorectal Cancer Screening 2005 FIT-DNA Q 3 years 2005 FIT/FOBT Q 1 year 2005 Flex Sig/CT Colonography Q 5 years 2005 ZOSTER VACCINE (1 of 2) 2010 RSV VACCINE (60+ or ) (1 - Risk 60-74 years 1-dose series) 2020 INFLUENZA VACCINE (#1) 2024 09/12/2013 DIABETES HBA1C Q 6 MONTHS 04/21/2025 10/22/2024, CERVICAL CANCER SCREENING 09/13/2027 PAP SMEAR 09/13/2027 09/13/2024 DTAP/TDAP/TD VACCINES (2 - Td or Tdap) 05/22/[address] [place] [place] [id number] [place] Care Teams Linecasting Machine Keyboard Operator Relationship Specialty Start Date End Date Rajan Huang MD [address] [facility] [address] [place] [address] PCP - General Internal Medicine 12/28/22
--- OUTSIDE RECORDS SUMMARY | 2024-12-31 16:31 | XMS_ITS ---
Author Organization 1 OF [facility] [employer] Address [address] [facility] [address] [place] [address] Care Team Providers Care Freezer Person Name Role Phone Marely Mcclure Primary Care Provider Vishnu Harris [phone] REASON FOR VISIT DFC (Diabetic foot care) Encounters Encounter Location Date Provider Diagnosis [facility] [address] [facility] [address] [place] [address] 02/09/2024 Vishnu Bradshaw Plan Of Treatment No Information Progress Notes * Linda BHAKTADOB:1960 (64 yo F)Acc No.[id number]:02/09/2024 Progress Note Patient: Linda LI Provider: Zackary Bradshaw DPM :1960 A ge:63 Y S ex:Female Date:02/09/2024 Address:[address] [facility] Pcp:Marely Mcclure Subjective: * Chief Complaints: * 1 . DFC (Diabetic foot care). * Medical History: Objective: * Vitals: Assessment: Plan: * Treatment: * Images: * Electronic signature of Vishnu Bradshaw DPM on 12/31/2024 at 04:31 PM CDT Sign off status: Pending * Provider: Zackary Bradshaw DPM Date: 0 02/09/2024 Generated for Printi ng/Faxing/eTransmitting on: 0 12/31/2024 04:31 PM CDT
--- OUTSIDE RECORDS SUMMARY | 2024-12-31 16:31 | XMS_ITS | Clinical Summary ---
Author Organization [facility] Address [address] [address] Phone Care Team Providers Care Community Service Director Name Role Phone Unavailable Primary Care Provider Unavailabl e Allergies Active Allergy Reactions Criticality Noted Date Comments Codeine 04/01/2022 Latex 04/06/2022 Medications Medication Sig Dispensed Refills Start Date End Date Status calcium carbonate-vitamin D 600-400 MG-UNIT per tablet Take 1 tablet by mouth 2 (two) times a day Active gabapentin (NEURONTIN) 800 MG tablet Take 800 mg by mouth 3 (three) times a day Active atorvastatin (LIPITOR) 10 MG tablet Take 10 mg by mouth 1 (one) time each day Active liraglutide (Victoza) 18 MG/3ML injection Inject 1.2 mg under the skin 1 (one) time each day Active insulin glargine (LANTUS) 100 UNIT/ML injection Inject 20 Units under the skin 2 (two) times a day Active lisinopril (PRINIVIL) 10 MG tablet Take 10 mg by mouth 1 (one) time each day Active citalopram (CeleXA) 40 MG tablet Take 40 mg by mouth 1 (one) time each day Active ALPRAZolam (XANAX) 0.5 MG tablet Take 0.5 mg by mouth 3 (three) times a day if needed for anxiety Active doxepin (SINEquan) 25 MG capsule Take 25 mg by mouth every night 1-2 tab(s) at bedtime Active Active Problems Problem Noted Date Diagnosed Date Degeneration of lumbar intervertebral disc 09/06 Status post gastric bypass 07/06/2022 Chronic kidney disease, stage 2 (mild) 2 Essential hypertension 04/01/2022 Proliferative retinopathy due to diabetes mellit us 04/01/2022 Diabetes mellitus 04/01/2022 Resolved Problems Problem Noted Date Diagnosed Date Resolved Date Recurrent urinary tract infection 04/01/2022 01/27/2023 Anemia 04/01/2022 04/01/2022 Anemia in chronic kidney disease 04/01/2022 01/27/2023 Family History Medical History Relation Comments Cancer Brother Cancer Father Diabetes Father Heart disease Father Diabetes Mother Kidney disease Mother Relation Status Comments Brother Other of cancer a t age 52 Father Other leg amputation a nd malignant tumor of tongue Mother Other had a nephrectom y Social History Tobacco Use Types Packs/Day Years Used Date Smoking Tobacco: Never Smokeless Tobacco: Never Alcohol Use Standard Drinks/Week Comments Never 0 (1 standard drink = 0.6 oz pur e alcohol) Sex and Gender Information Value Date Recorded Sex Assigned at Not on file Gender Identity Not on file Sexual Orientation Not on file Last Filed Vital Signs Vital Sign Reading Time Taken Comments Blood Pressure 108/60 09/06/2023 3:49 PM INTEGRATED CIRCUIT IC LAYOUT DESIGNER Pulse 64 09/06/2023 3:49 PM [employer]TEGRATED [employer] IC LAYOUT DESIGNER Temperature - - Respiratory Rate - - Oxygen Saturation - - Inhaled Oxygen Concentration - - Weight 58.5 kg (129 lb) 09/06/2023 3:49 PM INTEGRATED [employer] IC LAYOUT DESIGNER Height 165.1 cm (5' 5 ) 09/06/2023 3:49 PM INTEGRATED [employer] IC LAYOUT DESIGNER Body Mass Index 21.47 09/06/2023 3:49 PM INTEGRATED CIRCUIT IC LAYOUT DESIGNER Plan of Treatment Upcoming Encounters Date Type Department Care Team ([facility] st Contact Info) Description 01/29/2025 1:40 PM CDT Office Visit [facility] [address] [facility] [address] [place] [address] Barbie Venegas MD [address] [place] [address] [phone] Health Maintenance Due Date Last Done Comments Diabetic Foot Exam 1970 Ophthalmology Exam 1970 Pneumococcal PPSV23 Highest Risk Adult (1 of 3 - PCV13 ) 1979 Influenza Vaccine (#1) 2024
--- OUTSIDE RECORDS SUMMARY | 2024-12-31 16:31 | XMS_ITS | Clinical Summary ---
Author Organization [facility] Address [address] [place] [address] Care Team Providers Care Tin Roofer Name Role Phone Marely Mcclure PA-C Primary Care Provider [phone] Allergies Active Allergy Reactions Criticality Noted Date Comments Tape Rash Low 05/01/2019 Codeine Nausea and Vomiting Low 05/19/2021 Acetaminophen-Codeine Nausea and Vomiting 12/21 Medications insulin glargine 100 UNIT/ML injection (VIAL) Inject 20 Units into the skin 2 (two) times daily. Active ALPRAZolam (XANAX) 0.5 MG tablet TAKE 1 TABLET BY MOUTH THREE TIMES DAILY NEEDED Orally Three times a day as needed for extreme anxiety. for 30 days 10/11/19 23 Active atorvastatin (LIPITOR) 10 MG tablet Take 1 tablet (10 mg total) by mouth. Active citalopram (CELEXA) 40 MG tablet Take 1 tablet (40 mg total) by mouth daily. 11/26/19 23 Active vitamin D2, ergocalciferol, (DRISDOL) 1.25 mg capsule Vitamin D2 1,250 mcg (50,000 unit) capsule TK 1 C PO EVERY WEEK FOR 12 WEEKS Active gabapentin (NEURONTIN) 800 MG tablet Take 1 tablet (800 mg total) by mouth 3 (three) times daily. 01/19/20 23 Active Misc. Devices MiscIndications:Altagracia mbar spine instability 1 each by Does not apply route continuous. LSO for continuous wear while ambulating or up in chair. 1 each 04/28/20 23 Active RESTASIS 0.05 % ophthalmic emulsion Place 1 drop into both eyes 2 (two) times daily. 09/29/20 23 Active lisinopril (PRINIVIL) 10 MG tablet Take 1 tablet (10 mg total) by mouth daily. 07/07/20 23 Active mirtazapine (REMERON JESSICA-TAB) 15 MG disintegrating tablet DISSOLVE 1 TABLET ON THE TONGUE EVERY DAY AT BEDTIME 09/25/20 23 Active OZEMPIC, 0.25 OR 0.5 MG/DOSE, 2 MG/3ML injection (PEN) INJECT 0.5MG EVERY WEEK BY SUBCUTANEOUS ROUTE 10/19/19 24 Active Active Problems Problem Noted Date Diagnosed Date Spondylolisthesis of lumbosacral region 04/26/20 23 Other intervertebral disc degeneration, lumbar r egion 04/26/2023 Spinal stenosis, lumbar dorothy on without neurogenic claudication 04/26/2023 Facet hypertrophy of lumbar region 04/26/2023 Foraminal stenosis of lumbar region 04/26/2023 Chronic midline low back pain with bilateral sci atica 02/20/2023 Weakness of left leg 02/20/2023 Lumbar radiculopathy 02/20/2023 Cellulitis 05/01/2019 Social History Tobacco Use Types Packs/Day Years Used Date Smoking Tobacco: Never Smokeless Tobacco: Never Tobacco Cessation:Counseling Given: Not Answered Alcohol Use Standard Drinks/Week Comments No 0 (1 standard drink = 0.6 oz pur e alcohol) occasional AUDIT-C Answer Date Recorded Frequency of Alcohol Consumption Never 05/01/2019 Average Number of Drinks Not on file 019 Frequency of Binge Drinking Not on file 04/09 Comments No Sex and Gender Information Value Date Recorded Sex Assigned at Not on file Legal Sex Female 8:21 PM CDT Gender Identity Not on file Sexual Orientation Not on file Last Filed Vital Signs Vital Sign Reading Time Taken Comments Blood Pressure 138/88 10/23/2023 1:20 PM OBSERVER HELPER Pulse 70 10/23/2023 1:20 PM OBSERVER HELPER Temperature 37 C (98.6 F) 10/23/2023 1:20 PM OBSERVER HELPER Respiratory Rate 20 12/21/2022 9:27 PM CDT Oxygen Saturation 98% 10/23/2023 1:20 PM OBSERVER HELPER Inhaled Oxygen Concentration - - Weight 64.4 kg (142 lb) 10/23/2023 1:20 PM OBSERVER HELPER Height 160 cm (5' 3 ) 10/23/2023 1:20 PM OBSERVER HELPER Body Mass Index 25.15 10/23/2023 1:20 PM OBSERVER HELPER Plan of Treatment Health Maintenance Due Date Last Done Comments Cervical Cancer Screening Pap Smear (Age 30 to 64) Every 3 Years 1960 Colorectal Cancer Screening Colonoscopy (10 Years) 1960 Annual Physical 1963 PHQ-2 (Physician [place]) 1972 Hepatitis C 1978 Cervical Cancer Screening Pap with HPV Testing (Age 30 to 64) Every 5 Years 1990 Cervical Cancer Screening with HPV 1990 Mammogram Screening 2000 Zoster Vaccines (1 of 2) 2010 COVID-19 Vaccine ( season) 2024 10/19/2021, 02/09/2021, 02/09/2021, Additional history exists Influenza Adult (#1) 2024 09/12/2013 PHQ-2 (Physician [place]) 10/09/2024 DTaP, Tdap and Td Vaccines (2 - Td or Tdap) 05/22/2033 05/22/2023 RSV Immunization or 60+ Years (1 - 1-dose 75+ series) 2035 Pneumococcal Vaccine: Pediatrics (0 to 5 Years) and At-Risk Patients (6 to 64 Years) Aged Out 01/02/2023 No longer eligible based on patient's age to complete this topic Meningococcal B Vaccine Aged Out No l onger eligible based on patient's age to complete this topic Meningococcal Vaccine Aged Out No caitlin noemí eligible based on patient's age to complete this topic RSV Immunizations Under 20 Months Aged Out No longer eligible based on patient's age to complete this topic Insurance MEDICAID Advance Directives * Full Code (Latest Code Status on File) Date Activated Date Inactivated Comments 05/01/2019 6:30 AM 05/01/2019 4:45 PM Care Teams Tin Roofer Relationship Specialty Start Date End Date Marely Mcclure PA-C [address] [place] [id number] PCP - General NURSE PRACTITIONER 03/09/23
--- OUTSIDE RECORDS SUMMARY | 2024-12-31 16:31 | XMS_ITS ---
Author Organization [facility] Address [address] [place] [address] Care Team Providers Care Golf Professional Name Role Phone Mike Chacko Primary Care Provider Allergies Allergen (clinical drug ingredient) Drug/Non Drug Allergy documented on EMR Reaction Allergy Type Onset Date Status codeine Codeine nausea and vomiting Drug Allergy Active REASON FOR VISIT last seen 05/07/24--2 month f u Medications Medication SIG (Take, Route, Frequency, Duration) Notes Start Date End Date Status Percocet 10-325 MG 1 tablet as needed Orally every 6 hrs Not-Taking Lisinopril 10 MG 1 tablet Orally Once a day for 30 day(s) Not-Taking Lantus 100 UNIT/ML as directed Subcutaneous Active Gabapentin 800 MG 1 tablet Orally Once a day for 30 day(s) Active HYDROcodone-Acetamin ophen 10-650 MG as directed Orally Client states takes in twice a day Active Victoza 18 MG/3ML as directed Subcutaneous 1.9 DAILY Active ALPRAZolam 0.5 MG 1 tablet Orally Once a day as needed for anxiety for 30 days 08/28/2024 Active Citalopram Hydrobromide 40 MG TAKE 1 TABLET BY MOUTH EVERY DAY Orally Once a day for 30 days Active Eszopiclone 2 MG 1 tablet immediately before bedtime as needed for insomnia Orally Once a day. Do NOT take with alcohol or opioids. for 30 days 08/28/2024 Active Problems Problem Type SNOMED Code ICD Code Onset Dates Problem Status W/U Status Risk Notes Problem Insomnia ([id number]) Insomnia disorder (G47.00) Active confirmed Encounters Encounter Location Date Provider Diagnosis [address] [place] [address] 08/28/2024 Mike Chacko MDD (major depressive disorder), recurrent episode, moderate F33.1 ; MENDY (generalized anxiety disorder) F41.1 and Insomnia disorder G47.00 Assessments Encounter Date Diagnosis (ICD Code) Assessment Notes Treatment Notes Treatment Clinical Notes Section Notes 08/28/2024 MDD (major depressive disorder), recurrent episode, moderate (ICD-10 - F33.1) Discussed with client a trial of generic Lunesta for chronic insomnia. Has failed all other non-hypnotic sleep aides. She is agreeable. Educated client to not take Lunesta with any other sedative agents due to risks of respiratory depression and client verbalizes understanding. 08/28/2024 MENDY (generalized anxiety disorder) (ICD-10 - F41.1) Discussed with client a trial of generic Lunesta for chronic insomnia. Has failed all other non-hypnotic sleep aides. She is agreeable. Educated client to not take Lunesta with any other sedative agents due to risks of respiratory depression and client verbalizes understanding. 08/28/2024 Insomnia disorder (ICD-10 - G47.00) Discussed with client a trial of generic Lunesta for chronic insomnia. Has failed all other non-hypnotic sleep aides. She is agreeable. Educated client to not take Lunesta with any other sedative agents due to risks of respiratory depression and client verbalizes understanding. 08/28/2024 [place]. Client educated to not take eszopliclone with any other sedative agents due to risks of respiratory depression. She verbalizes understanding. Discussed sleep hygiene and caffeine intake with encouragement to limit electronic devices an hour before bed and to limit caffeine after 3:00pm. Exercise benefits for mood and health discussed. Psychoeducation regarding psychiatric illness provided. Client was educated about risks and benefits of medication, alternatives to medication, off label uses of medication, suicidal ideation with SSRIs, self-administratio n and compliance with medication along with how to safely store medication. Verbal informed consent obtained. Client agrees to return sooner if symptoms worsen or if suicidal or homicidal ideations occur. Client has the phone number to the 24-hour crisis line at [facility]. Questions addressed. Client verbalized understanding of all information and is agreeable to treatment plan. Discussed with client a trial of generic Lunesta for chronic insomnia. Has failed all other non-hypnotic sleep aides. She is agreeable. Educated client to not take Lunesta with any other sedative agents due to risks of respiratory depression and client verbalizes understanding. Plan Of Treatment Medication Medication Name Sig Start Date Stop Date Notes ALPRAZolam 0.5 MG 1 tablet Orally Once a day as needed for anxiety for 30 days 08/28/2024 Citalopram Hydrobromide 40 MG TAKE 1 TAB LET BY MOUTH EVERY DAY Orally Once a day for 30 days Eszopiclone 2 MG 1 tablet immediately before bedtime as needed for insomnia Orally Once a day. Do NOT take with alcohol or opioids. for 30 days 08/28/2024 Treatment Notes Assessment Notes [place] issues noted. Client educated to not take eszopliclone with any other sedative agents due to risks of respiratory depression. She verbalizes understanding. Discussed sleep hygiene and caffeine intake with encouragement to limit electronic devices an hour before bed and to limit caffeine after 3:00pm. Exercise benefits for mood and health discussed. Psychoeducation regarding psychiatric illness provided. Client was educated about risks and benefits of medication, alternatives to medication, off label uses of medication, suicidal ideation with SSRIs, self-administration and compliance with medication along with how to safely store medication. Verbal informed consent obtained. Client agrees to return sooner if symptoms worsen or if suicidal or homicidal ideations occur. Client has the phone number to the 24-hour crisis line at [facility]. Questions addressed. Client verbalized understanding of all information and is agreeable to treatment plan. Next Appt Details Follow Up: 4 Weeks - 6 Weeks , Reason: Medication management - can be telehealth appt. or in office. Progress Notes * Linda BHAKTADOB:1960 (64 yo F)Acc No.[id number]:08/28/2024 Patient: Linda LI Provider: Zackary Chacko DNP, PMHNP-BC :1960 A ge:64 Y S ex:Female Date:08/28/2024 [address] [id number] Subjective: * Chief Complaints: * L ast seen 05/07/24--2 month f u * HPI: D epression Screening: PHQ-9 L ittle interest or pleasure in doing things S everal days, F eeling down, depressed, or hopeless S everal days, T rouble falling or staying asleep, or sleeping too much N early every day, F eeling tired or having little energy More than half the days, P oor appetite or overeating M ore than half the days, F eeling bad about yourself or that you are a failure, or have let yourself or your family down N ot at all, T rouble concentrating on things, such as reading the newspaper or watching television?Several days, M oving or speaking so slowly that other people could have noticed; or the opposite, being so fidgety or restless that you have been moving around a lot more than usual S everal days, T houghts that you would be better off or of hurting yourself in some way N ot at all, T otal Score 1 1, I nterpretation M oderate Depression. S creening: [place] Suicide Severity Rating Scale (LF) D o you want to initiate with S creener form, 6 . Suicide Behaviour: Have you ever done anything,started to do anything, or prepared to end your life? N o, 2 . Suicidal Thoughts: Have you actually had any thoughts of killing yourself? N o, 1 . Wish to be : Have you wished you were or wished you could go to sleep and not wake up? N o. C SSRS Interpretation and Follow Up Plan: CSSRS Interpretation and Follow Up Plan. CSSRS Interpretation and Follow Up Plan M oderate or High risk requires selection of a follow up plan C SSRS Moderate/high: Warm hand off to Behavioral Health Clinician - Client talked with this provider. Denies method, plan, or intent. Denies needing crisis intervention at this time. Verified with client that they have access to crisis numbers if and as needed.. C onstitutional: Session conducted telephonically per client's permission. The patient has been recovering well from a recent hip surgery, with improved mobility as she is now able to walk again. However, she had to postpone her back surgery due to lack of care support.? The patient has experienced significant weight loss, dropping to 116 lbs from 200 lbs since 2013. She attributes this weight loss to decreased appetite and lack of sleep. She has been struggling with sleep since she was 12 years old, which has been a long-standing issue for her. She has been taking Trazodone 150 milligrams for sleep (left over 50 mg pills she had access to), which helps her sleep for about four hours. However, she mentioned that she has been feeling more stressed during the months of August and September due to past traumatic experiences. I can't sleep more than 3-4 hours every few days. Its just awful. I don't know what to do. The patient denied any risky behaviors such as impulsive spending. She also denied any diagnosis of bipolar disorder but mentioned that her sister has been diagnosed with bipolar a nd is on [place]. Screenings for bipolar disorder somewhat vague. However, client adament that her sleep issues are r/t her past trauma and responsibilities in childhood. States she had her sleep study in [place] but that it showed nothing. I just sat up all night with the doctors. I couldn't fall asleep at all. So it didn't show anything. Has trialed trazodone, mirtazapine, ramelteon, doxepin a ll failed for sleep. This is ongoing issue. Client stopped mirtazapine because she didn't like it, that it made her too hungry. S mykel she spent her summer babysitting her 9 year old autistic grandson and doing physical therapy on her leg s/p hip replacement. That she is still dealing with a lot of chronic pain. T hat overall her depression has been good. Client denies SI/HI, denies hallucinations/paranoia, mild anxiety with breakthrough high at times, mild depression r/t chronic pain and health issues. Suffers chronic insomnia. BACKGROUND: First contact at age 33 when client was dx with anxiety and depression, no hospitalizations. Had a gastric bypass in 2013. Has lost over 100 pounds but now has hanging skin that she feels self-conscious about. Mother and sister attempted suicide multiple times. Client denies hx of substance abuse other than smoking marijuana. Both parents , has 2 siblings and a child and does not have a relationship with them. Has her GED, denies legal issues. Not but calls BF and his mother her [id number]. M ood Disorder Questionnaire: Administration Y ou felt so good or so hyper N o .,?You were irritable N o ., Y ou felt more self-confident than usual Y es ., Y ou got less sleep than usual but did not miss it Y es ., Y ou were more talkative or spoke faster Yes ., Y our thoughts raced or you could not slow thoughts down Y es ., Y ou were easily distracted, had trouble concentrating Y es ., Y ou had more energy than usual Y es ., Y ou were more active or doing many things than usual Y es ., Y ou were more social than usual N o ., Y ou were more interested in sex than usual N o ., Y ou did things that were risky, excessive or foolish N o ., S pending money got you or your family in trouble N o ., I f yes to more than one above, have several happened at the same period of time? Y es ., H ow much of a problem did thse cause you? M inor problem ., H ave any blood relatives had bioplar disorder Y es Sister, H as a healthcare provider said you have bipolar disorder? N o ., D ate of Administration 10/28/2023 .. * ROS: P sych ROS: Constitutional D enies. E yes R eports, g lasses, macular degeneration. E ars/Nose/Mouth/Throat D enies. R espiratory D enies. A llergic/Immunologic D enies. C ardiovascular D enies. G I R eports, g astric bypass hx now has some issues r/t this. G U D enies. M usculoskeletal R eports,?DJD,, joint pain , muscle weakness, chronic pain,arthritis, back pain. N eurological D enies. I ntegumentary 3 0lbs extra skin. E ndocrine R eports, D M. H ematological/Lymphatic D enies. * Medical History: * Surgical History: c arpal tunnel tendenitis right hand / elbow and left hand elbow surgery April 2021gall bladder removal * Hospitalization/Major Diagno stic Procedure: A [facility]I 04/2021 * Family History: F ather: . M other: , diagnosed with Suicide attempt. S iblings: diagnosed with Suicide attempt. Mother and sister attempted suicide multiple times Has 2 siblings and 1 child (no relationship with) Denies abuse and trauma Childhood: confusing, alcoholism . * Social History: P alicia Social History: L iving Arrangement L iving Arrangement: I ndependent Living, I s this a supportive environment? Y es. I llicit Substance Usage I llicit Substance Usage: Y es, S ubstance Used: Timothy osorio, I nterested in quitting: N o. L silvana alone in [place] Has fiancee Sig losses (mom, dad, brother, grandparents) Denies legal issues. * Medications: T akingVictoza 18 MG/3ML Solution Pen-injector as directed Subcutaneous , Notes to Pharmacist: 1.9 DAILYHYDROcodone-Acetaminophen 10-650 MG Tablet as directed Orally , Notes to Pharmacist: Client states takes in twice a dayGabapentin 800 MG Tablet 1 tablet Orally Once a day Lantus 100 UNIT/ML Solution as directed Subcutaneous ALPRAZolam 0.5 MG Tablet 1 tablet Orally Once a day as needed for anxiety Citalopram Hydrobromide 40 MG Tablet TAKE 1 TABLET BY MOUTH EVERY DAY Orally Once a day Taking Victoza 18 MG/3ML Solution Pen-injector as directed Subcutaneous , Notes to Pharmacist: 1.9 DAILYTaking HYDROcodone-Acetaminophen 10-650 MG Tablet as directed Orally , Notes to Pharmacist: Client states takes in twice a dayTaking Gabapentin 800 MG Tablet 1 tablet Orally Once a day Taking Lantus 100 UNIT/ML Solution as directed Subcutaneous Taking ALPRAZolam 0.5 MG Tablet 1 tablet Orally Once a day as needed for anxiety Taking Citalopram Hydrobromide 40 MG Tablet TAKE 1 TABLET BY MOUTH EVERY DAY Orally Once a day Not-TakingLisinopril 10 MG Tablet 1 tablet Orally Once a day Percocet 10-325 MG Tablet 1 tablet as needed Orally every 6 hrs Not-Taking Lisinopril 10 MG Tablet 1 tablet Orally Once a day Not-Taking Percocet 10-325 MG Tablet 1 tablet as needed Orally every 6 hrs * Allergies: C odeine: nausea and vomitingno[Allergies Verified] Objective: * Vitals: * Examination: G eneral Examination: Mental Status Exam A ttitude and Behavior C ooperativeMood S table, EuthymicAffect B road/Full , BrightSpeech A ppropriateThought Process C oherent and Goal DirectedHallucinations D eniesThought Content A ppropriateDelusions N one Evident or IdentifiedSuicidal Ideation D enies Current Thoughts/PlansHomicidal Ideation D enies Current IntentInsight F airJudgement F airSensorium and Cognition A lertOriented to P erson, Place, TimeAttention and Concentration N o DeficitsFund of Knowledge F air. Assessment: * Assessment: 1. G AD (generalized anxiety disorder) - F41.1 2 . M DD (major depressive disorder), recurrent episode, moderate - F33.1 (Primary) 3 . I nsomnia disorder - G47.00 Discussed with client a consuelo tellez of generic Lunesta for chronic insomnia. Has failed all other non-hypnotic sleep aides. She is agreeable. Educated client to not take Lunesta with any other sedative agents due to risks of respiratory depression and client verbalizes understanding. Plan: * Treatment: 2. G AD (generalized anxiety disorder) Refill ALPRAZolam Tablet, 0.5 MG, 1 tablet, Orally, Once a day as needed for anxiety, 30 days, 30, Refills 1. 3. I nsomnia disorder Start Eszopiclone Tablet, 2 MG, 1 tablet immediately before bedtime as needed for insomnia, Orally, Once a day. Do NOT take with alcohol or opioids., 30 days, 30, Refills 1. 4. O thers Notes: [place]. Client educated to not take eszopliclone with any other sedative agents due to risks of respiratory depression. She verbalizes understanding. Discussed sleep hygiene and caffeine intake with encouragement to limit electronic devices an hour before bed and to limit caffeine after 3:00pm. Exercise benefits for mood and health discussed. Psychoeducation regarding psychiatric illness provided. Client was educated about risks and benefits of medication, alternatives to medication, off label uses of medication, suicidal ideation with SSRIs, self-administration and compliance with medication along with how to safely store medication. Verbal informed consent obtained. Client agrees to return sooner if symptoms worsen or if suicidal or homicidal ideations occur. Client has the phone number to the 24-hour crisis line at [facility]. Questions addressed. Client verbalized understanding of all information and is agreeable to treatment plan. * Recommended Wellness and Pre vention Guidelines: * S tatus A lert L ast Done N ext Due A ction Taken N ONCOMPLIANT B alec Mass Index - 1 10/28/2023 - N ONCOMPLIANT B reast cancer screening - 1 10/28/2023 - N ONCOMPLIANT C ervical cancer screening - 1 10/28/2023 - N ONCOMPLIANT C olorectal cancer screening - 1 10/28/2023 - N ONCOMPLIANT H IV screening - 1 10/28/2023 - N ONCOMPLIANT I nfluenza vaccine (over 50) - 1 10/28/2023 - * Procedure Codes: G 2024 [facility] TELE[facility] EST PATIENT [id number] CLIN DEPRESSION SCREEN DOC * Follow Up: 4 Weeks - 6 Weeks (Reason: Medication management - can be telehealth appt. or in office.) * * SURE SEALER AND TESTER Sign off status: Completed true * Provider: Zackary Chacko DNP, PMHNP- Date: 1 10/28/2023 Generated for Marivel chung/Nathaniel/eTransmitting on: 0 12/31/2024 04:31 PM CDT History and Physical Notes * HPI (History of Present Illness) Category Sub-Category Detail Notes Category Not es Depression Screening PHQ-9 Little inte rest or pleasure in doing things: Several days Feeling down, depressed, or hopeless: Se veral days Trouble falling or staying asleep, or sl eeping too much: Nearly every day Feeling tired or having little energy: M ore than half the days Poor appetite or overeating: More than h desi the days Feeling bad about yourself o r that you are a failure, or have let yourself or your family down: Not at all Trouble concentrating on thi ngs, such as reading the newspaper or watching television: Several days Moving or speaking so slowly that other people could have noticed; or the opposite, being so fidgety or restless that you have been moving around a lot more than usual: Several days Thoughts that you would be b armando off or of hurting yourself in some way: Not at all Total Score: 11 Interpretation: Moderate Depression Mood Disorder Questionnaire Administration You felt so goo d or so hyper: No . You were irritable: No . You felt more self-confident than usual: Yes . You got less sleep than usual but did no t miss it: Yes . You were more talkative or spoke faster: Yes . Your thoughts raced or you could not slo w thoughts down: Yes . You were easily distracted, had trouble concentrating: Yes . You had more energy than usual: Yes . You were more active or doing many thing s than usual: Yes . You were more social than usual: No . You were more interested in sex than usu al: No . You did things that were risky, excessiv e or foolish: No . Spending money got you or your family in trouble: No . If yes to more than one abov e, have several happened at the same period of time?: Yes . How much of a problem did thse cause you ?: Minor problem . Have any blood relatives had bioplar dis order: Yes Sister Has a healthcare provider said you have bipolar disorder?: No . Date of Administration: 08/28/2024 . Screening [place] Suicide Sev erity Rating Scale (LF) Do you want to initiate with: Screener form 6. Suicide Behavior Question: Have you ever done anything,started to do anything, or prepared to end your life?: No 2. Suicidal Thoughts: Have you actually had any thoughts of killing yourself?: No 1. Wish to be : Have you wished you were or wished you could go to sleep and not wake up?: No Do Not Use CSSRS Interpretation and Follow Up Plan CSSRS Interpretation and Follow Up Plan Moderate or High risk requires selection of a follow up plan: CSSRS Moderate/high: Warm hand off to Behavioral Health Clinician - Client talked with this provider. Denies method, plan, or intent. Denies needing crisis intervention at this time. Verified with client that they have access to crisis numbers if and as needed. Examination Category Sub-Category Detail Notes Category Not es General Examination Mental Status Exam Attitude and Behavior: Cooperative Mood: Stable, Euthymic Affect: Broad/Full , Bright Speech: Appropriate Thought Process: Coherent and Goal Direc lukas Hallucinations: Denies Thought Content: Appropriate Delusions: None Evident or Identified Suicidal Ideation: Denies Current Though ts/Plans Homicidal Ideation: Denies Current Inten t Insight: Fair Judgement: Fair Sensorium and Cognition: Alert Oriented to: Person, Place, Time Attention and Concentration: No Deficits Fund of Knowledge: Fair
--- OUTSIDE RECORDS SUMMARY | 2024-12-31 16:31 | XMS_ITS ---
Author Organization [facility] Address [address] [place] [address] Care Team Providers Care Multimedia Teacher Name Role Phone Mike Chacko Primary Care Provider [phone] Allergies Allergen (clinical drug ingredient) Drug/Non Drug Allergy documented on EMR Reaction Allergy Type Onset Date Status codeine Codeine nausea and vomiting Drug Allergy Active REASON FOR VISIT 2 Month Psych F/U & Med Refill Medications Medication SIG (Take, Route, Frequency, Duration) Notes Start Date End Date Status Lisinopril 10 MG 1 tablet Orally Once a day for 30 day(s) Not-Taking Citalopram Hydrobromide 40 MG TAKE 1 TABLET BY MOUTH EVERY DAY Orally Once a day for 30 days Active Eszopiclone 2 MG 1 tablet immediately before bedtime as needed for insomnia Orally Once a day. Do NOT take with alcohol or opioids. 08/28/2024 Active ALPRAZolam 0.5 MG 1 tablet Orally Once a day as needed for anxiety for 30 days 10/23/2024 Active Percocet 10-325 MG 1 tablet as needed Orally every 6 hrs Not-Taking Lantus 100 UNIT/ML as directed Subcutaneous Active Gabapentin 800 MG 1 tablet Orally Once a day for 30 day(s) Active HYDROcodone-Acetamin ophen 10-650 MG as directed Orally Client states takes in twice a day Active Victoza 18 MG/3ML as directed Subcutaneous 1.9 DAILY Active Encounters Encounter Location Date Provider Diagnosis [address] [place] [address] 10/23/2024 Mike Chacko MDD (major depressive disorder), recurrent episode, moderate F33.1 ; MENDY (generalized anxiety disorder) F41.1 and Insomnia disorder G47.00 Assessments Encounter Date Diagnosis (ICD Code) Assessment Notes Treatment Notes Treatment Clinical Notes Section Notes 10/23/2024 MDD (major depressive disorder), recurrent episode, moderate (ICD-10 - F33.1) Have encouraged client to make in person appt for better assessment with lack of follow through on client's part. Again encouraged client to make future f/u in person though next appt will likely be telepsych due to upcoming back surgery. Client overall much the same. She is very resistant to idea of possible bipolarity, though questionable at this point given family history and continued symptoms. She does not want to start any new medications but remain only on Celexa and very low dose Xanax at present until after surgery. Will likely discuss adding low dose mood stabilizer in near future as trial to see if would help chronic insomnia and high leveled anxiety. 10/23/2024 MENDY (generalized anxiety disorder) (ICD-10 - F41.1) Have encouraged client to make in person appt for better assessment with lack of follow through on client's part. Again encouraged client to make future f/u in person though next appt will likely be telepsych due to upcoming back surgery. Client overall much the same. She is very resistant to idea of possible bipolarity, though questionable at this point given family history and continued symptoms. She does not want to start any new medications but remain only on Celexa and very low dose Xanax at present until after surgery. Will likely discuss adding low dose mood stabilizer in near future as trial to see if would help chronic insomnia and high leveled anxiety. 10/23/2024 Insomnia disorder (ICD-10 - G47.00) Have encouraged client to make in person appt for better assessment with lack of follow through on client's part. Again encouraged client to make future f/u in person though next appt will likely be telepsych due to upcoming back surgery. Client overall much the same. She is very resistant to idea of possible bipolarity, though questionable at this point given family history and continued symptoms. She does not want to start any new medications but remain only on Celexa and very low dose Xanax at present until after surgery. Will likely discuss adding low dose mood stabilizer in near future as trial to see if would help chronic insomnia and high leveled anxiety. [place]23[place]2024 [place]. Discussed sleep hygiene and caffeine intake with [...] number to the 24-hour crisis line at [facility]. Questions addressed. Client verbalized understanding of all information and is agreeable to treatment plan. Have encouraged client to make in person appt for better assessment with lack of follow through on client's part. Again encouraged client to make future f/u in person though next appt will likely be telepsych due to upcoming back surgery. Client overall much the same. She is very resistant to idea of possible bipolarity, though questionable at this point given family history and continued symptoms. She does not want to start any new medications but remain only on Celexa and very low dose Xanax at present until after surgery. Will likely discuss adding low dose mood stabilizer in near future as trial to see if would help chronic insomnia and high leveled anxiety. Plan Of Treatment Medication Medication Name Sig Start Date Stop Date Notes Citalopram Hydrobromide 40 MG TAKE 1 TAB LET BY MOUTH EVERY DAY Orally Once a day for 30 days Eszopiclone 2 MG 1 tablet immediately before bedtime as needed for insomnia Orally Once a day. Do NOT take with alcohol or opioids. 08/28/2024 ALPRAZolam 0.5 MG 1 tablet Orally Once a day as needed for anxiety for 30 days 10/23/2024 Treatment Notes Assessment Notes [place] issues [place]. Discussed sleep hygiene and caffeine intake with [...] number to the 24-hour crisis line at [facility]. Questions addressed. Client verbalized understanding of all information and is agreeable to treatment plan. Next Appt Details Follow Up: 4 Weeks, Reason: Medication management - can be telehealth appt. Progress Notes * Linda BHAKTADOB:1960 (64 yo F)Acc No.[id number]:10/23/2024 Patient: Linda LI Provider: Zackary Chacko DNP, PMP- :1960 A ge:64 Y S ex:Female Date:10/23/2024 Address:[facility] [address] [facility] Subjective: * Chief Complaints: * 2 Month Psych F/U & Med Refill * HPI: D epression Screening: PHQ-9 L [...] I nterpretation M oderate Depression. S creening: [place] Suicide Severity Rating Scale (LF) D o [...] sleep and not wake up? N o. D o Not Use CSSRS Interpretation and Follow Up Plan: CSSRS Interpretation [...] per client's permission. The patient has been dealing with chronic back pain and is scheduled for a major back surgery at [facility] in [facility] in six days. The procedure involves two surgeons with an anterior and posterior approach. The patient's spine is reportedly squished together , with the bones being [id number]. The patient has been experiencing significant anxiety and nervousness leading up to the surgery, even having what they described as a nervous breakdown. The patient also reported a painful arm, which they initially thought was due to a pinched nerve, but the pain persisted. The patient has been advised not to lift more than 5 lbs post-surgery. 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 Lunesta was written for at client's last appt and was filled in August. Client states she never started due to fears of taking pre-surgery. Unclear why client was fearful this far in advance.? Discussed that okay to take as long as not taken with pain medications. She states she wants to get past her surgery before trialing; that she doesn't want to get use to it and then not be able to take it. She has been struggling with sleep since she was 12 years old, which has been a long-standing issue for her. The patient denied any risky behaviors such as impulsive spending. She also denied any diagnosis of bipolar disorder but mentioned that her sister has been diagnosed with bipolar and is on Mimbres. Screenings for bipolar disorder somewhat vague. However, client adamant that her sleep issues are r/t her past trauma and responsibilities in childhood. States she had her sleep study in [place] but that it showed nothing. I just sat up all night with the doctors. I couldn't fall asleep at all. So it didn't show anything. Has trialed trazodone, mirtazapine, ramelteon, doxepin all failed for sleep. This is ongoing issue. Client stopped mirtazapine because she didn't like it, that it made her too hungry. S mykel she went 5 days with little sleep in recent past. That she had severe panic around this time. Unclear if mood stabilizer medication would be helpful for her but this might be something to look at in near future if these symptoms continue and this was briefly discussed. The patient also mentioned a future appointment to remove 25 lbs of excess skin following significant weight loss. She has been systemically trying to address her chronic health issues. 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 Client denies SI/HI, denies hallucinations/paranoia, mild anxiety [...] but calls BF and his mother her [id number]. * ROS: P sych ROS: Constitutional D [...] confusing, alcoholism . * Social History: P rimary Social History: L iving Arrangement L iving Arrangement: I ndependent Living, I s this a supportive environment? Y es. I llicit Substance Usage I llicit Substance Usage: Y es, S ubstance Used: Timothy osorio, I nterested in quitting: N o. L silvana alone in [place] Has fiancee Sig losses (mom, dad, brother, grandparents) Denies legal issues. * Medications: T akingVictoza 18 MG/3ML Solution Pen-injector as directed Subcutaneous , Notes to Pharmacist: 1.9 DAILYHYDROcodone-Acetaminophen 10-650 MG Tablet as directed Orally , Notes to Pharmacist: Client states takes in twice a dayGabapentin 800 MG Tablet 1 tablet Orally Once a day Lantus 100 UNIT/ML Solution as directed Subcutaneous Citalopram Hydrobromide 40 MG Tablet TAKE 1 TABLET BY MOUTH EVERY DAY Orally Once a day ALPRAZolam 0.5 MG Tablet 1 tablet Orally Once a day as needed for anxiety Taking Victoza 18 MG/3ML Solution Pen-injector as directed Subcutaneous , Notes to Pharmacist: 1.9 DAILYTaking HYDROcodone-Acetaminophen 10-650 MG Tablet as directed Orally , Notes to Pharmacist: Client states takes in twice a dayTaking Gabapentin 800 MG Tablet 1 tablet Orally Once a day Taking Lantus 100 UNIT/ML Solution as directed Subcutaneous Taking Citalopram Hydrobromide 40 MG Tablet TAKE 1 TABLET BY MOUTH EVERY DAY Orally Once a day Taking ALPRAZolam 0.5 MG Tablet 1 tablet Orally Once a day as needed for anxiety Not-TakingEszopiclone 2 MG Tablet 1 tablet immediately before bedtime as needed for insomnia Orally Once a day. Do NOT take with alcohol or opioids. Lisinopril 10 MG Tablet 1 tablet Orally Once a day Percocet 10-325 MG Tablet 1 tablet as needed Orally every 6 hrs Not-Taking Eszopiclone 2 MG Tablet 1 tablet immediately before bedtime as needed for insomnia Orally Once a day. Do NOT take with alcohol or opioids. Not-Taking Lisinopril 10 MG Tablet 1 tablet Orally Once a day Not-Taking Percocet 10-325 MG Tablet 1 tablet as needed Orally every 6 hrs * Allergies: C odeine: nausea and vomiting Objective: * Vitals: * Examination: G eneral [...] disorder), recurrent episode, moderate - F33.1 (Primary) S pecify :r/o bipolar affective disorder 3 . I nsomnia disorder - G47.00 Have encouraged client to ma ke in person appt for better assessment with lack of follow through on client's part. Again encouraged client to make future f/u in person though next appt will likely be telepsych due to upcoming back surgery. Client overall much the same. She is very resistant to idea of possible bipolarity, though questionable at this point given family history and continued symptoms. She does not want to start any new medications but remain only on Celexa and very low dose Xanax at present until after surgery. Will likely discuss adding low dose mood stabilizer in near future as trial to see if would help chronic insomnia and high leveled anxiety. Plan: * Treatment: 2. G AD (generalized anxiety disorder) Refill ALPRAZolam Tablet, 0.5 MG, 1 tablet, Orally, Once a day as needed for anxiety, 30 days, 30, Refills 1. 3. I nsomnia disorder Continue Eszopiclone Tablet, 2 MG, 1 tablet immediately before bedtime as needed for insomnia, Orally, Once a day. Do NOT take with alcohol or opioids.. 4. O thers Notes[place]. Discussed sleep hygiene and caffeine intake with [...] number to the 24-hour crisis line at [facility]. Questions addressed. Client verbalized understanding of all information and is agreeable to treatment plan. 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
--- OUTSIDE RECORDS SUMMARY | 2024-12-31 16:31 | XMS_ITS | Patient Health Record ---
Author Organization 1 OF Timothy russell [facility] Address [address] [facility] [address] [place] [address] Care Team Providers Care Television Schedule Coordinator Name Role Phone Marely Mcclure Primary Care Provider UnavailVishnu Bartlett Unavailable [phone] Allergies Allergen (clinical drug ingredient) Drug/Non Drug Allergy documented on EMR Reaction Allergy Type Onset Date Status Adhesive Unknown Allergy Active codeine Codeine Unknown Drug Allergy Active Reason For Referral No Information Medications Medication SIG (Take, Route, Frequency, Duration) Notes Start Date End Date Status Citalopram Hydrobromide 40 MG Oral for 30 Active Lisinopril 10 MG Oral for 90 A ctive Fluconazole 150 MG Oral for 1 Not-Taking Nitrofurantoin Monohyd Macro 100 MG TAKE 1 CAPSULE BY MOUTH EVERY 12 HOURS FOR 7 DAYS Oral for 7 N390,Unavail able Not-Taking Victoza 18 MG/3ML Subcutaneous for 60 Not-Taking ALPRAZolam 0.5 MG Oral for 30 Active Atorvastatin Calcium 10 MG TAKE 1 TABLET BY MOUTH EVERY DAY Oral for 90 I10,Unavaila ble Active Gabapentin 800 MG Oral for 90 Active BD Pen Needle Short U/F 31G X 8 MM INJECT DAILY for 100 Activ e Ozempic Active Insulin Syringe 29G X 1/2 0.5 ML for 50 Active HYDROcodone-Acetaminop hen 5-325 MG Oral for 7 Not-Taking Problems Problem Type SNOMED Code ICD Code Onset Dates Problem Status W/U Status Risk Notes Problem 00320402 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 confirmed Problem 88796430 Nail dystrophy (L60.3) Active confirmed Problem 102502363 Callus of foot (L84) Active confirmed Problem 55285252 Type 2 diabetes mellitus with diabetic polyneuropathy, unspecified whether long-term insulin use (E11.42) Active confirmed Problem 288789240 Primary osteoarthritis of left ankle (M19.072) Active confirmed Plan Of Treatment No Information Insurance Providers Payer Name Payer Address Payer Phone Subscriber Number Group Number Insured Name Patient Relationship to Insured Coverage Start Date Coverage End Date [employer] Medicare Complete [address] [address] [place] [address] [phone] [id number] Linda Bruce Self - patient [facility] the insured [facility] [address] [address] [place] [address] [id number] Linda Bruce Self - patient is the insured Medical (General) History Medical History History ICD Code ANXIETY, ARTHRITIS, ASTHMA, DIABETES,HC, HBP, NEUROPATHY Surgical History Surgery Date(Month/Year) Gastric bypass sx (2013)
--- OUTSIDE RECORDS SUMMARY | 2024-12-31 16:31 | XMS_ITS ---
Author Organization [facility] Address [address] [place] [address] Care Team Providers Care Hose Cementer Name Role Phone Mike Chacko Primary Care Provider Allergies Allergen (clinical drug ingredient) Drug/Non Drug Allergy documented on EMR Reaction Allergy Type Onset Date Status codeine Codeine nausea and vomiting Drug Allergy Active REASON FOR VISIT f/u Medications Medication SIG (Take, Route, Frequency, Duration) Notes Start Date End Date Status Percocet 10-325 MG 1 tablet as needed Orally every 6 hrs Not-Taking Lantus 100 UNIT/ML as directed Subcutaneous Active Lisinopril 10 MG 1 tablet Orally Once a day for 30 day(s) Not-Taking HYDROcodone-Acetamin ophen 10-650 MG as directed Orally Client states takes in twice a day Active Gabapentin 800 MG 1 tablet Orally Once a day for 30 day(s) Active Eszopiclone 2 MG 1 tablet immediately before bedtime as needed for insomnia Orally Once a day. Do NOT take with alcohol or opioids. 08/28/2024 Active ALPRAZolam 0.5 MG 1 tablet Orally Once a day as needed for anxiety for 30 days 12/24/2024 Active Victoza 18 MG/3ML as directed Subcutaneous 1.9 DAILY Active Citalopram Hydrobromide 40 MG TAKE 1 TABLET BY MOUTH EVERY DAY Orally Once a day for 30 days Active Encounters Encounter Location Date Provider Diagnosis [address] [place] [address] 12/24/2024 Mike Chacko MDD (major depressive disorder), recurrent episode, moderate F33.1 ; MENDY (generalized anxiety disorder) F41.1 and Insomnia disorder G47.00 Assessments Encounter Date Diagnosis (ICD Code) Assessment Notes Treatment Notes Treatment Clinical Notes Section Notes 12/24/2024 MDD (major depressive disorder), recurrent episode, moderate (ICD-10 - F33.1) 12/24/2024 MENDY (generalized anxiety disorder) (ICD-10 - F41.1) 12/24/2024 Insomnia disorder (ICD-10 - G47.00) [place] [...] number to the 24-hour crisis line at [facility]. Questions addressed. Client verbalized understanding of all information and is agreeable to treatment plan. Plan Of Treatment Medication Medication Name Sig Start Date Stop Date Notes Eszopiclone 2 MG 1 tablet immediately before bedtime as needed for insomnia Orally Once a day. Do NOT take with alcohol or opioids. 08/28/2024 ALPRAZolam 0.5 MG 1 tablet Orally Once a day as needed for anxiety for 30 days 12/24/2024 Citalopram Hydrobromide 40 MG TAKE 1 TAB LET BY MOUTH EVERY DAY Orally Once a day for 30 days Treatment Notes Assessment Notes [place] [...] number to the 24-hour crisis line at [facility]. Questions addressed. Client verbalized understanding of all information and is agreeable to treatment plan. Next Appt Details Follow Up: 2 Months, Reason: Psych F/U - In-Person or Telehealth Progress Notes * Linda BHAKTADOB:1960 (64 yo F)Acc No.[id number]:12/24/2024 Patient: Linda LI Provider: Zackary Chacko DNP, PMHNP-BC :1960 A ge:64 Y S ex:Female Date:12/24/2024 [id number] Subjective: * Chief Complaints: * F /u * HPI: D epression Screening: PHQ-9 L ittle interest or pleasure in doing things N ot at all, F eeling down, depressed, or hopeless S everal days, T rouble falling or staying asleep, or sleeping too much M ore than half the days, F eeling tired or having little energy M ore than half the days, P oor appetite or overeating M ore than half the days,?Feeling bad about yourself or that you are a failure, or have let yourself or your family down Not at all, T rouble concentrating on things, such as reading the newspaper or watching television S everal , M oving or speaking so slowly that other people could have noticed; or the opposite, being so fidgety or restless that you have been moving around a lot more than usual?Several days, T houghts that you would be better off or of hurting yourself in some way Not at all, T otal Score 9 , I nterpretation M ild Depression. S creening: [place] Suicide Severity Rating Scale (LF) D o you want to initiate with S creener form, 6 . Suicide Behavior Question: Have you ever done [...] Up Plan: CSSRS Interpretation and Follow Up Plan C SSRS Screen documented using SF Y es, R isk Disposition from SF L ow - No Follow Up Plan Required, F ollow Up Plan N o Follow Up Plan required at this time.. C onstitutional: Session conducted telephonically per client's permission. Client pleasant and conversational though sounds anxious. HPI: I've got so much going on with my aunt. Its got me stressed out. Linda Bhakta is a 64-year-old female who is experiencing significant stress and fatigue due to her caregiving responsibilities for her aunt, who has Alzheimer's disease. Linda reports feeling overwhelmed by the situation, as she is managing her aunt's care, including daily visits to the [facility], and dealing with her aunt's financial and household affairs. This has led to physical exhaustion, as she describes difficulty moving her aunt and feeling weak herself. Linda also mentions her dog is suffering from cancer, adding to her emotional burden. Linda has been taking a combination of a pain pill, muscle relaxer, and gabapentin to manage her leg/back pain and help with sleep. She expresses concern about the potential discontinuation of her pain medication, which she feels is necessary for her current level of physical activity. Linda has not yet started Lunesta for her insomnia, preferring to wait until after her recent back surgery recovery. She is also worried about her nutritional status, as her paperwork indicates malnutrition, which she does not understand. She states she doesn't want to change her treatment plan, but wants to focus on doing less and more self care. 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 She has been struggling with sleep since she was 12 years old, which has been a long-standing issue for her. The patient denied any risky behaviors such as impulsive spending. She also denied any diagnosis of bipolar disorder but mentioned that her sister has been diagnosed with bipolar and is on [place]. Screenings for bipolar disorder somewhat vague. However, client adamant that her sleep issues are r/t her past trauma and responsibilities in childhood. States she had her sleep study in [place] but that it showed nothing. I just sat up all night with the doctors. I couldn't fall asleep at all. So it didn't show anything. Has trialed trazodone, mirtazapine, ramelteon, doxepin all failed for sleep. This is ongoing issue. Client stopped mirtazapine because she didn't like it, that it made her too hungry. S tatger she went 5 days with little sleep in recent past. That she had severe panic around this time. Unclear if mood stabilizer medication would be helpful for her but this might be something to look at in near future if these symptoms continue and this was discussed at prior appts. The patient also mentioned a future appointment [...] but calls BF and his mother her [id number]. * ROS: P sych ROS: Constitutional D [...] confusing, alcoholism . * Social History: P eddieary Social History: L iving Arrangement L iving Arrangement: I ndependent Living, I s this a supportive environment? Y es. I llicit Substance Usage I llicit Substance Usage: Y es, S ubstance Used: Timothy osorio I nterested in quitting: N o. L sil[place]ana alone in [place] Has fiancee Sig losses (mom, dad, brother, grandparents) Denies legal issues. * Medications: T akingCitalopram Hydrobromide 40 MG Tablet TAKE 1 TABLET BY MOUTH EVERY DAY Orally Once a day ALPRAZolam 0.5 MG Tablet 1 tablet Orally Once a day as needed for anxiety Eszopiclone 2 MG Tablet 1 tablet immediately before bedtime as needed for insomnia Orally Once a day. Do NOT take with alcohol or opioids. Victoza 18 MG/3ML Solution Pen-injector as directed [...] a day as needed for anxiety Taking Eszopiclone 2 MG Tablet 1 tablet immediately before bedtime as needed for insomnia Orally Once a day. Do NOT take with alcohol or opioids. Taking Victoza 18 MG/3ML Solution Pen-injector as directed Subcutaneous , Notes to Pharmacist: 1.9 DAILYTaking HYDROcodone-Acetaminophen 10-650 MG Tablet as directed Orally , Notes to Pharmacist: Client states takes in twice a dayTaking Gabapentin 800 MG Tablet 1 tablet Orally Once a day Taking Lantus 100 UNIT/ML Solution as directed Subcutaneous Not-TakingLisinopril 10 MG Tablet 1 tablet Orally [...] Knowledge F air. Assessment: * Assessment: 1. M DD (major depressive disorder), recurrent episode, moderate - F33.1 (Primary) ?Specify :r/o bipolar affective disorder 2 . G AD (generalized anxiety disorder) - F41.1 3 . I nsomnia disorder - G47.00 Plan: * Treatment: 2. G AD (generalized [...] number to the 24-hour crisis line at [facility]. Questions addressed. Client verbalized understanding of all information and is agreeable to treatment plan. * Procedure Codes: G 2024 [facility] EST PATIENT [id number] CLIN DEPRESSION SCREEN DOC * Follow Up: 2 Months (Reason: Psych F/U - In-Person or Telehealth) * * Sign off status: Completed true * Provider: Zackary Chacko DNP, PMHNP- Date: 0 12/24/2024 Generated for Marivel chung/Nathaniel/eTransmann-marie on: 0 12/31/2024 04:30 PM CDT History and Physical Notes * HPI (History of Present Illness) Category Sub-Category Detail Notes Category Not es Depression Screening PHQ-9 Little inte rest or pleasure in doing things: Not at all Feeling down, depressed, or hopeless: Se veral days Trouble falling or staying a sleep, or sleeping too much: More than half the days Feeling tired or having little energy: M ore than half the days Poor appetite or overeating: More than h skilled nursing the days Feeling bad about yourself o [...] some way: Not at all Total Score: 9 Interpretation: Mild Depression Screening [place] Suicide Sev erity Rating Scale (LF) Do [...] to sleep and not wake up?: No CSSRS Interpretation and Follow Up Plan CSSRS Interpretation and Follow Up Plan CSSRS Screen documented using SF: Yes Risk Disposition from SF: Low - No Follo w Up Plan Required Follow Up Plan: No Follow Up Plan requir ed at this time. Examination Category Sub-Category Detail Notes Category Not [...]
--- OUTSIDE RECORDS SUMMARY | 2024-12-31 16:31 | XMS_ITS | Patient Health Record ---
Author Organization [facility] Address [address] [place] [address] Care Team Providers Care Fiber Optic Assembly Worker Name Role Phone Mike Chacko Primary Care Provider [phone] Allergies Allergen (clinical drug ingredient) Drug/Non Drug Allergy documented on EMR Reaction Allergy Type Onset Date Status codeine Codeine nausea and vomiting Drug Allergy Active Reason For Referral No Information Medications Medication SIG (Take, Route, Frequency, Duration) Notes Start Date End Date Status Eszopiclone 2 MG 1 tablet immediately before bedtime as needed for insomnia Orally Once a day. Do NOT take with alcohol or opioids. 08/28/2024 Active Percocet 10-325 MG 1 tablet as needed Orally every 6 hrs Not-Taking ALPRAZolam 0.5 MG 1 tablet Orally Once a day as needed for anxiety for 30 days 12/24/2024 Active Victoza 18 MG/3ML as directed Subcutaneous 1.9 DAILY Active Citalopram Hydrobromide 40 MG TAKE 1 TABLET BY MOUTH EVERY DAY Orally Once a day for 30 days Active Lantus 100 UNIT/ML as directed Subcutaneous Active Lisinopril 10 MG 1 tablet Orally Once a day for 30 day(s) Not-Taking HYDROcodone-Acetamin ophen 10-650 MG as directed Orally Client states takes in twice a day Active Gabapentin 800 MG 1 tablet Orally Once a day for 30 day(s) Active Social History Tobacco Use: Social History Observation Description Date Details (start date - stop date) Never Smoker NA - NA Dont use, Tobacco Use/Smoking Question Answer Notes Are you a nonsmoker Section Notes: Lives alone in [place] Has fiancee Sig losses (mom, dad, brother, grandparents) Denies legal issues Lives alone in [place] Has fiancee Sig losses (mom, dad, brother, grandparents) Denies legal issues Lives alone in [place] Has fiancee Sig losses (mom, dad, brother, grandparents) Denies legal issues Lives alone in [place] Has fiancee Sig losses (mom, dad, brother, grandparents) Denies legal issues Lives alone in [place] Has fiancee Sig losses (mom, dad, brother, grandparents) Denies legal issues Lives alone in [place] Has fiancee Sig losses (mom, dad, brother, grandparents) Denies legal issues Lives alone in [place] Has fiancee Sig losses (mom, dad, brother, grandparents) Denies legal issues Lives alone in [place] Has fiancee Sig losses (mom, dad, brother, grandparents) Denies legal issues Lives alone in [place] Has fiancee Sig losses (mom, dad, brother, grandparents) Denies legal issues Lives alone in [place] Has fiancee Sig losses (mom, dad, brother, grandparents) Denies legal issues Lives alone in [place] Has fiancee Sig losses (mom, dad, brother, grandparents) Denies legal issues Lives alone in [place] Has fiancee Sig losses (mom, dad, brother, grandparents) Denies legal issues Lives alone in [place] Has fiancee Sig losses (mom, dad, brother, grandparents) Denies legal issues Lives alone in [place] Has fiancee Sig losses (mom, dad, brother, grandparents) Denies legal issues Lives alone in [place] Has fiancee Sig losses (mom, dad, brother, grandparents) Denies legal issues Lives alone in [place] Has fiancee Sig losses (mom, dad, brother, grandparents) Denies legal issues Lives alone in [place] Has fiancee Sig losses (mom, dad, brother, grandparents) Denies legal issues Lives alone in [place] Has fiancee Sig losses (mom, dad, brother, grandparents) Denies legal issues Lives alone in [place] Has fiancee Sig losses (mom, dad, brother, grandparents) Denies legal issues Lives alone in [place] Has fiancee Sig losses (mom, dad, brother, grandparents) Denies legal issues Lives alone in [place] Has fiancee Sig losses (mom, dad, brother, grandparents) Denies legal issues Lives alone in [place] Has fiancee Sig losses (mom, dad, brother, grandparents) Denies legal issues Problems Problem Type SNOMED Code ICD Code Onset Dates Problem Status W/U Status Risk Notes Problem [id number] MENDY (generalized anxiety disorder) (F41.1) Active confirmed Problem [id number] MDD (major depressive disorder), recurrent episode, moderate (F33.1) Active confirmed Problem Insomnia ([id number]) Insomnia disorder (G47.00) Active confirmed Encounters Encounter Location Date Provider Diagnosis [address] [address] 02/14/2024 Mike Chacko MDD (major depressive disorder), recurrent episode, moderate F33.1 and MENDY (generalized anxiety disorder) F41.[address] [address] 05/07/2024 Mike Chacko MDD (major depressive disorder), recurrent episode, moderate F33.1 and MENDY (generalized anxiety disorder) F41.[address] [address] 08/28/2024 Mike Chacko MDD (major depressive disorder), recurrent episode, moderate F33.1 ; MENDY (generalized anxiety disorder) F41.1 and Insomnia disorder G47.[address] [address] 10/23/2024 Mike Chacko MDD (major depressive disorder), recurrent episode, moderate F33.1 ; MENDY (generalized anxiety disorder) F41.1 and Insomnia disorder G47.[address] [address] 12/24/2024 Mike Chacko MDD (major depressive disorder), recurrent episode, moderate F33.1 ; MENDY (generalized anxiety disorder) F41.1 and Insomnia disorder G47.[address] [address] 04/22/2024 Mike Chacko MENDY (generalized anxiety disorder) F41.1 and MDD (major depressive disorder), recurrent episode, moderate F33.1 Assessments Encounter Date Diagnosis (ICD Code) Assessment Notes Treatment Notes Treatment Clinical Notes Section Notes 12/24/2024 MDD (major depressive disorder), recurrent episode, moderate (ICD-10 - F33.1) 10/23/2024 MENDY (generalized anxiety disorder) (ICD-10 - [...] chronic insomnia and high leveled anxiety. 10/23/2024 MDD (major depressive disorder), recurrent episode, [...] help chronic insomnia and high leveled anxiety. 08/28/2024 MENDY (generalized anxiety disorder) (ICD-10 - F41.1) Discussed with client a trial of generic Lunesta for chronic insomnia. Has failed all other non-hypnotic sleep aides. She is agreeable. Educated client to not take Lunesta with any other sedative agents due to risks of respiratory depression and client verbalizes understanding. 08/28/2024 MDD (major depressive disorder), recurrent episode, moderate (ICD-10 - F33.1) Discussed with client a trial of generic Lunesta for chronic insomnia. Has failed all other non-hypnotic sleep aides. She is agreeable. Educated client to not take Lunesta with any other sedative agents due to risks of respiratory depression and client verbalizes understanding. 02/14/2024 MDD (major depressive disorder), recurrent episode, moderate (ICD-10 - F33.1) 05/07/2024 MDD (major depressive disorder), recurrent episode, moderate (ICD-10 - F33.1) 04/22/2024 MENDY (generalized anxiety disorder) (ICD-10 - F41.1) 04/22/2024 MDD (major depressive disorder), recurrent episode, moderate (ICD-10 - F33.1) 02/14/2024 MENDY (generalized anxiety disorder) (ICD-10 - F41.1) 08/28/2024 Insomnia disorder (ICD-10 - G47.00) Discussed with client a trial of generic Lunesta for chronic insomnia. Has failed all other non-hypnotic sleep aides. She is agreeable. Educated client to not take Lunesta with any other sedative agents due to risks of respiratory depression and client verbalizes understanding. 05/07/2024 MENDY (generalized anxiety disorder) (ICD-10 - F41.1) 10/23/2024 Insomnia disorder (ICD-10 - G47.00) Have [...] help chronic insomnia and high leveled anxiety. 12/24/2024 MENDY (generalized anxiety disorder) (ICD-10 - F41.1) 12/24/2024 Insomnia disorder (ICD-10 - G47.00) [place]24 [place] recently put on Lyrica instead of gabapentin. Educated to stagger dose apart from low dose alprazolam (prn only). Discussed sleep hygiene and caffeine intake with [...] number to the 24-hour crisis line at [facility]. Questions addressed. Client verbalized understanding of all information and is agreeable to treatment plan. 05/07/[place]24 [place] on gabapentin, oxycodone by other providers. Client has been educated to stagger dose the alprazolam from the gabapentin and/or oxycodone to limit risk of respirtory depression. Discussed sleep hygiene and caffeine intake with [...] number to the 24-hour crisis line at [facility]. Questions addressed. Client verbalized understanding of all information and is agreeable to treatment plan. 08/28/2024 [place] [...] number to the 24-hour crisis line at [facility]. Questions addressed. Client verbalized understanding of all information and is agreeable to treatment plan. Discussed with client a trial of generic Lunesta for chronic insomnia. Has failed all other non-hypnotic sleep aides. She is agreeable. Educated client to not take Lunesta with any other sedative agents due to risks of respiratory depression and client verbalizes understanding. 10/23/2024 [place] [...] number to the 24-hour crisis line at [facility]. Questions addressed. Client verbalized understanding of all [...] help chronic insomnia and high leveled anxiety. 12/24/2024 [place] [...] number to the 24-hour crisis line at [facility]. Questions addressed. Client verbalized understanding of all information and is agreeable to treatment plan. Plan Of Treatment No Information Insurance Providers Payer Name Payer Address Payer Phone Subscriber Number Group Number Insured Name Patient Relationship to Insured Coverage Start Date Coverage End Date [facility] Medicare Assure [address] [address] [place] [address] [phone] [id number] Linda Bruce Self - patient is the insured 3 [facility] MEDICARE ADVANTAGE PLAN [address] [address] [place], [place] [address] [id number] Linda Bruce Self - patient is the insured 3 3 MEDICAID [address] [place] [address] [id number] Linda Bruce Self - patient is the insured 8 [facility] [address] [place] [address] [id number] Linda Bruce Self - patient is the insured 1 1 Medical (General) History Medical History History ICD Code Macular Degeneration (from diabetes righ t eye worse) DM II They say my kidneys don't flush right s ometimes Recurrent UTIs DJD gastric bypass Surgical History Surgery Date(Month/Year) carpal tunnel tendenitis rig ht hand / elbow and left hand elbow surgery April 2021 gall bladder removal Hospitalization History Reason Date(Month/Year) [facility] 04/2021
--- OUTSIDE RECORDS SUMMARY | 2024-12-31 16:31 | XMS_ITS | CONTINUITY OF CARE DOCUMENT ---
Author Name minnie hartman Address Unknown Organization [facility] Address [address] [place] [address] Phone [phone] Care Team Providers Care Pharmacy Sales Assistant Name Role Phone minnie hartman Unavailable Unavailable
--- OUTSIDE RECORDS SUMMARY | 2024-12-31 16:31 | XMS_ITS | Encounter Summary ---
Author Organization [facility] Address [address] [place] [address] Phone Care Team Providers Care Process Stripper Name Role Phone Marely Mcclure Primary Care Provider + Manisha White MD Unavailable Ashley Walker MD Unavailable [phone] Edilia Hanna MD Unavailable [phone] Encounter Details Date Type Department Care Team (Late st Contact Info) Description 10/24/2024 Telephone [facility] Orthopaedic Surgery [facility] Medical Office Building [address] [place] [address] Madiha Plascencia Social History Tobacco Use Types Packs/Day Years Used Date Smoking Tobacco: Never Passive Smoke Exposure: Never Smokeless Tobacco: Never AUDIT-C Answer Date Recorded Q1: How often do you have a drink containing alcohol? Never 10/22/2024 Q2: How many drinks containi ng alcohol do you have on a typical day when you are drinking? Patient does not drink Q3: How often do you have si x or more drinks on one occasion? Never 10/22/2024 Personal Safety Answer Date Recorded Have you ever been in or are you currently in a harmful physical or emotional relationship or is someone making you feel afraid or unsafe? 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 Gender Identity Not on file Sexual Orientation Not on file documented as of this encounter Plan of Treatment Not on file documented as of this encounter Visit Diagnoses Not on filedocumented in this encounter Care Teams Process Stripper Relationship Specialty Start Date End Date Marely Mcclure PA PCP - General Physician Galvanometer Assembler 02/16/22 Manisha White MD [address] [facility] [address] Consulting Physician Pain Management 05/10/24 Ashley Walker MD [address] [place] [address] Referring Physician Family Medicine 05/29/24 Edilia Hanna MD [address] [address] Referring Physician Family Practice 08/06/24 documented as of this encounter
--- OUTSIDE RECORDS SUMMARY | 2024-12-31 17:36 | XMS_ITS | Clinical Summary ---
Author Organization [facility] [employer] Address [address] [place] [address] Care Team Providers Care Property Technician Name Role Phone Marely Mcclure PA-C Primary Care Provider Source Comments [facility] [employer],non-owned Affiliates and Associated Physician Practices is amultiple site organization consisting of ambulatory clinics and hospital sitesin [place], [place], [place] and [place]. This disclosure is being madepursuant to the Care Everywhere program and may not contain all information available regarding this patient. 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 Pulse 72 11/13/2023 11:13 AM PEST CONTROL CHEMICAL TECHNICIAN Temperature 36.5 C (97.7 F) 11/13/2023 11:13 AM PEST CONTROL CHEMICAL TECHNICIAN Respiratory Rate - - Oxygen Saturation 98% 11/13/2023 11:13 AM PEST CONTROL CHEMICAL TECHNICIAN Inhaled Oxygen Concentration - - Weight 61.2 kg (135 lb) 11/13/2023 11:13 AM PEST CONTROL CHEMICAL TECHNICIAN Height 167.6 cm (5' 6 ) 11/13/2023 11:13 AM PEST CONTROL CHEMICAL TECHNICIAN Body Mass Index 21.79 11/13/2023 11:13 AM PEST CONTROL CHEMICAL TECHNICIAN Plan of Treatment Upcoming Encounters Date Type Department Care Team (Late st Contact Info) Description 02/10/2025 10:00 AM CDT Office Visit [facility] - Plastic Surgery [address] [place] [address] Gian Rogers MD [address] [facility] [place] [id number] Health Maintenance Due Date Last Done Comments [...] age to complete this topic Care Teams Property Technician Relationship Specialty Start Date End Date Marely Mcclure PA-C [address] [place] [phone] PCP - General Physician Branch Rental Manager 09/26/24
--- OUTSIDE RECORDS SUMMARY | 2024-12-31 17:37 | XMS_ITS | Encounter Summary ---
Author Organization [facility] Address [address] [place] [address] Phone Care Team Providers Care Sales Agent Food Vending Service Name Role Phone Marely Mcclure Primary Care Provider + Manisha White MD Unavailable Ashley Walker MD Unavailable [phone] Edilia Hanna MD Unavailable [phone] Encounter Details Date Type Department Care Team (Late st Contact Info) Description 10/24/2024 Telephone [facility] Orth[facility]edic Surgery [facility] Medical Office Building [address] [place] [address] Madiha Plascencia Social History Tobacco [...] on file Legal 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 Gender Identity Not on file Sexual Orientation Not on file documented as of this encounter Plan of Treatment Not on file documented as of this encounter Visit Diagnoses Not on filedocumented in this encounter Care Teams Sales Agent Food Vending Service Relationship Specialty Start Date End Date Marely Mcclure PA PCP - General Physician Tobacco Classer 02/16/22 Manisha White MD [address] [facility] [address] Consulting Physician Pain Management 05/10/24 Ashley Walker MD [address] [place] [address] Referring Physician Family Medicine 05/29/24 Edilia Hanna MD [address] [address] Referring Physician Family Practice 08/06/24 documented as of this encounter
--- OUTSIDE RECORDS SUMMARY | 2024-12-31 17:37 | XMS_ITS | CONTINUITY OF CARE DOCUMENT ---
Author Name minnie hartman Address Unknown Organization [facility] Address [address] [place] [address] Phone [phone] Care Team Providers Care Clinical Recruiter Name Role Phone minnie hartman Unavailable Unavailable
--- OUTSIDE RECORDS SUMMARY | 2024-12-31 17:37 | XMS_ITS | Referral Summary ---
Author Organization [facility] Address [address] [place] [address] Care Team Providers Care Hr Business Partner Name Role Phone Marely Mcclure Primary Care Provider + Manisha White MD Unavailable Ashley Walker MD Unavailable [phone] Edilia Hanna MD Unavailable [phone] Encounters Date Type Department Care Team Description 12/27/2024 Orders Only [facility] Orthopaedic Surgery [address] [place] [address] [facility] 12th [place] [address] [place] [address] Javed Ardon MD Fusion of spine of lumbar region (Primary Dx); Lumbar radiculopathy 12/27/2024 12:37 PM CDT - 12/27/2024 11:59 PM CDT Hospital Encounter [facility] [address] [place] [address] Fusion of spine of lumbar region Discharge Disposition: Discharge to home or self care 12/27/2024 1:00 PM CDT Office Visit [facility] Orthopaedic Surgery [address] [place] [address] [facility] 12th [place] [address] [place] [address] Javed Ardon MD S/P lumbar spinal fusion (Primary Dx) 11/22/2024 Orders Only [facility] Orthopaedic Surgery [address] [place] [address] [facility] 12th [place] [address] [place] [address] Javed Ardon MD Tear of right rotator cuff, unspecified tear extent, unspecified whether traumatic (Primary Dx) 11/22/2024 2:00 PM SPEECH LANGUAGE PATHOLOGIST PRN - 11/22/2024 11:59 PM SPEECH LANGUAGE PATHOLOGIST PRN Hospital Encounter [facility]) [address] [place] [address] Fusion of spine of lumbar region Discharge Disposition: Discharge to home or self care 11/22/2024 2:30 PM SPEECH LANGUAGE PATHOLOGIST PRN Office Visit [facility] Orthopaedic Surgery [address] [facility] 12th [place] [address] [place] [address] Javed Ardon MD Fusion of spine of lumbar region (Primary Dx) 10/31/2024 5:56 AM SPEECH LANGUAGE PATHOLOGIST PRN - 11/02/2024 2:07 PM SPEECH LANGUAGE PATHOLOGIST PRN Hospital Encounter [facility] [address] [place] [address] Javed Ardon MD Discharge Disposition: Discharge to home or self care 10/31/2024 7:30 AM SPEECH LANGUAGE PATHOLOGIST PRN - 10/31/2024 11:00 AM SPEECH LANGUAGE PATHOLOGIST PRN Surgery [facility] Operating Room [address] [place] [address] Javed Ardon MD FUSION LUMBAR TRANSFORAMINAL INTERBODY, L5-S1 Transforaminal Lumbar Interbody Fusion with Left-Sided Foraminotomy, L5-S1 Posterior Spinal Fusion with Instrumentation, Allograft, Autograft, Spinal Cord Monitoring, Bone Morphogenetic Protein 10/31/2024 7:29 AM SPEECH LANGUAGE PATHOLOGIST PRN Anesthesia Event [facility] Operating Room [address] [place] [address] Lia Drummond MD PhD Tobi, Annika Gentile NP 10/30/2024 Telephone [facility] Orthopaedic Surgery [address] [place] [address] Office Building [address] [place] [phone] Javed Ardon MD 10/29/2024 Telephone [facility] Orthopaedic Surgery [address] [place] [address] Medical Office Building [address] [place] [address] Javed Ardon MD 10/24/2024 Telephone [facility] Orthopaedic Surgery [address] [facility] Office Building [address] [place] [address] Madiha Plascencia 10/22/2024 1:30 PM SPEECH LANGUAGE PATHOLOGIST PRN Pre-Admission Testing [facility] for Preoperative Assessment [facility] [address] [place] [phone] Preoperative testing (Primary Dx); Spondylolisthesis of lumbar region; Lumbar radiculopathy; Pain in other joint; Vitamin D deficiency 10/18/2024 Telephone [facility] Orthopaedic Surgery [address] [place] [address] [facility] 12th [place] [address] [place] [address] Javed Ardon MD 10/15/2024 Telephone [facility] Orthopaedic Surgery [address] [place] [address] Office Building [address] [place] [address] Javed Ardon MD 10/14/2024 1:03 PM SPEECH LANGUAGE PATHOLOGIST PRN - 10/14/2024 11:59 PM SPEECH LANGUAGE PATHOLOGIST PRN Hospital Encounter [facility] [address] [place] [address] Discharge Disposition: Discharge to home or self [...] on file Legal Sex Female 4:17 AM SPEECH LANGUAGE PATHOLOGIST PRN Gender Identity Not on file Sexual Orientation Not on file Last Filed Vital Signs Vital Sign Reading Time Taken Comments Blood Pressure 122/68 11/02/2024 8:00 AM SPEECH LANGUAGE PATHOLOGIST PRN Pulse 75 11/02/2024 8:00 AM SPEECH LANGUAGE PATHOLOGIST PRN Temperature 36.8 C (98.2 F) 11/02/2024 8:00 AM SPEECH LANGUAGE PATHOLOGIST PRN Respiratory Rate 16 11/02/2024 8:00 AM SPEECH LANGUAGE PATHOLOGIST PRN Oxygen Saturation 94% 11/02/2024 8:00 AM SPEECH LANGUAGE PATHOLOGIST PRN Inhaled Oxygen Concentration - - Weight 53.1 kg (117 lb) 11/22/2024 2:29 PM SPEECH LANGUAGE PATHOLOGIST PRN Height 162.6 cm (5' 4 ) 11/22/2024 2:29 PM SPEECH LANGUAGE PATHOLOGIST PRN Body Mass Index 20.08 11/22/2024 2:29 PM SPEECH LANGUAGE PATHOLOGIST PRN Plan of Treatment Not on file Medical Devices Implanted Type Area Station Helper Device Identifier Shelf Expiration Date Model / Serial / Lot Depuy Orthopaed[employer] Inc Cup Acetabular Bi-Mentum Od51mm Femoral Proximal Press Fit [id number] - [id number] Implanted:Qty: 1 on 02/09/2024 at [facility] Left: Hip Depuy Orthopaed[employer] Inc 07/08/2028 [id number] / / [id number] Depuy Orthopa[employer] Liner Acet Hip Size 28 Poly Bi Mentum Altrx 51mm [id number] - [id number] Implanted:Qty: 1 on 02/09/2024 at [facility] Left: Hip Depuy Orthopa[employer] [id number] / / Depuy Orth[employer] Inc Articul/Feliciano 28mm Cementless Hip +1.5mm 09/21 Taper Head Femoral Latex Free [id number] - [id number] Implanted:Qty: 1 on 02/09/2024 at [facility] Left: Hip Depuy Orthopa[employer] [id number] / / Depuy Orthopa[employer] Inc Actis L107 Mm Collar Hip 6 High Offset Stem Femoral [id number] - [id number] Implanted:Qty: 1 on 02/09/2024 at [facility] Left: Hip Depuy Orthopa[employer] Inc [id number] / / Globus Medical Creo Thread Spinal Cap Locking Nonsterile 1119.0010 - [id number] Implanted:Qty: 4 on 10/31/2024 by Javed Ardon MD at [facility] N/A: Spine Lumbar [employer] 1119.0010 / / Glob[employer] Medical Creo 5.5mm 40mm Curve Tom Spinal Titanium 1119.7040 - [id number] Implanted:Qty: 2 on 10/31/2024 by Javed Ardon MD at [facility] N/A: Spine Lumbar [employer] 1119.7040 / / Medtronic Inc Bmp Infuse Sm [id number] - [id number] Implanted:Qty: 1 on 10/31/2024 by Javed Ardon MD at [facility] N/A: Spine Lumbar Med[employer] Inc [id number] 07/09/2025 [id number] / / [id number] Globus Medical Implant Spinal Sable [id number] 7-14mm 15 Deg 1172.2121s - [id number] Implanted:Qty: 1 on 10/31/2024 by Javed Ardon MD at [facility] N/A: Spine Lumbar [employer] [id number] 09/23/2034 1172.2121S / / [id number] [employer] Creo Od6.5 Mm L55 Mm Thread Polyaxial Spine Screw Bone Titanium 5146.1657 - [id number] Implanted:Qty: 2 on 10/31/2024 by Javed Ardon MD at [facility] N/A: Spine Lumbar [employer] 5146.1657 / / Gl[employer] Creo Od6.5 Mm L40 Mm Thread Polyaxial Spine Screw Bone Titanium 5146.1642 - [id number] Implanted:Qty: 1 on 10/31/2024 by Javed Ardon MD at [facility] N/A: Spine Lumbar [employer] 5146.1642 / / Glob[employer] Creo Od7.5 Mm L40 Mm Thread Polyaxial Spine Screw Bone Titanium 5146.1742 - [id number] Implanted:Qty: 1 on 10/31/2024 by Javed Adron MD at [facility] N/A: Spine Lumbar [employer] 5146.1742 / / Procedures Procedure Name Priority Date/Time Associated Diagnosis Comments XR SPINE LUMBAR 2 OR 3 VIEWS Schedule Routine, Read Routine (OP Routine) 12/27/2024 12:43 PM CDT Fusion of spine of lumbar region XR SPINE LUMBAR 2 OR 3 VIEWS Schedule Routine, Read Routine (OP Routine) 11/22/2024 2:23 PM SPEECH LANGUAGE PATHOLOGIST PRN Fusion of spine of lumbar region POCT GLUCOSE DEVICE Routine 11/02/2024 11:38 AM SPEECH LANGUAGE PATHOLOGIST PRN POCT GLUCOSE DEVICE Routine 11/02/2024 7:59 AM SPEECH LANGUAGE PATHOLOGIST PRN CBC WITHOUT DIFFERENTIAL Routine 025 10:40 PM SPEECH LANGUAGE PATHOLOGIST PRN APTT Routine 11/01/2024 10:40 PM SPEECH LANGUAGE PATHOLOGIST PRN PROTIME-INR Routine 11/01/2024 10:40 PM SPEECH LANGUAGE PATHOLOGIST PRN POCT GLUCOSE DEVICE Routine 11/01/2024 8:30 PM SPEECH LANGUAGE PATHOLOGIST PRN XR SHOULDER RIGHT 2 OR MORE VIEWS IP Routine 11/01/2024 6:30 PM SPEECH LANGUAGE PATHOLOGIST PRN POCT GLUCOSE DEVICE Routine 11/01/2024 6:25 PM SPEECH LANGUAGE PATHOLOGIST PRN XR SPINE LUMBAR 2 OR 3 VIEWS Pending Discharge 11/01/2024 4:45 PM SPEECH LANGUAGE PATHOLOGIST PRN POCT GLUCOSE DEVICE Routine 11/01/2024 11:36 AM SPEECH LANGUAGE PATHOLOGIST PRN POCT GLUCOSE DEVICE Routine 11/01/2024 7:47 AM SPEECH LANGUAGE PATHOLOGIST PRN CBC WITHOUT DIFFERENTIAL STAT 025 6:21 AM SPEECH LANGUAGE PATHOLOGIST PRN LIPID PANEL Routine 10/31/2024 10:32 PM SPEECH LANGUAGE PATHOLOGIST PRN EGFR Routine 10/31/2024 10:32 PM SPEECH LANGUAGE PATHOLOGIST PRN CBC WITHOUT DIFFERENTIAL Routine 025 10:32 PM SPEECH LANGUAGE PATHOLOGIST PRN BASIC METABOLIC PANEL Routine 10/31/2024 10:32 PM SPEECH LANGUAGE PATHOLOGIST PRN POCT GLUCOSE DEVICE Routine 10/31/2024 7:57 PM SPEECH LANGUAGE PATHOLOGIST PRN POCT GLUCOSE DEVICE Routine 10/31/2024 4:34 PM SPEECH LANGUAGE PATHOLOGIST PRN POCT GLUCOSE DEVICE Routine 10/31/2024 1:21 PM SPEECH LANGUAGE PATHOLOGIST PRN CBC WITHOUT DIFFERENTIAL Routine 025 12:57 PM SPEECH LANGUAGE PATHOLOGIST PRN TRANSFUSE PLASMA Timed 10/31/2024 11:30 AM SPEECH LANGUAGE PATHOLOGIST PRN POC BLOOD GAS AND CHEMISTRIES, VENOUS Routine 10/31/2024 11:10 AM SPEECH LANGUAGE PATHOLOGIST PRN TRANSFUSE RED BLOOD CELLS Timed 10/31/2024 11:07 AM SPEECH LANGUAGE PATHOLOGIST PRN FIBRINOGEN STAT 10/31/2024 11:05 AM SPEECH LANGUAGE PATHOLOGIST PRN APTT STAT 10/31/2024 11:05 AM SPEECH LANGUAGE PATHOLOGIST PRN PROTIME-INR STAT 10/31/2024 11:05 AM SPEECH LANGUAGE PATHOLOGIST PRN FL FLUOROSCOPY < 1 HOUR IP Routine 10/31/19 11:03 AM SPEECH LANGUAGE PATHOLOGIST PRN TRANSFUSE RED BLOOD CELLS Timed 10/31/2024 10:59 AM SPEECH LANGUAGE PATHOLOGIST PRN PREPARE PLASMA STAT 10/31/2024 10:53 AM SPEECH LANGUAGE PATHOLOGIST PRN PREPARE PLASMA STAT 10/31/2024 10:53 AM SPEECH LANGUAGE PATHOLOGIST PRN PREPARE PLASMA STAT 10/31/2024 10:53 AM SPEECH LANGUAGE PATHOLOGIST PRN PREPARE PLASMA STAT 10/31/2024 10:52 AM SPEECH LANGUAGE PATHOLOGIST PRN PREPARE RBC STAT 10/31/2024 10:51 AM SPEECH LANGUAGE PATHOLOGIST PRN PREPARE RBC STAT 10/31/2024 10:51 AM SPEECH LANGUAGE PATHOLOGIST PRN PREPARE RBC STAT 10/31/2024 10:50 AM SPEECH LANGUAGE PATHOLOGIST PRN PREPARE RBC STAT 10/31/2024 10:50 AM SPEECH LANGUAGE PATHOLOGIST PRN TRANSFUSE PLASMA Timed 10/31/2024 10:46 AM SPEECH LANGUAGE PATHOLOGIST PRN TRANSFUSE RED BLOOD CELLS Timed 10/31/2024 10:33 AM SPEECH LANGUAGE PATHOLOGIST PRN TRANSFUSE RED BLOOD CELLS Timed 10/31/2024 10:27 AM SPEECH LANGUAGE PATHOLOGIST PRN POC THROMBOELASTOMETRY PANEL - HEPARIN Routine 10/31/2024 10:20 AM SPEECH LANGUAGE PATHOLOGIST PRN POC THROMBOELASTOMETRY PANEL - INTRINSIC Routine 10/31/2024 10:19 AM SPEECH LANGUAGE PATHOLOGIST PRN POC THROMBOELASTOMETRY PANEL - EXTRINSIC Routine 10/31/2024 10:18 AM SPEECH LANGUAGE PATHOLOGIST PRN POC THROMBOELASTOMETRY PANEL - FIBRINOGEN Routine 10/31/2024 10:18 AM SPEECH LANGUAGE PATHOLOGIST PRN PREPARE RBC STAT 10/31/2024 10:16 AM SPEECH LANGUAGE PATHOLOGIST PRN POCT PROTHROMBIN TIME Routine 10/31/2024 10:03 AM SPEECH LANGUAGE PATHOLOGIST PRN POCT PARTIAL THROMBOPLASTIN TIME (PTT) Routine 10/31/2024 10:03 AM SPEECH LANGUAGE PATHOLOGIST PRN POC BLOOD GAS AND CHEMISTRIES, VENOUS Routine 10/31/2024 10:02 AM SPEECH LANGUAGE PATHOLOGIST PRN PREPARE PLASMA STAT 10/31/2024 9:27 AM SPEECH LANGUAGE PATHOLOGIST PRN PREPARE PLASMA STAT 10/31/2024 9:25 AM SPEECH LANGUAGE PATHOLOGIST PRN PREPARE RBC STAT 10/31/2024 9:25 AM SPEECH LANGUAGE PATHOLOGIST PRN PREPARE RBC Timed 10/31/2024 9:24 AM SPEECH LANGUAGE PATHOLOGIST PRN ME AN PROCEDURE PLACEHOLDER Routine 10/31/2024 8:46 AM SPEECH LANGUAGE PATHOLOGIST PRN ME AN PROCEDURE PLACEHOLDER Routine 10/31/2024 8:44 AM SPEECH LANGUAGE PATHOLOGIST PRN ME AN ELECTIVE ENDOTRACHEAL AIRWAY Routine 10/31/2024 8:44 AM SPEECH LANGUAGE PATHOLOGIST PRN BONE GRAFT WITH BONE MORPHOGENIC PROTEIN 10/31/2024 7:31 AM SPEECH LANGUAGE PATHOLOGIST PRN Spondylolisthesis of lumbar region Lumbar radiculopathy Case Notes 09/24@1339- Per Analilia via case msg - Cell saver will not be needed.- DMF 09/24@0843- Per audit case msg sent to [facility] to verify if cell saver needed or not for case- DMF Special Needs Radiology Plates, SCM, Pro-Magnolia, GW Traction, Local Autograft, Frozen Bone Chips, 1 Small BMP Kit, Globus Creo, Globus Altera SPINAL CORD MONITORING 7:31 AM SPEECH LANGUAGE PATHOLOGIST PRN Spondylolisthesis of lumbar region Lumbar radiculopathy Case Notes 09/24@1339- Per Analilia via case msg - Cell saver will not be needed.- DMF 09/24@0843- Per audit case msg sent to [facility] to verify if cell saver needed or not for case- DMF Special Needs Radiology Plates, SCM, Pro-Magnolia, GW Traction, Local Autograft, Frozen Bone Chips, 1 Small BMP Kit, Globus Creo, Globus Altera FUSION LUMBAR TRANSFORAMINAL INTERBODY 10/31/2024 7:31 AM SPEECH LANGUAGE PATHOLOGIST PRN Spondylolisthesis of lumbar region Lumbar radiculopathy Case Notes 09/24@1339- Per Analilia via case msg - Cell saver will not be needed.- DMF 09/24@0843- Per audit case msg sent to [facility] to verify if cell saver needed or not for case- DMF Special Needs Radiology Plates, SCM, Pro-Magnolia, GW Traction, Local Autograft, Frozen Bone Chips, 1 Small BMP Kit, Globus Creo, Globus Altera POCT GLUCOSE DEVICE Routine 10/31/2024 7:09 AM SPEECH LANGUAGE PATHOLOGIST PRN B CHECK SAMPLE STAT 10/31/2024 7:09 AM SPEECH LANGUAGE PATHOLOGIST PRN EGFR Routine 10/22/2024 2:53 PM SPEECH LANGUAGE PATHOLOGIST PRN Spondylolisthesis of lumbar region Lumbar radiculopathy DIFFERENTIAL AUTO Routine 10/22/2024 2:53 PM SPEECH LANGUAGE PATHOLOGIST PRN Spondylolisthesis of lumbar region Lumbar radiculopathy URINALYSIS, MICROSCOPIC ONLY Routine 10/22/2024 2:53 PM SPEECH LANGUAGE PATHOLOGIST PRN Spondylolisthesis of lumbar region Lumbar radiculopathy COMPREHENSIVE METABOLIC PANEL Routine 10/22/2024 2:53 PM SPEECH LANGUAGE PATHOLOGIST PRN Spondylolisthesis of lumbar region Lumbar radiculopathy CBC WITH AUTO DIFFERENTIAL Routine 10/22/2024 2:53 PM SPEECH LANGUAGE PATHOLOGIST PRN Spondylolisthesis of lumbar region Lumbar radiculopathy VITAMIN D 25 HYDROXY Routine 10/22/2024 2:53 PM SPEECH LANGUAGE PATHOLOGIST PRN Spondylolisthesis of lumbar region Lumbar radiculopathy Vitamin D deficiency PROTIME-INR Routine 10/22/2024 2:53 PM SPEECH LANGUAGE PATHOLOGIST PRN Spondylolisthesis of lumbar region Lumbar radiculopathy Pain in other joint NICOTINE METABOLITE SCREEN, URINE Routine 10/22/2024 2:53 PM SPEECH LANGUAGE PATHOLOGIST PRN Spondylolisthesis of lumbar region Lumbar radiculopathy TYPE AND SCREEN 14 DAY Routine 2:53 PM SPEECH LANGUAGE PATHOLOGIST PRN Preoperative testing CPAP APTT ALGORITHM Routine 10/22/2024 2:53 PM SPEECH LANGUAGE PATHOLOGIST PRN Preoperative testing URINALYSIS AND REFLEX TO MICROSCOPIC AND CULTURE Routine 10/22/2024 2:53 PM SPEECH LANGUAGE PATHOLOGIST PRN Spondylolisthesis of lumbar region Lumbar radiculopathy POCT HEMOGLOBIN A1C Routine 10/22/2024 1:35 PM SPEECH LANGUAGE PATHOLOGIST PRN NEURO MR OUTSIDE REFERENCE Routine 10/14/2024 1:03 PM SPEECH LANGUAGE PATHOLOGIST PRN from Last 3 Months Results * XR [...] 2 Or 3 View (11/22/2024 2:23 PM SPEECH LANGUAGE PATHOLOGIST PRN) Anatomical Region Laterality Modality Spine N/A Computed Radiogr aphy 11/22/2024 3:27 PM SPEECH LANGUAGE PATHOLOGIST PRN Impressions 11/22/2024 3:37 PM SPEECH LANGUAGE PATHOLOGIST PRN 1. Combined L5-S1 posterior and interbody decompression and instrumented fusion. 2. Moderate to severe lumbar degenerative disc disease, worst at L3-L4, with mild levoscoliosis. Dictated by: Bandar Ledbetter MD The radiology attending physician has personally reviewed this study, and had reviewed and/or edited this written report and agrees with it. Electronically signed by: Krishna Campbell M.D. Narrative 11/22/2024 3:37 PM SPEECH LANGUAGE PATHOLOGIST PRN EXAMINATION: XR SPINE LUMBAR 2 OR 3 [...] Result * POCT glucose (11/02/2024 11:38 AM SPEECH LANGUAGE PATHOLOGIST PRN) Glucose, POC 185 70 - 199 mg/dL Blood 11/02/2024 11:3 8 AM SPEECH LANGUAGE PATHOLOGIST PRN 11/02/2024 11:38 AM SPEECH LANGUAGE PATHOLOGIST PRN Javed Ardon MD LAB POCT ORDERABLES - D EVICE Final Result Performing Organization Address [facility] Co de Phone Number [facility] [place] [address] * POCT glucose (11/02/2024 7:59 AM SPEECH LANGUAGE PATHOLOGIST PRN) Glucose, POC 143 70 - 199 mg/dL Blood 11/02/2024 7:59 AM SPEECH LANGUAGE PATHOLOGIST PRN 11/02/2024 7:59 AM SPEECH LANGUAGE PATHOLOGIST PRN Javed Ardon MD LAB POCT ORDERABLES - D EVICE Final Result Performing Organization Address [facility] Co de Phone Number [facility] Department [place] [address] * aPTT (11/01/2024 10:40 PM SPEECH LANGUAGE PATHOLOGIST PRN) aPTT 28 28 - 38 sec Comment: Interpretive Data Heparin therapeutic range: 66.0 - 100.0 seconds. Range based on correlation with therapeutic heparin activity range of 0.3 - 0.7 Units/mL. Current interpretive data was last revised on 2023. Blood 11/01/2024 10:4 0 PM SPEECH LANGUAGE PATHOLOGIST PRN 11/01/2024 11:41 PM SPEECH LANGUAGE PATHOLOGIST PRN Peggy Arcos COSMETICS DEMONSTRATOR LAB BLOOD ORDERABLES Final Res ult Performing Organization Address [facility] [place] [address] * Protime-INR (11/01/2024 10:40 PM SPEECH LANGUAGE PATHOLOGIST PRN) Pathologist [facility] PT 12.5 9.7 - 13.0 sec INR 1.15 0.90 - 1.20 [facility] Comment: Interpretive data Oral anticoagulant therapeutic ranges: Venous thromboembolism prophylaxis or treatment: 2.0-3.0 CARDIOLOGY Standard range: 2.0-3.0 High-intensity range: 2.5-3.5 Refer to indication-specific guidelines for appropriate target ranges for prosthetic heart valve replacement. Current interpretive data was last revised on 2019. Blood 11/01/2024 10:4 0 PM SPEECH LANGUAGE PATHOLOGIST PRN 11/01/2024 11:41 PM SPEECH LANGUAGE PATHOLOGIST PRN Peggy Arcos NP LAB BLOOD ORDERABLES Final Res ult Performing Organization Address [facility] [place] [address] * (ABNORMAL) CBC without differential (11/01/2024 10:40 PM SPEECH LANGUAGE PATHOLOGIST PRN) WBC 5.6 3.8 - 9.9 K/cumm Hgb 9.2(L) 11.9 - 15.5 g/dL [facility] Hct 27.5(L) 35.6 - 45.5 % [facility] Plt 81(L) 150 - 400 K/cumm [facility] MPV 11.4 9.1 - 12.3 fL [facility] RBC 3.09(L) 3.90 - 5.20 M/cumm [facility] MCV 89.0 81.3 - 96.4 fL [facility] MCH 29.8 27.1 - 33.3 pg [facility] MCHC 33.5 32.3 - 35.7 g/dL [facility] RDW CV 13.6 11.1 - 14.9 % [facility] RDW SD 44.1 35.7 - 48.1 fL [facility] NRBC abs 0.00 0.00 - 0.01 K/cumm [facility] Blood 11/01/2024 10:4 0 PM SPEECH LANGUAGE PATHOLOGIST PRN 11/01/2024 11:37 PM SPEECH LANGUAGE PATHOLOGIST PRN us Tommy Myers NP LAB BLOOD ORDERABLES Final R esult Performing Organization Address [facility] Co de Phone Number [facility] Department [place] [address] * POCT glucose (11/01/2024 8:30 PM SPEECH LANGUAGE PATHOLOGIST PRN) Glucose, POC 83 70 - 199 mg/dL Blood 11/01/2024 8:30 PM SPEECH LANGUAGE PATHOLOGIST PRN 11/01/2024 8:30 PM SPEECH LANGUAGE PATHOLOGIST PRN us Javed Ardon MD LAB POCT ORDERABLES - D EVICE Final Result Performing Organization Address [facility] de Phone Number [facility] Department [place] [address] * XR Shoulder Right 2 or More Views (11/01/2024 6:30 PM SPEECH LANGUAGE PATHOLOGIST PRN) Anatomical Region Laterality Modality Upper Extremities, Shoulder Right Comp uted Radiography 11/01/2024 7:13 PM SPEECH LANGUAGE PATHOLOGIST PRN Impressions 11/01/2024 7:13 PM SPEECH LANGUAGE PATHOLOGIST PRN 1. Unchanged mild acromioclavicular and glenohumeral osteoarthritis Electronically signed by: David Acevedo MD, PHD Narrative 11/01/2024 7:13 PM SPEECH LANGUAGE PATHOLOGIST PRN EXAMINATION: Right shoulder 2+ views HISTORY: Right [...] David Acevedo MD, PHD us Stalin Boucher COSMETICS DEMONSTRATOR IMG XR PROCEDURES Final Result * (ABNORMAL) POCT glucose (11/01/2024 6:25 PM SPEECH LANGUAGE PATHOLOGIST PRN) Glucose, POC 223(H) 70 - 199 mg/dL Blood 11/01/2024 6:25 PM SPEECH LANGUAGE PATHOLOGIST PRN 11/01/2024 6:25 PM SPEECH LANGUAGE PATHOLOGIST PRN us Javed Ardon MD LAB POCT ORDERABLES - D EVICE Final Result [facility] Department [place] [address] * XR Spine Lumbar 2 or 3 Views (11/01/2024 4:45 PM SPEECH LANGUAGE PATHOLOGIST PRN) Anatomical Region Laterality Modality Spine N/A Computed Radiogr aphy 11/01/2024 6:54 PM SPEECH LANGUAGE PATHOLOGIST PRN Impressions 11/01/2024 6:54 PM SPEECH LANGUAGE PATHOLOGIST PRN 1. Interval combined L5-S1 anterior and posterior decompression and fusion with unchanged mild degenerative lumbar levoscoliosis and moderate to severe degenerative disc disease at L3-L4 Electronically signed by: David Acevedo MD, PHD Narrative 11/01/2024 6:54 PM SPEECH LANGUAGE PATHOLOGIST PRN EXAMINATION: Lumbar spine 2 or 3 views [...] by: David Acevedo MD, PHD Stalin Boucher COSMETICS DEMONSTRATOR IMG XR PROCEDURES Final Result * POCT glucose (11/01/2024 11:36 AM SPEECH LANGUAGE PATHOLOGIST PRN) Glucose, POC 180 70 - 199 mg/dL Blood 11/01/2024 11:3 6 AM SPEECH LANGUAGE PATHOLOGIST PRN 11/01/2024 11:36 AM SPEECH LANGUAGE PATHOLOGIST PRN Javed Ardon MD LAB POCT ORDERABLES - D EVICE Final Result Performing Organization Address [facility]/ZIP Co de Phone Number [facility] [place] [address] * POCT glucose (11/01/2024 7:47 AM SPEECH LANGUAGE PATHOLOGIST PRN) [facility] Glucose, POC 148 70 - 199 mg/dL Blood 11/01/2024 7:47 AM SPEECH LANGUAGE PATHOLOGIST PRN 11/01/2024 7:47 AM SPEECH LANGUAGE PATHOLOGIST PRN us Javed Ardon MD LAB POCT ORDERABLES - D EVICE Final Result Performing Organization Address [facility] de Phone Number [facility] [place] [address] * (ABNORMAL) CBC without differential (11/01/2024 6:21 AM SPEECH LANGUAGE PATHOLOGIST PRN) [facility] WBC 5.3 3.8 - 9.9 K/cumm Hgb 9.5(L) 11.9 - 15.5 g/dL [facility] Hct 28.4(L) 35.6 - 45.5 % [facility] Plt 94(L) 150 - 400 K/cumm [facility] MPV 11.1 9.1 - 12.3 fL [facility] RBC 3.21(L) 3.90 - 5.20 M/cumm [facility] MCV 88.5 81.3 - 96.4 fL [facility] MCH 29.6 27.1 - 33.3 pg [facility] MCHC 33.5 32.3 - 35.7 g/dL [facility] RDW CV 13.5 11.1 - 14.9 % [facility] RDW SD 43.8 35.7 - 48.1 fL [facility] NRBC abs 0.00 0.00 - 0.01 K/cumm [facility] Blood 11/01/2024 6:21 AM SPEECH LANGUAGE PATHOLOGIST PRN 11/01/2024 6:37 AM SPEECH LANGUAGE PATHOLOGIST PRN us Lia Drummond MD PhD LAB BLOOD ORDERABLES Final Re sult Performing Organization Address [facility] Co de Phone Number [facility] Department [place] [address] * eGFR (10/31/2024 10:32 PM SPEECH LANGUAGE PATHOLOGIST PRN) Pathologist [facility] eGFR >90 >=60 mL/min/1. 73 m2 [...] reviewed 2021. Blood 10/31/2024 10:3 2 PM SPEECH LANGUAGE PATHOLOGIST PRN 10/31/2024 11:04 PM SPEECH LANGUAGE PATHOLOGIST PRN Tommy Myers NP LAB BLOOD ORDERABLES Final R esult Performing Organization Address [facility] Co de Phone Number [facility] Department [place] [address] * (ABNORMAL) CBC without differential (10/31/2024 10:32 PM SPEECH LANGUAGE PATHOLOGIST PRN) Pathologist [facility] WBC 7.2 3.8 - 9.9 K/cumm Hgb 9.9(L) 11.9 - 15.5 g/dL [facility] Hct 29.0(L) 35.6 - 45.5 % [facility] Plt 93(L) 150 - 400 K/cumm [facility] MPV 11.2 9.1 - 12.3 fL [facility] RBC 3.27(L) 3.90 - 5.20 M/cumm [facility] MCV 88.7 81.3 - 96.4 fL [facility] MCH 30.3 27.1 - 33.3 pg [facility] MCHC 34.1 32.3 - 35.7 g/dL [facility] RDW CV 13.5 11.1 - 14.9 % [facility] RDW SD 44.2 35.7 - 48.1 fL [facility] NRBC abs 0.00 0.00 - 0.01 K/cumm [facility] Blood 10/31/2024 10:3 2 PM SPEECH LANGUAGE PATHOLOGIST PRN 10/31/2024 11:04 PM SPEECH LANGUAGE PATHOLOGIST PRN Tommy Myers NP LAB BLOOD ORDERABLES Final R esult [facility] Department [place] [address] * Lipid panel (10/31/2024 10:32 PM SPEECH LANGUAGE PATHOLOGIST PRN) Cholesterol 101 30 - 199 mg/dL Comment: [...] revised on 2018. Triglycerides 44 <=149 mg/dL [facility] Comment: Interpretive Data Ages < or [...] on 2018. HDL 42 >=40 mg/dL [facility] Comment: Interpretive Data Ages < [...] 2018. LDL, calculated 48 <=129 mg/dL [facility] Comment: Interpretive Data Ages < [...] on 2024. Non-HDL Cholesterol 59 mg/dL [facility] Comment: Interpretive Data Ages < [...] last revised on 2018. Chol/HDL ratio 2 [facility] Blood 10/31/2024 10:3 2 PM SPEECH LANGUAGE PATHOLOGIST PRN 10/31/2024 11:04 PM SPEECH LANGUAGE PATHOLOGIST PRN Narrative [facility] - 11/01/2024 9:06 AM SPEECH LANGUAGE PATHOLOGIST PRN Reflex us Javed Ardon MD LAB BLOOD ORDERABLES Fi nal Result [facility] Department [place] [address] * (ABNORMAL) Basic metabolic panel (10/31/2024 10:32 PM SPEECH LANGUAGE PATHOLOGIST PRN) Sodium 141 135 - 145 mmol/L Potassium, pl 4.0 3.3 - 4.9 mmol/L [facility] Chloride 108 97 - 110 mmol/L [facility] CO2 29 22 - 32 mmol/L [facility] Anion gap 4 2 - 15 mmol/L [facility] BUN 13 6 - 25 mg/dL [facility] Creatinine 0.65 0.60 - 1.10 mg/dL [facility] Glucose 118 70 - 199 mg/dL [facility] Comment: Interpretive Data Fasting glucose >/= [...] 2022. Calcium 8.4(L) 8.5 - 10.3 mg/dL [facility] Blood 10/31/2024 10:3 2 PM SPEECH LANGUAGE PATHOLOGIST PRN 10/31/2024 11:04 PM SPEECH LANGUAGE PATHOLOGIST PRN us Tommy Myers NP LAB BLOOD ORDERABLES Final R esult Performing Organization Address [facility] Co de Phone Number [facility] [place] [address] * POCT glucose (10/31/2024 7:57 PM SPEECH LANGUAGE PATHOLOGIST PRN) Glucose, POC 161 70 - 199 mg/dL Blood 10/31/2024 7:57 PM SPEECH LANGUAGE PATHOLOGIST PRN 10/31/2024 7:57 PM SPEECH LANGUAGE PATHOLOGIST PRN us Javed Ardon MD LAB POCT ORDERABLES - D EVICE Final Result Performing Organization Address [facility] [place] [address] * POCT glucose (10/31/2024 4:34 PM SPEECH LANGUAGE PATHOLOGIST PRN) Glucose, POC 177 70 - 199 mg/dL Blood 10/31/2024 4:34 PM SPEECH LANGUAGE PATHOLOGIST PRN 10/31/2024 4:34 PM SPEECH LANGUAGE PATHOLOGIST PRN us Javed Ardon MD LAB POCT ORDERABLES - D EVICE Final Result Performing Organization Address [facility] Co de Phone Number [facility] [place] [address] * POCT glucose (10/31/2024 1:21 PM SPEECH LANGUAGE PATHOLOGIST PRN) Glucose, POC 134 70 - 199 mg/dL Blood 10/31/2024 1:21 PM SPEECH LANGUAGE PATHOLOGIST PRN 10/31/2024 1:21 PM SPEECH LANGUAGE PATHOLOGIST PRN us Javed Ardon MD LAB POCT ORDERABLES - D EVICE Final Result Performing Organization Address [facility] Co de Phone Number [facility] Department [place] [address] * (ABNORMAL) CBC without differential (10/31/2024 12:57 PM SPEECH LANGUAGE PATHOLOGIST PRN) [facility] WBC 6.5 3.8 - 9.9 K/cumm Hgb 9.4(L) 11.9 - 15.5 g/dL [facility] Hct 28.3(L) 35.6 - 45.5 % [facility] Plt 82(L) 150 - 400 K/cumm [facility] MPV 10.5 9.1 - 12.3 fL [facility] RBC 3.13(L) 3.90 - 5.20 M/cumm [facility] MCV 90.4 81.3 - 96.4 fL [facility] MCH 30.0 27.1 - 33.3 pg [facility] MCHC 33.2 32.3 - 35.7 g/dL [facility] RDW CV 12.8 11.1 - 14.9 % [facility] RDW SD 42.4 35.7 - 48.1 fL [facility] NRBC abs 0.00 0.00 - 0.01 K/cumm [facility] Blood 10/31/2024 12:5 7 PM SPEECH LANGUAGE PATHOLOGIST PRN 10/31/2024 1:10 PM SPEECH LANGUAGE PATHOLOGIST PRN us Brynn Banegas MD LAB BLOOD ORDERABLES Final Result [facility] Department [place] [address] * Transfuse plasma (10/31/2024 11:32 AM SPEECH LANGUAGE PATHOLOGIST PRN) Blood us Lia Drummond MD PhD BLOOD TRANSFUSION ORDERABLES Final Result [facility] Department [place] [address] * (ABNORMAL) POC Blood Gas and Chemistries, Venous - (10/31/2024 11:10 AM SPEECH LANGUAGE PATHOLOGIST PRN) [facility] pH, Kitty POC 7.28(L) 7.32 - 7.43 pCO2, kitty POC 46 40 - 50 mmHg [facility] pO2, kitty POC 73 mmHg [facility] Na, POC 143 135 - 145 mmol/L [facility] K POC 4.2 3.3 - 4.9 mmol/L [facility] Comment: Interpretive Data Not all point of care methods assess for hemolysis. Confirm with instrument and retest K+ if not consistent with clinical signs and symptoms. Current Interpretive Data was last revised on 2024. Cl, POC 111(H) 97 - 110 mmol/L [facility] Ionized Ca, POC 4.49(L) 4.50 - 5.10 mg/dL [facility] Glucose, POC 158 70 - 199 mg/dL [facility] Lactate, POC 1.8 0.7 - 2.0 mmol/L [facility] O2 Sat, Kitty POC (Karen) 94 % [facility] Base excess, POC -5.0 mmol/L [facility] Hct, POC 27.0(L) 36.3 - 45.3 % [facility] Total Hb, POC 9.0(L) 11.9 - 15.5 g/dL [facility] Blood 10/31/2024 11:1 0 AM SPEECH LANGUAGE PATHOLOGIST PRN 10/31/2024 11:10 AM SPEECH LANGUAGE PATHOLOGIST PRN us Javed Ardon MD LAB POCT ORDERABLES - D EVICE Final Result Performing Organization Address City/[facility]/ZIP Co de Phone Number [facility] Department [place] [address] * Transfuse RBC (10/31/2024 11:07 AM SPEECH LANGUAGE PATHOLOGIST PRN) Blood us Lia Drummond MD PhD BLOOD TRANSFUSION ORDERABLES Final Result [facility] Department [place] [address] * aPTT (10/31/2024 11:05 AM SPEECH LANGUAGE PATHOLOGIST PRN) aPTT 28 28 - 38 sec Comment: Interpretive Data Heparin therapeutic range: 66.0 - 100.0 seconds. Range based on correlation with therapeutic heparin activity range of 0.3 - 0.7 Units/mL. Current interpretive data was last revised on 2023. Blood 10/31/2024 11:0 5 AM SPEECH LANGUAGE PATHOLOGIST PRN 10/31/2024 11:35 AM SPEECH LANGUAGE PATHOLOGIST PRN Lia Drummond MD PhD LAB BLOOD ORDERABLES Final Re sult Performing Organization Address [facility] de Phone Number [facility] [place] [address] * (ABNORMAL) Protime-INR (10/31/2024 11:05 AM SPEECH LANGUAGE PATHOLOGIST PRN) Pathologist [facility] PT 13.8(H) 9.7 - 13.0 sec INR 1.27(H) 0.90 - 1.20 [facility] Comment: Interpretive data Oral anticoagulant therapeutic ranges: Venous thromboembolism prophylaxis or treatment: 2.0-3.0 CARDIOLOGY Standard range: 2.0-3.0 High-intensity range: 2.5-3.5 Refer to indication-specific guidelines for appropriate target ranges for prosthetic heart valve replacement. Current interpretive data was last revised on 2019. Blood 10/31/2024 11:0 5 AM SPEECH LANGUAGE PATHOLOGIST PRN 10/31/2024 11:35 AM SPEECH LANGUAGE PATHOLOGIST PRN Lia Drummond MD PhD LAB BLOOD ORDERABLES Final Re sult Performing Organization Address [facility] Co de Phone Number [facility] [place] [address] * Fibrinogen (10/31/2024 11:05 AM SPEECH LANGUAGE PATHOLOGIST PRN) Pathologist [facility] Fibrinogen 182 170 - 400 mg/dL Blood 10/31/2024 11:0 5 AM SPEECH LANGUAGE PATHOLOGIST PRN 10/31/2024 11:35 AM SPEECH LANGUAGE PATHOLOGIST PRN Lia Drummond MD PhD LAB BLOOD ORDERABLES Final Re sult Performing Organization Address [facility] [place] [address] * FL Fluoroscopy < 1 Hour (10/31/2024 11:03 AM SPEECH LANGUAGE PATHOLOGIST PRN) Narrative [facility] - 10/31/2024 11:04 AM SPEECH LANGUAGE PATHOLOGIST PRN The images from this study are not interpreted by Radiology. Please refer to the physician's procedure / OR operative note. Javed Ardon MD IMG FLUOROSCOPY PROCEDU RES Final Result Performing Organization Address [facility] de Phone Number [facility] * Transfuse RBC (10/31/2024 10:59 AM SPEECH LANGUAGE PATHOLOGIST PRN) Blood Lia Drummond MD PhD BLOOD TRANSFUSION ORDERABLES Final Result Performing Organization Address [facility] [place] [address] * Prepare plasma: 1 Units (10/31/2024 10:53 AM SPEECH LANGUAGE PATHOLOGIST PRN) Product code [id number] Unit Number [id number] 7-Q [facility] Product Blood Type OPOS [facility] Dispense Status RETURNED [facility] Blood Venous blood specimen / Unknown 10/31/2024 10:53 AM SPEECH LANGUAGE PATHOLOGIST PRN 10/31/2024 10:53 AM SPEECH LANGUAGE PATHOLOGIST PRN Narrative [facility] - 10/31/2024 12:25 PM SPEECH LANGUAGE PATHOLOGIST PRN Date required:-[id number] FFP # of Units:-1-Units Reasons:-Immediate need for surgical intervention Lia Drummond MD PhD BLOOD BANK PRODUCT ORDERABLES Final Result Performing Organization Address [facility] [place] [address] * Prepare plasma: 1 Units (10/31/2024 10:53 AM SPEECH LANGUAGE PATHOLOGIST PRN) Product code [id number] Unit Number [id number] 4-Y [facility] Product Blood Type OPOS [facility] Dispense Status RETURNED [facility] Blood Venous blood specimen / Unknown 10/31/2024 10:53 AM SPEECH LANGUAGE PATHOLOGIST PRN 10/31/2024 10:52 AM SPEECH LANGUAGE PATHOLOGIST PRN Narrative [facility] - 10/31/2024 12:25 PM SPEECH LANGUAGE PATHOLOGIST PRN Date required:-[id number] FFP # of Units:-1-Units Reasons:-Immediate need for surgical intervention us Lia Drummond MD PhD BLOOD BANK PRODUCT ORDERABLES Final Result Performing Organization Address [facility] de Phone Number [facility] [place], [place] [id number] * Prepare plasma: 1 Units (10/31/2024 10:53 AM SPEECH LANGUAGE PATHOLOGIST PRN) Product code [id number] Unit Number [id number] 9-* [facility] Product Blood Type OPOS [facility] Dispense Status RETURNED [facility] Blood Venous blood specimen / Unknown 10/31/2024 10:53 AM SPEECH LANGUAGE PATHOLOGIST PRN 10/31/2024 10:52 AM SPEECH LANGUAGE PATHOLOGIST PRN Narrative [facility] - 10/31/2024 12:25 PM SPEECH LANGUAGE PATHOLOGIST PRN Date required:-[id number] FFP # of Units:-1-Units Reasons:-Immediate need for surgical intervention us Lia Drummond MD PhD BLOOD BANK PRODUCT ORDERABLES Final Result Performing Organization Address City/[facility] Co de Phone Number [facility] [place] [address] * Prepare plasma: 1 Units (10/31/2024 10:52 AM SPEECH LANGUAGE PATHOLOGIST PRN) Product code [id number] Unit Number [id number]- [id number] [facility] Product Blood Type OPOS [facility] Dispense Status PRESUMED TRANSFUSED [facility] Blood Venous blood specimen / Unknown 10/31/2024 10:52 AM SPEECH LANGUAGE PATHOLOGIST PRN 10/31/2024 10:52 AM SPEECH LANGUAGE PATHOLOGIST PRN Narrative [facility] - 11/01/2024 12:56 AM SPEECH LANGUAGE PATHOLOGIST PRN Date required:-[id number] FFP # of Units:-1-Units Reasons:-Immediate need for surgical intervention Lia Drummond MD PhD BLOOD BANK PRODUCT ORDERABLES Final Result Performing Organization Address [facility] de Phone Number [facility] [place] [address] * Prepare RBC: 1 Units (10/31/2024 10:51 AM SPEECH LANGUAGE PATHOLOGIST PRN) Product code [id number] Unit Number [id number] 6-5 [facility] Product Blood Type OPOS [facility] Dispense Status RETURNED [facility] Blood 10/31/2024 10:5 1 AM SPEECH LANGUAGE PATHOLOGIST PRN 10/31/2024 10:50 AM SPEECH LANGUAGE PATHOLOGIST PRN Narrative [facility] - 10/31/2024 12:25 PM SPEECH LANGUAGE PATHOLOGIST PRN Are special requirements needed? (All products are leukoreduced and CMV- safe)- >No Date required:-20241031 LRRBC # of Bhvbk-[id number] Reasons:-Intra-op transfusion} iLa Drummond MD PhD BLOOD BANK PRODUCT ORDERABLES Final Result Performing Organization Address [facility] de Phone Number [facility] [place] [address] * Prepare RBC: 1 Units (10/31/2024 10:51 AM SPEECH LANGUAGE PATHOLOGIST PRN) Product code [id number] Unit Number [id number] 3-3 [facility] Product Blood Type OPOS [facility] Dispense Status RETURNED [facility] Blood 10/31/2024 10:5 1 AM SPEECH LANGUAGE PATHOLOGIST PRN 10/31/2024 10:50 AM SPEECH LANGUAGE PATHOLOGIST PRN Narrative [facility] - 10/31/2024 12:25 PM SPEECH LANGUAGE PATHOLOGIST PRN Are special requirements needed? (All products are leukoreduced and CMV- safe)- >No Date required:-[id number] LRRBC # of Bqjfq-[id number] Reasons:-Intra-op transfusion} Lia Drummond MD PhD BLOOD BANK PRODUCT ORDERABLES Final Result Performing Organization Address [facility] de Phone Number [facility] [place] [address] * Prepare RBC: 1 Units (10/31/2024 10:50 AM SPEECH LANGUAGE PATHOLOGIST PRN) Product code [id number] Unit Number [id number] 8-V [facility] Product Blood Type OPOS [facility] Dispense Status RETURNED [facility] Blood 10/31/2024 10:5 0 AM SPEECH LANGUAGE PATHOLOGIST PRN 10/31/2024 10:50 AM SPEECH LANGUAGE PATHOLOGIST PRN Narrative [facility] - 10/31/2024 12:25 PM SPEECH LANGUAGE PATHOLOGIST PRN Are special requirements needed? (All products are leukoreduced and CMV- safe)- >No Date required:-[id number] LRRBC # of Xreds-0-Qzpeu Reasons:-Intra-op transfusion} Lia Drummond MD PhD BLOOD BANK PRODUCT ORDERABLES Final Result Performing Organization Address [facility] [place] [address] * Prepare RBC: 1 Units (10/31/2024 10:50 AM SPEECH LANGUAGE PATHOLOGIST PRN) Product code [id number] Unit Number [id number] 4-E [facility] Product Blood Type OPOS [facility] Dispense Status RETURNED [facility] Blood 10/31/2024 10:5 0 AM SPEECH LANGUAGE PATHOLOGIST PRN 10/31/2024 10:49 AM SPEECH LANGUAGE PATHOLOGIST PRN Narrative [facility] - 10/31/2024 12:25 PM SPEECH LANGUAGE PATHOLOGIST PRN Are special requirements needed? (All products are leukoreduced and CMV- safe)- >No Date required:-[id number] LRRBC # of Qmhxt-2-Wbwlu Reasons:-Intra-op transfusion} Lia Drummond MD PhD BLOOD BANK PRODUCT ORDERABLES Final Result Performing Organization Address [facility] [place] [address] * Transfuse plasma (10/31/2024 10:49 AM SPEECH LANGUAGE PATHOLOGIST PRN) Blood Lia Drummond MD PhD BLOOD TRANSFUSION ORDERABLES Final Result Performing Organization Address [facility] [place] [address] * Transfuse RBC (10/31/2024 10:38 AM SPEECH LANGUAGE PATHOLOGIST PRN) Blood Lia Drummond MD PhD BLOOD TRANSFUSION ORDERABLES Final Result Performing Organization Address [facility] Co de Phone Number [facility] [place] [address] * Transfuse RBC (10/31/2024 10:27 AM SPEECH LANGUAGE PATHOLOGIST PRN) Blood Lia Drummond MD PhD BLOOD TRANSFUSION ORDERABLES Final Result Performing Organization Address [facility] [place] [address] * POC Thromboelastometry Panel - Heparin (10/31/2024 10:20 AM SPEECH LANGUAGE PATHOLOGIST PRN) [facility] HEPTEM-CT, POC 144 141 - 215 sec HEPTEM-A5, POC 46 33 - 51 mm [facility] HEPTEM-A10, POC 56 44 - 61 mm [facility] HEPTEM-A20, POC 61 52 - 67 mm [facility] HEPTEM-MCF, POC 62 54 - 69 mm [facility] HEPTEM-Run Time, POC (hh:mm:ss) 02:00:00 [facility] Blood 10/31/2024 10:2 0 AM SPEECH LANGUAGE PATHOLOGIST PRN 10/31/2024 10:20 AM SPEECH LANGUAGE PATHOLOGIST PRN us Javed Ardon MD LAB POCT ORDERABLES - D EVICE Edited Result - Final Performing Organization Address [facility]/ZIP Co de Phone Number [facility] [place] [address] * (ABNORMAL) POC Thromboelastometry Panel - Intrinsic (10/31/2024 10:19 AM SPEECH LANGUAGE PATHOLOGIST PRN) INTEM-CT, POC 148 139 - 205 sec [...] [facility] INTEM-Run Time, POC (hh:mm:ss) 02:00:00 [facility] Blood 10/31/2024 10:1 9 AM SPEECH LANGUAGE PATHOLOGIST PRN 10/31/2024 10:19 AM SPEECH LANGUAGE PATHOLOGIST PRN us Javed Ardon MD LAB POCT ORDERABLES - D EVICE Edited Result - Final Performing Organization Address [facility]/ZIP Co de Phone Number [facility] Department [place] [address] * POC Thromboelastometry Panel - Fibrinogen (10/31/2024 10:18 AM SPEECH LANGUAGE PATHOLOGIST PRN) FIBTEM-A5, POC 9 5 - 16 mm FIBTEM-A10, POC 10 6 - 17 mm [facility] FIBTEM-A20, POC 11 6 - 18 mm [facility] FIBTEM-MCF, POC 11 9 - 19 mm [facility] FIBTEM-Run Time, POC (hh:mm:ss) 02:00:00 [facility] Blood 10/31/2024 10:1 8 AM SPEECH LANGUAGE PATHOLOGIST PRN 10/31/2024 10:18 AM SPEECH LANGUAGE PATHOLOGIST PRN us Javed Ardon MD LAB POCT ORDERABLES - D EVICE Edited Result - Final Performing Organization Address City/[facility]/ZIP Co de Phone Number [facility] Department [place] [address] * (ABNORMAL) POC Thromboelastometry Panel - Extrinsic (10/31/2024 10:18 AM SPEECH LANGUAGE PATHOLOGIST PRN) Pathologist [facility] EXTEM-CT, POC 55 51 - 73 sec [...] [facility] EXTEM-Run Time, POC (hh:mm:ss) 02:00:01 [facility] Blood 10/31/2024 10:1 8 AM SPEECH LANGUAGE PATHOLOGIST PRN 10/31/2024 10:18 AM SPEECH LANGUAGE PATHOLOGIST PRN us Javed Ardon MD LAB POCT ORDERABLES - D EVICE Edited Result - Final Performing Organization Address [facility]/ZIP Co de Phone Number [facility] [place] [address] * Prepare RBC: 2 Units (10/31/2024 10:16 AM SPEECH LANGUAGE PATHOLOGIST PRN) Product code [id number] Unit Number [id number] [facility] Product Blood Type OPOS [facility] Dispense Status PRESUMED TRANSFUSED [facility] Product code [id number] [facility] Unit Number [id number] [facility] Product Blood Type OPOS [facility] Dispense Status PRESUMED TRANSFUSED [facility] Blood 10/31/2024 10:1 6 AM SPEECH LANGUAGE PATHOLOGIST PRN 10/31/2024 10:16 AM SPEECH LANGUAGE PATHOLOGIST PRN Narrative [facility] - 11/01/2024 12:56 AM SPEECH LANGUAGE PATHOLOGIST PRN Are special requirements needed? (All products are leukoreduced and CMV- safe)- >No Date required:-20241031 LRRBC # of [id number]-3-Xsuvl Reasons:-Intra-op transfusion} us Lia Drummond MD PhD BLOOD BANK PRODUCT ORDERABLES Final Result Performing Organization Address [facility] Co de Phone Number [facility] Department [place] [address] * POCT prothrombin time (10/31/2024 10:03 AM SPEECH LANGUAGE PATHOLOGIST PRN) PT, POC 16.2 11.7 - 16.6 sec INR, POC 1.2 0.9 - 1.2 [facility] Blood 10/31/2024 10:0 3 AM SPEECH LANGUAGE PATHOLOGIST PRN 10/31/2024 10:03 AM SPEECH LANGUAGE PATHOLOGIST PRN us Javed Ardon MD LAB POCT ORDERABLES - D EVICE Final Result Performing Organization Address [facility] Co de Phone Number [facility] Department [place] [address] * POCT Partial thromboplastin time (PTT) (10/31/2024 10:03 AM SPEECH LANGUAGE PATHOLOGIST PRN) APTT, POC 36.6 32.5 - 46.1 sec Blood 10/31/2024 10:0 3 AM SPEECH LANGUAGE PATHOLOGIST PRN 10/31/2024 10:03 AM SPEECH LANGUAGE PATHOLOGIST PRN Javed Ardon MD LAB POCT ORDERABLES - D EVICE Final Result Performing Organization Address [facility] Co de Phone Number [facility] [place] [address] * (ABNORMAL) POC Blood Gas and Chemistries, Venous - (10/31/2024 10:02 AM SPEECH LANGUAGE PATHOLOGIST PRN) [facility] pH, Kitty POC 7.32 7.32 - 7.43 pCO2, kitty POC 45 40 - 50 mmHg [facility] pO2, kitty POC 65 mmHg [facility] Na, POC 141 135 - 145 mmol/L [facility] K POC 3.9 3.3 - 4.9 mmol/L [facility] Comment: Interpretive Data Not all point of care methods assess for hemolysis. Confirm with instrument and retest K+ if not consistent with clinical signs and symptoms. Current Interpretive Data was last revised on 2024. Cl, POC 112(H) 97 - 110 mmol/L [facility] Ionized Ca, POC 4.96 4.50 - 5.10 mg/dL [facility] Glucose, POC 164 70 - 199 mg/dL [facility] Lactate, POC 1.4 0.7 - 2.0 mmol/L [facility] O2 Sat, Kitty POC (Karen) 93 % [facility] Base excess, POC -2.8 mmol/L [facility] Hct, POC 23.0(L) 36.3 - 45.3 % [facility] Total Hb, POC 7.5(L) 11.9 - 15.5 g/dL [facility] Blood 10/31/2024 10:0 2 AM SPEECH LANGUAGE PATHOLOGIST PRN 10/31/2024 10:02 AM SPEECH LANGUAGE PATHOLOGIST PRN us Javed Ardon MD LAB POCT ORDERABLES - D EVICE Final Result [facility] Department [place] [address] * Prepare plasma: 1 Units (10/31/2024 9:27 AM SPEECH LANGUAGE PATHOLOGIST PRN) [facility] Product code [id number] Unit Number [id number] [facility] Product Blood Type OPOS [facility] Dispense Status RETURNED [facility] Blood Venous blood specimen / Unknown 10/31/2024 9:27 AM SPEECH LANGUAGE PATHOLOGIST PRN 10/31/2024 9:27 AM SPEECH LANGUAGE PATHOLOGIST PRN Narrative [facility] - 10/31/2024 9:50 AM SPEECH LANGUAGE PATHOLOGIST PRN Date required:-[id number] FFP # of Units:-1-Units Reasons:-Immediate need for surgical intervention Lia Drummond MD PhD BLOOD BANK PRODUCT ORDERABLES Final Result Performing Organization Address [facility] de Phone Number [facility] [place] [address] * Prepare plasma: 1 Units (10/31/2024 9:25 AM SPEECH LANGUAGE PATHOLOGIST PRN) Product code [id number] Unit Number [id number] [facility] Product Blood Type OPOS [facility] Dispense Status PRESUMED TRANSFUSED [facility] Blood Venous blood specimen / Unknown 10/31/2024 9:25 AM SPEECH LANGUAGE PATHOLOGIST PRN 10/31/2024 9:25 AM SPEECH LANGUAGE PATHOLOGIST PRN Narrative [facility] - 11/01/2024 12:56 AM SPEECH LANGUAGE PATHOLOGIST PRN Date required:-[id number] FFP # of Units:-1-Units Reasons:-Immediate need for surgical intervention Lia Drummond MD PhD BLOOD BANK PRODUCT ORDERABLES Final Result Performing Organization Address [facility] de Phone Number [facility] Department [place] [address] * Prepare RBC: 1 Units (10/31/2024 9:25 AM SPEECH LANGUAGE PATHOLOGIST PRN) Product code [id number] Unit Number [id number] [facility] Product Blood Type OPOS [facility] Dispense Status PRESUMED TRANSFUSED [facility] Blood 10/31/2024 9:25 AM SPEECH LANGUAGE PATHOLOGIST PRN 10/31/2024 9:24 AM SPEECH LANGUAGE PATHOLOGIST PRN Narrative [facility] - 11/01/2024 12:56 AM SPEECH LANGUAGE PATHOLOGIST PRN Are special requirements needed? (All products are leukoreduced and CMV- safe)- >No Date required:-[id number] LRRBC # of [id number] Reasons:-Intra-op transfusion} Lia Drummond MD PhD BLOOD BANK PRODUCT ORDERABLES Final Result Performing Organization Address [facility] [place] [address] * Prepare RBC: 1 Units (10/31/2024 9:24 AM SPEECH LANGUAGE PATHOLOGIST PRN) Product code [id number] Unit Number [id number] [facility] Product Blood Type OPOS [facility] Dispense Status PRESUMED TRANSFUSED [facility] Blood 10/31/2024 9:24 AM SPEECH LANGUAGE PATHOLOGIST PRN 10/31/2024 9:24 AM SPEECH LANGUAGE PATHOLOGIST PRN Narrative [facility] - 11/01/2024 12:56 AM SPEECH LANGUAGE PATHOLOGIST PRN Are special requirements needed? (All products are leukoreduced and CMV- safe)- >No Donor Source->[employer] Date required:-[id number] LRRBC # of [id number] Reasons:-Intra-op transfusion} Result [facility] Lia Drummond MD PhD BLOOD BANK PRODUCT ORDERABLES Final Result Performing Organization Address [facility] de Phone Number [facility] [place] [address] * ME AN PROCEDURE PLACEHOLDER (10/31/2024 8:46 AM SPEECH LANGUAGE PATHOLOGIST PRN) Narrative Bridgette Raymundo CRNA - 10/31/2024 8:46 AM SPEECH LANGUAGE PATHOLOGIST PRN Bridgette Raymundo CRNA 10/31/2024 8:50 AM Peripheral IV Catheter Patient location: OR Staff: Placed by: FAMILY AND CONSUMER SCIENCES PROFESSOR: Bridgette Raymundo CRNA Preprocedure prep: Prep solution: chlorhexadine PIV line: Laterality: left Site: forearm Catheter size: 16 g Technique: direct visualization Procedure details: good blood return Number of attempts: 1 Lia Drummond MD PhD ANESTHESIA ORDERABLES Final R esult * ME AN ELECTIVE ENDOTRACHEAL AIRWAY, ME AN PROCEDURE PLACEHOLDER (10/31/2024 8:44 AM SPEECH LANGUAGE PATHOLOGIST PRN) Narrative Bridgette Raymundo CRNA - 10/31/2024 8:44 AM SPEECH LANGUAGE PATHOLOGIST PRN Bridgette Raymundo CRNA 10/31/2024 8:46 AM Airway Patient location: OR Urgency: elective Indications for airway management: anesthesia Difficult airway: no Staff: Placed by: FAMILY AND CONSUMER SCIENCES PROFESSOR: Bridgette Raymundo CRNA Emergent airway documentation: Risks [...] esult * Check Sample (10/31/2024 7:09 AM SPEECH LANGUAGE PATHOLOGIST PRN) ABO Rh O Positive [facility] HCLL OTHER 10/31/2024 7:09 AM SPEECH LANGUAGE PATHOLOGIST PRN 10/31/2024 7:18 AM SPEECH LANGUAGE PATHOLOGIST PRN us Javed Ardon MD LAB BLOOD ORDERABLES Fi nal Result YU [facility] Department [place] [address] [facility] * POCT glucose (10/31/2024 7:09 AM SPEECH LANGUAGE PATHOLOGIST PRN) [facility] Glucose, POC 107 70 - 199 mg/dL Blood 10/31/2024 7:09 AM SPEECH LANGUAGE PATHOLOGIST PRN 10/31/2024 7:09 AM SPEECH LANGUAGE PATHOLOGIST PRN us Javed Ardon MD LAB POCT ORDERABLES - D LIA Final Result Performing Organization Address [facility] Co de Phone Number [facility] Department [place] [address] * TYPE AND SCREEN 14 DAY (10/22/2024 2:53 PM SPEECH LANGUAGE PATHOLOGIST PRN) [facility] Eun, indirect Negative ABO Rh O Positive [facility] Blood 10/22/2024 2:53 PM SPEECH LANGUAGE PATHOLOGIST PRN 10/22/2024 5:06 PM SPEECH LANGUAGE PATHOLOGIST PRN Narrative [facility] - 10/22/2024 6:58 PM SPEECH LANGUAGE PATHOLOGIST PRN Is this test being ordered in advance for a procedure?->Yes Expected date of procedure:->10/31/24 Has the patient been transfused in the past 3 months?->No Has the patient been in the past 3 months?->No Annika Britton NP LAB BLOOD BANK TEST [employer] Final Result Performing Organization Address [facility] de Phone Number [facility] [place] [address] * eGFR (10/22/2024 2:53 PM SPEECH LANGUAGE PATHOLOGIST PRN) [facility] eGFR 90 >=60 mL/min/1. 73 m2 Comment: [...] last reviewed 2021. Blood 10/22/2024 2:53 PM SPEECH LANGUAGE PATHOLOGIST PRN 10/22/2024 4:59 PM SPEECH LANGUAGE PATHOLOGIST PRN us Javed Ardon MD LAB BLOOD ORDERABLES Fi nal Result [facility] Department [place] [address] * Differential, auto (10/22/2024 2:53 PM SPEECH LANGUAGE PATHOLOGIST PRN) Neutrophil abs 3.2 1.5 - 6.5 K/cumm Imm gran abs 0.0 0.0 - 0.1 K/cumm [facility] Lymphocyte abs 1.9 0.8 - 3.3 K/cumm [facility] Monocyte abs 0.4 0.2 - 0.8 K/cumm [facility] Eosinophil abs 0.1 0.0 - 0.5 K/cumm [facility] Basophil abs 0.0 0.0 - 0.1 K/cumm [facility] Neutrophil pct 57.2 % [facility] Comment: Interpretive Data Percent cell count reference ranges are not reported, since discordance with absolute values may lead to misinterpretation of CBC data. Current Interpretive Data was last revised on 2018. Imm gran pct 0.2 % [facility] Comment: Interpretive Data Percent cell count reference ranges are not reported, since discordance with absolute values may lead to misinterpretation of CBC data. Current Interpretive Data was last revised on 2018. Lymphocyte pct 33.3 % [facility] Comment: Interpretive Data Percent cell count reference ranges are not reported, since discordance with absolute values may lead to misinterpretation of CBC data. Current Interpretive Data was last revised on 2018. Monocyte pct 7.5 % [facility] Comment: Interpretive Data Percent cell count reference ranges are not reported, since discordance with absolute values may lead to misinterpretation of CBC data. Current Interpretive Data was last revised on 2018. Eosinophil pct 1.4 % [facility] Comment: Interpretive Data Percent cell count reference ranges are not reported, since discordance with absolute values may lead to misinterpretation of CBC data. Current Interpretive Data was last revised on 2018. Basophil pct 0.4 % [facility] Comment: Interpretive Data Percent cell count reference ranges are not reported, since discordance with absolute values may lead to misinterpretation of CBC data. Current Interpretive Data was last revised on 2018. Blood 10/22/2024 2:53 PM SPEECH LANGUAGE PATHOLOGIST PRN 10/22/2024 4:59 PM SPEECH LANGUAGE PATHOLOGIST PRN us Javed Ardon MD LAB BLOOD ORDERABLES Fi nal Result Performing Organization Address [facility] Co de Phone Number [facility] Department [place] [address] * CPAP aPTT algorithm (10/22/2024 2:53 PM SPEECH LANGUAGE PATHOLOGIST PRN) aPTT 30 28 - 38 sec Comment: Interpretive Data Heparin therapeutic range: 66.0 - 100.0 seconds. Range based on correlation with therapeutic heparin activity range of 0.3 - 0.7 Units/mL. Current interpretive data was last revised on 2023. Blood 10/22/2024 2:53 PM SPEECH LANGUAGE PATHOLOGIST PRN 10/22/2024 4:45 PM SPEECH LANGUAGE PATHOLOGIST PRN us Annika Britton COSMETICS DEMONSTRATOR LAB BLOOD ORDERABLES Fin al Result Performing Organization Address City/[facility] Co de Phone Number [facility] Department [place] [address] * (ABNORMAL) Urinalysis reflex to microscopic and culture Urine, clean voided (10/22/2024 2:53 PM SPEECH LANGUAGE PATHOLOGIST PRN) Color, ur Yellow Yellow Clarity, ur Clear Clear [facility] Specific gravity, ur 1.022 1.003 - 1.030 [facility] pH, urine 5.5 [facility] Comment: Interpretive Data U rine pH is affected by diet, medications, systemic acid-base disturbances, and renal tubular function. pH may affect urinary stone formation. For example, urine pH below 6.0 may help reduce the tendency for calcium phosphate stones and pH greater than 6.0 may reduce the tendency for uric acid stone formation. Source: [facility] Current Interpretive Data was last revised on 2017 Protein, ur ql Trace Negative [facility] Glucose, ur ql Negative Negative [facility] Ketones, ur Negative Negative [facility] Bilirubin, ur Negative Negative [facility] Blood, ur Negative Negative [facility] Urobilinogen, ur <2.0 <2.0 mg/dL [facility] Nitrite, ur Negative Negative [facility] Leukocyte esterase, ur 1+(A) Negative [facility] UA reflex comment Reflex to microscopic UA will be performed. [facility] Urine, clean voided 10/22/2024 2:53 PM SPEECH LANGUAGE PATHOLOGIST PRN 10/22/2024 4:42 PM SPEECH LANGUAGE PATHOLOGIST PRN us Javed Ardon MD LAB MICROBIOLOGY - GENE [facility] ORDERABLES Final Result [facility] Department [place] [address] * (ABNORMAL) CBC with auto differential (10/22/2024 2:53 PM SPEECH LANGUAGE PATHOLOGIST PRN) WBC 5.6 3.8 - 9.9 K/cumm Hgb 11.3(L) 11.9 - 15.5 g/dL [facility] Hct 36.2 35.6 - 45.5 % [facility] Plt 195 150 - 400 K/cumm [facility] MPV 11.2 9.1 - 12.3 fL [facility] RBC 3.92 3.90 - 5.20 M/cumm [facility] MCV 92.3 81.3 - 96.4 fL [facility] MCH 28.8 27.1 - 33.3 pg [facility] MCHC 31.2(L) 32.3 - 35.7 g/dL [facility] RDW CV 12.3 11.1 - 14.9 % [facility] RDW SD 42.2 35.7 - 48.1 fL [facility] NRBC abs 0.00 0.00 - 0.01 K/cumm [facility] Blood 10/22/2024 2:53 PM SPEECH LANGUAGE PATHOLOGIST PRN 10/22/2024 4:59 PM SPEECH LANGUAGE PATHOLOGIST PRN Javed Ardon MD LAB BLOOD ORDERABLES Fi nal Result Performing Organization Address City/[facility]/ZIP Co de Phone Number [facility] Department [place] [address] * Nicotine metabolite screen, urine (10/22/2024 2:53 PM SPEECH LANGUAGE PATHOLOGIST PRN) Pathologist [facility] Nicotine, ur <5.0 <5.0 ng/mL [facility] Cotinine, ur <5.0 <5.0 ng/mL [facility] Anabasine ur <2.0 <2.0 ng/mL [facility] Comment: ADDITIONAL INFORMATION This test was developed and its performance characteristics determined by [facility] in a manner consistent with CLIA requirements. This test has not been cleared or approved by the U.S. Food and Drug Administration. Test Performed by: [facility] - [address] [address] Sexual Assault Response Coordinator: Dieudonne Antunez Ph.D.; CLIA# [id number] Nornicotine, ur <2.0 <2.0 ng/mL [facility] Urine 10/22/2024 2:53 PM SPEECH LANGUAGE PATHOLOGIST PRN 10/22/2024 4:48 PM SPEECH LANGUAGE PATHOLOGIST PRN Javed Ardon MD LAB URINE ORDERABLES Fi nal Result Performing Organization Address City/[facility]/ZIP Co de Phone Number [facility] Department [place] [address] [facility] * (ABNORMAL) Vitamin D 25 hydroxy (10/22/2024 2:53 PM SPEECH LANGUAGE PATHOLOGIST PRN) Pathologist [facility] Vitamin D 25-OH 9(L) 30 - 80 ng/mL Blood 10/22/2024 2:53 PM SPEECH LANGUAGE PATHOLOGIST PRN 10/22/2024 4:59 PM SPEECH LANGUAGE PATHOLOGIST PRN Javed Ardon MD LAB BLOOD ORDERABLES Fi nal Result Performing Organization Address [facility]/ZIP Co de Phone Number [facility] [place] [address] * (ABNORMAL) Urinalysis, microscopic only (10/22/2024 2:53 PM SPEECH LANGUAGE PATHOLOGIST PRN) [facility] WBC, ur 0-5 0 - 5 /HPF RBC, ur 0-2 0 - 2 /HPF [facility] Epithelial cells, squamous, ur 1-5 0 - 5 /HPF [facility] Bacteria, ur Trace(A) [facility] Mucous, ur Present(A) [facility] Hyaline casts, ur 11-20(A) 0 - 10 /LPF [facility] Culture Reflex Comment Reflex conditions for urine culture (WBC >10) not met. [facility] Urine, clean voided 10/22/2024 2:53 PM SPEECH LANGUAGE PATHOLOGIST PRN 10/22/2024 4:42 PM SPEECH LANGUAGE PATHOLOGIST PRN Javed Ardon MD LAB URINE ORDERABLES Fi nal Result Performing Organization Address City/[facility]/ZIP Co de Phone Number [facility] [place] [address] * Protime-INR (10/22/2024 2:53 PM SPEECH LANGUAGE PATHOLOGIST PRN) Pathologist [facility] PT 11.4 9.7 - 13.0 sec INR 1.05 0.90 - 1.20 [facility] Comment: Interpretive data Oral anticoagulant therapeutic ranges: Venous thromboembolism prophylaxis or treatment: 2.0-3.0 CARDIOLOGY Standard range: 2.0-3.0 High-intensity range: 2.5-3.5 Refer to indication-specific guidelines for appropriate target ranges for prosthetic heart valve replacement. Current interpretive data was last revised on 2019. Blood 10/22/2024 2:53 PM SPEECH LANGUAGE PATHOLOGIST PRN 10/22/2024 4:45 PM SPEECH LANGUAGE PATHOLOGIST PRN us Javed Ardon MD LAB BLOOD ORDERABLES Fi nal Result [facility] Department [place] [address] * Comprehensive metabolic panel (10/22/2024 2:53 PM SPEECH LANGUAGE PATHOLOGIST PRN) Sodium 144 135 - 145 mmol/L Potassium, pl 3.9 3.3 - 4.9 mmol/L [facility] Chloride 107 97 - 110 mmol/L [facility] CO2 29 22 - 32 mmol/L [facility] Anion gap 8 2 - 15 mmol/L [facility] BUN 16 6 - 25 mg/dL [facility] Creatinine 0.74 0.60 - 1.10 mg/dL [facility] Glucose 89 70 - 199 mg/dL [facility] Comment: Interpretive Data Fasting glucose >/= [...] 2022. Calcium 9.5 8.5 - 10.3 mg/dL [facility] Bilirubin, total 0.4 0.1 - 1.2 mg/dL [facility] Protein, pl 7.1 6.5 - 8.5 g/dL [facility] Albumin 4.2 3.5 - 5.0 g/dL [facility] Alk phos 73 40 - 130 Units/L [facility] ALT 28 7 - 45 Units/L [facility] AST 22 10 - 45 Units/L [facility] Blood 10/22/2024 2:53 PM SPEECH LANGUAGE PATHOLOGIST PRN 10/22/2024 4:59 PM SPEECH LANGUAGE PATHOLOGIST PRN Javed Ardon MD LAB BLOOD ORDERABLES Fi nal Result Performing Organization Address [facility] [place] [address] * (ABNORMAL) POCT hemoglobin A1c (10/22/2024 1:35 PM SPEECH LANGUAGE PATHOLOGIST PRN) Hgb A1C, POC 6.3(H) 4.0 - 5.6 % Est Average Gluc POC 134 mg/dL [facility] Comment: The ADA recommends reporting an estimated Average Glucose (eAG) with all Hemoglobin A1c results using the equation derived from a study of 507 normal and diabetic adults. Minority populations were underrepresented and children were not included. (Diabetes Care 31:8070-4668, 2008). The eAG is not equivalent to a fasting glucose. Blood 10/22/2024 1:35 PM SPEECH LANGUAGE PATHOLOGIST PRN 10/22/2024 1:35 PM SPEECH LANGUAGE PATHOLOGIST PRN us Javed Ardon MD POINT OF CARE TEST ORDE RABLES Final Result Performing Organization Address [facility] Phone Number [facility] [place] [address] * Neuro MR Outside Reference (10/14/2024 1:03 PM SPEECH LANGUAGE PATHOLOGIST PRN) Impressions [facility] - 10/14/2024 1:03 PM SPEECH LANGUAGE PATHOLOGIST PRN These images are for Reference purposes only and have not been reviewed by [facility] Radiology. There will be no report generated by a [facility] Radiologist. Narrative [facility] - 10/14/2024 1:03 PM SPEECH LANGUAGE PATHOLOGIST PRN EXAMINATION: Images For Reference Purposes Only us Javed Ardon MD IMG MRI PROCEDURES Ami l Result [facility] from Last 3 Months Insurance [facility] MDCR HMO REF IDPA IDPA [facility] MEDICARE ADVANTAGE [facility] MEDICARE ADVANTAGE IDPA Advance Directives For more information, please contact: [phone] * Full Code (Latest Code Status on File) Date Activated Date Inactivated Comments 10/31/2024 2:09 PM 11/02/2024 6:07 PM * Full Code Date Activated Date Inactivated Comments 02/19/2024 4:25 PM 02/22/2024 5:52 PM * Full Code Date Activated Date Inactivated Comments 02/09/2024 2:53 PM 02/10/2024 4:09 PM Care Teams Hr Business Partner Relationship Specialty Start Date End Date Marely Mcclure PA PCP - General Physician Bottoming Machine Operator 02/16/22 Manisha White MD [address] [facility], [address] [address] Consulting Physician Pain Management 05/10/24 Ashley Walker MD [address] [place] [address] Referring Physician Family Medicine 05/29/24 Edilia Hanna MD [address] [address] Referring Physician Family Practice 08/06/24
--- OUTSIDE RECORDS SUMMARY | 2024-12-31 17:37 | XMS_ITS | Clinical Summary ---
Author Organization [facility] Address [address] [place] [address] Care Team Providers Care Core Laying Machine Operator Name Role Phone Marely Mcclure Primary Care Provider + Manisha White MD Unavailable Ashley Walker MD Unavailable [phone] Edilia Hanna MD Unavailable [phone] Allergies Active Allergy Reactions Criticality Noted Date [...] Description 12/27/2024 1:00 PM CDT Office Visit [facility] Orthopaedic Surgery [address] [facility] Advanced Medicine 12th [place] [address] [place] [address] Javed Ardon MD S/P lumbar spinal fusion (Primary Dx) 12/27/2024 12:37 PM CDT - 12/27/2024 11:59 PM CDT Hospital Encounter [facility] [address] [place] [address] Fusion of spine of lumbar region Discharge Disposition: Discharge to home or self care 12/27/2024 Orders Only [facility] Orthopaedic Surgery [address] [facility] Advanced Medicine 12th [place] [address] [place] [address] Javed Ardon MD Fusion of spine of lumbar region (Primary Dx); Lumbar radiculopathy 11/22/2024 2:30 PM POWER PLANT OPERATOR Office Visit [facility] Orthopaedic Surgery [facility] [facility] Advanced Medicine 12th [place] [address] [place] [address] Javed Ardon MD Fusion of spine of lumbar region (Primary Dx) 11/22/2024 2:00 PM POWER PLANT OPERATOR - 11/22/2024 11:59 PM POWER PLANT OPERATOR Hospital Encounter [facility]) [address] [place] [address] Fusion of spine of lumbar region Discharge Disposition: Discharge to home or self care 11/22/2024 Orders Only [facility] Orthopaedic Surgery [address] [place] [address] 12th [place] [address] [place] [address] Javed Ardon MD Tear of right rotator cuff, unspecified tear extent, unspecified whether traumatic (Primary Dx) 10/31/2024 7:30 AM POWER PLANT OPERATOR - 10/31/2024 11:00 AM POWER PLANT OPERATOR Surgery [facility] Operating Room [address] [place] [address] Javed Ardon MD FUSION LUMBAR TRANSFORAMINAL INTERBODY, L5-S1 Transforaminal Lumbar Interbody Fusion with Left-Sided Foraminotomy, L5-S1 Posterior Spinal Fusion with Instrumentation, Allograft, Autograft, Spinal Cord Monitoring, Bone Morphogenetic Protein 10/31/2024 7:29 AM POWER PLANT OPERATOR Anesthesia Event [facility] Operating Room [address] [place] [address] Lia Drummond MD PhD Tobi, Annika Gentile NP 10/31/2024 5:56 AM POWER PLANT OPERATOR - 11/02/2024 2:07 PM POWER PLANT OPERATOR Hospital Encounter [address] [address] Javed Ardon MD Discharge Disposition: Discharge to home or self care 10/30/2024 Telephone [facility] Orthopaedic Surgery [address] [place] [address] Medical Office Building [address] [place] [address] Javed Ardon MD 10/29/2024 Telephone [facility] Orthopaedic Surgery [address] [facility] Medical Office [facility] [address] [place] [address] Javed Ardon MD 10/24/2024 Telephone [facility] Orthopaedic Surgery [address] [facility] Office [facility] [address] [place] [address] Madiha Plascencia 10/22/2024 1:30 PM POWER PLANT OPERATOR Pre-Admission Testing [facility] Center for Preoperative Assessment and Planning [facility]) [address] [place] [address] Preoperative testing (Primary Dx); Spondylolisthesis of lumbar region; Lumbar radiculopathy; Pain in other joint; Vitamin D deficiency 10/18/2024 Telephone [facility] Orthopaedic Surgery [address] [place] [address] Advanced Medicine 12th [place] [address] [place] [address] Javed Ardon MD 10/15/2024 Telephone [facility] Orthopaedic Surgery [facility] Office [facility] [address] [place] [address] Javed Ardon MD 10/14/2024 1:03 PM POWER PLANT OPERATOR - 10/14/2024 11:59 PM POWER PLANT OPERATOR Hospital Encounter [facility] ([facility]) [address] [place] [address] Discharge Disposition: Discharge to home or self [...] on file Legal Sex Female 4:17 AM POWER PLANT OPERATOR Gender Identity Not on file Sexual Orientation Not on file Obstetrics History Last Filed Vital Signs Vital Sign Reading Time Taken Comments Blood Pressure 122/68 11/02/2024 8:00 AM POWER PLANT OPERATOR Pulse 75 11/02/2024 8:00 AM POWER PLANT OPERATOR Temperature 36.8 C (98.2 F) 11/02/2024 8:00 AM POWER PLANT OPERATOR Respiratory Rate 16 11/02/2024 8:00 AM POWER PLANT OPERATOR Oxygen Saturation 94% 11/02/2024 8:00 AM POWER PLANT OPERATOR Inhaled Oxygen Concentration - - Weight 53.1 kg (117 lb) 11/22/2024 2:29 PM POWER PLANT OPERATOR Height 162.6 cm (5' 4 ) 11/22/2024 2:29 PM POWER PLANT OPERATOR Body Mass Index 20.08 11/22/2024 2:29 PM POWER PLANT OPERATOR Plan of Treatment Health Maintenance Due Date [...] Completed 01/02/2023 Medical Devices Implanted Type Area Director Of In Service Education Device Identifier Shelf Expiration Date Model / Serial / Lot Depuy Orth[employer] Cup Acetabular Bi-Mentum Od51mm Femoral Proximal Press Fit [id number] - [id number] Implanted:Qty: 1 on 02/09/2024 at [facility] Left: Hip [employer] Inc 07/08/2028 [id number] / / [id number] Depuy [employer] Liner Acet Hip Size 28 Poly Bi Mentum Altrx 51mm [id number] - [id number] Implanted:Qty: 1 on 02/09/2024 at [facility] Left: Hip [employer]uy [employer] Inc [id number] / / Depuy [employer] Articul/Feliciano 28mm Cementless Hip +1.5mm 09/21 Taper Head Femoral Latex Free [id number] - [id number] Implanted:Qty: 1 on 02/09/2024 at [facility] Left: Hip [employer] Inc [id number] / / Depuy [employer] Inc Actis L107 Mm Collar Hip 6 High Offset Stem Femoral [id number] - [id number] Implanted:Qty: 1 on 02/09/2024 at [facility] Left: Hip [employer] Inc [id number] / / Tangible [employer] Medical Creo Thread Spinal Cap Locking Nonsterile 1119.0010 - [id number] Implanted:Qty: 4 on 10/31/2024 by Javed Ardon MD at [facility] N/A: Spine Lumbar [employer] 1119.0010 / / Globus Medical Creo 5.5mm 40mm Curve Tom Spinal Titanium 1119.7040 - [id number] Implanted:Qty: 2 on 10/31/2024 by Javed Ardon MD at [facility] N/A: Spine Lumbar [employer] 1119.7040 / / Medtronic Inc Bmp Infuse Sm [id number] - [id number] Implanted:Qty: 1 on 10/31/2024 by Javed Ardon MD at [facility] N/A: Spine Lumbar Med[employer]onic Inc [id number] 07/09/2025 [id number] / / [id number] Globus Medical Implant Spinal Sable [id number] 7-14mm 15 Deg 1172.2121s - [id number] Implanted:Qty: 1 on 10/31/2024 by Javed Ardon MD at [facility] N/A: Spine Lumbar [employer] [id number] 09/23/2034 1172.2121S / / [id number] [employer] Creo Od6.5 Mm L55 Mm Thread Polyaxial Spine Screw Bone Titanium 5146.1657 - [id number] Implanted:Qty: 2 on 10/31/2024 by Javed Ardon MD at [facility] N/A: Spine Lumbar [employer] 5146.1657 / / Gl[employer] Medical Creo Od6.5 Mm L40 Mm Thread Polyaxial Spine Screw Bone Titanium 5146.1642 - [id number] Implanted:Qty: 1 on 10/31/2024 by Javed Ardon MD at [facility] N/A: Spine Lumbar [employer] 5146.1642 / / Gl[employer] Creo Od7.5 Mm L40 Mm Thread Polyaxial Spine Screw Bone Titanium 5146.1742 - [id number] Implanted:Qty: 1 on 10/31/2024 by Javed Ardon MD at [facility] N/A: Spine Lumbar [employer] 5146.1742 / / Procedures Procedure Name Priority Date/Time Associated Diagnosis Comments XR SPINE LUMBAR 2 OR 3 VIEWS Schedule Routine, Read Routine (OP Routine) 12/27/2024 12:43 PM CDT Fusion of spine of lumbar region XR SPINE LUMBAR 2 OR 3 VIEWS Schedule Routine, Read Routine (OP Routine) 11/22/2024 2:23 PM POWER PLANT OPERATOR Fusion of spine of lumbar region POCT GLUCOSE DEVICE Routine 11/02/2024 11:38 AM POWER PLANT OPERATOR POCT GLUCOSE DEVICE Routine 11/02/2024 7:59 AM POWER PLANT OPERATOR CBC WITHOUT DIFFERENTIAL Routine 025 10:40 PM POWER PLANT OPERATOR APTT Routine 11/01/2024 10:40 PM POWER PLANT OPERATOR PROTIME-INR Routine 11/01/2024 10:40 PM POWER PLANT OPERATOR POCT GLUCOSE DEVICE Routine 11/01/2024 8:30 PM POWER PLANT OPERATOR XR SHOULDER RIGHT 2 OR MORE VIEWS IP Routine 11/01/2024 6:30 PM POWER PLANT OPERATOR POCT GLUCOSE DEVICE Routine 11/01/2024 6:25 PM POWER PLANT OPERATOR XR SPINE LUMBAR 2 OR 3 VIEWS Pending Discharge 11/01/2024 4:45 PM POWER PLANT OPERATOR POCT GLUCOSE DEVICE Routine 11/01/2024 11:36 AM POWER PLANT OPERATOR POCT GLUCOSE DEVICE Routine 11/01/2024 7:47 AM POWER PLANT OPERATOR CBC WITHOUT DIFFERENTIAL STAT 025 6:21 AM POWER PLANT OPERATOR LIPID PANEL Routine 10/31/2024 10:32 PM POWER PLANT OPERATOR EGFR Routine 10/31/2024 10:32 PM POWER PLANT OPERATOR CBC WITHOUT DIFFERENTIAL Routine 025 10:32 PM POWER PLANT OPERATOR BASIC METABOLIC PANEL Routine 10/31/2024 10:32 PM POWER PLANT OPERATOR POCT GLUCOSE DEVICE Routine 10/31/2024 7:57 PM POWER PLANT OPERATOR POCT GLUCOSE DEVICE Routine 10/31/2024 4:34 PM POWER PLANT OPERATOR POCT GLUCOSE DEVICE Routine 10/31/2024 1:21 PM POWER PLANT OPERATOR CBC WITHOUT DIFFERENTIAL Routine 025 12:57 PM POWER PLANT OPERATOR TRANSFUSE PLASMA Timed 10/31/2024 11:30 AM POWER PLANT OPERATOR POC BLOOD GAS AND CHEMISTRIES, VENOUS Routine 10/31/2024 11:10 AM POWER PLANT OPERATOR TRANSFUSE RED BLOOD CELLS Timed 10/31/2024 11:07 AM POWER PLANT OPERATOR FIBRINOGEN STAT 10/31/2024 11:05 AM POWER PLANT OPERATOR APTT STAT 10/31/2024 11:05 AM POWER PLANT OPERATOR PROTIME-INR STAT 10/31/2024 11:05 AM POWER PLANT OPERATOR FL FLUOROSCOPY < 1 HOUR IP Routine 10/31/19 11:03 AM POWER PLANT OPERATOR TRANSFUSE RED BLOOD CELLS Timed 10/31/2024 10:59 AM POWER PLANT OPERATOR PREPARE PLASMA STAT 10/31/2024 10:53 AM POWER PLANT OPERATOR PREPARE PLASMA STAT 10/31/2024 10:53 AM POWER PLANT OPERATOR PREPARE PLASMA STAT 10/31/2024 10:53 AM POWER PLANT OPERATOR PREPARE PLASMA STAT 10/31/2024 10:52 AM POWER PLANT OPERATOR PREPARE RBC STAT 10/31/2024 10:51 AM POWER PLANT OPERATOR PREPARE RBC STAT 10/31/2024 10:51 AM POWER PLANT OPERATOR PREPARE RBC STAT 10/31/2024 10:50 AM POWER PLANT OPERATOR PREPARE RBC STAT 10/31/2024 10:50 AM POWER PLANT OPERATOR TRANSFUSE PLASMA Timed 10/31/2024 10:46 AM POWER PLANT OPERATOR TRANSFUSE RED BLOOD CELLS Timed 10/31/2024 10:33 AM POWER PLANT OPERATOR TRANSFUSE RED BLOOD CELLS Timed 10/31/2024 10:27 AM POWER PLANT OPERATOR POC THROMBOELASTOMETRY PANEL - HEPARIN Routine 10/31/2024 10:20 AM POWER PLANT OPERATOR POC THROMBOELASTOMETRY PANEL - INTRINSIC Routine 10/31/2024 10:19 AM POWER PLANT OPERATOR POC THROMBOELASTOMETRY PANEL - EXTRINSIC Routine 10/31/2024 10:18 AM POWER PLANT OPERATOR POC THROMBOELASTOMETRY PANEL - FIBRINOGEN Routine 10/31/2024 10:18 AM POWER PLANT OPERATOR PREPARE RBC STAT 10/31/2024 10:16 AM POWER PLANT OPERATOR POCT PROTHROMBIN TIME Routine 10/31/2024 10:03 AM POWER PLANT OPERATOR POCT PARTIAL THROMBOPLASTIN TIME (PTT) Routine 10/31/2024 10:03 AM POWER PLANT OPERATOR POC BLOOD GAS AND CHEMISTRIES, VENOUS Routine 10/31/2024 10:02 AM POWER PLANT OPERATOR PREPARE PLASMA STAT 10/31/2024 9:27 AM POWER PLANT OPERATOR PREPARE PLASMA STAT 10/31/2024 9:25 AM POWER PLANT OPERATOR PREPARE RBC STAT 10/31/2024 9:25 AM POWER PLANT OPERATOR PREPARE RBC Timed 10/31/2024 9:24 AM POWER PLANT OPERATOR MI AN PROCEDURE PLACEHOLDER Routine 10/31/2024 8:46 AM POWER PLANT OPERATOR MI AN PROCEDURE PLACEHOLDER Routine 10/31/2024 8:44 AM POWER PLANT OPERATOR MI AN ELECTIVE ENDOTRACHEAL AIRWAY Routine 10/31/2024 8:44 AM POWER PLANT OPERATOR BONE GRAFT WITH BONE MORPHOGENIC PROTEIN 10/31/2024 7:31 AM POWER PLANT OPERATOR Spondylolisthesis of lumbar region Lumbar radiculopathy Case Notes 09/24@1339- Per Analilia via case msg - Cell saver will not be needed.- DMF 09/24@0843- Per audit case msg sent to [facility] to verify if cell saver needed or not for case- DMF Special Needs Radiology Plates, SCM, Pro-Mansfield, GW Traction, Local Autograft, Frozen Bone Chips, 1 Small BMP Kit, Globus Creo, Globus Altera SPINAL CORD MONITORING 7:31 AM POWER PLANT OPERATOR Spondylolisthesis of lumbar region Lumbar radiculopathy Case Notes 09/24@1339- Per Analilia via case msg - Cell saver will not be needed.- DMF 09/24@0843- Per audit case msg sent to [facility] to verify if cell saver needed or not for case- DMF Special Needs Radiology Plates, SCM, Pro-Mansfield, GW Traction, Local Autograft, Frozen Bone Chips, 1 Small BMP Kit, Globus Creo, Globus Altera FUSION LUMBAR TRANSFORAMINAL INTERBODY 10/31/2024 7:31 AM POWER PLANT OPERATOR Spondylolisthesis of lumbar region Lumbar radiculopathy Case Notes 09/24@1339- Per Analilia via case msg - Cell saver will not be needed.- DMF 09/24@0843- Per audit case msg sent to [facility] to verify if cell saver needed or not for case- DMF Special Needs Radiology Plates, SCM, Pro-Mansfield, GW Traction, Local Autograft, Frozen Bone Chips, 1 Small BMP Kit, Globus Creo, Globus Altera POCT GLUCOSE DEVICE Routine 10/31/2024 7:09 AM POWER PLANT OPERATOR B CHECK SAMPLE STAT 10/31/2024 7:09 AM POWER PLANT OPERATOR EGFR Routine 10/22/2024 2:53 PM POWER PLANT OPERATOR Spondylolisthesis of lumbar region Lumbar radiculopathy DIFFERENTIAL AUTO Routine 10/22/2024 2:53 PM POWER PLANT OPERATOR Spondylolisthesis of lumbar region Lumbar radiculopathy URINALYSIS, MICROSCOPIC ONLY Routine 10/22/2024 2:53 PM POWER PLANT OPERATOR Spondylolisthesis of lumbar region Lumbar radiculopathy COMPREHENSIVE METABOLIC PANEL Routine 10/22/2024 2:53 PM POWER PLANT OPERATOR Spondylolisthesis of lumbar region Lumbar radiculopathy CBC WITH AUTO DIFFERENTIAL Routine 10/22/2024 2:53 PM POWER PLANT OPERATOR Spondylolisthesis of lumbar region Lumbar radiculopathy VITAMIN D 25 HYDROXY Routine 10/22/2024 2:53 PM POWER PLANT OPERATOR Spondylolisthesis of lumbar region Lumbar radiculopathy Vitamin D deficiency PROTIME-INR Routine 10/22/2024 2:53 PM POWER PLANT OPERATOR Spondylolisthesis of lumbar region Lumbar radiculopathy Pain in other joint NICOTINE METABOLITE SCREEN, URINE Routine 10/22/2024 2:53 PM POWER PLANT OPERATOR Spondylolisthesis of lumbar region Lumbar radiculopathy TYPE AND SCREEN 14 DAY Routine 2:53 PM POWER PLANT OPERATOR Preoperative testing CPAP APTT ALGORITHM Routine 10/22/2024 2:53 PM POWER PLANT OPERATOR Preoperative testing URINALYSIS AND REFLEX TO MICROSCOPIC AND CULTURE Routine 10/22/2024 2:53 PM POWER PLANT OPERATOR Spondylolisthesis of lumbar region Lumbar radiculopathy POCT HEMOGLOBIN A1C Routine 10/22/2024 1:35 PM POWER PLANT OPERATOR NEURO MR OUTSIDE REFERENCE Routine 10/14/2024 1:03 PM POWER PLANT OPERATOR from Last 3 Months Results * XR [...] 2 Or 3 View (11/22/2024 2:23 PM POWER PLANT OPERATOR) Anatomical Region Laterality Modality Spine N/A Computed Radiogr aphy 11/22/2024 3:27 PM POWER PLANT OPERATOR Impressions 11/22/2024 3:37 PM POWER PLANT OPERATOR 1. Combined L5-S1 posterior and interbody decompression and instrumented fusion. 2. Moderate to severe lumbar degenerative disc disease, worst at L3-L4, with mild levoscoliosis. Dictated by: Bandar Ledbetter MD The radiology attending physician has personally reviewed this study, and had reviewed and/or edited this written report and agrees with it. Electronically signed by: Krishna Campbell M.D. Narrative 11/22/2024 3:37 PM POWER PLANT OPERATOR EXAMINATION: XR SPINE LUMBAR 2 OR 3 [...] Result * POCT glucose (11/02/2024 11:38 AM POWER PLANT OPERATOR) Glucose, POC 185 70 - 199 mg/dL Blood 11/02/2024 11:3 8 AM POWER PLANT OPERATOR 11/02/2024 11:38 AM POWER PLANT OPERATOR us Javed Ardon MD LAB POCT ORDERABLES - D EVICE Final Result Performing Organization Address [facility] de Phone Number [facility] [place] [address] * POCT glucose (11/02/2024 7:59 AM POWER PLANT OPERATOR) Glucose, POC 143 70 - 199 mg/dL Blood 11/02/2024 7:59 AM POWER PLANT OPERATOR 11/02/2024 7:59 AM POWER PLANT OPERATOR Javed Ardon MD LAB POCT ORDERABLES - D EVICE Final Result Performing Organization Address [facility] Phone Number [facility] Department [place] [address] * aPTT (11/01/2024 10:40 PM POWER PLANT OPERATOR) aPTT 28 28 - 38 sec Comment: Interpretive Data Heparin therapeutic range: 66.0 - 100.0 seconds. Range based on correlation with therapeutic heparin activity range of 0.3 - 0.7 Units/mL. Current interpretive data was last revised on 2023. Blood 11/01/2024 10:4 0 PM POWER PLANT OPERATOR 11/01/2024 11:41 PM POWER PLANT OPERATOR us Peggy Arcos NP LAB BLOOD ORDERABLES Final Res ult Performing Organization Address [facility] de Phone Number [facility] [place] [address] * Protime-INR (11/01/2024 10:40 PM POWER PLANT OPERATOR) [facility] PT 12.5 9.7 - 13.0 sec INR 1.15 0.90 - 1.20 [facility] Comment: Interpretive data Oral anticoagulant therapeutic ranges: Venous thromboembolism prophylaxis or treatment: 2.0-3.0 CARDIOLOGY Standard range: 2.0-3.0 High-intensity range: 2.5-3.5 Refer to indication-specific guidelines for appropriate target ranges for prosthetic heart valve replacement. Current interpretive data was last revised on 2019. Blood 11/01/2024 10:4 0 PM POWER PLANT OPERATOR 11/01/2024 11:41 PM POWER PLANT OPERATOR us Peggy Arcos AUTOMOTIVE GENERAL SALES MANAGER LAB BLOOD ORDERABLES Final Res ult [facility] Department [place] [address] * (ABNORMAL) CBC without differential (11/01/2024 10:40 PM POWER PLANT OPERATOR) [facility] WBC 5.6 3.8 - 9.9 K/cumm Hgb 9.2(L) 11.9 - 15.5 g/dL [facility] Hct 27.5(L) 35.6 - 45.5 % [facility] Plt 81(L) 150 - 400 K/cumm [facility] MPV 11.4 9.1 - 12.3 fL [facility] RBC 3.09(L) 3.90 - 5.20 M/cumm [facility] MCV 89.0 81.3 - 96.4 fL [facility] MCH 29.8 27.1 - 33.3 pg [facility] MCHC 33.5 32.3 - 35.7 g/dL [facility] RDW CV 13.6 11.1 - 14.9 % [facility] RDW SD 44.1 35.7 - 48.1 fL [facility] NRBC abs 0.00 0.00 - 0.01 K/cumm [facility] Blood 11/01/2024 10:4 0 PM POWER PLANT OPERATOR 11/01/2024 11:37 PM POWER PLANT OPERATOR us Tommy Myers AUTOMOTIVE GENERAL SALES MANAGER LAB BLOOD ORDERABLES Final R esult Performing Organization Address [facility] Co de Phone Number [facility] [place] [address] * POCT glucose (11/01/2024 8:30 PM POWER PLANT OPERATOR) Glucose, POC 83 70 - 199 mg/dL Blood 11/01/2024 8:30 PM POWER PLANT OPERATOR 11/01/2024 8:30 PM POWER PLANT OPERATOR us Javed Ardon MD LAB POCT ORDERABLES - D EVICE Final Result Performing Organization Address [facility] de Phone Number [facility] Department of [employer] [place] [address] * XR Shoulder Right 2 or More Views (11/01/2024 6:30 PM POWER PLANT OPERATOR) Anatomical Region Laterality Modality Upper Extremities, Shoulder Right Comp uted Radiography 11/01/2024 7:13 PM POWER PLANT OPERATOR Impressions 11/01/2024 7:13 PM POWER PLANT OPERATOR 1. Unchanged mild acromioclavicular and glenohumeral osteoarthritis Electronically signed by: David Acevedo MD, PHD Narrative 11/01/2024 7:13 PM POWER PLANT OPERATOR EXAMINATION: Right shoulder 2+ views HISTORY: Right [...] David Acevedo MD, PHD us Stalin Boucher AUTOMOTIVE GENERAL SALES MANAGER IMG XR PROCEDURES Final Result * (ABNORMAL) POCT glucose (11/01/2024 6:25 PM POWER PLANT OPERATOR) Glucose, POC 223(H) 70 - 199 mg/dL Blood 11/01/2024 6:25 PM POWER PLANT OPERATOR 11/01/2024 6:25 PM POWER PLANT OPERATOR us Javed Ardon MD LAB POCT ORDERABLES - D EVICE Final Result Performing Organization Address City/State/[facility] Co sd Phone Number [facility] Department [place] [address] * XR Spine Lumbar 2 or 3 Views (11/01/2024 4:45 PM POWER PLANT OPERATOR) Anatomical Region Laterality Modality Spine N/A Computed Radiogr aphy 11/01/2024 6:54 PM POWER PLANT OPERATOR Impressions 11/01/2024 6:54 PM POWER PLANT OPERATOR 1. Interval combined L5-S1 anterior and posterior decompression and fusion with unchanged mild degenerative lumbar levoscoliosis and moderate to severe degenerative disc disease at L3-L4 Electronically signed by: David Acevedo MD, PHD Narrative 11/01/2024 6:54 PM POWER PLANT OPERATOR EXAMINATION: Lumbar spine 2 or 3 views [...] by: David Acevedo MD, PHD Stalin Boucher AUTOMOTIVE GENERAL SALES MANAGER IMG XR PROCEDURES Final Result * POCT glucose (11/01/2024 11:36 AM POWER PLANT OPERATOR) Glucose, POC 180 70 - 199 mg/dL Blood 11/01/2024 11:3 6 AM POWER PLANT OPERATOR 11/01/2024 11:36 AM POWER PLANT OPERATOR us Javed Ardon MD LAB POCT ORDERABLES - D EVICE Final Result [facility] Department [place] [address] * POCT glucose (11/01/2024 7:47 AM POWER PLANT OPERATOR) Glucose, POC 148 70 - 199 mg/dL Blood 11/01/2024 7:47 AM POWER PLANT OPERATOR 11/01/2024 7:47 AM POWER PLANT OPERATOR us Javed Ardon MD LAB POCT ORDERABLES - D EVICE Final Result Performing Organization Address [facility]/ZIP Co de Phone Number [facility] Department [place] [address] * (ABNORMAL) CBC without differential (11/01/2024 6:21 AM POWER PLANT OPERATOR) [facility] WBC 5.3 3.8 - 9.9 K/cumm Hgb 9.5(L) 11.9 - 15.5 g/dL [facility] Hct 28.4(L) 35.6 - 45.5 % [facility] Plt 94(L) 150 - 400 K/cumm [facility] MPV 11.1 9.1 - 12.3 fL [facility] RBC 3.21(L) 3.90 - 5.20 M/cumm [facility] MCV 88.5 81.3 - 96.4 fL [facility] MCH 29.6 27.1 - 33.3 pg [facility] MCHC 33.5 32.3 - 35.7 g/dL [facility] RDW CV 13.5 11.1 - 14.9 % [facility] RDW SD 43.8 35.7 - 48.1 fL [facility] NRBC abs 0.00 0.00 - 0.01 K/cumm [facility] Blood 11/01/2024 6:21 AM POWER PLANT OPERATOR 11/01/2024 6:37 AM POWER PLANT OPERATOR us Lia Drummond MD PhD LAB BLOOD ORDERABLES Final Re sult [facility] Department [place] [address] * eGFR (10/31/2024 10:32 PM POWER PLANT OPERATOR) [facility] eGFR >90 >=60 mL/min/1. 73 m2 [...] reviewed 2021. Blood 10/31/2024 10:3 2 PM POWER PLANT OPERATOR 10/31/2024 11:04 PM POWER PLANT OPERATOR Tommy Myers NP LAB BLOOD ORDERABLES Final R esult [facility] Department [place] [address] * (ABNORMAL) CBC without differential (10/31/2024 10:32 PM POWER PLANT OPERATOR) WBC 7.2 3.8 - 9.9 K/cumm Hgb 9.9(L) 11.9 - 15.5 g/dL [facility] Hct 29.0(L) 35.6 - 45.5 % [facility] Plt 93(L) 150 - 400 K/cumm [facility] MPV 11.2 9.1 - 12.3 fL [facility] RBC 3.27(L) 3.90 - 5.20 M/cumm [facility] MCV 88.7 81.3 - 96.4 fL [facility] MCH 30.3 27.1 - 33.3 pg [facility] MCHC 34.1 32.3 - 35.7 g/dL [facility] RDW CV 13.5 11.1 - 14.9 % [facility] RDW SD 44.2 35.7 - 48.1 fL [facility] NRBC abs 0.00 0.00 - 0.01 K/cumm [facility] Blood 10/31/2024 10:3 2 PM POWER PLANT OPERATOR 10/31/2024 11:04 PM POWER PLANT OPERATOR us Tommy Myers NP LAB BLOOD ORDERABLES Final R esult [facility] [place] [address] * Lipid panel (10/31/2024 10:32 PM POWER PLANT OPERATOR) Cholesterol 101 30 - 199 mg/dL Comment: [...] revised on 2018. Triglycerides 44 <=149 mg/dL [facility] Comment: Interpretive Data Ages < or [...] revised on 2018. HDL 42 >=40 mg/dL [facility] Comment: Interpretive Data Ages < [...] 2018. LDL, calculated 48 <=129 mg/dL [facility] Comment: Interpretive Data Ages < [...] revised on 2024. Non-HDL Cholesterol 59 mg/dL [facility] Comment: Interpretive Data Ages < [...] last revised on 2018. Chol/HDL ratio 2 [facility] Blood 10/31/2024 10:3 2 PM POWER PLANT OPERATOR 10/31/2024 11:04 PM POWER PLANT OPERATOR Narrative [facility] - 11/01/2024 9:06 AM POWER PLANT OPERATOR Reflex us Javed Ardon MD LAB BLOOD ORDERABLES Fi nal Result [facility] [place] [address] * (ABNORMAL) Basic metabolic panel (10/31/2024 10:32 PM POWER PLANT OPERATOR) Pathologist [facility] Sodium 141 135 - 145 mmol/L Potassium, pl 4.0 3.3 - 4.9 mmol/L [facility] Chloride 108 97 - 110 mmol/L [facility] CO2 29 22 - 32 mmol/L [facility] Anion gap 4 2 - 15 mmol/L [facility] BUN 13 6 - 25 mg/dL [facility] Creatinine 0.65 0.60 - 1.10 mg/dL [facility] Glucose 118 70 - 199 mg/dL [facility] Comment: Interpretive Data Fasting glucose >/= [...] 2022. Calcium 8.4(L) 8.5 - 10.3 mg/dL [facility] Blood 10/31/2024 10:3 2 PM POWER PLANT OPERATOR 10/31/2024 11:04 PM POWER PLANT OPERATOR us Tommy Myers NP LAB BLOOD ORDERABLES Final R esult [facility] [place] [address] * POCT glucose (10/31/2024 7:57 PM POWER PLANT OPERATOR) Glucose, POC 161 70 - 199 mg/dL Blood 10/31/2024 7:57 PM POWER PLANT OPERATOR 10/31/2024 7:57 PM POWER PLANT OPERATOR Javed Ardon MD LAB POCT ORDERABLES - D EVICE Final Result Performing Organization Address [facility] de Phone Number [facility] [place] [address] * POCT glucose (10/31/2024 4:34 PM POWER PLANT OPERATOR) Glucose, POC 177 70 - 199 mg/dL Blood 10/31/2024 4:34 PM POWER PLANT OPERATOR 10/31/2024 4:34 PM POWER PLANT OPERATOR us Javed Ardon MD LAB POCT ORDERABLES - D EVICE Final Result Performing Organization Address [facility] de Phone Number [facility] [place] [address] * POCT glucose (10/31/2024 1:21 PM POWER PLANT OPERATOR) Glucose, POC 134 70 - 199 mg/dL Blood 10/31/2024 1:21 PM POWER PLANT OPERATOR 10/31/2024 1:21 PM POWER PLANT OPERATOR Javed Ardon MD LAB POCT ORDERABLES - D EVICE Final Result Performing Organization Address [facility] [place] [address] * (ABNORMAL) CBC without differential (10/31/2024 12:57 PM POWER PLANT OPERATOR) [facility] Signature WBC 6.5 3.8 - 9.9 K/cumm Hgb 9.4(L) 11.9 - 15.5 g/dL [facility] Hct 28.3(L) 35.6 - 45.5 % [facility] Plt 82(L) 150 - 400 K/cumm [facility] MPV 10.5 9.1 - 12.3 fL [facility] RBC 3.13(L) 3.90 - 5.20 M/cumm [facility] MCV 90.4 81.3 - 96.4 fL [facility] MCH 30.0 27.1 - 33.3 pg [facility] MCHC 33.2 32.3 - 35.7 g/dL [facility] RDW CV 12.8 11.1 - 14.9 % [facility] RDW SD 42.4 35.7 - 48.1 fL [facility] NRBC abs 0.00 0.00 - 0.01 K/cumm [facility] Blood 10/31/2024 12:5 7 PM POWER PLANT OPERATOR 10/31/2024 1:10 PM POWER PLANT OPERATOR us Brynn Banegas MD LAB BLOOD ORDERABLES Final Result Performing Organization Address City/[facility]/ZIP Co de Phone Number [facility] [place] [address] * Transfuse plasma (10/31/2024 11:32 AM POWER PLANT OPERATOR) Blood us Lia Drummond MD PhD BLOOD TRANSFUSION ORDERABLES Final Result Performing Organization Address [facility] Co de Phone Number [facility] [place] [address] * (ABNORMAL) POC Blood Gas and Chemistries, Venous - (10/31/2024 11:10 AM POWER PLANT OPERATOR) pH, Kitty POC 7.28(L) 7.32 - 7.43 pCO2, kitty POC 46 40 - 50 mmHg [facility] pO2, kitty POC 73 mmHg [facility] Na, POC 143 135 - 145 mmol/L [facility] K POC 4.2 3.3 - 4.9 mmol/L [facility] Comment: Interpretive Data Not all point of care methods assess for hemolysis. Confirm with instrument and retest K+ if not consistent with clinical signs and symptoms. Current Interpretive Data was last revised on 2024. Cl, POC 111(H) 97 - 110 mmol/L [facility] Ionized Ca, POC 4.49(L) 4.50 - 5.10 mg/dL [facility] Glucose, POC 158 70 - 199 mg/dL [facility] Lactate, POC 1.8 0.7 - 2.0 mmol/L [facility] O2 Sat, Kitty POC (Karen) 94 % [facility] Base excess, POC -5.0 mmol/L [facility] Hct, POC 27.0(L) 36.3 - 45.3 % [facility] Total Hb, POC 9.0(L) 11.9 - 15.5 g/dL [facility] Blood 10/31/2024 11:1 0 AM POWER PLANT OPERATOR 10/31/2024 11:10 AM POWER PLANT OPERATOR Javed Ardon MD LAB POCT ORDERABLES - D EVICE Final Result Performing Organization Address City/[facility]/ZIP Co de Phone Number [facility] [place] [address] * Transfuse RBC (10/31/2024 11:07 AM POWER PLANT OPERATOR) Blood Lia Drummond MD PhD BLOOD TRANSFUSION ORDERABLES Final Result Performing Organization Address [facility]/ZIP Co de Phone Number [facility] Department of [employer] [place] [address] * aPTT (10/31/2024 11:05 AM POWER PLANT OPERATOR) [facility] Signature aPTT 28 28 - 38 sec Comment: Interpretive Data Heparin therapeutic range: 66.0 - 100.0 seconds. Range based on correlation with therapeutic heparin activity range of 0.3 - 0.7 Units/mL. Current interpretive data was last revised on 2023. Blood 10/31/2024 11:0 5 AM POWER PLANT OPERATOR 10/31/2024 11:35 AM POWER PLANT OPERATOR Lia Drummond MD PhD LAB BLOOD ORDERABLES Final Re sult Performing Organization Address [facility] Co de Phone Number [facility] [employer] [place] [address] * (ABNORMAL) Protime-INR (10/31/2024 11:05 AM POWER PLANT OPERATOR) PT 13.8(H) 9.7 - 13.0 sec INR 1.27(H) 0.90 - 1.20 [facility] Comment: Interpretive data Oral anticoagulant therapeutic ranges: Venous thromboembolism prophylaxis or treatment: 2.0-3.0 CARDIOLOGY Standard range: 2.0-3.0 High-intensity range: 2.5-3.5 Refer to indication-specific guidelines for appropriate target ranges for prosthetic heart valve replacement. Current interpretive data was last revised on 2019. Blood 10/31/2024 11:0 5 AM POWER PLANT OPERATOR 10/31/2024 11:35 AM POWER PLANT OPERATOR Lia Drummond MD PhD LAB BLOOD ORDERABLES Final Re sult Performing Organization Address [facility] Co de Phone Number [facility] [employer] [place] [address] * Fibrinogen (10/31/2024 11:05 AM POWER PLANT OPERATOR) Fibrinogen 182 170 - 400 mg/dL Blood 10/31/2024 11:0 5 AM POWER PLANT OPERATOR 10/31/2024 11:35 AM POWER PLANT OPERATOR Lia Drummond MD PhD LAB BLOOD ORDERABLES Final Re sult Performing Organization Address [facility] Co de Phone Number [facility] [employer] [place] [address] * FL Fluoroscopy < 1 Hour (10/31/2024 11:03 AM POWER PLANT OPERATOR) Narrative [facility] - 10/31/2024 11:04 AM POWER PLANT OPERATOR The images from this study are not interpreted by Radiology. Please refer to the physician's procedure / OR operative note. us Javed Ardon MD IMG FLUOROSCOPY PROCEDU RES Final Result Performing Organization Address [facility] Co de Phone Number [facility] * Transfuse RBC (10/31/2024 10:59 AM POWER PLANT OPERATOR) Blood us Lia Drummond MD PhD BLOOD TRANSFUSION ORDERABLES Final Result Performing Organization Address [facility] de Phone Number [facility] [employer] [place] [address] * Prepare plasma: 1 Units (10/31/2024 10:53 AM POWER PLANT OPERATOR) Product code [id number] Unit Number [id number] 7-Q [facility] Product Blood Type OPOS [facility] Dispense Status RETURNED [facility] Blood Venous blood specimen / Unknown 10/31/2024 10:53 AM POWER PLANT OPERATOR 10/31/2024 10:53 AM POWER PLANT OPERATOR Narrative [facility] - 10/31/2024 12:25 PM POWER PLANT OPERATOR Date required:-[id number] FFP # of Units:-1-Units Reasons:-Immediate need for surgical intervention us Lia Drummond MD PhD BLOOD BANK PRODUCT ORDERABLES Final Result Performing Organization Address [facility] de Phone Number [facility] [place] [address] * Prepare plasma: 1 Units (10/31/2024 10:53 AM POWER PLANT OPERATOR) Product code [id number] Unit Number [id number] 4-Y [facility] Product Blood Type OPOS [facility] Dispense Status RETURNED [facility] Blood Venous blood specimen / Unknown 10/31/2024 10:53 AM POWER PLANT OPERATOR 10/31/2024 10:52 AM POWER PLANT OPERATOR Narrative [facility] - 10/31/2024 12:25 PM POWER PLANT OPERATOR Date required:-[id number] FFP # of Units:-1-Units Reasons:-Immediate need for surgical intervention Lia Drummond MD PhD BLOOD BANK PRODUCT ORDERABLES Final Result Performing Organization Address City/[facility]/ZIP Co de Phone Number [facility] [place] [address] * Prepare plasma: 1 Units (10/31/2024 10:53 AM POWER PLANT OPERATOR) Product code [id number] Unit Number [id number] 9-* [facility] Product Blood Type OPOS [facility] Dispense Status RETURNED [facility] Blood Venous blood specimen / Unknown 10/31/2024 10:53 AM POWER PLANT OPERATOR 10/31/2024 10:52 AM POWER PLANT OPERATOR Narrative [facility] - 10/31/2024 12:25 PM POWER PLANT OPERATOR Date required:-[id number] FFP # of Units:-1-Units Reasons:-Immediate need for surgical intervention Lia Drummond MD PhD BLOOD BANK PRODUCT ORDERABLES Final Result Performing Organization Address [facility] [place] [address] * Prepare plasma: 1 Units (10/31/2024 10:52 AM POWER PLANT OPERATOR) Product code [id number] Unit Number [id number]- [id number] [facility] Product Blood Type OPOS [facility] Dispense Status PRESUMED TRANSFUSED [facility] Blood Venous blood specimen / Unknown 10/31/2024 10:52 AM POWER PLANT OPERATOR 10/31/2024 10:52 AM POWER PLANT OPERATOR Narrative [facility] - 11/01/2024 12:56 AM POWER PLANT OPERATOR Date required:-[id number] FFP # of Units:-1-Units Reasons:-Immediate need for surgical intervention Lia Drummond MD PhD BLOOD BANK PRODUCT ORDERABLES Final Result Performing Organization Address City/[facility]/ZIP Co [place] [address] * Prepare RBC: 1 Units (10/31/2024 10:51 AM POWER PLANT OPERATOR) Product code [id number] Unit Number [id number] 6-5 [facility] Product Blood Type OPOS [facility] Dispense Status RETURNED [facility] Blood 10/31/2024 10:5 1 AM POWER PLANT OPERATOR 10/31/2024 10:50 AM POWER PLANT OPERATOR Narrative [facility] - 10/31/2024 12:25 PM POWER PLANT OPERATOR Are special requirements needed? (All products are leukoreduced and CMV- safe)- >No Date required:-[id number] LRRBC # of Sjyzi-7-Jcked Reasons:-Intra-op transfusion} Lia Drummond MD PhD BLOOD BANK PRODUCT ORDERABLES Final Result Performing Organization Address [facility] [place] [address] * Prepare RBC: 1 Units (10/31/2024 10:51 AM POWER PLANT OPERATOR) Product code [id number] Unit Number [id number] 3-3 [facility] Product Blood Type OPOS [facility] Dispense Status RETURNED [facility] Blood 10/31/2024 10:5 1 AM POWER PLANT OPERATOR 10/31/2024 10:50 AM POWER PLANT OPERATOR Narrative [facility] - 10/31/2024 12:25 PM POWER PLANT OPERATOR Are special requirements needed? (All products are leukoreduced and CMV- safe)- >No Date required:-[id number] LRRBC # of Rgonr-4-Divth Reasons:-Intra-op transfusion} Lia Drummond MD PhD BLOOD BANK PRODUCT ORDERABLES Final Result Performing Organization Address City/[facility] [place] [address] * Prepare RBC: 1 Units (10/31/2024 10:50 AM POWER PLANT OPERATOR) Product code [id number] Unit Number [id number] 8-V [facility] Product Blood Type OPOS [facility] Dispense Status RETURNED [facility] Blood 10/31/2024 10:5 0 AM POWER PLANT OPERATOR 10/31/2024 10:50 AM POWER PLANT OPERATOR Narrative [facility] - 10/31/2024 12:25 PM POWER PLANT OPERATOR Are special requirements needed? (All products are leukoreduced and CMV- safe)- >No Date required:-[id number] LRRBC # of Vjnoz-2-Bahio Reasons:-Intra-op transfusion} Lia Drummond MD PhD BLOOD BANK PRODUCT ORDERABLES Final Result Performing Organization Address [facility] Co de Phone Number [facility] [employer] [place] [address] * Prepare RBC: 1 Units (10/31/2024 10:50 AM POWER PLANT OPERATOR) Product code [id number] Unit Number [id number] 4-E [facility] Product Blood Type OPOS [facility] Dispense Status RETURNED [facility] Blood 10/31/2024 10:5 0 AM POWER PLANT OPERATOR 10/31/2024 10:49 AM POWER PLANT OPERATOR Narrative [facility] - 10/31/2024 12:25 PM POWER PLANT OPERATOR Are special requirements needed? (All products are leukoreduced and CMV- safe)- >No Date required:-[id number] LRRBC # of Urqcc-7-Bctls Reasons:-Intra-op transfusion} Lia Drummond MD PhD BLOOD BANK PRODUCT ORDERABLES Final Result [facility] [employer] [place] [address] * Transfuse plasma (10/31/2024 10:49 AM POWER PLANT OPERATOR) Blood Lia Drummond MD PhD BLOOD TRANSFUSION ORDERABLES Final Result Performing Organization Address [facility] Co de Phone Number [facility] [employer] [place] [address] * Transfuse RBC (10/31/2024 10:38 AM POWER PLANT OPERATOR) Blood us Lia Drummond MD PhD BLOOD TRANSFUSION ORDERABLES Final Result Performing Organization Address [facility] Co de Phone Number [facility] Department of [employer] [place] [address] * Transfuse RBC (10/31/2024 10:27 AM POWER PLANT OPERATOR) Blood us Lia Drummond MD PhD BLOOD TRANSFUSION ORDERABLES Final Result Performing Organization Address [facility] [place] [address] * POC Thromboelastometry Panel - Heparin (10/31/2024 10:20 AM POWER PLANT OPERATOR) [facility] HEPTEM-CT, POC 144 141 - 215 sec HEPTEM-A5, POC 46 33 - [address] [facility] HEPTEM-A10, POC 56 44 - [address] [facility] HEPTEM-A20, POC 61 52 - [address] [facility] HEPTEM-MCF, POC 62 54 - 69 mm [facility] HEPTEM-Run Time, POC (hh:mm:ss) 02:00:00 [facility] Blood 10/31/2024 10:2 0 AM POWER PLANT OPERATOR 10/31/2024 10:20 AM POWER PLANT OPERATOR us Javed Ardon MD LAB POCT ORDERABLES - D LIA Edited Result - Final Performing Organization Address [facility] Co de Phone Number [facility] [employer] [place] [address] * (ABNORMAL) POC Thromboelastometry Panel - Intrinsic (10/31/2024 10:19 AM POWER PLANT OPERATOR) INTEM-CT, POC 148 139 - 205 sec [...] [facility] INTEM-Run Time, POC (hh:mm:ss) 02:00:00 [facility] Blood 10/31/2024 10:1 9 AM POWER PLANT OPERATOR 10/31/2024 10:19 AM POWER PLANT OPERATOR us Javed Ardon MD LAB POCT ORDERABLES - D EVICE Edited Result - Final Performing Organization Address City/[facility] Co de Phone Number [facility] [place] [address] * POC Thromboelastometry Panel - Fibrinogen (10/31/2024 10:18 AM POWER PLANT OPERATOR) FIBTEM-A5, POC 9 5 - 16 mm FIBTEM-A10, POC 10 6 - 17 mm [facility] FIBTEM-A20, POC 11 6 - 18 mm [facility] FIBTEM-MCF, POC 11 9 - 19 mm [facility] FIBTEM-Run Time, POC (hh:mm:ss) 02:00:00 [facility] Blood 10/31/2024 10:1 8 AM POWER PLANT OPERATOR 10/31/2024 10:18 AM POWER PLANT OPERATOR us Javed Ardon MD LAB POCT ORDERABLES - D EVICE Edited Result - Final Performing Organization Address City/[facility]/ZIP Co de Phone Number [facility] [place] [address] * (ABNORMAL) POC Thromboelastometry Panel - Extrinsic (10/31/2024 10:18 AM POWER PLANT OPERATOR) EXTEM-CT, POC 55 51 - 73 sec [...] [facility] EXTEM-Run Time, POC (hh:mm:ss) 02:00:01 [facility] Blood 10/31/2024 10:1 8 AM POWER PLANT OPERATOR 10/31/2024 10:18 AM POWER PLANT OPERATOR us Javed Ardon MD LAB POCT ORDERABLES - D DIONICIOICE Edited Result - Final [facility] [place] [address] * Prepare RBC: 2 Units (10/31/2024 10:16 AM POWER PLANT OPERATOR) Product code [id number] Unit Number [id number]- 3 [facility] Product Blood Type OPOS [facility] Dispense Status PRESUMED TRANSFUSED [facility] Product code [id number] [facility] Unit Number [id number]- W [facility] Product Blood Type OPOS [facility] Dispense Status PRESUMED TRANSFUSED [facility] Blood 10/31/2024 10:1 6 AM POWER PLANT OPERATOR 10/31/2024 10:16 AM POWER PLANT OPERATOR Narrative [facility] - 11/01/2024 12:56 AM POWER PLANT OPERATOR Are special requirements needed? (All products are leukoreduced and CMV- safe)- >No Date required:-[id number] LRRBC # of Bzzkl-9-Dhpck Reasons:-Intra-op transfusion} Lia Drummond MD PhD BLOOD BANK PRODUCT ORDERABLES Final Result Performing Organization Address [facility] de Phone Number [facility] [employer] [place] [address] * POCT prothrombin time (10/31/2024 10:03 AM POWER PLANT OPERATOR) PT, POC 16.2 11.7 - 16.6 sec INR, POC 1.2 0.9 - 1.2 [facility] Blood 10/31/2024 10:0 3 AM POWER PLANT OPERATOR 10/31/2024 10:03 AM POWER PLANT OPERATOR Javed Ardon MD LAB POCT ORDERABLES - D EVICE Final Result Performing Organization Address [facility] de Phone Number [facility] [employer] [place] [address] * POCT Partial thromboplastin time (PTT) (10/31/2024 10:03 AM POWER PLANT OPERATOR) APTT, POC 36.6 32.5 - 46.1 sec Blood 10/31/2024 10:0 3 AM POWER PLANT OPERATOR 10/31/2024 10:03 AM POWER PLANT OPERATOR Javed Ardon MD LAB POCT ORDERABLES - D EVICE Final Result Performing Organization Address [facility] de Phone Number [facility] [place] [address] * (ABNORMAL) POC Blood Gas and Chemistries, Venous - (10/31/2024 10:02 AM POWER PLANT OPERATOR) pH, Kitty POC 7.32 7.32 - 7.43 pCO2, kitty POC 45 40 - 50 mmHg [facility] pO2, kitty POC 65 mmHg [facility] Na, POC 141 135 - 145 mmol/L [facility] K POC 3.9 3.3 - 4.9 mmol/L [facility] Comment: Interpretive Data Not all point of care methods assess for hemolysis. Confirm with instrument and retest K+ if not consistent with clinical signs and symptoms. Current Interpretive Data was last revised on 2024. Cl, POC 112(H) 97 - 110 mmol/L [facility] Ionized Ca, POC 4.96 4.50 - 5.10 mg/dL [facility] Glucose, POC 164 70 - 199 mg/dL [facility] Lactate, POC 1.4 0.7 - 2.0 mmol/L [facility] O2 Sat, Kitty POC (Karen) 93 % [facility] Base excess, POC -2.8 mmol/L [facility] Hct, POC 23.0(L) 36.3 - 45.3 % [facility] Total Hb, POC 7.5(L) 11.9 - 15.5 g/dL [facility] Blood 10/31/2024 10:0 2 AM POWER PLANT OPERATOR 10/31/2024 10:02 AM POWER PLANT OPERATOR us Javed Ardon MD LAB POCT ORDERABLES - D EVICE Final Result [facility] [place] [address] * Prepare plasma: 1 Units (10/31/2024 9:27 AM POWER PLANT OPERATOR) Product code [id number] Unit Number [id number] 0-C [facility] Product Blood Type OPOS [facility] Dispense Status RETURNED [facility] Blood Venous blood specimen / Unknown 10/31/2024 9:27 AM POWER PLANT OPERATOR 10/31/2024 9:27 AM POWER PLANT OPERATOR Narrative [facility] - 10/31/2024 9:50 AM POWER PLANT OPERATOR Date required:-[id number] FFP # of Units:-1-Units Reasons:-Immediate need for surgical intervention us Lia Drummond MD PhD BLOOD BANK PRODUCT ORDERABLES Final Result [facility] [place] [address] * Prepare plasma: 1 Units (10/31/2024 9:25 AM POWER PLANT OPERATOR) Product code [id number] Unit Number [id number] [facility] Product Blood Type OPOS [facility] Dispense Status PRESUMED TRANSFUSED [facility] Blood Venous blood specimen / Unknown 10/31/2024 9:25 AM POWER PLANT OPERATOR 10/31/2024 9:25 AM POWER PLANT OPERATOR Narrative [facility] - 11/01/2024 12:56 AM POWER PLANT OPERATOR Date required:-[id number] FFP # of Units:-1-Units Reasons:-Immediate need for surgical intervention us Lia Drummond MD PhD BLOOD BANK PRODUCT ORDERABLES Final Result Performing Organization Address [facility] [place] [address] * Prepare RBC: 1 Units (10/31/2024 9:25 AM POWER PLANT OPERATOR) Product code [id number] Unit Number [id number] [facility] Product Blood Type OPOS [facility] Dispense Status PRESUMED TRANSFUSED [facility] Blood 10/31/2024 9:25 AM POWER PLANT OPERATOR 10/31/2024 9:24 AM POWER PLANT OPERATOR Narrative [facility] - 11/01/2024 12:56 AM POWER PLANT OPERATOR Are special requirements needed? (All products are leukoreduced and CMV- safe)- >No Date required:-[id number] LRRBC # of Qjexa-6-Fwsnc Reasons:-Intra-op transfusion} us Lia Drummond MD PhD BLOOD BANK [place] [address] * Prepare RBC: 1 Units (10/31/2024 9:24 AM POWER PLANT OPERATOR) Product code [id number] Unit Number [id number] [facility] Product Blood Type OPOS [facility] Dispense Status PRESUMED TRANSFUSED [facility] Blood 10/31/2024 9:24 AM POWER PLANT OPERATOR 10/31/2024 9:24 AM POWER PLANT OPERATOR Narrative [facility] - 11/01/2024 12:56 AM POWER PLANT OPERATOR Are special requirements needed? (All products are leukoreduced and CMV- safe)- >No Donor Source->[employer] Date required:-[id number] LRRBC # of Xyyxi-3-Eqsaq Reasons:-Intra-op transfusion} Lia Drummond MD PhD BLOOD BANK PRODUCT ORDERABLES Final Result [facility] [place] [address] * MI AN PROCEDURE PLACEHOLDER (10/31/2024 8:46 AM POWER PLANT OPERATOR) Bridgette Hobbs CRNA - 10/31/2024 8:46 AM POWER PLANT OPERATOR Bridgette Raymundo CRNA 10/31/2024 8:50 AM Peripheral IV Catheter Patient location: OR Staff: Placed by: PURNIMA: Bridgette Raymundo CRNA Preprocedure prep: Prep solution: chlorhexadine PIV line: Laterality: left Site: forearm Catheter size: 16 g Technique: direct visualization Procedure details: good blood return Number of attempts: 1 Lia Drummond MD PhD ANESTHESIA ORDERABLES Final R esult * MI AN ELECTIVE ENDOTRACHEAL AIRWAY, MI AN PROCEDURE PLACEHOLDER (10/31/2024 8:44 AM POWER PLANT OPERATOR) Bridgette Hobbs CRNA - 10/31/2024 8:44 AM POWER PLANT OPERATOR Bridgette Raymundo CRNA 10/31/2024 8:46 AM Airway Patient location: OR Urgency: elective Indications for airway management: anesthesia Difficult airway: no Staff: Placed by: CROSSCUTTER: Bridgette Raymundo CRNA Emergent airway documentation: Risks [...] esult * Check Sample (10/31/2024 7:09 AM POWER PLANT OPERATOR) ABO Rh O Positive [facility] HCLL OTHER 10/31/2024 7:09 AM POWER PLANT OPERATOR 10/31/2024 7:18 AM POWER PLANT OPERATOR us Javed Ardon MD LAB BLOOD ORDERABLES Fi nal Result Performing Organization Address [facility] Co de Phone Number [facility] Department of [employer] [place] [address] [facility] * POCT glucose (10/31/2024 7:09 AM POWER PLANT OPERATOR) Glucose, POC 107 70 - 199 mg/dL Blood 10/31/2024 7:09 AM POWER PLANT OPERATOR 10/31/2024 7:09 AM POWER PLANT OPERATOR us Javed Ardon MD LAB POCT ORDERABLES - D EVICE Final Result Performing Organization Address [facility] Co de Phone Number [facility] Department [place] [employer] [place] [address] * TYPE AND SCREEN 14 DAY (10/22/2024 2:53 PM POWER PLANT OPERATOR) Eun, indirect Negative ABO Rh O Positive YU [facility] Blood 10/22/2024 2:53 PM POWER PLANT OPERATOR 10/22/2024 5:06 PM POWER PLANT OPERATOR Narrative [facility] - 10/22/2024 6:58 PM POWER PLANT OPERATOR Is this test being ordered in advance for a procedure?->Yes Expected date of procedure:->10/31/24 Has the patient been transfused in the past 3 months?->No Has the patient been in the past 3 months?->No Annika Britton AUTOMOTIVE GENERAL SALES MANAGER LAB BLOOD BANK TEST JAYDENSunil HENRRY Final Result [facility] [place] [address] * eGFR (10/22/2024 2:53 PM POWER PLANT OPERATOR) eGFR 90 >=60 mL/min/1. 73 m2 Comment: [...] last reviewed 2021. Blood 10/22/2024 2:53 PM POWER PLANT OPERATOR 10/22/2024 4:59 PM POWER PLANT OPERATOR us Javed Ardon MD LAB BLOOD ORDERABLES Fi nal Result [facility] [place] [address] * Differential, auto (10/22/2024 2:53 PM POWER PLANT OPERATOR) Neutrophil abs 3.2 1.5 - 6.5 K/cumm Imm gran abs 0.0 0.0 - 0.1 K/cumm [facility] Lymphocyte abs 1.9 0.8 - 3.3 K/cumm [facility] Monocyte abs 0.4 0.2 - 0.8 K/cumm [facility] Eosinophil abs 0.1 0.0 - 0.5 K/cumm [facility] Basophil abs 0.0 0.0 - 0.1 K/cumm [facility] Neutrophil pct 57.2 % [facility] Comment: Interpretive Data Percent cell count reference ranges are not reported, since discordance with absolute values may lead to misinterpretation of CBC data. Current Interpretive Data was last revised on 2018. Imm gran pct 0.2 % [facility] Comment: Interpretive Data Percent cell count reference ranges are not reported, since discordance with absolute values may lead to misinterpretation of CBC data. Current Interpretive Data was last revised on 2018. Lymphocyte pct 33.3 % [facility] Comment: Interpretive Data Percent cell count reference ranges are not reported, since discordance with absolute values may lead to misinterpretation of CBC data. Current Interpretive Data was last revised on 2018. Monocyte pct 7.5 % [facility] Comment: Interpretive Data Percent cell count reference ranges are not reported, since discordance with absolute values may lead to misinterpretation of CBC data. Current Interpretive Data was last revised on 2018. Eosinophil pct 1.4 % [facility] Comment: Interpretive Data Percent cell count reference ranges are not reported, since discordance with absolute values may lead to misinterpretation of CBC data. Current Interpretive Data was last revised on 2018. Basophil pct 0.4 % [facility] Comment: Interpretive Data Percent cell count reference ranges are not reported, since discordance with absolute values may lead to misinterpretation of CBC data. Current Interpretive Data was last revised on 2018. Blood 10/22/2024 2:53 PM POWER PLANT OPERATOR 10/22/2024 4:59 PM POWER PLANT OPERATOR us Javed Ardon MD LAB BLOOD ORDERABLES Fi nal Result Performing Organization Address [facility] Co de Phone Number [facility] [employer] [place] [address] * CPAP aPTT algorithm (10/22/2024 2:53 PM POWER PLANT OPERATOR) aPTT 30 28 - 38 sec Comment: Interpretive Data Heparin therapeutic range: 66.0 - 100.0 seconds. Range based on correlation with therapeutic heparin activity range of 0.3 - 0.7 Units/mL. Current interpretive data was last revised on 2023. Blood 10/22/2024 2:53 PM POWER PLANT OPERATOR 10/22/2024 4:45 PM POWER PLANT OPERATOR Annika Britton NP LAB BLOOD ORDERABLES Fin al Result Performing Organization Address [facility] de Phone Number [facility] [employer] [place] [address] * (ABNORMAL) Urinalysis reflex to microscopic and culture Urine, clean voided (10/22/2024 2:53 PM POWER PLANT OPERATOR) Color, ur Yellow Yellow Clarity, ur Clear Clear [facility] Specific gravity, ur 1.022 1.003 - 1.030 [facility] pH, urine 5.5 [facility] Comment: Interpretive Data U rine pH is affected by diet, medications, systemic acid-base disturbances, and renal tubular function. pH may affect urinary stone formation. For example, urine pH below 6.0 may help reduce the tendency for calcium phosphate stones and pH greater than 6.0 may reduce the tendency for uric acid stone formation. Source: [facility] [employer] Current Interpretive Data was last revised on 2017 Protein, ur ql Trace Negative [facility] Glucose, ur ql Negative Negative [facility] Ketones, ur Negative Negative [facility] Bilirubin, ur Negative Negative [facility] Blood, ur Negative Negative [facility] Urobilinogen, ur <2.0 <2.0 mg/dL [facility] Nitrite, ur Negative Negative [facility] Leukocyte esterase, ur 1+(A) Negative [facility] UA reflex comment Reflex to microscopic UA will be performed. [facility] Urine, clean voided 10/22/2024 2:53 PM POWER PLANT OPERATOR 10/22/2024 4:42 PM POWER PLANT OPERATOR us Javed Ardon MD LAB MICROBIOLOGY - GENE RAL ORDERABLES Final Result [facility] [place] [address] * (ABNORMAL) CBC with auto differential (10/22/2024 2:53 PM POWER PLANT OPERATOR) WBC 5.6 3.8 - 9.9 K/cumm Hgb 11.3(L) 11.9 - 15.5 g/dL [facility] Hct 36.2 35.6 - 45.5 % [facility] Plt 195 150 - 400 K/cumm [facility] MPV 11.2 9.1 - 12.3 fL [facility] RBC 3.92 3.90 - 5.20 M/cumm [facility] MCV 92.3 81.3 - 96.4 fL [facility] MCH 28.8 27.1 - 33.3 pg [facility] MCHC 31.2(L) 32.3 - 35.7 g/dL [facility] RDW CV 12.3 11.1 - 14.9 % [facility] RDW SD 42.2 35.7 - 48.1 fL [facility] NRBC abs 0.00 0.00 - 0.01 K/cumm [facility] Blood 10/22/2024 2:53 PM POWER PLANT OPERATOR 10/22/2024 4:59 PM POWER PLANT OPERATOR Javed Ardon MD LAB BLOOD ORDERABLES Fi nal Result Performing Organization Address City/[facility] Co de Phone Number [facility] [employer] [place] [address] * Nicotine metabolite screen, urine (10/22/2024 2:53 PM POWER PLANT OPERATOR) Pathologist [facility] Nicotine, ur <5.0 <5.0 ng/mL [facility] Cotinine, ur <5.0 <5.0 ng/mL [facility] Anabasine ur <2.0 <2.0 ng/mL [facility] Comment: ADDITIONAL INFORMATION This test was developed and its performance characteristics determined by [facility] in a manner consistent with CLIA requirements. This test has not been cleared or approved by the U.S. Food and Drug Administration. Test Performed by: [place] [address] Representative: Dieudonne Antunez Ph.D.; CLIA# [id number] Nornicotine, ur <2.0 <2.0 ng/mL [facility] Urine 10/22/2024 2:53 PM POWER PLANT OPERATOR 10/22/2024 4:48 PM POWER PLANT OPERATOR Javed Ardon MD LAB URINE ORDERABLES Fi nal Result Performing Organization Address City/[facility] Co de Phone Number [facility] [place] [address] [place] [facility] * (ABNORMAL) Vitamin D 25 hydroxy (10/22/2024 2:53 PM POWER PLANT OPERATOR) [facility] Vitamin D 25-OH 9(L) 30 - 80 ng/mL Blood 10/22/2024 2:53 PM POWER PLANT OPERATOR 10/22/2024 4:59 PM POWER PLANT OPERATOR Javed Ardon MD LAB BLOOD ORDERABLES Fi nal Result Performing Organization Address [facility] de Phone Number [facility] [place] [address] * (ABNORMAL) Urinalysis, microscopic only (10/22/2024 2:53 PM POWER PLANT OPERATOR) WBC, ur 0-5 0 - 5 /HPF RBC, ur 0-2 0 - 2 /HPF [facility] Epithelial cells, squamous, ur 1-5 0 - 5 /HPF [facility] Bacteria, ur Trace(A) [facility] Mucous, ur Present(A) [facility] Hyaline casts, ur 11-20(A) 0 - 10 /LPF [facility] Culture Reflex Comment Reflex conditions for urine culture (WBC >10) not met. [facility] Urine, clean voided 10/22/2024 2:53 PM POWER PLANT OPERATOR 10/22/2024 4:42 PM POWER PLANT OPERATOR Javed Ardon MD LAB URINE ORDERABLES Fi nal Result Performing Organization Address [facility] de Phone Number [facility] [place] [address] * Protime-INR (10/22/2024 2:53 PM POWER PLANT OPERATOR) PT 11.4 9.7 - 13.0 sec INR 1.05 0.90 - 1.20 [facility] Comment: Interpretive data Oral anticoagulant therapeutic ranges: Venous thromboembolism prophylaxis or treatment: 2.0-3.0 CARDIOLOGY Standard range: 2.0-3.0 High-intensity range: 2.5-3.5 Refer to indication-specific guidelines for appropriate target ranges for prosthetic heart valve replacement. Current interpretive data was last revised on 2019. Blood 10/22/2024 2:53 PM POWER PLANT OPERATOR 10/22/2024 4:45 PM POWER PLANT OPERATOR Javed Ardon MD LAB BLOOD ORDERABLES Fi nal Result Performing Organization Address [facility]/ZIP Co de Phone Number [facility] [place] [address] * Comprehensive metabolic panel (10/22/2024 2:53 PM POWER PLANT OPERATOR) Sodium 144 135 - 145 mmol/L Potassium, pl 3.9 3.3 - 4.9 mmol/L [facility] Chloride 107 97 - 110 mmol/L [facility] CO2 29 22 - 32 mmol/L [facility] Anion gap 8 2 - 15 mmol/L [facility] BUN 16 6 - 25 mg/dL [facility] Creatinine 0.74 0.60 - 1.10 mg/dL [facility] Glucose 89 70 - 199 mg/dL [facility] Comment: Interpretive Data Fasting glucose >/= [...] 2022. Calcium 9.5 8.5 - 10.3 mg/dL [facility] Bilirubin, total 0.4 0.1 - 1.2 mg/dL [facility] Protein, pl 7.1 6.5 - 8.5 g/dL [facility] Albumin 4.2 3.5 - 5.0 g/dL [facility] Alk phos 73 40 - 130 Units/L [facility] ALT 28 7 - 45 Units/L [facility] AST 22 10 - 45 Units/L [facility] Blood 10/22/2024 2:53 PM POWER PLANT OPERATOR 10/22/2024 4:59 PM POWER PLANT OPERATOR us Javed Ardon MD LAB BLOOD ORDERABLES Fi nal Result Performing Organization Address [facility]/ZIP Co de Phone Number [facility] [place] [address] * (ABNORMAL) POCT hemoglobin A1c (10/22/2024 1:35 PM POWER PLANT OPERATOR) Hgb A1C, POC 6.3(H) 4.0 - 5.6 % Est Average Gluc POC 134 mg/dL [facility] Comment: The ADA recommends reporting an estimated Average Glucose (eAG) with all Hemoglobin A1c results using the equation derived from a study of 507 normal and diabetic adults. Minority populations were underrepresented and children were not included. (Diabetes Care 31:4719-5360, 2008). The eAG is not equivalent to a fasting glucose. Blood 10/22/2024 1:35 PM POWER PLANT OPERATOR 10/22/2024 1:35 PM POWER PLANT OPERATOR us Javed Ardon MD POINT OF CARE TEST ORDE HENRRY Final Result Performing Organization Address [facility] Co de Phone Number [facility] [place] [address] * Neuro MR Outside Reference (10/14/2024 1:03 PM POWER PLANT OPERATOR) Impressions RAD_PACS_[facility] - 10/14/2024 1:03 PM POWER PLANT OPERATOR These images are for Reference purposes only and have not been reviewed by [facility] Radiology. There will be no report generated by a [facility] Radiologist. Narrative RAD_PACS_[facility] - 10/14/2024 1:03 PM POWER PLANT OPERATOR EXAMINATION: Images For Reference Purposes Only us Javed Ardon MD IMG MRI PROCEDURES Ami l Result Performing Organization Address City/[facility] Co de Phone Number [facility] from Last 3 Months Insurance [facility] MDCR HMO REF IDPA IDPA [facility] MEDICARE ADVANTAGE [facility] MEDICARE ADVANTAGE IDPA Advance Directives For more information, please contact: [phone] * Full Code (Latest Code Status on File) Date Activated Date Inactivated Comments 10/31/2024 2:09 PM 11/02/2024 6:07 PM * Full Code Date Activated Date Inactivated Comments 02/19/2024 4:25 PM 02/22/2024 5:52 PM * Full Code Date Activated Date Inactivated Comments 02/09/2024 2:53 PM 02/10/2024 4:09 PM Care Teams Core Laying Machine Operator Relationship Specialty Start Date End Date Marely Mcclure PA PCP - General Physician Hospice Educator 02/16/22 Manisha Wihte MD [address] [facility], [address] [address] Consulting Physician Pain Management 05/10/24 Ashley Walker MD [address] [place] [address] Referring Physician Family Medicine 05/29/24 Edilia Hanna MD [address] [address] Referring Physician Family Practice 08/06/24
--- OUTSIDE RECORDS SUMMARY | 2024-12-31 17:37 | XMS_ITS | Clinical Summary ---
Author Organization [facility] Karen arana Address [address], [place] [address] Phone Care Team Providers Care Oil Lease Broker Name Role Phone Unavailable Primary Care Provider [...] Comments Blood Pressure 108/60 09/06/2023 3:49 PM PRODUCTION DIRECTOR Pulse 64 09/06/2023 3:49 PM PRODUCTION DIRECTOR Temperature - - Respiratory Rate - - Oxygen Saturation - - Inhaled Oxygen Concentration - - Weight 58.5 kg (129 lb) 09/06/2023 3:49 PM PRODUCTION DIRECTOR Height 165.1 cm (5' 5 ) 09/06/2023 3:49 PM PRODUCTION DIRECTOR Body Mass Index 21.47 09/06/2023 3:49 PM PRODUCTION DIRECTOR Plan of Treatment Upcoming Encounters Date Type Department Care Team ([facility] st Contact Info) Description 01/29/2025 1:40 PM CDT Office Visit [facility] [address] [facility] [address] [place] [address] Barbie Venegas MD [address] [place] [address] [phone] Health Maintenance Due Date Last Done Comments Diabetic Foot Exam 1970 Ophthalmology Exam 1970 Pneumococcal PPSV23 Highest Risk Adult (1 of 3 - PCV13 ) 1979 Influenza Vaccine (#1) 2024
--- OUTSIDE RECORDS SUMMARY | 2024-12-31 17:37 | XMS_ITS | Clinical Summary ---
Author Organization [facility] Address [address] [place] [address] Care Team Providers Care High School Teacher Name Role Phone Rajan Huang MD Primary Care Provider [phone] Allergies Active Allergy Reactions Criticality Noted Date [...] sugar diagnostic (ONETOUCH ULTRA BLUE TEST STRIP [facility] [place]) OneTouch Ultra Blue Test Strip Active ergocalciferol [...] STL ABSTRACTION Provider, Abstract 11/21/2024 9:45 AM MANAGER SOLAR Office Visit [facility] Oncology and Hematology - [place] [address] [place] [id number] Feliberto Vizcarra MD Chronic anemia (Primary [...] Comments Blood Pressure 172/97 11/21/2024 10:08 AM MANAGER SOLAR Pulse 82 11/21/2024 10:04 AM MANAGER SOLAR Temperature 36.6 C (97.9 F) 11/21/2024 10:04 AM MANAGER SOLAR Respiratory Rate 15 11/21/2024 10:04 AM MANAGER SOLAR Oxygen Saturation 96% 11/21/2024 10:04 AM MANAGER SOLAR Inhaled Oxygen Concentration - - Weight 51.7 kg (114 lb) 11/21/2024 10:04 AM MANAGER SOLAR Height 165.1 cm (5' 5 ) 06/10/2022 10:45 AM CDT Body Mass Index 18.97 06/10/2022 10:45 AM CDT Plan of Treatment Upcoming Encounters Date Type Department Care Team (Late st Contact Info) Description 02/14/2025 12:30 PM CDT Office Visit [facility] Oncology and Hematology - [place] [address] [place] [address] Feliberto Vizcarra MD [address] [place] [address] Health Maintenance Due Date Last [...] (2 - Td or Tdap) 05/22/[address] [place] [address] [place] [id number] MED[address]ID [place] Care Teams High School Teacher Relationship Specialty Start Date End Date Rajan Huang MD [address] [facility] [address] [place] [id number] PCP - General Internal Medicine 12/28/22
--- OUTSIDE RECORDS SUMMARY | 2024-12-31 17:37 | XMS_ITS | Clinical Summary ---
Author Organization [facility] Address [address] [place] [address] Care Team Providers Care Technical Account Executive Name Role Phone Marely Mcclure PA-C Primary Care Provider [phone] Allergies Active Allergy Reactions Criticality Noted Date [...] Comments Blood Pressure 138/88 10/23/2023 1:20 PM AIRCRAFT DISPATCHER Pulse 70 10/23/2023 1:20 PM AIRCRAFT DISPATCHER Temperature 37 C (98.6 F) 10/23/2023 1:20 PM AIRCRAFT DISPATCHER Respiratory Rate 20 12/21/2022 9:27 PM CDT Oxygen Saturation 98% 10/23/2023 1:20 PM AIRCRAFT DISPATCHER Inhaled Oxygen Concentration - - Weight 64.4 kg (142 lb) 10/23/2023 1:20 PM AIRCRAFT DISPATCHER Height 160 cm (5' 3 ) 10/23/2023 1:20 PM AIRCRAFT DISPATCHER Body Mass Index 25.15 10/23/2023 1:20 PM AIRCRAFT DISPATCHER Plan of Treatment Health Maintenance Due Date Last Done Comments Cervical Cancer Screening Pap Smear (Age 30 to 64) Every 3 Years 1960 Colorectal Cancer Screening Colonoscopy (10 Years) 1960 Annual Physical 1963 PHQ-2 (Physician [place]) 1972 Hepatitis C 1978 Cervical Cancer Screening Pap with HPV Testing (Age 30 to 64) Every 5 Years 1990 Cervical Cancer Screening with HPV 1990 Mammogram Screening 2000 Zoster Vaccines (1 of 2) 2010 COVID-19 Vaccine ( season) 2024 10/19/2021, 02/09/2021, 02/09/2021, Additional history exists Influenza Adult (#1) 2024 09/12/2013 PHQ-2 (Physician [place]) 10/09/2024 DTaP, Tdap and Td Vaccines (2 [...] 6:30 AM 05/01/2019 4:45 PM Care Teams Technical Account Executive Relationship Specialty Start Date End Date Marely Mcclure PA-C [address] [place] [phone] PCP - General NURSE PRACTITIONER 03/09/23
== END 2024-12-31 16:03 | disposition home or self-care (01) ==
PROVIDERS: Emergency Provider Emergency Medicine; PCP Physician Assistant
DX: M25.571 Pain in right ankle and joints of right foot (principal); D64.9 Anemia, unspecified; F41.9 Anxiety disorder, unspecified; M19.90 Unspecified osteoarthritis, unspecified site; J45.909 Unspecified asthma, uncomplicated; F31.9 Bipolar disorder, unspecified; E11.9 Type 2 diabetes mellitus without complications; Z86.718 Personal history of other venous thrombosis and embolism; E78.5 Hyperlipidemia, unspecified
CPT/HCPCS: 73630; 99283; A9270

== ENCOUNTER 2025-07-23 09:00 | Outpatient (RCR) | payer MEDICARE, MEDICAID, SELFPAY ==
--- NOTE | 2025-06-11 12:24 | OPREHPOC ---
Outpatient Therapy Plan of Care This is a Multidisciplinary Plan of Care that may contain components documented by all disciplines (PT, OT, and ST.) PT Problem 1 PT Problem #1 Knowledge Deficit PT Goal 1 Goal / Goal Update Pt. will demo good understanding of diagnosis and prognosis, HEPs. Target Visit 8 PT Problem 2 PT Problem #2 Pain PT Goal 1 Goal / Goal Update Pt will report 2-3/10 pain levels at worst and when moving neck and R UE. Target Visit 10 PT Problem 3 PT Problem #3 Impaired Strength PT Goal 1 Goal / Goal Update 1. Pt will improve cervical and RUE strength to 4/ 5 to all tested planes. 2. Pt will use R UE in reaching cupboards, lifting and carrying 5-6lbs. for upto 20ft. without pain. Target Visit 12
--- NOTE | 2025-06-11 12:24 | PTOPEVAL1 ---
Assessment and note entered by Payton Diaz, PT Evaluation Information Assessment Status Evaluation ICD-10 Condition Codes (PT) Cervicalgia M54.2 Subjective Information pain comes and goes, started noticing neck pain after she had back surgery. While putting decorations up, she heard a pop and intense pain to the neck. Reports worse when it rains, laying on her back, or side. Feeling pain with raising R arm up and out, turning head to look to the R side . Uses L arm to assist movement on the R, sometimes feeling arm stuck in a position and LUE have to help move it back down. Oftentimes feel unstable on her feet and wobbly when sitting. Reported Pain Level Pain Score 4: Self Report Assessment PT Clinical Summary Pt presents with c/o intense, worsening pain to neck and R shoulder and arm since the start of this year. Demos significant limitation in RUE ROM , weakness, compensatory patterns, postural impairments and muscle imbalance. She will benefit from skilled PT for pain management, to improve mobility and strength in order to improve ability to perform ADLs, IADLs and functional mobility without increased discomfort. Plan of Care Interventions Electrical Stimulation,Manual Therapy,Neuro Re- education,Patient/Caregiver Education,Therapeutic Activities,Therapeutic Exercise,Ultrasound Other Interventions Taping PT Services Indicated Yes Treatment Frequency and 2x/wk x 10 visits Duration These treatments will address the objective and functional deficits as defined above. The patient will be advanced safely and appropriately in order for the patient to progress towards his/her prior level of function. Additional exercises will be introduced and as well as a comprehensive home exercise program upon discharge, if needed, ?to ensure carryover of functional gains achieved in the clinic. This treatment plan has been reviewed and agreement upon by the patient.
--- NOTE | 2025-07-10 16:31 | PCPTNOTE ---
ADDENDUM NOTE: 07/01/2025 Neuro re-ed: Pt instructed in controlled mobility in performing cervical stretches; contract-relax stretches to improve mobility of R UE; postural correction and chin tuck exercises; cervical isometrics with manual resistance to all planes. Modalities: Ultrasound pulsed 20% duty cycle x 8 min to R traps and supraspinatus area, post and middle delts Traction: Static; Hooklying; 20 lbs pull; 10 min; Reason for treatment: nerve radiculopathy, pain management. Response for treatment: decrease nerve compression, reduce soft tissue tightness ASSESSMENT: Initiated traction today, tolerated well. pt reports both manual and mechanical traction helps with pain. NEXT TREATMENT PLAN: cont with mobility exercises and f/u on traction
--- NOTE | 2025-07-23 10:29 | PTOPDC ---
Assessment and note entered by Payton Diaz, PT Discharge Information Assessment Status Progress Diagnosis M75.101, M25.511 ICD-10 Condition Codes (PT) Cervicalgia M54.2 Subjective Information Pt reports neck and R shoulder pain is somewhat the same, feeling only 45% improvement since start of therapy. Now she is also feeling pain to the back due to the postural exercises that she do at home. Her R hand also gets numb when she moves her R arm a certain way and it feels locked in a position, needs to use her L arm to help move the R arm when it is stuck. Reported Pain Level Pain Score 4: Self Report Additional Pain Score Comments 8/10 after using the shoulders (e.g. raking leaves or cutting grass) Assessment PT Clinical Summary Pt received 9 treatment sessions of Physical Therapy for rotator cuff tear and demos slow progress with her goals. Her pain continue to persist and she continue to demo limitation of motion and strength which affects her functional mobility. She is agreeable to DC today and make an appointment with her Ortho about next best treatment due to conservative methods did not make significant improvement. Skilled PT discontinued at this time. Plan of Care PT Services Indicated No
== END 2025-07-23 14:17 | disposition home or self-care (01) ==
LOC: ANHPT 09:00
PROVIDERS: PCP Physician Assistant
DX: M54.12 Radiculopathy, cervical region (principal)
CPT/HCPCS: 97012; 97014; 97035; 97110; 97112; 97140; 97161; 97530; 97750; G0283